=== PATIENT | female | born 2000 | race Caucasian/White ===

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

== ENCOUNTER 2019-06-12 07:31 | Day surgery (SDC) | payer OTHER, SELFPAY ==
[2019-05-15 08:57] VITALS: BMI 20.7
--- NOTE | 2019-05-15 10:16 | HP_ITS ---
Intake Vital Signs 05/15/19 Height 5 ft 4 in 05/15/19 Weight: 121 lb 05/15/19 Body Mass Index (BMI) 20.7 05/15/19 Blood Pressure 138/86 H 05/15/19 Blood Pressure Location Rt brachial 05/15/19 Blood Pressure Position Sitting 05/15/19 Respiratory Rate 18 05/15/19 Pulse Rate 79 05/15/19 Pulse Source Monitor 05/15/19 Temperature 98.1 F 05/15/19 Temperature Source Oral 05/15/19 Pulse Ox 100 05/15/19 Oxygen Delivery Method room air Intake Visit Reasons: C-Scope Consult Car[employer] E[employer]ctor Required: No Is patient in pain?: No Allergies latex Allergy (Intermediate, Verified 05/15/19 08:59) Rash Medications escitalopram 20 mg tablet 20 mg PO DAILY 05/15/19 [History Confirmed 05/15/19] lubiprostone 8 mcg capsule 8 mcg PO BID 05/15/19 [History Confirmed 05/15/19] Post menopausal: No PFSH Medical History Abdominal pain (Acute) Anxiety (Acute) Constipation (Acute) Diarrhea (Acute) Nausea (Acute) Surgical History (Updated 05/15/19 @ 08:56 by Cathy Ryan) No history of previous surgery (Acute) Family History (Updated 05/15/19 @ 08:57 by Cathy Ryan) Father Diabetes Grandfather Colon cancer Diabetes Grandmother Cancer ovarian cancer Social History (Updated 05/15/19 @ 10:16 by Wilbur Casillas MD) Smoking Status: Never smoker alcohol intake: never substance use type: does not use HPI HPI HPI: JANEL DURANT, is a 18 F who presents to the office today for HPI HPI Surgical H&P: Yes HPI: JANEL DURANT, is a 18 F who presents to the office today for Alternating constipation and diarrhea. The patient reports that she had been having constipation since she was a child. She says over the last 4 weeks she has developed diarrhea instead. This is been happening daily if not more times per day. She reports some lower abdominal cramping as well. She has not had any travel recently. She also reports that she has not had any blood in her stool but she does have a grandfather who had ulcerative colitis and colon cancer. She has never had any endoscopy. ROS General General: Yes fatigue; no weight change, appetite, colon cancer, breast cancer or weakness HEENT HEENT: No difficulty swallowing, eye injury, eye surgery, swollen glands or hoarseness Endo Endocrine: No thyroid disease, diabetes mellitus, thyroid cancer, Hair loss, heat intolerance or cold intolerance Skin Skin: No rash or changing moles Breast Breast: No left breast lump, right breast lump, nipple discharge, breast pain, abnormal mammogram, abnormal US or breast enlargement Musc Musculoskeletal: No back problems, arthritis, rheumatoid arthritis, gout or joint pain Cardio Cardiovascular: No murmur, pacemaker, heart disease, atrial fibrillation, high blood pressure, heart attack, heart stent, palpitations, shortness of breat with exertion or chest pain Psych Psychiatric: Yes anxiety; no depression or hearing voices Resp Respiratory: No shortness of breath, No sleep apnea, No cough, No COPD, No asthma, No emphysema, No wheezing Gastro Gastrointestinal: Yes abdominal pain, Yes nausea or vomiting, Yes diarrhea, Yes constipation, No blood in stool, No acid reflux, No hemorrhoids, No ulcers, No gallbladder problem, No black,tarry stools Wilder Hematologic: No blood thinners, No blood disorders, No bleeding, No anemia, No blood clots Neuro Neurologic: No system reviewed and no additional complaints, except as docu, No as per HPI, No abnormal walking, No abnormal hearing, No abnormal movements, No abnormal speech, No behavioral changes, No burning sensations, No confusion, No seizure-like activity, No unsteadiness, No dizziness, No localized weakness, No frequent falls, No headache(s), No lack of coordination, No loss of vision, No memory loss, No numbness, No other visual disturbances, No radiating pain, No restless legs, No sensory deficit, No fainting, No tingling, No tremor(s), No weakness, No other Exam Const General: cooperative Orientation: alert, oriented x3 Chest Breast Palpation: No nipple discharge Resp Effort & Inspection: normal respiratory effort Auscultation: clear to auscultation bilaterally Cardio Rate: regular rate Rhythm: regular rhythm Heart Sounds: no murmurs GI Inspection: non-distended Palpation: soft, nontender Assessment & Plan Problems 1. Family history of ulcerative colitis Z83.79 2. Diarrhea, unspecified type R19.7 Plan The patient has been having 4 to 5 weeks of diarrhea and abdominal pain. She has a family history of ulcerative colitis. I do believe that a colonoscopy is warranted given the family history of ulcerative colitis especially. I will also order stool studies. I explained endoscopy in detail to the patient. I explained the risks including but not limited to stroke or heart attack with anesthesia, perforation of the GI tract, bleeding, infection. I explained that any of these could necessitate further emergency surgery. The patient understands and all questions were answered sufficiently. The patient wishes to proceed with procedure. Wilbur Casillas MD Pager: [facility] [address] [place] [address], [address] [place] [address] Office: Orders Orders: Colonoscopy Today ENTERIC PATHOGEN PANEL STOOL Today R19.7 Stool Lactoferrin/WBC Today R19.7 CDIFF (Molecular) Today R19.7 Coding Level of Care Code Off vis,new,level 3 Diagnoses Family history of ulcerative colitis Z83.79 Diarrhea, unspecified type R19.7 ??Diarrhea type: unspecified type 05/15/19 1016 <Electronically signed by Wilbur freeman MD> Date _ Wilbur Casillas MD I have re-examined the patient. There are no clinical changes since date of exam.
[2019-06-12] VITALS (7 sets, daily range): BP systolic 91–119; BP diastolic 54–73; PULSE 66–95; RESP 15–16; TEMP 36.2–36.9; O2SAT 99–100
[2019-06-12 08:02] LABS: Internal QC Validated? YES +Cl - CLEAR BKGD; Pregnancy, Urine Negative Negative
[2019-06-12] MEDS: Lactated Ringers 1,000 ML 100 ML IV (08:04)
--- NOTE | 2019-06-12 08:30 | COLBX_PTH ---
PATIENT: JANEL KHAN LOC: EN U#:[id number] AGE/SX: 18/F ROOM: RE06/12/[address]: Dr. Wilbur Casillas MD : 2000 BED: DIS: 06/12/2019 SPEC #: [id number] RECD: 06/12/19 12:51 STATUS: ROSARIO ZACHARY #: [id number] KERRIE: 06/12/19 08:[address]: Wilbur Casillas DEPT: SURGICAL PATHOLOGY RECD BY: Isaías Tinsley ENTERED: 06/12/19 13:26 SP TYPE: COLON BX OTHR DR: Dr. Zev Jefferson MD Tissues: COLON BIOPSY Procedures: Surgery Specimen Level IV HEADER OPERATION: Colonoscopy (MAC) PRE-OP DIAGNOSIS: Constipation/diarrhea alternating TISSUE SUBMITTED: Random colon biopsies MICROSCOPIC DIAGNOSIS Colon, random biopsy: Melanosis coli. AM:radha 06/15/19 MICROSCOPIC DESCRIPTION Slides are reviewed. GROSS DESCRIPTION Received in fixative is one container labeled with the patient's name and designated random colon biopsy. The specimen consists of multiple irregular fragments of light seymour soft tissue that in aggregate measure 2 x 1 x 0.1 cm. The specimen is totally submitted in one cassette. / SJ:radha 06/12/19 TC:5 CPT: 90044
--- NOTE | 2019-06-12 09:06 | OP.COLON_ITS ---
Patient Name: Kathleen Ortega Procedure Date: 06/12/2019 8:31 AM Date of : 2000 Age: 18 Procedure: Colonoscopy Indications: Abdominal pain in the left lower quadrant, Chronic diarrhea Providers: Wilbur Casillas MD Referring MD: Wilbur Casillas MD Medicines: Monitored Anesthesia Care Patient Profile: This is a 18 year old female. Refer to note in patient chart for documentation of history and physical. Last Colonoscopy: none. The patient's first colonoscopy is today. Complications: No immediate complications. Estimated blood loss: Minimal. Procedure: Pre-Anesthesia Assessment: - Prior to the procedure, a History and Physical was performed, and patient medications and allergies were reviewed. The patient's tolerance of previous anesthesia was also reviewed. The risks and benefits of the procedure and the sedation options and risks were discussed with the patient. All questions were answered, and informed consent was obtained. Prior Anticoagulants: The patient has taken no previous anticoagulant or antiplatelet agents. After reviewing the risks and benefits, the patient was deemed in satisfactory condition to undergo the procedure. After I obtained informed consent, the scope was passed under direct vision. Throughout the procedure, the patient's blood pressure, pulse, and oxygen saturations were monitored continuously. The Colonoscope was introduced through the anus and advanced to the cecum, identified by the appendiceal orifice, ileocecal valve and palpation. The colonoscopy was performed without difficulty. The patient tolerated the procedure well. The quality of the bowel preparation was good. Scope In: 8:40:42 AM Scope Withdrawal Time 0 hours 8 minutes 15 seconds Scope Out: 9:01:22 AM Total Procedure Duration Time 0 hours 20 minutes 40 seconds Findings: The entire examined colon appeared normal on direct and retroflexion views. Biopsies for histology were taken with a cold forceps from the entire colon for evaluation of microscopic colitis. Impression: - The entire examined colon is normal on direct and retroflexion views. - Biopsies were taken with a cold forceps from the entire colon for evaluation of microscopic colitis. Recommendation: - Discharge patient to home. - Resume previous diet. - Continue present medications. - Await pathology results. - Repeat colonoscopy at age 48 for screening purposes. Procedure Code(s): --- Professional --- 37834, Colonoscopy, flexible; with biopsy, single or multiple Diagnosis Code(s): --- Professional --- R10.32, Left lower quadrant pain K52.9, Noninfective gastroenteritis and colitis, unspecified CPT copyright 2017 [employer] [place] [employer]. All rights reserved. The codes documented in this report are preliminary and upon intranet developer review may be revised to meet current compliance requirements. Wilbur Casillas MD 06/12/2019 9:06:19 AM This report has been signed electronically. Number of Addenda: 0 Note Initiated On: 06/12/2019 8:31 AM
== END 2019-06-12 10:11 | disposition home or self-care (01) ==
LOC: EN 07:33 → AC 07:35
PROVIDERS: Anesthesiology; Family Provider Family Medicine; PCP Family Medicine; Referring Provider Surgery; Visit Provider Surgery
PROC: 0DJD8ZZ Inspection of Lower Intestinal Tract, Via Natural or Artificial Opening Endoscopic (ICD-10-PCS; CPT 45378; principal; 2019-06-12 08:25)
DX: K63.89 Other specified diseases of intestine (principal); F41.9 Anxiety disorder, unspecified; K58.9 Irritable bowel syndrome, unspecified; Z80.0 Family history of malignant neoplasm of digestive organs; Z79.899 Other long term (current) drug therapy
CPT/HCPCS: 45380; 81025; 88305; J7120; J2405

== ENCOUNTER → 2022-09-05 | Outpatient (CLI) | payer BC, SELFPAY ==
--- NOTE | 2022-09-05 07:24 | US_ITS ---
STUDY: ABDOMINAL ULTRASOUND - RIGHT UPPER QUADRANT REASON FOR VISIT: Female, 21 years old RUQ PAIN TECHNIQUE: Ultrasound evaluation of the right upper quadrant was performed with real-time and static vera-scale imaging. TECHNICAL QUALITY: Adequate. COMPARISON: None. FINDINGS: Liver: The liver measures 13.3 cm. There is normal echogenicity of the liver. The bile ducts are within normal limits. There is hepatic color flow. The direction of portal flow is hepatopetal. There is no demonstrated mass lesion. Gallbladder: Normal distended gallbladder. The gallbladder wall measures 2 mm. There is a negative sonographic Manning''s sign. There is no pericholecystic fluid. There are no gallstones. Common Bile Duct (C.B.D.): The common bile duct measures 3 mm. Pancreas: Normal size of the head, body and tail of the pancreas. There is normal echogenicity of the pancreas. There is no demonstrated pancreatic mass or cyst. Right Kidney: Normal size of the right kidney. The right kidney measures 10.6 cm x 6 cm x 3.8 cm. Normal renal cortex. The right cortex measures 1.4 cm. There is no demonstrated renal mass or cyst. There is no right hydronephrosis. US/Abdomen Limited IMPRESSION: Normal right upper quadrant ultrasound examination. Electronically Signed: Malcolm Kat MD at 8:38 EST ,
== END | disposition home or self-care (01) ==
PROVIDERS: PCP Physician Assistant; Visit Provider Physician Assistant
DX: R10.11 Right upper quadrant pain (principal)
CPT/HCPCS: 76705

== ENCOUNTER → 2022-12-24 | Outpatient (CLI) | payer BC, SELFPAY ==
--- NOTE | 2022-12-24 09:57 | NM_ITS ---
CLINICAL: 22-year-old female with history of right upper quadrant abdominal pain. RADIONUCLIDE HEPATOBILIARY SCINTIGRAPHY COMPARISON: Abdominal ultrasound report 09/05/2022 FINDINGS: Following the intravenous administration of 5.4 mCi of 99m Tc Mebrofenin, hepatobiliary images reveal: 1. Relatively prompt and homogeneous radiopharmaceutical concentration is noted by a normal sized liver. No parenchymal defects are identified. 2. Gallbladder activity is identified at 10 minutes post radiopharmaceutical administration. 3. Small intestinal tract is observed at 30 minutes following tracer injection. 4. Washout of the radiopharmaceutical by the hepatic parenchyma appears qualitatively normal. 5. There appears to be scintigraphic evidence of pre-CCK duodenal gastric reflux initiating at 30 minutes post tracer injection. Cholecystokinin (0.02 ug/kg) was administered intravenously over a 3-minute period. The post CCK gallbladder ejection fraction calculated at 27 minutes following Cholecystokinin administration was noted to be 36.0 % (normal greater than 35%). During 30 minutes of post CCK imaging, there is no scintigraphic evidence of reflux of the radiotracer into the common hepatic duct or refilling of the gallbladder. There is scintigraphic evidence of continued post CCK duodenal gastric reflux. NM/Hepatobilliary Img w/Pharm Int IMPRESSION: 1. A gallbladder ejection fraction calculated to be greater than 35% following the administration of Cholecystokinin makes the probability of functional hepatobiliary disease (gallbladder and/or sphincter of Oddi dyskinesia) and/or organic hepatobiliary disease (chronic acalculous cholecystitis and/or cystic duct syndrome) to be low. (Marco Garcia et al, Journal of Nuclear Medicine 32:1695, 1990). 2. There is apparent visualized scintigraphic evidence of pre-post CCK duodenal-gastric reflux. (Tre et al, Nucl Med [employer] pg. 35, 1980). Electronically Signed: Jim Macario, at 8:13 EDT ,
== END | disposition home or self-care (01) ==
LOC: NM 09:53
PROVIDERS: PCP Physician Assistant; Referring Provider Physician Assistant; Visit Provider Physician Assistant
DX: R10.11 Right upper quadrant pain (principal)
CPT/HCPCS: 78227; A9537; J2805

== ENCOUNTER → 2024-08-18 | Outpatient (CLI) | payer BC, SELFPAY ==
--- NOTE | 2024-08-18 | TONS_PTH ---
PATIENT: JANEL KHAN LOC: [facility] U#:[id number] AGE/SX: 23/F ROOM: RE08/18/[address]: Dr. Rod Bernardo MD : 2000 BED: DIS: 08/18/2024 SPEC #: [id number] RECD: 08/19/24 08:14 STATUS: ROSARIO SHARMA #: [id number] KERRIE: 08/18/24 00:[address]: Rod Bernardo DEPT: SURGICAL PATHOLOGY RECD BY: Debbie Ch ENTERED: 08/19/24 08:15 SP TYPE: TONSILS OTHR DR: MISHA Dominguez [facility] Tissues: Tonsil, NOS Procedures: Surgery Specimen Level III HEADER OPERATION: Tonsillectomy PRE-OP DIAGNOSIS: Chronic tonsillitis TISSUE SUBMITTED: Bilateral tonsils - pin on right MICROSCOPIC DIAGNOSIS Bilateral tonsils, tonsillectomy: Reactive lymphoid hyperplasia, consistent with chronic tonsillitis. Focal actinomycosis colonization. SJ: 08/20/2024 MICROSCOPIC DESCRIPTION Slides are reviewed. GROSS DESCRIPTION Received is one container labeled with the patient's name and designated tonsils - pin on right are two tonsils that in aggregate weigh 6.9 gm. The right tonsil has a pin-tie on it and measures 3 x 2 x 1.2 cm. The left tonsil measures 2.8 x 2 x 1.5 cm. Both tonsils are similar in appearance. The external surfaces are pink-seymour, smooth, glistening and somewhat lobulated. Focally they are hemorrhagic, granular and bear cautery artifact. Serial cross sections through the tonsils reveal normal tonsillar architecture. Sections are submitted in two cassettes as follows: 1 - right tonsil, 2 - left tonsil. NINA. 08/19/2024 TC:3 CPT: 67792 x2
== END | disposition home or self-care (01) ==
PROVIDERS: PCP Physician Assistant; Referring Provider Otolaryngology; Visit Provider Otolaryngology
DX: J35.01 Chronic tonsillitis (principal)
CPT/HCPCS: 88304

== ENCOUNTER 2024-08-22 17:00 | Emergency (ER) | payer BC, SELFPAY ==
[2024-08-22 17:01] VITALS: BP 126/91; PULSE 114; RESP 15; TEMP 36.8; O2SAT 100; BMI 19.9
--- NOTE | 2024-08-22 17:37 | EX.ED.DYSGE1 ---
HPI History of Present Illness Chief Complaint: Sore Throat Informant: patient Narrative Narrative: Patient is a 23-year-old female who is 4 days status post tonsillectomy with Dr. Bernardo. She states the first 2 days she was doing okay but then yesterday evening developed some vomiting. Since then she has had increased pain as well as vomiting. She has had some chills, mild cough and a temperature of 99.8. She has Zofran ODT at home but is not helping. She is not able to keep her pain medicine down. She denies any bleeding from her throat. Denies any shortness of breath difficulty breathing. Denies abdominal pain but more so just stomach feels upset from not eating. Having a hard time eating and drinking. Spoke with her surgeon who recommend she come to the ER for medications and fluids. No sick contacts reported. Patient is not concern for control. Only a medical history of PCOS. No other complaints or concerns reported at this time. States she has not had a bowel movement since her surgery but is passing gas. PFSH PFS Medical History Low vitamin D level Fatigue RUQ pain Amenorrhea Irritable bowel syndrome with constipation Eating disorder PCOS (polycystic ovarian syndrome) Constipation Diarrhea Nausea Abdominal pain Anxiety Home Medications ?Medication ?Instructions ?Recorded ?Last Taken ?Type Control Pill 1 tab PO DAILY 06/10/19 Unknown History fluoxetine 40 mg capsule 40 mg PO DAILY 09/26/22 Unknown History omeprazole 20 mg capsule,delayed 20 mg PO DAILY 09/26/22 Unknown History release metoclopramide HCl 5 mg tablet 5 mg PO Q6H PRN nausea and 08/22/24 Unknown Rx (Reglan) vomiting #20 tabs promethazine 25 mg rectal 25 mg TN Q6H PRN nausea and 08/22/24 Unknown Rx suppository vomiting #12 ea Allergy/AdvReac Type Severity Reaction Status Date / Time latex Allergy Intermediate Rash Verified 08/22/24 17:01 Family History Father Diabetes Grandfather Colon cancer Diabetes Grandmother Cancer ovarian cancer Surgical History No history of previous surgery Social History Smoking Status: Never smoker alcohol intake: never substance use type: does not use ROS ROS ED Constitutional Constitutional ED: Reports chills, fever(s) and other Details: Low-grade with Tmax of 99.8 ENT ENT ED: Reports sore throat and other Details: Recent tonsillectomy Cardiovascular Cardiovascular: Denies chest pain Respiratory/Chest Respiratory/Chest: Reports cough; Denies dyspnea Gastrointestinal Gastrointestinal: Reports constipation, nausea and vomiting; Denies abdominal pain or diarrhea Musculoskeletal Musculoskeletal: Denies myalgias Integumentary Denies rash Neurologic Neurologic: Reports weakness Hematologic/Lymphatic Hematologic/Lymphatic: Denies easy bleeding or easy bruising EXAM Physical Exam Const Vital Signs: 08/22/24 17:01 08/22/24 19:01 08/22/24 21:00 Temperature 98.2 F Temperature Source Oral Pulse Rate 114 H 89 Respiratory Rate 15 Blood Pressure 126/91 H 101/78 117/87 H Blood Pressure Mean 102 85 97 Pulse Ox 100 100 Oxygen Delivery Method Room Air 08/22/24 21:43 Temperature 97.6 F L Temperature Source Pulse Rate 89 Respiratory Rate 16 Blood Pressure 117/87 H Blood Pressure Mean 97 Pulse Ox 100 Oxygen Delivery Method Positive well nourished and well developed General Appearance ED: well developed and NAD; Negative for pallor HEENT Reports moist mucous membranes HEENT Narrative: Eschar in the oropharynx with no active bleeding consistent with recent tonsillectomy. Uvula is midline. No trismus. Eyes PERRL and EOMs intact bilaterally Neck supple Resp normal respiratory effort and clear to auscultation bilaterally Cardio regular rhythm Rate: tachycardic GI normal to inspection, nondistended, normoactive bowel sounds and non-tender Extremity normal to inspection General Extremety ED: Negative for edema General Extremity: Negative for edema Neuro oriented x3 Sensorium / Orientation: alert Motor Exam: Negative for general weakness Psych mental status grossly normal Skin no rashes or lesions noted General Skin Exam: Negative for jaundice or pallor MDM MDM MDM Narrative Medical decision making narrative: Patient is evaluated for nausea, vomiting increased pain status post tonsillectomy. She is postop day 4. She overall is well-appearing but is tachycardic. I suspect this is more of a pain control/dehydration situation. Will obtain labs looking for signs of electrolyte normalities. She is not any signs of bleeding or complication associated with the surgery itself. She does report low-grade temperature and chills so we will look for signs of infection such as influenza and urinary tract infection. She has not made any respiratory symptoms suspicion for pneumonia. She is 100 on room air with no increased work of breathing. Do not think chest x-ray is indicated. Patient does have a leukocytosis of 16.5 with no left shift. I suspect this is more reactive. Hemoglobin normal at 13.4. Normal platelets. CMP shows mild hyponatremia sodium 133, normal kidney function, normal liver enzymes. Bicarb mildly low at 28 consistent with dehydration. Urinalysis does show 150 ketones but is not consistent with infection. Urine is negative Patient does report episode of chest pressure and discomfort after receiving morphine. Obtain EKG but suspect this is more of a side effect of the morphine than anything that is ACS. In addition patient does have further episode of vomiting after receiving Zofran and my reevaluation. She overall was feeling better. Will give another liter of fluid and Reglan. Did discuss the case with her surgeon, Dr. Art. He is fine with one-time dose of Toradol and also recommends one-time dose of Decadron. Plan to work on getting her feeling better and discharged home. EKG sinus tachycardia with T wave inversions in inferior leads as well as V5 and V6, no reciprocal changes. Chest pain has resolved. Troponins added on which is normal. Patient is unaware of having any history of abnormal EKGs. The EKG is not consistent with her presentation today which is vomiting and postoperative pain/dehydration. Patient is instructed to follow-up with her primary care doctor for further outpatient evaluation of her abnormal EKG. Is informed of this. Is given return precautions from the standpoint. Given no hypoxia or tachypnea or shortness of breath do not suspect associated with pulmonary emboli. Is feeling improved. Tachycardia has resolved. Is able to tolerate p.o. challenge. Will be discharged home and is given a prescription for Reglan as well as Phenergan suppositories for further nausea and vomiting control. Will follow-up outpatient with her ENT doctor. Lab Data Attestation: I reviewed the patient's lab results. Labs: Laboratory Results - last 24 hr 08/22/24 08/22/24 08/22/24 17:48 17:53 18:02 WBC 16.5 H RBC 4.61 Hgb 13.4 Hct 39.0 MCV 84.6 MCH 29.1 MCHC 34.4 RDW Std Deviation 35.9 RDW Coeff of Diana 11.8 Plt Count 282 MPV 9.8 Immature Gran % (Auto) 0.600 Neut % (Auto) 85.6 H Lymph % (Auto) 7.2 L [place] % (Auto) 5.9 Eos % (Auto) 0.3 Baso % (Auto) 0.4 Absolute Neuts (auto) 14.1 H Absolute Lymphs (auto) 1.19 Nucleated RBC % 0 Sodium 133 L Potassium 3.6 Chloride 101 Carbon Dioxide 20.0 L Anion Gap 12 BUN 9 Creatinine 0.48 L Estim Creat Clear Calc 148.77 Est GFR (MDRD) Af Amer 204 Est GFR (MDRD) Non-Af 169 BUN/Creatinine Ratio 18.9 Glucose 103 Calcium 9.5 Total Bilirubin 0.40 AST 12 L ALT 25 Alkaline Phosphatase 82 Troponin I High Sens Total Protein 8.3 H Albumin 3.9 Globulin 4.4 H Albumin/Globulin Ratio 0.9 Lipase 53 Urine Color Straw Urine Clarity Sl. Cloudy Urine pH 6.0 Ur Specific [place] 1.030 Urine Protein 30 H Urine Glucose (UA) Normal Urine Ketones 150 A* Urine Occult Blood Negative Urine Nitrite Negative Urine Bilirubin Negative Urine Urobilinogen Normal Ur Leukocyte Esterase 100 H Urine RBC 0 SEEN Urine WBC 0-5 SEEN Ur Squamous Epith Cells 0-5 SEEN Urine Bacteria 0 SEEN Urine Mucus 0 SEEN Urine Test Negative 08/22/24 19:32 WBC RBC Hgb Hct MCV MCH MCHC RDW Std Deviation RDW Coeff of [place] Plt Count MPV Immature Gran % (Auto) Neut % (Auto) Lymph % (Auto) [place] % (Auto) Eos % (Auto) Baso % (Auto) Absolute Neuts (auto) Absolute Lymphs (auto) Nucleated RBC % Sodium Potassium Chloride Carbon Dioxide Anion Gap BUN Creatinine Estim Creat Clear Calc Est GFR (MDRD) Af Amer Est GFR (MDRD) Non-Af BUN/Creatinine Ratio Glucose Calcium Total Bilirubin AST ALT Alkaline Phosphatase Troponin I High Sens < 3 L Total Protein Albumin Globulin Albumin/Globulin Ratio Lipase Urine Color Urine Clarity Urine pH Ur Specific [place] Urine Protein Urine Glucose (UA) Urine Ketones Urine Occult Blood Urine Nitrite Urine Bilirubin Urine Urobilinogen Ur Leukocyte Esterase Urine RBC Urine WBC Ur Squamous Epith Cells Urine Bacteria Urine Mucus Urine Test Rhythm Strip Rhythm Strip: Sinus Tach Rate: 104 Ectopy: None EKG Initial EKG: Attestation: I personally reviewed and interpreted this EKG as follows: Interpretation: Sinus Tachycardia Comments: Sinus tachycardia rate 104 bpm Normal axis Normal intervals T wave inversions in inferior leads as well as V3 through V6 with no reciprocal changes Prior EKG tracings: not available for review Prior: No Prior Management 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 Discharge Plan Triage Chief Complaint: Sore Throat ED Provider: Lizbeth Nolasco Dx/Rx/DC Orders Clinical Impression: Acute dehydration, Post-operative pain, Nausea & vomiting, Abnormal ECG Instructions: ED Dehydration (Adult), ED Post Op Wound Check, Pain Prescriptions: New metoclopramide HCl [Reglan] 5 mg tablet 5 mg PO Q6H PRN (Reason: nausea and vomiting) Qty: 20 0RF promethazine 25 mg suppository 25 mg TN Q6H PRN (Reason: nausea and vomiting) Qty: 12 0RF No Action fluoxetine 40 mg capsule 40 mg PO DAILY omeprazole 20 mg capsule,delayed release(DR/EC) 20 mg PO DAILY Control Pill 1 tab PO DAILY Primary Care Provider: Zayra Carrizlaes Referrals: Zayra Carrizales, MISHA [Primary Care Provider] - Activity Restrictions/Additional Instructions: You were given IV fluid, pain and nausea medicine. YOu all received a dose of steroids. Continue to push fluids at home. While in the ER an EKG was checked because of an episode of chest pain after receiving the morphine. Your EKG was abnormal. I do not think it is related to your symptoms today and you do not have any significant electrolyte abnormalities on your labs. Please follow-up with your primary care doctor for further outpatient evaluation of this abnormal EKG Print Language: Sudanese Disposition Disposition: Home, Self Care Discharge Date/Time: 08/22/24 21:59
[2024-08-22 17:54] LABS: Bacteria 0 SEEN /hpf (None Seen); Mucous, Urine 0 SEEN /hpf (<or=2+); Red Blood Cells-Urine 0 SEEN /hpf (0-5)
[2024-08-22 17:56] LABS: Color, Urine Straw (Yellow); Glucose, Dipstick Normal (Normal); Leukocyte Esterase-Dipstick 100 /ul (Negative); Nitrite-Dipstick Negative (Negative); Occult Blood-Urine Negative /ul (Negative); Protein-Dipstick 30 mg/dl (Negative); Urine Bilirubin Dipstick Negative (Negative); Urine Clarity Sl. Cloudy (Clear); Urine Urobilinogen Normal (Normal)
[2024-08-22 18:03] LABS: Ketone-Dipstick 150 mg/dl (Negative); Squamous Epithelial Cells - UA 0-5 SEEN /hpf (5-10); White Blood Cells 0-5 SEEN /hpf (0-5)
[2024-08-22 18:04] LABS: Internal QC Validated? YES +Cl - CLEAR BKGD; Pregnancy, Urine Negative Negative
[2024-08-22] MEDS: Ondansetron 4 MG/2 ML Vial IV (18:04)
[2024-08-22] MEDS: Ketorolac 15 MG/ML Vial IM (18:04)
[2024-08-22] MEDS: 0.9% Normal Saline (1000mL) 1,000 ML 1000 ML IV (18:04)
[2024-08-22] MEDS: Morphine 4 MG/ML Syringe IV (18:05)
[2024-08-22 18:07] LABS: Absolute Lymphocyte Count 1.19 X10^3/uL (0.83-4.51); Absolute Neutrophil Count 14.1 X10^3/uL (2.0-7.7); Basophil# 0.06 X10^3/uL; Basophil% 0.4 % (0-1); Eosinophil# 0.05 X10^3/uL; Eosinophils% 0.3 % (0-5); Hemoglobin 13.4 g/dL (12.0-15.0); Lymphocyte # 1.19 X10^3/ul (0.83-4.51); Lymphocyte % 7.2 % (19-41); Mean Corp Hgb Conc 34.4 g/dL (32-36); Mean Corpuscular Hgb 29.1 pg (27.0-32.0); Mean Corpuscular Volume 84.6 fL (81-99); Mean Platelet Vol. 9.8 fl (6.2-12.0); Monocyte# 0.97 X10^3/uL; Monocyte% 5.9 % (0-10); NRBC Flagged by Analyzer 0 % (0-5); Neutrophil # 14.13 X10^3/uL (2.7-7.7); Neutrophil % 85.6 % (47-70); Platelet Count 282 K/mm3 (150-450); RBC Distribution Width CV 11.8 % (11.6-14.6); RBC Distribution Width SD 35.9 fl (35.1-43.9); Red Blood Count 4.61 M/mm3 (4.2-5.4); White Blood Count 16.5 K/mm3 (4.4-11.0)
[2024-08-22 18:19] LABS: ALB/GLOB Ratio 0.9 RATIO (0.9-2.4); AST(SGOT) 12 U/L (15-37); Alanine Aminotransfer ALT/SGPT 25 U/L (13-56); Albumin, Serum 3.9 g/dL (3.2-5.0); Alkaline Phosphatase 82 U/L (45-117); Anion Gap 12 (5-15); BUN 9 mg/dL (7-18); BUN/Creat Ratio 18.9 RATIO (10-20); Calcium,Total 9.5 mg/dL (8.5-10.1); Chloride 101 mmol/L (98-107); Creatinine, Serum 0.48 mg/dL (0.55-1.02); EST Glomerular Filtration Rate 169 mL/min (>60); Est Glom Filt Rate - Afr Amer 204 mL/min (>60); Estimated Creatinine Clearance 148.77 ml/min; Globulin 4.4 g/dL (2.2-4.2); Glucose 103 mg/dL (74-106); Lipase 53 U/L (13-75); Potassium 3.6 mmol/L (3.5-5.1); Protein, Total 8.3 g/dL (6.4-8.2); Sodium Level 133 mmol/L (136-145)
[2024-08-22 19:01] VITALS: BP 101/78
--- NOTE | 2024-08-22 19:12 | EKG12_ITS ---
Test Reason : CP Blood Pressure : */* mmHG Vent. Rate : 104 BPM Atrial Rate : 104 BPM P-R Int : 128 ms QRS Dur : 74 ms QT Int : 320 ms P-R-T Axes : 71 73 -61 degrees QTcB Int : [address] & T wave abnormality, consider inferior ischemia Abnormal ECG Confirmed by JEREMY AGUAYO, PAGE ([id number]), general expeditor TUCKER SMITH ([id number]) on 08/24/2024 8:20:27 AM Referred By: Confirmed By: PAGE LUNA MD
[2024-08-22] MEDS: Mag Hydrox/Al Hydrox/Simeth 30 ML UDC PO (19:18)
[2024-08-22] MEDS: Lidocaine 2% Viscous15 ML UDC 15 ML PO (19:18)
[2024-08-22] MEDS: dexAMETHasone 10 MG/ML Vial 6 MG IV (19:18)
[2024-08-22] MEDS: Metoclopramide 10 MG/2 ML Vial 5 MG IV (19:26)
[2024-08-22] MEDS: 0.9% Normal Saline (1000mL) 1,000 ML 999 ML IV (19:26)
[2024-08-22 19:55] LABS: Troponin-I HS < 3 pg/mL (3.0-54.0)
[2024-08-22 21:00] VITALS: BP 117/87; PULSE 89; O2SAT 100
[2024-08-22 21:43] VITALS: BP 117/87; PULSE 89; RESP 16; TEMP 36.4; O2SAT 100
== END 2024-08-22 21:59 | disposition home or self-care (01) ==
PROVIDERS: Emergency Provider Emergency Medicine; PCP Physician Assistant; Visit Provider Emergency Medicine
DX: E86.0 Dehydration (principal); G89.18 Other acute postprocedural pain; J02.9 Acute pharyngitis, unspecified; R11.2 Nausea with vomiting, unspecified; R94.31 Abnormal electrocardiogram [ECG] [EKG]; R07.89 Other chest pain; E87.1 Hypo-osmolality and hyponatremia; E28.2 Polycystic ovarian syndrome; F41.9 Anxiety disorder, unspecified; Z90.89 Acquired absence of other organs; Z79.899 Other long term (current) drug therapy
CPT/HCPCS: 80053; 81001; 81025; 83690; 84484; 85025; 87631; 93005; 96361; 96372; 96374; 96375; 99283; A4216; J2405

== ENCOUNTER → 2024-10-13 | Outpatient (CLI) | payer BC, SELFPAY ==
--- NOTE | 2024-10-13 12:45 | STEWCON_ITS ---
Reason For Study Reason For Study: Abnormal EKG Stress Results Protocol: Stress echocardoigram with Definity Emeterio Protocol Maximum Predicted HR: 195 bpm Target HR: 166 bpm % Maximum Predicted HR: 101 % DurationHeart Rate Stage (mm:ss) (bpm) BP Comment Baseline 83 122/76Patient denies chest pain Stage 1 3:00 113 110/70Patient denies chest pain Stage 2 3:00 148 110/72Patient denies chest pain Stage 3 3:00 181 134/74Patient denies chest pain Stage 4 2:00 196 142/64Patient complains of lightheadness and leg fatgiue Recovery 100 114/64Definity 2ml total used per protocol Stress Duration: 11:00 mm:ss Maximum Stress HR: 196 bpm Baseline Echocardiogram Findings Stress Echo Wall motion Data Resting WM Intermediate WM Stress WM ECHO/Stress Test Echo W/Contrast Interpretation Summary Exercise stress echo with Definity enhancement. 23-year-old lady with a history of chest pain. Resting EKG demonstrates normal sinus rhythm with a rate of 71 bpm. Resting blo od pressure is 122/76 mmHg. The patient exercised according to regular Emeterio protocol for total duration of 11 minutes completing 2 minutes into stage IV of the Emeterio protocol the maximum heart rate attained was 196 bpm which was 100% max i mpacted heart rate the maximum workload was 13.4 metabolic equivalents. The rate-pressure product was 27,800. The peak blood pressure 142/64 mmHg. No clinical angina was noted the tach test was terminated due to the target heart rate bein g achieved. Stress echocardiogram. The resting echocardiogram demonstrated preserved ejecti on fraction with Definity enhancement. The estimated ejection fraction was 55%. With stress imaging there was reductio n of low ventricular cavity size and peaking of ejection fraction over 65%. No new wall motion abnormalities were no jocy. Conclusion: Exercise stress echocardiogram with no evidence of ischemia at a high workload. Normal resting and stress echocardiographic imaging. Ordering Physician: Zayra Carrizales Referring Physician: Zayra Carrizales Performed By: Cathy Lin, BERNARD, RVT
== END | disposition home or self-care (01) ==
PROVIDERS: PCP Physician Assistant; Referring Provider Physician Assistant; Visit Provider Physician Assistant
DX: R94.31 Abnormal electrocardiogram [ECG] [EKG] (principal)
CPT/HCPCS: 93017; 93350; Q9957; A4216; C8928

== ENCOUNTER → 2025-01-09 | Outpatient (CLI) | payer BC, SELFPAY ==
--- OUTSIDE RECORDS SUMMARY | 2025-01-09 09:33 | XMS RPT_ITS | CCD ---
Author Organization [facility] Care Team Providers Care Back Tender Fourdrinier Name Role Phone IVETTE MCCRACKEN Unavailable Unavailab le IVETTE MCCRACKEN Unavailable Unavailab ZEV Sierra Unavailable Unavailable ZEV MCKINNEY Unavailable Unavailable ZINA, WILLY J Unavailable Unavailable ZINA, WILLY J Unavailable Unavailable Gilbert GARAY Unavailable Unavailable ZINA, WILLY J Unavailable Unavailable ZEV MCKINNEY Unavailable Unavailable NEGRITA MEJIA Attending Unavail able CARRIZALES, ZAYRA J Primary Care Unavailable CARRIZALES, ZAYRA J Consulting Unavailable CARRIZALES, ZAYRA J Attending Unavailable CARRIZALES, ZAYRA J Admitting Unavailable PROVIDER, UNKNOWN Consulting Unavailable CARRIZALES, ZAYRA J Primary Care Unavailable CARRIZALES, ZAYRA J Consulting Unavailable CARRIZALES, ZAYRA J Attending Unavailable CARRIZALES, ZAYRA J Admitting Unavailable PROVIDER, UNKNOWN Consulting Unavailable Zayra Carrizales PA-C J Primary Care Provider All ONOFRE Zayra J Primary Care Provider Eder FINN, Dennis Magui Unavailable All ONOFRE Zayra J Unavailable Fadumo Carrizales PA-Cissa J Unavailable Dr. Harjeet Thakur Unavailable General Surgery Provider Unavailable Unavail able Gastroenterology Provider Unavailable Unajuan Smith LPN, Raysa Unavailable Unavaillarry Warren MD, Ese Lance Unavailable Jerardo ZIEGLER, Bernie Unavailable Zev Mckinney MD Unavailable Day DIGITAL FORENSICS EXAMINER, Erica Unavailable Unavailable Atif REGALADON, Maira Unavailable Unavailable Leila Jimenez MA Unavailable Unavailable Rashad ALSTON, Andree Berg Unavailable Unavaila ble Antonio DIGITAL FORENSICS EXAMINER, Donald Unavailable Unavailable Mutersbaugh DIGITAL FORENSICS EXAMINER, Jes K Unavailable Unavai lable Mary Anne DIGITAL FORENSICS EXAMINER, Ese M Unavailable Unavailab le [place] DIGITAL FORENSICS EXAMINER, Dunia Tiwari Unavailable Unavailab le Serenity MA, Reshma Unavailable Unavailable Uptain CNM, Crystal K Unavailable [phone] Vess DIGITAL FORENSICS EXAMINER, Neare L Unavailable Unavailable Wengerd DIGITAL FORENSICS EXAMINER, Radha Unavailable Unavailabl e Zaugg DIGITAL FORENSICS EXAMINER, Yocasta Unavailable Unavailable Unavailable Unavailable Unavailable Unavailable Cornelius AGUAYO, Zach Hunter Unavailable [phone] Liban DIGITAL FORENSICS EXAMINER, Reshma Unavailable Unavailable Brock ONOFRE, Brittney Canales Unavailable [phone] [facility] Unavailable [facility] Attending Unavailable Zayra Cagle Primary Care Provider Dr. Rod Bernardo MD Attending Provider Dr. Rod Bernardo MD Referring Provider Dr. Lizbeth Nolasco DO Attending Provider Dr. Lizbeth Nolasco DO Emergency Provider Zayra Cagle Attending Provider Zayra Cgale Referring Provider Adrianne AGUAYO, Dr. Redmond Attending Provider MARYLIN BUSTAMANTE Attending Unavailable CARRIZALES, ZAYRA J Primary Care Unavailable MARYLIN BUSTAMANTE Admitting Unavailable MARYLIN BUSTAMANTE Referring Unavailable CARRIZALES, ZAYRA J Primary Care Unavailable MARYLIN BUSTAMANTE Attending Unavailable CARRIZALES, ZAYRA J Primary Care Unavailable MARYLIN BUSTAMANTE Attending Unavailable CARRIZALES, ZAYRA J Primary Care Unavailable PASKEY, ZAYRA FILEMON Attending Unavailable CARRIZALES, ZAYRA J Primary Care Unavailable PASKEY, ZAYRA FILEMON Referring Unavailable CARRIZALES, ZAYRA J Primary Care Unavailable PASKEY, ZAYRA FILEMON Admitting Unavailable PASKEY, ZAYRA FILEMON Attending Unavailable CARRIZALES, ZAYRA J Primary Care Unavailable MARYLIN BUSTAMANTE Attending Unavailable CARRIZALES, ZAYRA J Primary Care Unavailable PASKEY, ZAYRA FILEMON Admitting Unavailable ASHLEY BANKS Attending Unavailabl e CARRIZALES, ZAYRA J Primary Care Unavailable PASKEY, ZAYRA COLBERT Admitting Unavailable CARRIZALES, ZAYRA J Primary Care Unavailable ALICE, ZAYRA COLBERT Attending Unavailable Lizbeth Nolasco Attending Unavailable Carrizales PA, Zayra Primary Care Unavailable Carrizales PA, Zayra Primary Care Unavailable Adrianne, Ruy Attending Unavailable Adrianne, Ruy Referring Unavailable Carrizales PA, Zayra Referring Unavailable Carrizales PA, Zayra Primary Care Unavailable Adrianne, Graham Attending Unavailable Adrianne, Ruy Attending Unavailable Carrizales PA, Zayra Primary Care Unavailable Rod Bernardo Attending UnavailRod Dangelo Referring Unavailabl e Carrizales PA, Zayra Primary Care Unavailable Carrizales PA, Zayra Referring Unavailable Carrizales PA, Zayra Primary Care Unavailable Carrizales PA, Zayra Attending Unavailable Allergies Allergy Classification Reported Allergen(s) Allergy Type Date of Onset Reaction(s) Facility (20 sources) Latex; Translations: [Latex] Propensity to adverse reactions (disorder) 9 [facility] Repository Medications Current Medications Medication Drug Class(es) Dates Sig (Normalized) Sig (Original) acetaminophen 32 mg/ml oral solution (2 sources) take 650 mg by mouth every four hours acetaminophen (TYLENOL) 650 mg/20.3 mL Soln Take 20.3 mL (650 mg total) by mouth every 4 (four) hours . Active Control Pill (2 sources) Start: 06-10-2019 take 1 dose by mouth once daily Control Pill Active 1 {tbl} PO DAILY June 10, 2019 1:00am Start: 06-10-2019 take 1 tablet by mouth once da jose Control Pill Active 1 TABLET PO DAILY June 10, 2019 12:00am colestipol hydrochloride 1000 mg oral tablet (3 sources) Bile Acid Sequestrant Start: 04-24-2023 End: 05-24-2023 take 1 tablet by mouth twice daily colestipoL (Colestid) 1 gram tablet Take 1 (one) tablet (1 g total) by mouth 2 (two) times a day . 60 tablet 0 04/24/2023 Active dicyclomine hydrochloride 20 mg oral tablet (20 sources) Anticholinergic Start: 02-06-2023 End: 05-20-2024 dicyclomine (BENTYL) 20 mg tablet 1 (one) tablet (20 mg total) 4 (four) times a day before meals and nightly PRN . 02/06/2023 Active Start: 01-25-2016 End: 12-13-2016 take 1 capsule by mouth three times daily as needed Bentyl 10 MG Oral Capsule ; 1 Capsule TID as needed for 0 days Quantity: 60 {Capsule} Refills: 5 Ordered: 13-Dec-2016 TONEY Roberts Start: 25-Jan-2016 End: 13-Dec-2016 Status: Inactive Comments: Medication taken as needed. Comment on above: Medication taken as needed. Doxylamine (20 sources) doxylamine succi karrie (UNISOM, DOXYLAMINE, ORAL) Take by mouth at bedtime . Active doxylamine succi karrie (UNISOM, DOXYLAMINE, ORAL) Take by mouth at bedtime . 0 Active ergocalciferol 1.25 mg oral capsule (20 sources) Provitamin D2 Compound Start: 01-10-2023 End: 05-20-2024 take 1 capsule by mouth every week ergocalciferol (ERGOCALCIFEROL) 1,250 mcg (50,000 unit) capsule Take 1 (one) capsule (50,000 Units total) by mouth once a week . 03/03/2023 Active FLUoxetine 40 mg oral capsule (20 sources) Serotonin Reuptake Inhibitor Start: 09-26-2022 take 1 capsule by mouth once daily FLUoxetine (PROZAC) 40 MG capsule Take 1 (one) capsule (40 mg total) by mouth nightly . 01/10/2023 Active Comment on above: dose increase ibuprofen 600 mg oral tablet (1 source) Nonsteroidal Anti-inflammatory Drug Start: 11-24-2024 End: 12-24-2024 take 1 tablet by mouth every six hours as needed for pain ibuprofen (ADVIL,MOTRIN) 600 MG tablet Take 1 (one) tablet (600 mg total) by mouth every 6 (six) hours as needed for pain . 30 tablet 11/24/2024 3:51 PM EDT 11/24/2024 12/24/2024 Active letrozole 2.5 mg oral tablet (17 sources) Aromatase Inhibitor Start: 05-19-2024 End: 06-29-2024 take 2 tablets by mouth once daily, then take 3 tablets by mouth once daily letrozole (FEMARA) 2.5 mg tablet Indications: PCOS (polycystic ovarian syndrome) Take 2 (two) tablets (5 mg total) by mouth daily Start on cycle day 3 and take daily for 10 days . 20 tablet 06/19/2024 Active Start: 04-21-2024 End: 05-19-2024 letrozole (FEMARA) 2.5 mg ta blet Indications: PCOS (polycystic ovarian syndrome) Take 1 (one) tablet (2.5 mg total) by mouth daily Start on cycle day 3 and take daily x 5 days for 5 days . 5 tablet 04/21/2024 05/19/2024 Discontinued (Reorder (Suppress CancelRx Message to Pharmacy)) magnesium glycinate-mag oxid e 120 mg magnesium cap (20 sources) take 1 capsule by mo uth at bedtime magnesium glycinate-mag oxide 120 mg magnesium cap Take 1 (one) capsule (120 mg total) by mouth at bedtime . Active take 1 capsule by mouth at bedti ri magnesium glycinate-mag oxide 120 mg magnesium cap Take 1 (one) capsule (120 mg total) by mouth at bedtime . 0 Active metoclopramide 5 mg oral tablet (1 source) Dopamine-2 Receptor Antagonist Start: 08-22-2024 take 1 tablet by mouth every six hours as needed for nausea and vomiting Metoclopramide Hcl (Reglan) 5 mg tablet Active 5 mg PO EVERY 6 HOURS as needed for nausea and vomiting August 22, 2024 10:33pm omeprazole 20 mg delayed release oral capsule (20 sources) Proton Pump Inhibitor Start: 12-31-2024 omeprazole 20 mg capsule,delayed release ; 1 (one) Capsule 30 minutes before first meal of day for 0 days Quantity: 30 {Capsule} Refills: 0 Ordered: 31-Dec-2024 KINGSTON Carrizales Start: 31-Dec-2024 Start: 11-23-2024 omeprazole 20 mg capsule,delayed release ; 1 (one) Capsule 30 minutes before first meal of day for 0 days Quantity: 30 {Capsule} Refills: 0 Ordered: 23-Nov-2024 KINGSTON Carrizales Start: 23-Nov-2024 Start: 03-04-2023 End: 09-19-2023 take 1 tablet by mouth twice daily omeprazole (PRILOSEC OTC) 20 MG tablet Take 1 (one) tablet (20 mg total) by mouth 2 (two) times a day . 60 tablet 5 09/19/2023 Active Start: 08-31-2022 omeprazole 20 mg capsule,delayed release ; 1 (one) Capsule 30 minutes before first meal of day for 0 days Quantity: 30 {Capsule} Refills: 0 Ordered: 07-Sep-2024 MD Zev Mckinney Start: 07-Sep-2024 End: 04-12-2023 take 1 capsule by mouth twice daily omeprazole (PRILOSEC) 20 MG capsule Take 1 (one) capsule (20 mg total) by mouth 2 (two) times a day 20-40 mg daily . 0 04/12/2023 Discontinued (Patient's Request) ondansetron 4 mg oral tablet (20 sources) Serotonin-3 Receptor Antagonist Start: 03-04-2023 End: 03-11-2023 take 1 tablet by mouth every eight hours as needed for nausea ondansetron (ZOFRAN) 4 MG tablet Take 1 (one) tablet (4 mg total) by mouth every 8 (eight) hours as needed for nausea . 20 tablet 03/04/2023 Active vitamin with Ca-Iron-FA 27-1 mg Tab (8 sources) take 1 tablet by mouth once daily in the morning vitamin with Ca-Iron-FA 27-1 mg Tab Take 1 (one) tablet by mouth every morning . Active take 1 tablet by mouth once michelle y vitamin with Ca-Iron-FA 27-1 mg Tab Take 1 (one) tablet by mouth daily . Active promethazine hydrochloride 25 mg rectal suppository (1 source) Phenothiazine Start: 08-22-2024 Promethazine 25 mg suppository Active 25 mg RC EVERY 6 HOURS as needed for nausea and vomiting August 22, 2024 1:00am sucralfate 1000 mg oral tablet (12 sources) Aluminum Complex Start: 03-04-2023 End: 04-24-2023 take 1 tablet by mouth four times daily before mealtime sucralfate (CARAFATE) 1 gram tablet Take 1 (one) tablet (1 g total) by mouth 4 (four) times a day before meals and nightly . 120 tablet 5 04/24/2023 Active Completed/Discontinued Medications Medication Drug Class(es) Dates Sig (Normalized) Sig (Original) amoxicillin 875 mg oral tablet (20 sources) Penicillin-class Antibacterial Start: 05-20-2024 End: 05-30-2024 amoxicillin 875 mg tablet ; 1 (one) tablet bid for 10 days Quantity: 20 {Tablet} Refills: 0 Ordered: 20-May-2024 MD Zev Mckinney Start: 20-May-2024 End: 30-May-2024 Status: Inactive Start: 08-26-2023 End: 09-05-2023 amoxicillin 500 mg capsule ; 1 (one) capsule two times daily for 10 days Quantity: 20 {Capsule} Refills: 0 Ordered: 26-Aug-2023 KINGSTON Carrizales Start: 26-Aug-2023 End: 05-Sep-2023 Status: Inactive Start: 10-24-2021 End: 11-03-2021 take 1 tablet by mouth three times daily Amoxicillin 500 MG Oral Tablet ; 1 Tablet three times daily for 10 days Quantity: 30 {Tablet} Refills: 0 Ordered: 24-Oct-2021 MD Zev Mckinney Start: 24-Oct-2021 End: 03-Nov-2021 Status: Inactive Start: 08-15-2010 End: 08-25-2010 AMOXICILLIN, 250MG/5ML (Oral Suspension Reconstituted) ; 2 (two) Teaspoon(s) three times daily for 10 days Quantity: 300 {Milliliter} Refills: 0 Ordered: 15-Aug-2010 MD Zev Mckinney Start: 15-Aug-2010 End: 25-Aug-2010 Status: Inactive calcium carbonate 1250 mg oral tablet (2 sources) Start: 06-10-2019 End: 09-26-2022 take 1 tablet by mouth once daily Calcium Carbonate 500 MG tablet Discontinued 500 mg PO DAILY June 10, 2019 1:00am September 26, 2022 10:21am cholecalciferol 0.125 mg oral tablet (2 sources) Vitamin D Start: 06-10-2019 End: 09-26-2022 take 1 tablet by mouth once daily Cholecalciferol (Vitamin D3) 5,000 UNIT tablet Discontinued 5000 U PO DAILY June 10, 2019 1:00am September 26, 2022 10:21am escitalopram 20 mg oral tablet (20 sources) Serotonin Reuptake Inhibitor Start: 05-15-2019 End: 09-26-2022 take 1 tablet by mouth once daily Lexapro 20 MG Oral Tablet ; 1 (one) Tablet Tablet daily for 0 days Quantity: 30 {Tablet} Refills: 5 Ordered: 31-Aug-2019 KINGSTON Carrizales Start: 22-Jun-2019 End: 31-Aug-2019 Status: Inactive Ethinyl Estradiol / Levonorgestrel (20 sources) Progestin, Estrogen, Progestin-containi ng Intrauterine Device Start: 03-24-2020 End: 08-17-2021 take 1 tablet by mouth once daily Aviane 0.1-20 MG-MCG Oral Tablet ; 1 (one) Tablet daily for 0 days Quantity: 1 {Package} Refills: 12 Ordered: 17-Aug-2021 KINGSTON Carrizales Start: 24-Mar-2020 End: 17-Aug-2021 Status: Inactive Ethinyl Estradiol / norgestimate (20 sources) Progestin, Estrogen Start: 07-25-2018 End: 03-05-2019 take 1 tablet by mouth once daily Sprintec 28 0.25-35 MG-MCG Oral Tablet ; 1 (one) Tablet daily for 0 days Quantity: 1 {Package} Refills: 5 Ordered: 05-Mar-2019 KINGSTON Carrizales Start: 25-Jul-2018 End: 05-Mar-2019 Status: Inactive famotidine 8 mg/ml oral suspension (9 sources) Histamine-2 Receptor Antagonist End: 06-26-2024 take 2.5 mL by mouth twice daily famotidine (PEPCID) 40 mg/5 mL (8 mg/mL) suspension Take 2.5 mL (20 mg total) by mouth 2 (two) times a day . 06/26/2024 Discontinued (Patient's Request) fluconazole 150 mg oral tablet (20 sources) Azole Antifungal Start: 06-16-2024 End: 09-04-2024 fluconazole 150 mg tablet ; 1 (one) tablet one time dose for 0 days Quantity: 2 {Tablet} Refills: 0 Ordered: 04-Sep-2024 GAMALIEL Solorzano Start: 16-Jun-2024 End: 04-Sep-2024 Status: Inactive Start: 05-27-2024 End: 09-04-2024 fluconazole 150 mg tablet ; 1 (one) tablet x 1 dose for 0 days Quantity: 1 {Tablet} Refills: 0 Ordered: 04-Sep-2024 GAMALIEL Solorzano Start: 27-May-2024 End: 04-Sep-2024 Status: Inactive Start: 05-25-2024 fluconazole 15 0 mg tablet ; 1 (one) tablet x 1 dose for 0 days Quantity: 1 {Tablet} Refills: 0 Ordered: 25-May-2024 MD Zev Mckinney Start: 25-May-2024 Start: 08-27-2023 End: 05-20-2024 Diflucan 150 mg tablet ; 1 ( one) Tablet today and then repeat dose in 3 days if still symptomatic for 0 days Quantity: 2 {Tablet} Refills: 0 Ordered: 20-May-2024 TONEY Louie Start: 27-Aug-2023 End: 20-May-2024 Status: Inactive Start: 05-23-2023 Diflucan 150 m g tablet ; 1 (one) Tablet today and then repeat dose in 3 days if still symptomatic for 0 days Quantity: 2 {Tablet} Refills: 0 Ordered: 23-May-2023 KINGSTON Choi Start: 23-May-2023 Lactobacillus acidophilus (20 sources) Acidophilus ; da jose Status: Inactive lubiprostone 0.008 mg oral capsule (20 sources) Chloride Channel Activator Start: 2018 End: 2019 take 1 capsule by mouth twice daily Amitiza 8 MCG Oral Capsule ; 1 (one) Capsule Capsule two times daily for 0 days Quantity: 60 {Capsule} Refills: 5 Ordered: 15-Dec-2019 GAMALIEL Solorzano Start: 21-Jan-2019 End: 15-Dec-2019 Status: Inactive medroxyPROGESTERone acetate 10 mg oral tablet (20 sources) Progestin Start: 2022 End: 2023 take 1 tablet by mouth at bedtime medroxyPROGESTERone 10 mg tablet ; 1 (one) tablet at bedtime for 10 days Quantity: 10 {Tablet} Refills: 8 Ordered: 20-May-2024 TONEY Louie Start: 12-Mar-2023 End: 20-May-2024 Status: Inactive Start: 05-01-2021 End: 08-24-2022 take 1 tablet by mouth once daily medroxyPROGESTERone Acetate 10 MG Oral Tablet ; 1 (one) Tablet daily for 10 days Quantity: 10 {Tablet} Refills: 3 Ordered: 24-Aug-2022 TONEY Kurtz Start: 01-May-2021 End: 24-Aug-2022 Status: Inactive nitrofurantoin, macrocrystals 25 mg / nitrofurantoin, monohydrate 75 mg oral capsule (20 sources) Nitrofuran Antibacterial Start: 03-02-2022 End: 03-07-2022 take 1 capsule by mouth twice daily Macrobid 100 MG Oral Capsule ; 1 (one) Capsule twice a day for 5 days Quantity: 10 {Capsule} Refills: 0 Ordered: 02-Mar-2022 KINGSTON Carrizales Start: 02-Mar-2022 End: 07-Mar-2022 Status: Inactive phenazopyridine hydrochloride 200 mg oral tablet (20 sources) Start: 07-16-2019 End: 07-18-2019 take 1 tablet by mouth three times daily at mealtime Pyridium 200 MG Oral Tablet ; 1 (one) Tablet three times daily with food for 2 days Quantity: 6 {Tablet} Refills: 0 Ordered: 16-Jul-2019 DAQUAN Muniz Start: 16-Jul-2019 End: 18-Jul-2019 Status: Inactive raNITIdine 150 mg oral tablet (20 sources) Histamine-2 Receptor Antagonist Start: 02-26-2013 End: 07-09-2014 take 1 tablet by mouth twice daily RANITIDINE HCL, 150MG (Oral Tablet) ; 1 Tablet BID for 0 days Quantity: 30 {Tablet} Refills: 0 Ordered: 09-Jul-2014 MD Ese Warren Start: 26-Feb-2013 End: 09-Jul-2014 Status: Inactive sertraline 100 mg oral tablet (20 sources) Serotonin Reuptake Inhibitor Start: 08-15-2020 End: 08-19-2020 take 1 tablet by mouth once daily Zoloft 100 MG Oral Tablet ; 1 (one) Tablet daily for 0 days Quantity: 30 {Tablet} Refills: 5 Ordered: 19-Aug-2020 KINGSTON Carrizales Start: 15-Aug-2020 End: 19-Aug-2020 Status: Inactive Comments: Dose increase 12/19/2019 Comment on above: Dose increase 020 sulfamethoxazole 800 mg / trimethoprim 160 mg oral tablet (14 sources) Dihydrofolate Reductase Inhibitor Antibacterial, Sulfonamide Antimicrobial Start: 06-16-2024 End: 06-21-2024 Bactrim DS 800 mg-160 mg tablet ; 1 (one) tablet two times daily for 5 days Quantity: 10 {Tablet} Refills: 0 Ordered: 16-Jun-2024 KINGSTON Gutiérrez Start: 16-Jun-2024 End: 21-Jun-2024 Status: Inactive Problems Active Problems Problem Classification Problem Date Documented Date Episodic/Chronic Abdominal pain (20 sources) Unspecified abdominal pain; Translations: [Epigastric pain] Onset: 7 03-05-2023 Episodic Acute and chronic tonsillitis (1 source) Chronic tonsillitis; Translations: [Chronic tonsillitis] Onset: Chronic Acute bronchitis (20 sources) Acute bronchitis; Translations: [Acute bronchitis, unspecified] 08-15-2010 Episodic Administrative/social admission (20 sources) Issue of repeat prescriptions 06-08-2013 Episodic Anxiety disorders (20 sources) Anxiety; Translations: [Anxiety disorder, unspecified] 08-31-2022 Chronic Cardiac dysrhythmias (3 sources) Palpitations; Translations: [Palpitations] Onset: 5 09-10-2024 Episodic Esophageal disorders (20 sources) Gastroesophageal reflux disease; Translations: [Gastro-esophageal reflux disease without esophagitis] Onset: 3 03-04-2023 Chronic Female infertility (18 sources) Female infertility; Translations: [Female infertility, unspecified] Onset: 4 05-18-2024 Chronic Fever of unknown origin (20 sources) Fever; Translations: [Fever, unspecified] 10-24-2021 Episodic Fluid and electrolyte disorders (1 source) Dehydration; Translations: [Dehydration] 08-30-2024 Episodic Genitourinary symptoms and ill-defined conditions (20 sources) Retention of urine; Translations: [Retention of urine, unspecified] 08-26-2023 Episodic Headache; including migraine (20 sources) Headache; Translations: [Headache] 03-20-2011 Episodic Immunizations and screening for infectious disease (20 sources) Exposure to streptococcal pharyngitis; Translations: [Contact with and (suspected) exposure to other bacterial communicable diseases] 08-26-2023 Episodic Influenza (20 sources) Influenza-like illness; Translations: [Influenza due to unidentified influenza virus with other respiratory manifestations] 07-09-2014 Episodic Malaise and fatigue (20 sources) Fatigue; Translations: [Other fatigue] Onset: 08-26-2023 Episodic Menstrual disorders (20 sources) Amenorrhea; Translations: [Amenorrhea, unspecified] 08-26-2023 Chronic Miscellaneous mental health disorders (20 sources) Eating disorder; Translations: [Eating disorder, unspecified] 08-26-2023 Chronic Mood disorders (1 source) Premenstrual dysphoric disorder; Translations: [Premenstrual dysphoric disorder] 12-02-2023 Chronic Mycoses (20 sources) Mycosis; Translations: [Candidiasis, unspecified] 12-12-2022 Episodic Nutritional deficiencies (20 sources) Vitamin D deficiency; Translations: [Vitamin D deficiency, unspecified] 08-26-2023 Chronic Other aftercare (1 source) Surgical follow-up; Translations: [Encounter for follow-up examination after completed treatment for conditions other than malignant neoplasm] 11-30-2024 Episodic Other endocrine disorders (20 sources) Polycystic ovary syndrome; Translations: [Polycystic ovarian syndrome] 08-26-2023 Chronic Comment on above: Has had irregular cy cles for years, dx with PCOS in the recent past, has tried many things to help, some success but has needed Provera in the past to help start cycles. Desires natural treatment and also Provera to help ensure no prolonged time between cycles. Other endocrine disorders (2 sources) Polycystic ovarian syndrome; Translations: [Polycystic ovarian syndrome] Onset: Chronic Other female genital disorders (1 source) Pain in female genitalia on intercourse; Translations: [Unspecified dyspareunia] 10-12-2024 Chronic Other female genital disorders (2 sources) Unspecified dyspareunia; Translations: [Unspecified dyspareunia] Onset: Chronic Other female genital disorders (1 source) Vaginal discharge; Translations: [Other specified noninflammatory disorders of vagina] 04-12-2023 Episodic Other gastrointestinal disorders (1 source) Irritable bowel syndrome; Translations: [Mixed irritable bowel syndrome] 04-24-2023 Chronic Other gastrointestinal disorders (20 sources) Irritable bowel syndrome characterized by constipation; Translations: [Irritable bowel syndrome with constipation] 08-26-2023 Chronic Other gastrointestinal disorders (1 source) Altered bowel function; Translations: [Change in bowel habit] 03-05-2023 Episodic Other gastrointestinal disorders (20 sources) Diarrhea; Translations: [Diarrhea, unspecified] 08-31-2022 Episodic Other gastrointestinal disorders (3 sources) Heartburn; Translations: [Heartburn] 09-04-2023 Episodic Other lower respiratory disease (20 sources) Dry cough; Translations: [Cough] 12-15-2019 Episodic Other nervous system disorders (1 source) Postoperative pain ; Translations: [Other acute postprocedural pain] 08-30-2024 Episodic Other nutritional; endocrine; and metabolic disorders (20 sources) Body mass index less than 20; Translations: [Body mass index (BMI) 19.9 or less, adult] 12-23-2017 Episodic Other screening for suspected conditions (not mental disorders or infectious disease) (20 sources) Decreased vitamin D; Translations: [Other specified abnormal findings of blood chemistry] Onset: 5 08-26-2023 Episodic Residual codes; unclassified (20 sources) Insomnia; Translations: [Sleep disorder, unspecified] 11-11-2019 Episodic Residual codes; unclassified (1 source) H/O: breast problem; Translations: [Personal history of other specified conditions] 10-12-2024 Episodic Residual codes; unclassified (2 sources) Personal history of other specified conditions; Translations: [Personal history of other specified conditions] Onset: 5 Episodic Unclassified (20 sources) Bloating - The onset of the bloating has been acute and has been occurring in a persistent pattern for 2 months (been off and on for years but over a couple months getting worse). The course has been recurrent. The bloating is characterized as heartburn (occasionally burning). The bloating is described as being located in the lower abdomen (gas pain in lower abdomen), central abdomen and right upper quadrant. The bloating occurs immediately after meals (sometimes immediately after eating but right upper quadrant pain is an hour after eating). The symptoms are aggravated by fatty meals and relieved by passing flatus. The symptoms have been associated with abdominal pain and diarrhea (states stools look oily), while the symptoms have not been associated with bloody stools, constipation, dysuria, hard stools, hematuria or rapid eating. Note for Bloating: Stools are always loose and foul smelling; light brown in color; no black or bloody stools.Feels regurgitation in chest; substernal burning.Gas pain doesn't seem triggered by foods.Starts in right back and goes to lower stomach; temporarily better with BM or passing gas. Has tried OTC gas-x without improvement.Follows strict dairy free and gluten free diet x 1-2 years; had been helping previously.Never saw GI last year.Would like hormone levels and other labs checked. 08-31-2022 Unclassified (20 sources) Abdominal pain - The onset of the abdominal pain has been acute and has been occurring in an intermittent pattern for 2 months. The course has been increasing. The pain is described as a moderate dull ache. The pain is located in the right lower quadrant and suprapubic area and does not radiate. There has been no associated constipation, diarrhea, dysuria or fever. Note for Abdominal pain: Pain is maybe every other day; not daily.Dull pain lasts for about an hour; sharp pain only lasts x seconds.Hasn't had period x months; is off OCP and has medroxyprogesterone to take - will start that soon. 08-17-2021 Unclassified (20 sources) Menstrual problems - Note for Menstrual problems: The patient feels well with minor complaints (Periods are irregular- is only having about 2 a year (for awhile she wasn't having any). They last about 7 days and are heavy and has cramps. She started her period at age 9 and they were regular then. She got sick with abdominal issues which resulted in a lot of weight loss and periods became abnormal. She has gained a little weight back now. Last period was 06/25/2018.). The current method of contraception is: none (is not sexually active). The patient has a balanced diet and takes supplemental vitamins. 07-25-2018 Unclassified (20 sources) Flank pain - The onset of the flank pain has been gradual and has been occurring for weeks (Has chronic abd pain that she has been seeing GI for - no cause found but is currently doing FODMAP diet (so far only dairy has been an issue). Current abd pain has been for about 2 weeks - it is both sides of lower abd; intermittent and sharp; not affected by food or activity. Does have some back pain at times. Has been constipated over the past 2-3 weeks since doing FODMAP diet. Did have a BM today but says they are small amounts. Period is abnormal - has had one in the past year - were normal until around age 12 when lost weight. No diarrhea, vomiting, or dysuria. Feels liks when she urinates it is hard to continue her stream. Not sexually active.). Note for Flank pain: Had abd x-ray within the past few months and it was normal. 12-13-2016 Urinary tract infections (20 sources) Urinary tract infectious disease; Translations: [Urinary tract infection, site not specified] 03-02-2022 Episodic Past or Other Problems Problem Classification Problem Date Documented Date Episodic/Chronic Nausea and vomiting (20 sources) Nausea; Translations: [Nausea] Onset: 3 03-04-2023 Episodic Nonspecific chest pain (20 sources) Non-cardiac chest pain; Translations: [Other chest pain] Onset: 4 09-04-2023 Episodic Other gastrointestinal disorders (20 sources) Abdominal bloating; Translations: [Abdominal distension (gaseous)] Onset: 4 03-05-2023 Episodic Other gastrointestinal disorders (20 sources) Excessive belching; Translations: [Eructation] Onset: 4 09-04-2023 Episodic Other gastrointestinal disorders (20 sources) Dysphagia; Translations: [Dysphagia, pharyngoesophageal phase] Onset: 4 09-04-2023 Episodic Other upper respiratory infections (20 sources) Acute pharyngitis; Translations: [Acute pharyngitis, unspecified] Onset: 5 10-21-2019 Episodic Unclassified (20 sources) Cold Symptoms - Symptoms include ear pain, ear fullness, sore throat, hoarseness, fever, chills, general malaise and headache. The onset was sudden 3 day(s) ago. The symptoms occur constantly. The patient describes this as moderate in severity and worsening. Current treatment includes acetaminophen. 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 Note for Upper respiratory infection: Also experiencing nausea, loss of appetite and did vomit this AM.Tmax 101.5; did take antipyretics this morning.Fever and ST started yesterday morning. 08-26-2023 Unclassified (20 sources) Menstrual problems - The menstrual problems are characterized as heavy menses, missed menses and irregular menses and have been occurring in an irregular pattern for 6 weeks. The first day of the last menstrual period was : (curretnly). Currently : no. The symptoms have been associated with abdominal pain, anxiety, dizziness, nausea, acne and stress, but have not been associated with breast engorgement, chills, abdominal cramps, depression, diaphoresis, painful intercourse, fever, hot flashes, pallor, syncope, vomiting, weight gain, weight loss, low back pain, hirsutism or galactorrhea. Note for Menstrual problems: last period in September but did start period yesterday was given a medication if not had a period in 6 weeks to help have period and is looking to have that on hand 03-12-2023 Unclassified (20 sources) UTI - Symptoms include dysuria, urinary frequency, urinary urgency and abdominal pain. The pain is located in the suprapubic area. The patient describes the pain as aching. Onset was gradual 1 day(s) ago. There is no known event that preceded symptom onset. The symptoms occur constantly. The patient describes this as moderate in severity and worsening. Associated symptoms include nausea, but do not include fever. Note for UTI: Pt wants to discuss getting her Fluoxetine refilled, she skipped 1 month and then [facility] would not keep filling it for her, pt also wants to discuss getting something to help her sleep; has been out of fluoxetine since October. Taking zquil or benadryl to help her sleep. Tried melatonin without improvement. 03-02-2022 Unclassified (20 sources) UTI - Symptoms include dysuria, urinary frequency and abdominal pain. The pain is located in the suprapubic area. There is no radiation. Onset was sudden 8 hour(s) ago. There is no known event that preceded symptom onset. The symptoms occur constantly. The patient describes this as moderate in severity and unchanged. Associated symptoms do not include fever, chills or nausea. Note for UTI: Got 3 weeks ago.Has been about 6 weeks since last period. 12-11-2021 Unclassified (20 sources) Cold Symptoms - Symptoms include nasal congestion, sore throat, productive cough, fever (highest 100.5), chills, general malaise and headache, but do not include sneezing, runny nose, ear pain or ear fullness. The onset was sudden 1 week(s) ago. The symptoms occur constantly. The patient describes this as moderate in severity and unchanged. Current treatment includes non-prescription cold medication, cough suppressants, acetaminophen and NSAIDs. Note for Upper respiratory infection: reviewed by [facility] 10-24-2021 Unclassified (20 sources) Cold Symptoms - Symptoms include nasal congestion, runny nose, sore throat and headache, but do not include ear pain, dry cough or chills. The onset was gradual 2 day(s) ago. The symptoms occur constantly. The patient describes this as moderate in severity and worsening. Current treatment includes acetaminophen and NSAIDs. The patient has been exposed to an individual with strep. 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 04-28-2021 Unclassified (20 sources) UTI - Symptoms include dysuria, urinary urgency and abdominal pain. The pain is located in the suprapubic area. There is no radiation. The patient describes the pain as dull. Onset was gradual 2 month(s) ago. There is no known event that preceded symptom onset. The symptoms occur intermittently. The patient describes this as moderate in severity and worsening. Associated symptoms include urinary retention. Note for UTI: Pt feels like she almost has to strain to urinate and isn't emptying her bladder completely. Has to push at the end to get more out - sometimes will get quite a bit more out.Urinates every 2 hours. Clear urine. Drinks lots of water.Had an US by [employer] and thinks they told her she has urinary retention. Constipated - BMs once a day but they are firm saurabh. Fiber doesn't seem to be helping. Also wondering about a different med - has lots of obsessive thoughts (OCD). Has been doing counseling and she is working through an eating disorder - feels this has affected her constipation. Feels anxious and often will skip meals.Had a bone density scan years ago. Wondering if needs repeated. Is taking vitamin D 5000 every other day.Previously has seen GI and had workup for her constipation/abd pain. Normal colonoscopy. Diagnosed with IBS. Previously on amitiza but it was expensive. 08-19-2020 Unclassified (20 sources) Well adult female - The patient feels well with minor complaints, has good energy level and is sleeping well. The first day of the last menstrual period was : (01/31/2020; light). The patient takes supplemental vitamins. The patient sleeps 7 hours per night. Note for Well adult female: Going back to [facility] in the fall. 02-12-2020 Unclassified (20 sources) Sore throat - The onset of the sore throat has been acute and has been occurring in a persistent pattern for 3 days. The course has been without change. Symptoms include sore throat, headache and cough (started with cough yesterday, dry cough), but do not include runny nose, nasal congestion or ear pain. The symptoms are aggravated by coughing and talking. Relieving factors include gargling and NSAIDs. Patient denies history of seasonal allergies or tonsillectomy. Note for Sore throat: reviewed by [facility] 12-15-2019 Unclassified (20 sources) Form completion physical - The patient feels well with minor complaints (has anxiety), has good energy level and is sleeping poorly (takes Benadryl to help). The patient exercises 3 - 4 times per week. The patient eats a variety of foods and takes suppemental vitamins and sleeps on average 7 hours per night. There are no behavioral problems. Note for Form completion physical: Is requesting to have a form completed to live in an apartment at [facility] in fall 2019 without a roomate. Gets along well with roomates but due to her trouble sleeping it makes living with one difficult. She has trouble sleeping with frequent awakenings - roomates affect this with snorning, being loud, differing sleep schedules, etc.Her anxiety gets worse if not sleeping well - this happened several times this year and led to a panic attack. 11-11-2019 Unclassified (20 sources) Menstrual problems - The menstrual problems are characterized as absent menses (last cycle in June). The first day of the last menstrual period was more than 3 months ago. Currently : no. Note for Menstrual problems: Pt has taken ocp in the past and while on the pill she will have regular periods. When not taking control she will not have a period at all. She started her period when she as 9 and for 2-3 years she did have a regular cycle that was heavy. She then started battling stomach issues, diagnosed as IBS and lost a bunch of weight. Ever since then she has not had periods except while on ocp. 10-22-2019 Unclassified (20 sources) UTI - Symptoms include dysuria, urinary frequency, urinary urgency and abdominal pain. The pain is located in the suprapubic area. There is no radiation. The patient describes the pain as burning and stinging. Onset was sudden 1 week(s) ago. There is no known event that preceded symptom onset. The patient describes this as moderate in severity and unchanged. Symptoms are not relieved by phenazopyridine, urinary anesthetics, cranberry juice or non-opioid analgesics. Associated symptoms do not include fever, chills, nausea or vomiting. Note for UTI: Patient stated that she was experiencing cramps when the symptoms first started. 07-16-2019 Unclassified (20 sources) Menstrual problems - Note for Menstrual problems: The menstrual problems are characterized as irregular menses (on 07/25/2018 was started on OCP for a 6 month trial.). Last office visit 07/25/2018. Said that when she was on the pills she would have a period (in the beginning she would have them for 15 days but after 3 months she would have it for 5-6 days) - took for 6 months but after stopping it her periods stopped.Has started with the Amitiza again just recently and has noticed improvement. Having BMs once daily and less abdominal pain.Has anxiety. Has gone to weekly counseling at school. It is worse when she is at school with lots of people and stress. Has had 2 panic attacks - both when at school. Mind racing - daily. 03-05-2019 Unclassified (20 sources) Well Adult, female - The patient feels well with no complaints, has good energy level and is sleeping poorly (difficulty staying asleep). The first day of the last menstrual period was : (12/18/2017). The patient is not using any method of contraception at this time. The patient has a balanced diet and takes supplemental vitamins. The patient exercises 3 - 4 times per week. The patient sleeps 7 hours per night. 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 12-23-2017 Unclassified (20 sources) Well child visit #4 - 13 to 17 years - The child is here for a 16 to 17 year well-child (15 yr old) visit. The primary caregiver is the mother and father. There are no behavioral problems. The patient has a balanced diet. The child sleeps 8 hours at night. Menstruation: irregular periods (rarely has a peroid since losing weight in 7th grade.). The child participates in extracurricular activities. Note for Well child visit #4 - 13 to 17 years: Has frequent abdominal pain after eating.Sports physical. Will be participating in tennis. reviewed by [facility] 01-25-2016 Unclassified (20 sources) Abdominal Pain - Continues with upper abdominal pain. This has been a long standing problem. She has had normal RUQ u/s ad well as normal HIDA scan. Serologic eval for celiac sprue and for food allergies all negative. She saw Dr Rao at [facility] who felt she had IBS. No endocscopy or CTs have been done.Fatty foods and milk shakes seem to make her much worse. 09-28-2014 Unclassified (20 sources) Cold Symptoms - Symptoms include sore throat, dry cough (just today, moist), general malaise and headache, but do not include fever (never registered on thermometer even tho felt feverish). The onset was sudden 4 day(s) ago. The symptoms occur constantly. The patient describes this as moderate in severity and worsening. Current treatment includes NSAIDs. Risk factors do not include child in daycare or smoking. The patient has not been exposed to an individual with similar symptoms. 07-09-2014 Unclassified (20 sources) Abdominal pain - The abdominal pain has been occurring in an intermittent pattern for 1 year. The pain is described as a moderate dull ache. The pain is located in the epigastrium and does not radiate. The symptoms are aggravated by meals (1/2 to 1 hour after eating) but have no relieving factors. The symptoms have been associated with bloating and nausea, while the symptoms have not been associated with fever or vomiting. Note for Abdominal pain: Last visit was on 02/11/13 - she was treated with bentyl. Weakens the severity but still continues with abd pain daily. 02-26-2013 Unclassified (20 sources) Form Completion Physicals - The patient feels well with minor complaints, has good energy level and is sleeping well. Current symptoms include abdominal pain (Pt has had stomach issues for a year. Saw GI but says they were no help. Has had testing for celiac disease, abd US, CBC, CMP, and CRP. GI suspected that it is IBS and she was advised to follow a high fiber diet and see a counselor for stressors. Continues with abd pain daily. Has restricted what she eats because any food bothers her stomach. No diarrhea or constipation. Abd pain is generalized. Describes as a fullness that is worse after eating. Denies stress. No improvement since being out of school for the summer.). The patient has an appropriate balanced diet (mom says she does not eat very much because of her abd pain) and takes no supplemental vitamins or iron and sleeps on average 8 hours per night. There are no behavioral problems. Note for Form completion physical: Lost weight with her stomach issues and hasn't had her period for close to a year - periods were normal before then. Her mom is wondering if this is concerning. She will be playing tennis this fall. 02-12-2013 Unclassified (20 sources) Cold Symptoms - Symptoms include sneezing, nasal congestion, runny nose, sore throat, dry cough, fever (101 was highest.), chills and headache. The onset was sudden 3 day(s) ago. The symptoms occur constantly. The patient describes this as moderate in severity and worsening. Current treatment includes NSAIDs. Note for Upper respiratory infection: Also complains of nausea. Did not get flu injection. Pt has recently been getting eval for abdominal pain. Initial labs and u/s were normal. 06-02-2012 Unclassified (20 sources) Abdominal pain - The onset of the abdominal pain has been acute and has been occurring in an intermittent pattern for 3 months. The course has been increasing. The pain is described as a moderate dull ache. The pain is located in the epigastrium and does not radiate. The symptoms are aggravated by meals (1/2 to 1 hour after eating) but have no relieving factors. The symptoms have been associated with bloating, nausea and weight loss (Mom thinks she lost 9 pounds since November.), while the symptoms have not been associated with fever or vomiting. Note for Abdominal pain: She has been on acidophilus in past,unclear if this helps. She has had GI c/o on and off over the years. They have not noticed any particular foods except after eating ice cream. No other foods noted. MGF had possibly inflammatory bowel disease. MOther has had her GB out. 05-27-2012 Unclassified (20 sources) Cold Symptoms - Symptoms include sore throat, fever and headache, but do not include runny nose, ear pain or dry cough. The onset was sudden 3 day(s) ago. The symptoms occur constantly. The patient describes this as moderate in severity and worsening. Current treatment includes non-prescription cold medication and acetaminophen. The patient has not been exposed to an individual with similar symptoms. Medical History includes recurrent strep pharyngitisPatient denies history of asthma or tonsillectomy. Note for Cold Symptoms: reviewed by [facility] 08-13-2011 Unclassified (20 sources) Headaches - 10 year old here with mom for headaches. Had them last year and then went away. They are on/off and they came on again this past summer. States pain in right on forehead. DId go to eye doctor last year and got glasses. The glasses did not really help though. Mom here to day because she feels they may be related to her period. Denies dizziness or nausea with them. No OTC really helps them. Maternal aunt gets headaches. 03-20-2011 Unclassified (20 sources) Cold Symptoms - Symptoms include sneezing, nasal congestion, ear pain (rt ear), sore throat, dry cough, productive cough, fever (100) and headache. The onset was sudden 3 day(s) ago. The symptoms occur constantly. The patient describes this as moderate in severity and worsening. Current treatment includes non-prescription cold medication, cough suppressants, acetaminophen and NSAIDs. Note for Cold Symptoms: Cough has been present for 1 month, wosening sx for 3 days . 08-15-2010 Unclassified (1 source) Cold Symptoms 05-20-2024 Unclassified (19 sources) Cold Symptoms - Symptoms include runny nose, ear pain, sore throat, general malaise and headache. The onset was gradual 1 week(s) ago. The symptoms occur constantly. The patient describes this as moderate in severity and worsening. Current treatment includes acetaminophen (last night was her last dose) and NSAIDs. The patient has not been exposed to an individual with a cough, an individual with an upper respiratory infection, an individual with similar symptoms, an individual with strep or secondhand smoke. Note for Upper respiratory infection: patient c/o stiff neck and swollen lymph nodes as well reviewed by [facility] 05-20-2024 Unclassified (14 sources) UTI - Symptoms include dysuria, urinary frequency, urinary urgency, dark urine and abdominal pain, but do not include flank pain or back pain. The pain is located in the suprapubic area. There is no radiation. The patient describes the pain as aching and burning. Onset was sudden 1 day(s) ago. There is no known event that preceded symptom onset. The symptoms occur constantly. The patient describes this as moderate in severity and worsening. Symptoms are not relieved by non-opioid analgesics. Associated symptoms include nausea and vomiting, but do not include fever, chills or vaginal discharge. Note for UTI: Patient reports her LMP 05/21/24. She does not have regular periods, but she and her are trying to have a baby. 06-16-2024 Unclassified (1 source) Follow up consultation - The patient is here to follow-up after Emergency Room/Urgent Care (Patient was seen at [facility] ER on 08/22/2024 for Acute dehydration, post-op pain, Nausea and vomiting, Abnormal ECG. Patient was prescribed Reglan 5mg every 6 hours PRN and Promethazine 25mg suppository every 6 hours as needed. Patient was discharged to home.). 09-04-2024 Unclassified (8 sources) [ADDITIONAL REASON] Transition into care - The patient is transitioning into care from an emergency room ([facility] 08/22/2024) and a summary of care was reviewed. 09-04-2024 Unclassified (7 sources) Follow up consultation - The patient is here to follow-up after Emergency Room/Urgent Care (Patient was seen at [facility] ER on 08/22/2024 for Acute dehydration, post-op pain (had tonsillectomy done on 08/18/2024), Nausea and vomiting, Abnormal ECG - inverted T waves in inferior leads. Patient was prescribed Reglan 5mg every 6 hours PRN and Promethazine 25mg suppository every 6 hours as needed. Patient was discharged to home.). Current symptoms include sore throat (sore throat is gradually improving since surgery. For the past couple of years, she has noticed randomly that her heart will feel fluttery and will last a few minutes up to 10 minutes then resolve. At the ER she was given Morphine and Nausea medication, she started to have chest pain afterwards for about 1 hour, that is when they did an ECG and found it was abnormal. Troponin level was normal. For the past year, she will have mid chest pain a few times a week that will sometimes last for several hours. She has noticed if she drinks coffee or wears tight clothing that this seems to cause the chest pain. She wonders if the chest pain is related to esophageal spasms or acid reflux. Not having nausea or vomiting since being at the ER. She has noticed with position changes that her heart rate will race and will feel lightheaded and vision will go black - doesn't notice with exertional activities.). Note for Consultation follow-up: No family history of cardiac issues. 09-04-2024 Unclassified (2 sources) Transition into care - The patient is transitioning into care from an emergency room ([facility] 08/22/2024) and a summary of care was reviewed. 09-04-2024 Unclassified (2 sources) [ADDITIONAL REASON] Follow up consultation - The patient is here to follow-up after Emergency Room/Urgent Care (Patient was seen at [facility] ER on 08/22/2024 for Acute dehydration, post-op pain (had tonsillectomy done on 08/18/2024), Nausea and vomiting, Abnormal ECG - inverted T waves in inferior leads. Patient was prescribed Reglan 5mg every 6 hours PRN and Promethazine 25mg suppository every 6 hours as needed. Patient was discharged to home.). Current symptoms include sore throat (sore throat is gradually improving since surgery. For the past couple of years, she has noticed randomly that her heart will feel fluttery and will last a few minutes up to 10 minutes then resolve. At the ER she was given Morphine and Nausea medication, she started to have chest pain afterwards for about 1 hour, that is when they did an ECG and found it was abnormal. Troponin level was normal. For the past year, she will have mid chest pain a few times a week that will sometimes last for several hours. She has noticed if she drinks coffee or wears tight clothing that this seems to cause the chest pain. She wonders if the chest pain is related to esophageal spasms or acid reflux. Not having nausea or vomiting since being at the ER. She has noticed with position changes that her heart rate will race and will feel lightheaded and vision will go black - doesn't notice with exertional activities.). Note for Consultation follow-up: No family history of cardiac issues. 09-04-2024 Results Test Name Value Interpretation Reference Range Facility OP NOTEon 11-24-2024 OP NOTE Operative Note DATE: 11/24/2024 TIME: 3:30PM PREOPERATIVE DIAGNOSIS: Female infertility [N97.9] RLQ abdominal pain [R10.31] POSTOPERATIVE DIAGNOSIS: Post-Op Diagnosis Codes: * Female infertility [N97.9] * RLQ abdominal pain [R10.31] Left inguinal hernia PROCEDURE(S) PERFORMED: Procedure(s): PELVISCOPY ROBOTIC XI with CHROMOTUBATION, fulguration of endometriosis, removal of left paratubal cyst INDICATIONS: Kathleen Weinberg is a 24 y.o. 0 who presents for surgical evaluation for suspected endometriosis and history of infertility. She has undergone trial of ovulation induction medication without success. She does have numerous symptoms suspicious for endometriosis, and we also wish to evaluate for tubal patency at this time. Risks of surgery reviewed in great detail, risks of bleeding, infection, injury to surrounding organs, bowel, bladder, ureters, risks of anesthesia and blood clots discussed. All questions were answered and consent was obtained. FINDINGS: Left inguinal hernia is visualized. There are 2 small paratubal cysts on the left fallopian tube. Small lesions of endometriosis on both ovaries. There are no vesicular lesions or endometriosis lesions on pelvic sidewall, bladder or cul-de-sac or bowel. There is no significant adhesive disease. On chromotubation there is spillage of dye through the right fallopian tube confirming tubal patency. There is no spillage of dye on the left side, consistent with tubal blockage SURGEON: Zayra Flores MD OR STAFF: Installation And Repair Technician: Trinh Hansen RN; Kaylan Murphy RN Scrub Person Preceptor: Ananya Osman ST Scrub Person Orientee: Macey Rodriguez ST RNFA: Sheba Knowles RN ANESTHESIA STAFF: Anesthesiologist: Andrea Rosa MD MOTOR COACH BUS DRIVER: Stevie Trivedi CRNA Anesthesiologist Manager Of Revenue: Nando Oh AA SPECIMEN(S): ID Type Source Tests Collected by Time Destination A : left para-tubal cyst Tissue Soft Tissue, Please Specify TISSUE EXAM Zayra Flores MD 11/24/2024 1487 IMPLANTS: * No implants in log * ESTIMATED BLOOD LOSS: 2 mL UOP: 200 mL TYPE OF ANESTHESIA USED: General INTRA AND IMMEDIATE POST-OP COMPLICATIONS: None PROCEDURE: The patient was brought to the operating room where general anesthetic was placed and was found to be adequate. She was prepped and draped in normal sterile fashion and placed in the dorsal lithotomy position in yellowfin stirrups. A weighted speculum was placed the anterior lip of the cervix was grasped with a tenaculum. A Prema uterine manipulator was placed within the uterine cavity for manipulation and for future chromotubation. The other instruments were removed and gloves were changed and attention turned to the abdomen. An 8 mm supraumbilical skin incision was made with the scalpel and the Veress needle placed through this incision into the abdomen with a low appropriate opening intra-abdominal pressure. The abdomen was insufflated with CO2 gas. The Veress needle was removed and an 8 mm bladeless trocar and sleeve were placed through this incision into the abdomen proper placement confirmed with the laparoscope with no damage to surrounding organs or blood vessels. 2 additional port sites were placed in the left and right upper quadrants respectively greater than 8 cm apart under direct visualization. The patient was then placed in steep Trendelenburg positioning and the robot was docked with the patient. Instruments were inserted and I took control over at the console. A thorough scan of the abdomen and pelvis were performed showing what notes to be a left inguinal hernia. Pictures were taken. 2 small paratubal cysts are visualized near the most distal end of the left fallopian tube as well as a small 1 near the more proximal portion. They was were able to be cut cauterized and removed to be sent to pathology. There are 2 small brown lesions of endometriosis on each ovary which were able to be cauterized at this point. The right fallopian tube was noted to be normal. The cul-de-sac, pelvic sidewalls, bladder and portions of large bowel were examined without endometriosis lesions able to be visualized. At this point chromotubation was performed with a dilute solution of methylene blue mixed with sterile water. The solution was instilled through the uterine manipulator through the uterus to look for tubal spillage. Spillage of the dilute dye was noted on the right fallopian tube. There is no spillage from the left fallopian tube nor is there appearance of any blockages midway through the fallopian tube whatsoever. Pictures are taken of these findings. A total of 150 mL of dilute methylene blue and sterile water solution were instilled for chromotubation. The abdomen and pelvis were then suctioned out at this point. All laparoscopic instruments were then removed and the abdomen then desufflated. Skin incisions were closed with 4-0 Monoc (more content not included)... Normal [facility] POC , URINE - RALSo n 11-24-2024 Beta HCG ( test) Ql (U) Negative Normal Negative [facility] Comment on above: Order Comment: Negat rama: Dilute urine specimens, as indicated by a low specific gravity (<1.010) may not contain representitive levels of hCG. If is still suspected, a serum test or repeat urine test using a first morning urine specimen should be considered. Performed By: #### 4 [id number] #### [facility] [address] [place], [place] [address] Ilan Alatorre M.D. [id number] TISSUE EXAMon 11-24-2024 TISSUE EXAM Surgical Pathology Report Case: [id number] Authorizing Provider: Zayra Flores MD Collected: 11/24/2024 02:37 PM Ordering Location: [facility] Periop Received: 11/24/2024 03:56 PM Pathologist: Yocasta Mckinley MD Specimen: Soft Tissue, Please Specify, left para-tubal cyst A. Left Paratubal Cyst, excision: Benign paratubal cyst. at 1203 EDT Female infertility [N97.9] RLQ abdominal pain [R10.31] A. Received in formalin labeled soft tissue, please tissue is an intact seymour-white cyst measuring 1.0 x 0.9 x 0.5 cm. The external surface is predominantly smooth and without excrescences. The external surface is inked black. Serial sectioning reveals a unilocular, smooth internal surface. The cyst is filled with clear, serous-type fluid. The specimen is entirely submitted in 2 cassettes. JR Gross examination performed at: [facility] - [address] [place] [address] Microscopic examination is performed. Normal [facility] Comment on above: Performed By: #### 4 [id number] #### [place] [address] Ilan Alatorre M.D. [id number] US TRANSVAGINALon 11-11-2024 US TRANSVAGINAL Uterus 6.5 x 4.2 cm. Polycystic appearance of right ovary. Small complex left ovarian cyst 1.2 x 1.1 cm without surrounding free fluid. Dictated by: ZAYRA MCCARTHY on [place] Nov 15, 2024 3:57:40 PM EDT Transcribed by: ZAYRA MCCARTHY on [place] Nov 15, 2024 3:57:40 PM EDT Finalized by: ZAYRA MCCARTHY on [place] Nov 15, 2024 3:57:40 PM EDT Normal [facility] Ambulatory PROGESTERONEon 10-30-2024 PROGESTERONE 27.4 ng/mL Normal [facility] Comment on above: Order Comment: FASTI NG:NO FASTING: NO Result Comment: Refe rence Ranges Female Follicular Phase < 1.0 Luteal Phase 2.6-21.5 Post menopausal < 0.5 1st Trimester 4.1-34.0 2nd Trimester 24.0-76.0 3rd Trimester 52.0-302.0 Performed By: #### 7 45 #### [facility] [address], [address] [place] [address] Community Relations Manager: Arpit Mills MD 12 Lead EKG performed [place] [facility] 10[place]21-2024 12 Lead [facility]KG performed by [facility] [address] [facility] [place] [address] 12 Lead EKG performed by [facility] 10/21/24 1434 MR#: [id number] Acct: [id number] Name: ARAVINDBRENTONKATHLEEN ALEE Rep #: [id number] : 2000 23 From: Ruy Silver MD Attending Dr: Dr. Ruy Silver MD Status: DEP A MB Ordering Dr: Ruy Silver MD Date: 10/21/24 Location: [facility] Sex: F C Admitted: BMS/12 Lead EKG performed by [facility] [place] ECG Report Interpretation ------Sinus Rhythm -Short AZ syndrome Liss = 114-Nonspecific ST depression + Nonspecific T-abnormality -Abnormal but nondiagnostic for this age. ABNORMAL Electronically signed on 10/28/2024 at 11:31 by Ruy Silver [employer] Version 8610 10/28/24 1135 Date Ruy Silver MD CC: MISHA Dominguez Date Dictated: 10/21/24 1434 Date Transcribed: 10/21/24 1434 Vice President Of Compliance: [place] Signed Normal [facility] Cardiology Visit Reporton Cardiology Visit Report [facility] [address] [place] [address]. [address] [place] [address] OFFICE VISIT Date of Service: 10/21/24 MR#: [id number] Acct: [id number] Name: KATHLEEN WEINBERG Rep #: [id number] : 2000 Provider: Dr. Ruy Silver MD Age/Sex: 23/F Location: [facility] Status: Signed HPI HPI History of Present Illness Details: Pleasant 23-year-old lady with a history of palpitations who says that she was noted to have an abnormal EKG when she presented with palpitations. This was in August 2024 and EKG done emergency room demonstrated heart rate of [address]-T wave abnormalities suggesting inferior ischemia. She had had a tonsillectomy a few days prior to presentation and had significant nausea and vomiting. In the emergency room her potassium was noted to be 3.6 but other blood work results were normal. She was scheduled for and underwent a stress echocardiogram and it demonstrated no evidence of ischemia at a high workload. She also relates to the fact that when she gets up quickly from the seated position or is walking her heart rate starts going fast. She wanted to exclude POTS disease. She denies any chest pain but has had some shortness of breath with exertion and some dizziness with positional changes. Intake Vital Signs 08/22/24 17:01 10/21/24 14:33 Height 5 ft 4 in 5 ft 4 in Weight: 118 lb BMI 20.2 BP 111/77 Blood Pressure Location Lt brachial Position Sitting Respiration 16 Pulse 88 Pulse Source Monitor Intake Visit Reasons: ABN EKG ([place]) [facility] Consultant Required: No Accompanied by: Self Is patient in pain?: No Allergies latex Allergy (Intermediate, Verified 10/21/24 14:37) Rash Medications ???Medication ???Instructions ???Recorded ???Confirmed ???Type fluoxetine 40 mg capsule 40 mg PO DAILY 09/26/22 10/21/24 H istory omeprazole 20 mg capsule,delayed 20 mg PO DAILY 09/26/22 10/21/24 H istory release metoclopramide HCl 5 mg tablet 5 mg PO Q6H PRN nausea and 5 10/21/24 Rx (Reglan) vomiting #20 tabs promethazine 25 mg rectal 25 mg AZ Q6H PRN nausea and 10/21/24 Rx suppository vomiting #12 ea letrozole 2.5 mg tablet 5 mg PO 10/21/24 10/21/24 History PFSH Medical History GERD (gastroesophageal reflux disease) Palpitations Chest pain Abnormal ECG Low vitamin D level Fatigue Irritable bowel syndrome with constipation Eating disorder PCOS (polycystic ovarian syndrome) Anxiety Surgical History Hx of tonsillectomy Family History Father Diabetes Grandfather Colon cancer Diabetes Grandmother Cancer ovarian cancer Social History Smoking Status: Never smoker alcohol intake: never substance use type: does not use ROS Const Const: Positive for fatigue (cori since surgery); Negative for weakness, headache(s), daytime sleepiness or difficulty sleeping ENT ENT: Negative for headache(s), dizziness or Nosebleed/epistaxis Cardio Chest Pain: No Palpitations: Yes (upon standing) feels like its: fast Edema: None Resp Respiratory: Positive for SOB with activity (with palps); Negative for SOB at rest, SOB orthopnea SOB lying down or Cough GI GI: Negative nausea, vomiting or heartburn Neuro Neuro: Positive for lightheadedness (upon position changes) and near syncope; Negative for dizziness, headache(s) or weakness Endo Endo: Positive for fatigue (cori since surgery) Cardiology Exam Const Appearance: cooperative, healthy appearing, no acute distress, well developed and well groomed Nutritional Appearance: average body habitus and well nourished Orientation: alert, awake and oriented x3 Head Head: normal to inspection, normocephalic and atraumatic Ears: hearing grossly normal bilaterally and external ears normal Nose: external nose normal, nares normal, nasal mucous membranes and turbinates normal, septum normal and no nasal discharge Face and Sinus: face symmetric Mouth: oral mucosae normal, tongue normal, oropharynx normal and moist mucous membranes Teeth and gingiva: dentition normal Throat: posterior oropharynx normal, tonsils normal and uvula midline Eyes General: appearance normal, both eyes and all related structures Eyelids: eyelids normal Conjunctivae: conjunctivae normal Pupils: PERRL, normal by confrontation and accommodation normal EOM: EOM intact bilaterally Neck Neck: normal visual inspection, trachea midline and no JVD JVD: +5 Carotids: normal carotid upstroke and bounding pulses Chest Chest inspection: normal inspection of the chest, symmetric chest movement and normal respiratory e (more content not included)... Normal [facility] Stress Test Echo W/Contrasto n 10-13-2024 Stress Test Echo W/Contrast [facility] [address] [place] [address] Stress Test Echo W/Contrast MR#: [id number] Acct: [id number] Name: KATHLEEN WEINBERG Rep #: [id number] : 2000 From: Ruy Silver MD Primary Care: MISHA Dominguez Status: R EG CLI Ordering Dr: Zayra Carrizales Sex: F C Reason For Study Reason For Study: Abnormal EKG Stress Results Protocol: Stress echocardoigram with Definity Emeterio Protocol Maximum Predicted HR: 195 bpm Target HR: 166 bpm % Maximum Predicted HR: 101 % DurationHeart Rate Stage (mm:ss) (bpm) BP Comment Baseline 83 122/76Patient denies chest pain Stage 1 3:00 113 110/70Patient denies chest pain Stage 2 3:00 148 110/72Patient denies chest pain Stage 3 3:00 181 134/74Patient denies chest pain Stage 4 2:00 196 142/64Patient complains of lightheadness and leg fatgiue Recovery 100 114/64Definity 2ml total used per protocol Stress Duration: 11:00 mm:ss Maximum Stress HR: 196 bpm Baseline Echocardiogram Findings Stress Echo Wall motion Data Resting WM Intermediate WM Stress WM ECHO/Stress Test Echo W/Contrast Interpretation Summary Exercise stress echo with Definity enhancement. 23-year-old lady with a history of chest pain. Resting EKG demonstrates normal sinus rhythm with a rate of 71 bpm. Resting blood pressure is 122/76 mmHg. The patient exercised according to regular Emeterio protocol for total duration of 11 minutes completing 2 minutes into stage IV of the Emeterio protocol the maximum heart rate attained was 196 bpm which was 100% max impacted heart rate the maximum workload was 13.4 metabolic equivalents. The rate-pressure product was 27,800. The peak blood pressure 142/64 mmHg. No clinical angina was noted the tach test was terminated due to the target heart rate being achieved. Stress echocardiogram. The resting echocardiogram demonstrated preserved ejection fraction with Definity enhancement. The estimated ejection fraction was 55%. With stress imaging there was reduction of low ventricular cavity size and peaking of ejection fraction over 65%. No new wall motion abnormalities were noted. Conclusion: Exercise stress echocardiogram with no evidence of ischemia at a high workload. Normal resting and stress echocardiographic imaging. Ordering Physician: Zayra Carrizales Referring Physician: Zayra Carrizales Performed By: Cathy Lin, RDCS, RVT 10/13/24 165 Date Ruy Silver MD CC: MISHA Dominguez Date Dictated: 10/13/24 1308 Date Transcribed: 10/13/241651 Vice President Of Compliance: Signed Normal [facility] Stress echocardiogram study reportOrdered By: Ruy Silver on 10-13-2024 Stress cardiac echo study report [facility] [address] [place] [address] Stress Test Echo W/Contrast MR#: [id number] Acct: [id number] Name: KATHLEEN WEINBERG Rep #: [id number] : 2000 From: Ruy Silver MD Primary Care: MISHA Dominguez Status: REG CLI Ordering Dr: Zayra Carrizales Sex: F C Reason For Study Reason For Study: Abnormal EKG Stress Results Protocol: Stress echocardoigram with Definity Emeterio Protocol Maximum Predicted HR: 195 bpm Target HR: 166 bpm %Maximum Predicted HR: 101 % DurationHeart Rate Stage (mm:ss) (bpm) BP Comment Baseline 83 122/76Patient denies chest pain Stage 1 3:00 113 110/70Patient denies chest pain Stage 2 3:00 148 110/72Patient denies chest pain Stage 3 3:00 181 134/74Patient denies chest pain Stage 4 2:00 196 142/64Patient complains of lightheadness and leg fatgiue Recovery 100 114/64Definity 2ml total used per protocol Stress Duration: 11:00 mm:ss Maximum Stress HR: 196 bpm Baseline Echocardiogram Findings Stress Echo Wall motion Data Resting WM Intermediate WM Stress WM ECHO/Stress Test Echo W/Contrast Interpretation Summary Exercise stress echo with Definity enhancement. 23-year-old lady with a history of chest pain. Resting EKG demonstrates normal sinus rhythm with a rate of 71 bpm. Resting blood pressure is 122/76 mmHg. The patient exercised according to regular Emeterio protocol for total duration of 11 minutes completing 2 minutes into stage IV of the Emeterio protocol the maximum heart rate attained was 196 bpm which was 100% max impacted heart rate the maximum workload was 13.4 metabolic equivalents. The rate-pressure product was 27,800. The peak blood pressure 142/64 mmHg. No clinical angina was noted the tach test was terminated due to the target heart rate beingachieved. Stress echocardiogram. The resting echocardiogram demonstrated preserved ejection fraction with Definity enhancement. The estimated ejection fraction was 55%. With stress imaging there was reductionof low ventricular cavity size and peaking of ejection fraction over 65%. No new wall motion abnormalities were noted. Conclusion: Exercise stress echocardiogram with no evidence of ischemia at a high workload. Normal resting and stress echocardiographic imaging. Ordering Physician: Zayra Carrizales Referring Physician: Zayra Carrizales Performed By: Cathy Lin, RDCS, RVT 10/13/24 1652 Date _ Ruy Silver MD CC: MISHA Dominguez ~ Date Dictated: 10/13/24 1308 Date Transcribed: 10/13/24 165 Vice President Of Compliance: Signed [facility] Work Phone: 12 Lead EKGon 08-22-2024 12 Lead EKG [facility] [address] [place] [address] 12 Lead EKG 08/22/24 1919 MR#: [id number] Acct: [id number] Name: ARAVINDBRENTONKATHLEEN ALEE Rep #: [id number] : 2000 From: Ruy Silver MD Attending Dr: Status: DEP ER Ordering Dr: Lizbeth Nolasco DO Date: 08/22/24 Location: ED Sex: F C Admitted: Test Reason : CP Blood Pressure : */* mmHG Vent. Rate : 104 BPM Atrial Rate : 104 BPM P-R Int : 128 ms QRS Dur : 74 ms QT Int : 320 ms P-R-T Axes : 71 73 -61 degrees QTcB Int : [address] T wave abnormality, consider inferior ischemia Abnormal ECG Confirmed by RUY SILVER MD ([id number]), photograph editor TUCKER SMITH ([id number]) on 08/24/2024 8:20:27 AM Referred By: Confirmed By: RUY SILVER MD 08/24/24 0820 Date Ruy Silver MD CC: Dr. Lizbeth Nolasco DO; MISHA Dominguez Signed Normal [facility] Absolute neutrophil countOrd ered By: Lizbeth Nolasco on 08-22-2024 Neutrophils (Bld) [#/Vol] 14.1 10*3/uL High 2.0-7.7 [facility] Albumin to globulin ratioOrd ered By: Lizbeth Nolasco on 08-22-2024 Albumin/Globulin [Mass ratio] 0.9 {ratio} 0.9-2.4 [facility] Basophil percentageOrdered B y: Lizbeth Nolasco on 08-22-2024 Basophils/100 WBC (Bld) 0.4 % 0-1 [facility] Bilirubin Test strip Ql (U)O rdered By: Lizbeth Nolasco on 08-22-2024 Bilirubin Ql (U) Negative Negative [facility] Bilirubin, totalOrdered By: Lizbeth Nolasco on 08-22-2024 Bilirubin [Mass/Vol] 0.40 mg/dL 0.20-1.00 [facility] Comment on above: For patients on eltr ombopag therapy, use of Dimension [place] TBIL is not recommended. Blood urea nitrogen (BUN)/cr eatinine ratioOrdered By: Lizbeth Nolasco on 08-22-2024 Urea nitrogen/Creatinine [Mass ratio] 18.9 mg/mg 10-20 [facility] CBC W/Diff, Automatedon 02- Absolute Lymph 1.19 X10 3/uL Normal 0.83-4.51 [facility] Comment on above: Performed By: #### L 100.0100, L500.4050, L501.2450 #### [facility] [address] [place], [address] Absolute Neut 14.1 X10 3/uL High 2.0-7.7 [facility] Comment on above: Performed By: #### L 100.0100, L500.4050, L501.2450 #### [facility] [address] [place], [address] Basophils/100 WBC (Bld) 0.4 % Normal 0-1 [facility] Comment on above: Performed By: #### L 100.0100, L500.4050, L501.2450 #### [facility] [address] [place], [address] Eosinophils/100 WBC (Bld) 0.3 % Normal 0-5 [facility] Comment on above: Performed By: #### L 100.0100, L500.4050, L501.2450 #### [facility] [address] [place], [address] Erythrocyte distribution width (RBC) [Ratio] 11.8 % Normal 11.6-14.6 [facility] Comment on above: Performed By: #### L 100.0100, L500.4050, L501.2450 #### [facility] [address] [place], [address] Hematocrit (Bld) [Volume fraction] 39.0 % Normal 37-47 [facility] Comment on above: Performed By: #### L 100.0100, L500.4050, L501.2450 #### [facility] [address] [place], [address] Hemoglobin (Bld) [Mass/Vol] 13.4 g/dL Normal 12.0-15.0 [facility] Comment on above: Performed By: #### L 100.0100, L500.4050, L501.2450 #### [facility] [address] [place], [address] IG% 0.600 Normal 0.0-0.9 [facility] Comment on above: Result Comment: IG% - Immature Granulocytes (promyelocytes, myelocytes and metamyelocytes) > 1% indicates that a LEFT SHIFT is Present. Performed By: #### L 100.0100, L500.4050, L501.2450 #### [facility] [address] [place], [address] Lymphocytes/100 WBC (Bld) 7.2 % Low 19-41 [facility] Comment on above: Performed By: #### L 100.0100, L500.4050, L501.2450 #### [facility] [address] [place], [address] MCH (RBC) [Entitic mass] 29.1 pg Normal 27.0-32.0 [facility] Comment on above: Performed By: #### L 100.0100, L500.4050, L501.2450 #### [facility] [address] [place], [address] MCHC (RBC) [Mass/Vol] 34.4 g/dL Normal 32-36 [facility] Comment on above: Performed By: #### L 100.0100, L500.4050, L501.2450 #### [facility] [address] [place], [address] MCV (RBC) [Entitic vol] 84.6 fL Normal 81-99 [facility] Comment on above: Performed By: #### L 100.0100, L500.4050, L501.2450 #### [facility] [address] [place], [address] Monocytes/100 WBC (Bld) 5.9 % Normal 0-10 [facility] Comment on above: Performed By: #### L 100.0100, L500.4050, L501.2450 #### [facility] [facility] [address] [place], [address] Neutrophils/100 WBC (Bld) 85.6 % High 47-70 [facility] Comment on above: Performed By: #### L 100.0100, L500.4050, L501.2450 #### [facility] [address] [place], [address] Nucleated RBC (Bld) [#/Vol] 0 10*3/uL Normal 0-5 [facility] Comment on above: Performed By: #### L 100.0100, L500.4050, L501.2450 #### [facility] [address] [place], [address] Platelet mean volume (Bld) [Entitic vol] 9.8 fL Normal 6.2-12.0 [facility] Comment on above: Performed By: #### L 100.0100, L500.4050, L501.2450 #### [facility] [address] [place], [address] Platelets (Bld) [#/Vol] 282 10*3/uL Normal 150-450 [facility] Comment on above: Performed By: #### L 100.0100, L500.4050, L501.2450 #### [facility] [address] [place], [address] RBC (Bld) [#/Vol] 4.61 10*6/uL Normal 4.2-5.4 [facility] Comment on above: Performed By: #### L 100.0100, L500.4050, L501.2450 #### [facility] [address] [place], [address] RDW SD 35.9 fl Normal 35.1-43.9 [facility] Comment on above: Performed By: #### L 100.0100, L500.4050, L501.2450 #### [facility] [address] [place], [address] WBC (Bld) [#/Vol] 16.5 10*3/uL High 4.4-11.0 [facility] Comment on above: Performed By: #### L 100.0100, L500.4050, L501.2450 #### [facility] [address] [place], [address] Carbon dioxide measurementOr dered By: Lizbeth Nolasco on 08-22-2024 CO2 [Moles/Vol] 20.0 mmol/L Low 21.0-32.0 [facility] Chloride measurementOrdered By: Lizbeth Nolasco on 08-22-2024 Chloride [Moles/Vol] 101 mmol/L 98-107 [facility] Comprehensive Metabolic Prof ilon 08-22-2024 Albumin [Mass/Vol] 3.9 g/dL Normal 3.2-5.0 [facility] Comment on above: Performed By: #### L 100.0100, L500.4050, L501.2450 #### [facility] [address] [place], [address] Albumin/Globulin [Mass ratio] 0.9 {ratio} Normal 0.9-2.4 [facility] Comment on above: Performed By: #### L 100.0100, L500.4050, L501.2450 #### [facility] [address] [place], [address] ALK P 82 U/L Normal 45-117 [facility] Comment on above: Performed By: #### L 100.0100, L500.4050, L501.2450 #### [facility] [address] [place], [address] ALT [Catalytic activity/Vol] 25 U/L Normal 13-56 [facility] Comment on above: Performed By: #### L 100.0100, L500.4050, L501.2450 #### [facility] [address] [place], [address] AST [Catalytic activity/Vol] 12 U/L Low 15-37 [facility] Comment on above: Performed By: #### L 100.0100, L500.4050, L501.2450 #### [facility] [address] [place], [address] Bilirubin [Mass/Vol] 0.40 mg/dL Normal 0.20-1.00 [facility] Comment on above: Result Comment: For patients on eltrombopag therapy, use of Dimension Wynne TBIL is not recommended. Performed By: #### L 100.0100, L500.4050, L501.2450 #### [facility] [address] [place], [address] BUN/CRE 18.9 RATIO Normal 10-20 [facility] Comment on above: Performed By: #### L 100.0100, L500.4050, L501.2450 #### [facility] [address] [place], [address] CA,Total 9.5 mg/dL Normal 8.5-10.1 [facility] Comment on above: Performed By: #### L 100.0100, L500.4050, L501.2450 #### [facility] [address] [place], [address] Chloride [Moles/Vol] 101 mmol/L Normal 98-107 [facility] Comment on above: Performed By: #### L 100.0100, L500.4050, L501.2450 #### [facility] [address] [place], [address] CO2 [Moles/Vol] 20.0 mmol/L Low 21.0-32.0 [facility] Comment on above: Performed By: #### L 100.0100, L500.4050, L501.2450 #### [facility] [address] [place], [address] Creatinine [Mass/Vol] 0.48 mg/dL Low 0.55-1.02 [facility] Comment on above: Result Comment: The validity of the calculated GFR GFRAA in patients over 70 years has not been determined. Clinical correlation is essential. Performed By: #### L 100.0100, L500.4050, L501.2450 #### [facility] [address] [place], [address] ECRCL 148.77 ml/min Normal [facility] Comment on above: Performed By: #### L 100.0100, L500.4050, L501.2450 #### [facility] [address] [place], [address] EST GFR - AA 204 mL/min Normal >60 [facility] Comment on above: Result Comment: Afri can Grenadian GFR Calc Performed By: #### L 100.0100, L500.4050, L501.2450 #### [facility] [address] [place], [address] GAP 12 Normal 5-15 [facility] Comment on above: Performed By: #### L 100.0100, L500.4050, L501.2450 #### [facility] [address] [place], [address] GFR/1.73 sq M.predicted among non-blacks MDRD (S/P/Bld) [Vol rate/Area] 169 mL/min/{1.73_m2} Normal >60 [facility] Comment on above: Result Comment: Non- GFR Calc Performed By: #### L 100.0100, L500.4050, L501.2450 #### [facility] [address] [place], [address] Globulin (S) [Mass/Vol] 4.4 g/dL High 2.2-4.2 [facility] Comment on above: Performed By: #### L 100.0100, L500.4050, L501.2450 #### [facility] [address] [place], [address] Glucose [Mass/Vol] 103 mg/dL Normal 74-106 [facility] Comment on above: Result Comment: Fast ing Glucose result from 100 to 125 mg/dL suggests IMPAIRED HOMEOSTASIS per A.D.A. criteria. Performed By: #### L 100.0100, L500.4050, L501.2450 #### [facility] [address] [place], [address] Potassium [Moles/Vol] 3.6 mmol/L Normal 3.5-5.1 [facility] Comment on above: Performed By: #### L 100.0100, L500.4050, L501.2450 #### [facility] [address] [place], [address] Sodium [Moles/Vol] 133 mmol/L Low 136-145 [facility] Comment on above: Performed By: #### L 100.0100, L500.4050, L501.2450 #### [facility] [address] [place], [address] T PROT 8.3 g/dL High 6.4-8.2 [facility] Comment on above: Performed By: #### L 100.0100, L500.4050, L501.2450 #### [facility] [address] [place], [address] Urea nitrogen [Mass/Vol] 9 mg/dL Normal 7-18 [facility] Comment on above: Performed By: #### L 100.0100, L500.4050, L501.2450 #### [facility] [address] [place], [address] Emergency Department Summary on 08-22-2024 Emergency Department Summary [facility] Medical Records Department [address] [place] [address] Emergency Department Summary 08/22/24 MR#: [id number] Acct: [id number] Name: KATHLEEN WEINBERG Rep #: [id number] : 2000 23 From: Lizbeth Nolasco DO PCP: MISHA Dominguez Status:DEP ER Location: ED HPI History of Present Illness Chief Complaint: Sore Throat Informant: patient Narrative Narrative: Patient is a 23-year-old female who is 4 days status post tonsillectomy with Dr. Bernardo. She states the first 2 days she was doing okay but then yesterday evening developed some vomiting. Since then she has had increased pain as well as vomiting. She has had some chills, mild cough and a temperature of 99.8. She has Zofran ODT at home but is not helping. She is not able to keep her pain medicine down. She denies any bleeding from her throat. Denies any shortness of breath difficulty breathing. Denies abdominal pain but more so just stomach feels upset from not eating. Having a hard time eating and drinking. Spoke with her surgeon who recommend she come to the ER for medications and fluids. No sick contacts reported. Patient is not concern for control. Only a medical history of PCOS. No other complaints or concerns reported at this time. States she has not had a bowel movement since her surgery but is passing gas. [facility] Medical History Low vitamin D level Fatigue RUQ pain Amenorrhea Irritable bowel syndrome with constipation Eating disorder PCOS (polycystic ovarian syndrome) Constipation Diarrhea Nausea Abdominal pain Anxiety Home Medications ???Medication ???Instructions ???Recorded ???Last Taken ???Type Control Pill 1 tab PO DAILY 06/10/19 Unknown Hi story fluoxetine 40 mg capsule 40 mg PO DAILY 09/26/22 Unknown Hi story omeprazole 20 mg capsule,delayed 20 mg PO DAILY 09/26/22 Unknown Hi story release metoclopramide HCl 5 mg tablet 5 mg PO Q6H PRN nausea and 5 Unknown Rx (Reglan) vomiting #20 tabs promethazine 25 mg rectal 25 mg AZ Q6H PRN nausea and Unknown Rx suppository vomiting #12 ea Allergy/AdvReac Type Severity Reaction Status Date / Time latex Allergy Intermediate Rash Verified 08/22/24 17:01 Family History Father Diabetes Grandfather Colon cancer Diabetes Grandmother Cancer ovarian cancer Surgical History No history of previous surgery Social History Smoking Status: Never smoker alcohol intake: never substance use type: does not use ROS ROS ED Constitutional Constitutional ED: Reports chills, fever(s) and other Details: Low-grade with Tmax of 99.8 ENT ENT ED: Reports sore throat and other Details: Recent tonsillectomy Cardiovascular Cardiovascular: Denies chest pain Respiratory/Chest Respiratory/Chest: Reports cough; Denies dyspnea Gastrointestinal Gastrointestinal: Reports constipation, nausea and vomiting; Denies abdominal pain or diarrhea Musculoskeletal Musculoskeletal: Denies myalgias Integumentary Denies rash Neurologic Neurologic: Reports weakness Hematologic/Lymphati c Hematologic/Lymphati c: Denies easy bleeding or easy bruising EXAM Physical Exam Const Vital Signs: 08/22/24 17:01 08/22/24 19:01 08/22/24 21:00 Temperature 98.2 F Temperature Source Oral Pulse Rate 114 H 89 Respiratory Rate 15 Blood Pressure 126/91 H 101/78 117/87 H Blood Pressure Mean 102 85 97 Pulse Ox 100 100 Oxygen Delivery Method Room Air 08/22/24 21:43 Temperature 97.6 F L Temperature Source Pulse Rate 89 Respiratory Rate 16 Blood Pressure 117/87 H Blood Pressure Mean 97 Pulse Ox 100 Oxygen Delivery Method Positive well nourished and well developed General Appearance ED: well developed and NAD; Negative for pallor HEENT Reports moist mucous membranes HEENT Narrative: Eschar in the oropharynx with no active bleeding consistent with recent tonsillectomy. Uvula is midline. No trismus. Eyes PERRL and EOMs intact bilaterally Neck supple Resp normal respiratory effort and clear to auscultation bilaterally Cardio regular rhythm Rate: tachycardic GI normal to inspection, nondistended, normoactive bowel sounds and non-tender Extremity normal to inspection General Extremety ED: Negative for edema General Extremity: Negative for edema Neuro oriented x3 Sensorium / Orientation: alert Motor Exam: Negative for general weakness Psych mental status grossly normal Skin no rashes or lesions noted General Skin Exam: Negative for jaundice or pallor MDM MDM (more content not included)... Normal [facility] Eosinophil percentageOrdered By: Lizbeth Nolasco on 08-22-2024 Eosinophils/100 WBC (Bld) 0.3 % 0-5 [facility] Epithelial cells.squamous LM Ql (Urine sed)Ordered By: Lizbeth Nolasco on 08-22-2024 Epithelial cells.squamous LM.HPF (Urine sed) [#/Area] 0 /[HPF] 5-10 [facility] Erythrocyte distribution wid th ratioOrdered By: Lizbeth Nolasco on 08-22-2024 Erythrocyte distribution width (RBC) [Ratio] 11.8 % 11.6-14.6 [facility] Erythrocyte distribution wid th standard deviationOrdered By: Lizbeth Nolasco on 08-22-2024 Erythrocyte distribution width (RBC) [Entitic vol] 35.9 fL 35.1-43.9 [facility] Estimated glomerular filtrat ion rate (GFR) AmericanOrdered By: Lizbeth Nolasco on 08-22-2024 Estimated GFR (MDRD) Amer 204 mL/min >60 [facility] Comment on above: GFR Calc Estimation of creatinine radha aranceOrdered By: Lizbeth Nolasco on 08-22-2024 Estimated Creatinine Clearance Calc 148.77 ml/min [facility] Glomerular filtration rate ( GFR) estimationOrdered By: Lizbeth Nolasco on 08-22-2024 Estimated GFR (MDRD) Non-Af Amer 169 mL/min >60 [facility] Comment on above: Non- GFR Calc Glucose Ql (U)Ordered By: Clint Nolasco on 08-22-2024 Urine Glucose (UA) Normal mg/dl Normal [facility] Glucose measurementOrdered B y: Lizbeth Nolasco on 08-22-2024 Glucose [Mass/Vol] 103 mg/dL 74-106 [facility] Comment on above: Fasting Glucose resu lt from 100 to 125 mg/dL suggests IMPAIRED HOMEOSTASIS per A.D.A. criteria. Hematocrit Auto (Bld) [Volum e fraction]Ordered By: Lizbeth Nolasco on 08-22-2024 Hematocrit (Bld) [Volume fraction] 39.0 % 37-47 [facility] Hemoglobin measurementOrdere d By: Lizbeth Nolasco on 08-22-2024 Hemoglobin (Bld) [Mass/Vol] 13.4 g/dL 12.0-15.0 [facility] Immature granulocytes/100 WB C Auto (Bld)Ordered By: Lizbeth Nolasco on 08-22-2024 Immature granulocytes/100 WBC (Bld) 0.600 % 0.0-0.9 [facility] Comment on above: IG% - Immature Granu locytes (promyelocytes, myelocytes and metamyelocytes) > 1% indicates that a LEFT SHIFT is Present. Influenza virus A and B and SARS-CoV-2 (COVID-19) and Respiratory syncytial virus RNAOrdered By: Lizbeth Nolasco on 08-22-2024 SARS-CoV-2 (COVID-19) RNA VENTURA+probe Ql (Unsp spec) [facility] Ketones Test strip Ql (U)Ord ered By: Lizbeth Nolasco on 08-22-2024 Ketones Ql (U) 150 mg/dl Abnormal Negative [facility] Comment on above: CRITICAL VALUE *HCRI TICAL VALUE CALLED TO EDWIN BECKER08/22/[id number] Dario Ellis.RESULTS READ BACK BY SAME. L501.4020on 08-22-2024 TROPONIN-I HS < 3 Low 3.0-54.0 [facility] Comment on above: Order Comment: 'TROP ' Serial specimen #1, #2 or #3: 1 Result Comment: Garrison bustos Note: New Test Units and Gender Specific Reference Ranges. For more information see Policy Stat Procedure [place] High Sensitivity Troponin (TNIH) and attachments. Performed By: #### L 501.4020 #### [facility] [address] [place], [address] Laboratory - Chemistry and C hemistry - challengeOrdered By: Lizbeth Nolasco on 08-22-2024 AST [Catalytic activity/Vol] 12 U/L Low 15-37 [facility] Lipaseon 08-22-2024 Lipase [Catalytic activity/Vol] 53 U/L Normal 13-75 [facility] Comment on above: Result Comment: Garrison bustos note: LIPASE revised reference range effective 22. New Lipase methodology. Expected to produce lower values than the previous assay method. NEW Reference Range: 13 - 75 U/L Performed By: #### L 100.0100, L500.4050, L501.2450 #### [facility] [address] [place], [address] Lipase measurementOrdered By : Lizbeth Nolsaco on 08-22-2024 Lipase [Catalytic activity/Vol] 53 U/L 13-75 [facility] Comment on above: Please note:LIPASE r evised reference range effective 22. New Lipase methodology. Expected to produce lower values than the previous assay method. NEW Reference Range: 13 - 75 U/L Lymphocytes Auto (Unsp spec) [#/Vol]Ordered By: Lizbeth Nolasco on 08-22-2024 Lymphocytes (Bld) [#/Vol] 1.19 10*3/uL 0.83-4.51 [facility] Lymphocytes/100 WBC Auto (Un sp spec)Ordered By: Lizbeth Nolasco on 08-22-2024 Lymphocytes/100 WBC (Bld) 7.2 % Low 19-41 [facility] M100.678on 08-22-2024 M100.678 Pending SARS-CoV-2 (COVID 19) Negative INFLUENZA A Negative INFLUENZA B Negative RSV PCR Negative Normal [facility] Comment on above: Performed By: #### M 100.678, L400.7600, L400.0001 #### [facility] [address] [place], [address] MCV (mean corpuscular volume ) determinationOrdered By: Lizbeth Nolasco on 08-22-2024 MCV (RBC) [Entitic vol] 84.6 fL 81-99 [facility] Mean corpuscular hemoglobin (MCH) determinationOrdered By: Lizbeth Nolasco on 08-22-2024 MCH (RBC) [Entitic mass] 29.1 pg 27.0-32.0 [facility] Mean corpuscular hemoglobin concentration (MCHC) determinationOrdered By: Lizbeth Nolasco on 08-22-2024 MCHC (RBC) [Mass/Vol] 34.4 g/dL 32-36 [facility] Mean platelet volume determi nationOrdered By: Lizbeth Nolasco on 08-22-2024 Platelet mean volume (Bld) [Entitic vol] 9.8 fL 6.2-12.0 [facility] Microscopic analysis of urin e for red blood cells (RBC)Ordered By: Lizbeth Nolasco on 08-22-2024 Urine RBC 0 SEEN /hpf 0-5 [facility] Monocyte percentageOrdered B y: Lizbeth Nolasco on 08-22-2024 Monocytes/100 WBC (Bld) 5.9 % 0-10 [facility] Mucus LM Ql (Urine sed)Order ed By: Lizbeth Nolasco on 08-22-2024 Mucus Ql (Urine sed) 0 SEEN /hpf [facility] Neutrophil percentageOrdered By: Lizbeth Nolasco on 08-22-2024 Neutrophils/100 WBC (Bld) 85.6 % High 47-70 [facility] Nitrite Test strip Ql (U)Ord ered By: Lizbeth Nolasco on 08-22-2024 Nitrite Ql (U) Negative Negative [facility] Nucleated red blood cell per centageOrdered By: Lizbeth Nolasco on 08-22-2024 Nucleated RBC/100 WBC (Bld) [Ratio] 0 % 0-5 [facility] Platelet countOrdered By: Clint Nolasco on 08-22-2024 Platelets (Bld) [#/Vol] 282 10*3/uL 150-450 [facility] Potassium measurementOrdered By: Lizbeth Nolasco on 08-22-2024 Potassium [Moles/Vol] 3.6 mmol/L 3.5-5.1 [facility] ,Urineon 08-22-2024 Beta HCG ( test) Ql (U) Negative Normal [facility] Comment on above: Result Comment: Very dilute urine specimens, as indicated by a low specific gravity, may not contain indirect sales representative levels of hCG. If is still suspected, a first morning urine specimen should be collected 48 hours later and tested. Performed By: #### M 100.678, L400.7600, L400.0001 #### [facility] [address] [place], [place], [id number] Protein Test strip Ql (U)Ord ered By: Lizbeth Nolasco on 08-22-2024 Protein Ql (U) 30 mg/dl High Negative [facility] RBC Auto (Bld) [#/Vol]Ordere d By: Lizbeth Nolasco on 08-22-2024 RBC (Bld) [#/Vol] 4.61 10*6/uL 4.2-5.4 [facility] Serum anion gap measurementO rdered By: Lizbeth Nolasco on 08-22-2024 Anion gap [Moles/Vol] 12 mmol/L 5-15 [facility] Serum globulin measurementOr dered By: Lizbeth Nolasco on 08-22-2024 Globulin (S) [Mass/Vol] 4.4 g/dL High 2.2-4.2 [facility] Serum or plasma alanine eli otransferase (ALT) measurementOrdered By: Lizbeth Nolasco on 08-22-2024 ALT [Catalytic activity/Vol] 25 U/L 13-56 [facility] Serum or plasma albumin kwabena urement (mass/volume)Ordered By: Lizbeth Nolasco on 08-22-2024 Albumin [Mass/Vol] 3.9 g/dL 3.2-5.0 [facility] Serum or plasma alkaline john sphatase measurementOrdered By: Lizbeth Nolasco on 08-22-2024 ALP [Catalytic activity/Vol] 82 U/L 45-117 [facility] Serum or plasma calcium kwabena urement (mass/volume)Ordered By: Lizbeth Nolasco on 08-22-2024 Calcium [Mass/Vol] 9.5 mg/dL 8.5-10.1 [facility] Serum or plasma creatinine m easurement (mass/volume)Ordered By: Lizbeth Nolasco on 08-22-2024 Creatinine [Mass/Vol] 0.48 mg/dL Low 0.55-1.02 [facility] Comment on above: The validity of the calculated GFR & GFRAA in patients over 70 years has not been determined. Clinical correlation is essential. Serum or plasma urea nitroge n measurement (mass/volume)Ordered By: Lizbeth Nolasco on 08-22-2024 Urea nitrogen [Mass/Vol] 9 mg/dL 7-18 [facility] Sodium levelOrdered By: Minerva Nolasco on 08-22-2024 Sodium [Moles/Vol] 133 mmol/L Low 136-145 [facility] Total proteinOrdered By: Dian Nolasco on 08-22-2024 Protein [Mass/Vol] 8.3 g/dL High 6.4-8.2 [facility] Troponin IOrdered By: Lizbeth Nolasco on 08-22-2024 Troponin I High Sensitivity < 3 pg/mL Low 3.0-54.0 [facility] Comment on above: Please Note: New Simran t Units and Gender Specific Reference Ranges. For more information see Policy Stat Procedure [place] High Sensitivity Troponin (TNIH) and attachments. Urinalysis, Completeon 08-22 EPI,SQUAMOUS 0-5 SEEN Normal 5-10 [facility] Comment on above: Order Comment: CLEAN CATCH Performed By: #### M 100.678, L400.7600, L400.0001 #### [facility] [address] [place], [address] WBC 0-5 SEEN Normal 0-5 [facility] Comment on above: Order Comment: CLEAN CATCH Performed By: #### M 100.678, L400.7600, L400.0001 #### [facility] [address] [place], [address] BACTERIA 0 SEEN Normal None Seen [facility] Comment on above: Order Comment: CLEAN CATCH Performed By: #### M 100.678, L400.7600, L400.0001 #### [facility] [address] [place], [address] Mucus Ql (Urine sed) 0 SEEN Normal [facility] Comment on above: Order Comment: CLEAN CATCH Performed By: #### M 100.678, L400.7600, L400.0001 #### [facility] [address] [place], [address] RBC 0 SEEN Normal 0-5 [facility] Comment on above: Order Comment: CLEAN CATCH Performed By: #### M 100.678, L400.7600, L400.0001 #### [facility] [address] [place], [address] Urine blood detectionOrdered By: Lizbeth Nolasco on 08-22-2024 Urine Occult Blood Negative Negative [facility] Urine clarityOrdered By: Dian Nolasco on 08-22-2024 Clarity (U) Sl. Cloudy Clear [facility] Urine color determinationOrd ered By: Lizbeth Nolasco on 08-22-2024 Color (U) Straw Yellow [facility] Urine leukocyte esterase det ection by dipstickOrdered By: Lizbeth Nolasco on 08-22-2024 Leukocyte esterase Test strip Ql (U) 100 /ul High Negative [facility] Urine pHOrdered By: Lizbeth márquez on 08-22-2024 pH (U) 6.0 [pH] 5.0 - 8.0 [facility] Urine testOrdered By: Lizbeth Nolasco on 08-22-2024 HCG ( test) Ql (U) Negative [facility] Comment on above: Very dilute urine sp ecimens, as indicated by a low specificgravity, may not contain indirect sales representative levels of hCG. If is still suspected, a first morning urinespecimen should be collected 48 hours later and tested. Urine sediment bacteria coun t by microscopy (number/high power field)Ordered By: Lizbeth Nolasco on 08-22-2024 Bacteria LM.HPF (Urine sed) [#/Area] 0 /[HPF] None Seen [facility] Urine specific gravity measu rementOrdered By: Lizbeth Nolasco on 08-22-2024 Specific gravity (U) [Rel density] 1.030 1.002-1.030 [facility] Urobilinogen Ql (U)Ordered B y: Lizbeth Nolasco on 08-22-2024 Urine Urobilinogen Normal mg/dl Normal [facility] White blood cell (WBC) count Ordered By: Lizbeth Nolasco on 08-22-2024 WBC (Bld) [#/Vol] 16.5 10*3/uL High 4.4-11.0 [facility] White blood cell countOrdere d By: Lizbeth Nolasco on 08-22-2024 Urine WBC 0-5 SEEN /hpf 0-5 [facility] Surgery Specimen Level IIIon 08-18-2024 Surgery Specimen Level III Patient Age/Sex Location Account Attending Physician KATHLEEN WEINBERG 23/F LABSPEC [id number] Jose Beckman Specimen: [id number] Received: 08/19/24 Status: ROSARIO Chavez Num: [id number] Spec Type: TONSILS Subm Dr: Dr. Rod Bernardo MD HEADER OPERATION: Tonsillectomy PRE-OP DIAGNOSIS: Chronic tonsillitis TISSUE SUBMITTED: Bilateral tonsils - pin on right MICROSCOPIC DIAGNOSIS Bilateral tonsils, tonsillectomy: Reactive lymphoid hyperplasia, consistent with chronic tonsillitis. Focal actinomycosis colonization. SJ: 08/20/2024 MICROSCOPIC DESCRIPTION Slides are reviewed. GROSS DESCRIPTION Received is one container labeled with the patient's name and designated tonsils - pin on right are two tonsils that in aggregate weigh 6.9 gm. The right tonsil has a pin-tie on it and measures 3 x 2 x 1.2 cm. The left tonsil measures 2.8 x 2 x 1.5 cm. Both tonsils are similar in appearance. The external surfaces are pink-seymour, smooth, glistening and somewhat lobulated. Focally they are hemorrhagic, granular and bear cautery artifact. Serial cross sections through the tonsils reveal normal tonsillar architecture. Sections are submitted in two cassettes as follows: 1 - right tonsil, 2 - left tonsil. . 08/19/2024 TC:3 CPT: 80745 x2 Patient Age/Sex Location Account Attending Physician KATHLEEN WEINBERG [facility] [id number] Jose Beckman Signed (signature on file) Dr. Griffin Floyd MD 08/20/24 1322 [facility] Comment on above: Performed By: #### P SUIII ####[facility] [address] [place], [place], [address] PROGESTERONEon 07-08-2024 PROGESTERONE 24.1 ng/mL [facility] Comment on above: Order Comment: Expec jocy Values: Males: 0 -0.6 ng/mL Non females: Follicular phase: 0 - 1.5 ng/mL Luteal phase: 2.3 - 25.0 ng/mL Mid-luteal phase: 3.5 - 25.0 ng/mL Postmenopausal: 0 - 0.7 ng/mL Oral contraceptives: 0 -0.4 ng/mL females: First trimester: 8.1 - 42.0 ng/mL Performed By: #### 4 6361 #### [facility] [address] [address] Ilan Alatorre M.D. [id number] US TRANSVAGINALon 06-22-2024 US TRANSVAGINAL Transvaginal ultrasound performed due to right lower quadrant pain and current letrozole use. Transvaginal ultrasound shows uterus to be slightly retroverted measuring 5.4 x 3.6 x 4.8 cm. Endometrial stripe is normal at 0.3 cm. Right ovary measures 6.1 x 2.2 x 3.0 cm. Multiple follicles are seen within the right ovary with a dominant follicle/corpus luteum cyst measuring 3.5 x 2.2 x 2.0 cm. This simple appearing dominant follicle/corpus luteum cyst has the appearance of someone getting ready to ovulate. Left ovary measures 5.3 x 1.2 x 1.5 cm. Left ovary is normal in appearance and has multiple small follicles. Simple appearing right ovarian cyst shows a dominant follicle/corpus luteum cyst has appearance of patient possibly getting ready to ovulate. Dominant follicle could cause some pelvic pain but should resolve in the next 4 to 6 weeks. Dictated by: HEATHER DICKEY on SatJun 29, 2024 9:24:37 PM EST Transcribed by: HEATHER DICKEY on SatJun 29, 2024 9:24:37 PM EST Finalized by: HEATHER DICKEY on SatJun 29, 2024 9:24:37 PM EST Normal [facility] CULTURE, URINE, ROUTINEon CULTURE, URINE, ROUTINE SEE NOTE Abnormal [facility] Comment on above: Result Comment: CULTURE, URINE, ROUTINE Micro Number: [id number] Test Status: Final Specimen Source: Urine Specimen Quality: Adequate Result: Greater than 100,000 CFU/mL of Escherichia coli E.coli INT ANA AMOX/CLAVULANATE S <=2 AMPICILLIN S <=2 AMP/SULBACTAM S <=2 CEFAZOLIN NR <=4 2 CEFEPIME S <=1 CEFTAZIDIME S <=1 CEFTRIAXONE S <=1 CIPROFLOXACIN S <=0.25 GENTAMICIN S <=1 IMIPENEM S <=0.25 LEVOFLOXACIN S <=0.12 NITROFURANTOIN S <=16 PIP/TAZOBACTAM S <=4 TOBRAMYCIN S <=1 TRIMETHOPRIM/SULFA S <=20 S = Susceptible I = Intermediate R = Resistant NS = Not susceptible SDD = Susceptible Dose Dependent * = Not Tested NR = Not Reported NN = See Therapy Comments THERAPY COMMENTS Note 1: For infections other than uncomplicated UTI caused by E. coli, K. pneumoniae or P. mirabilis: Cefazolin is resistant if ANA > or = 8 mcg/mL. (Distinguishing susceptible versus intermediate for isolates with ANA < or = 4 mcg/mL requires additional testing.) Note 2: For uncomplicated UTI caused by E. coli, K. pneumoniae or P. mirabilis: Cefazolin is susceptible if ANA <32 mcg/mL and predicts susceptible to the oral agents cefaclor, cefdinir, cefpodoxime, cefprozil, cefuroxime, cephalexin and loracarbef. Performed By: #### 3 95 #### [facility] [address], [address] [place] [address] Community Relations Manager: Arpit Mills MD Laboratory - Chemistry and C hemistry - challengeon 06-16-2024 Beta HCG ( test) Ql (U) Negative Normal [facility].; [facility], [facility]. Bilirubin Ql (U) Negative Normal [facility] [place] [facility].; [employer] [facility], [employer] Ketones Ql (U) Negative Normal [facility] [place] [facility].; [employer], [employer]. pH (U) 7.0 [pH] Normal [facility] [place] [facility].; [employer], [employer]. Specific gravity (U) [Rel density] 1.020 Normal [employer] [facility].; [employer]. Urobilinogen Qn (U) 0.2 mg/dL Normal [facility], [facility].; [employer] [facility], [facility]. Laboratory - Hematology and Cell countson 06-16-2024 Hemoglobin Ql (U) large Abnormal [facility] [place] [facility].; [employer] [facility]. Laboratory - Specimen inform ationon 06-16-2024 Appearance (U) cloudy Abnormal [employer].; [employer] Color (U) dark Yellow Normal [employer].; [employer], [employer]. Laboratory - Urinalysison Glucose Test strip (U) [Mass/Vol] Negative Normal [employer].; [employer] Leukocyte esterase Test strip Ql (U) small Abnormal [employer].; [employer] Nitrite Ql (U) Positive Abnormal [employer].; [employer] Protein Ql (U) Negative Normal [employer].; [employer], [employer]. No Panel Informationon 06-16 CULTURE, URINE, ROUTINE SEE NOTE Abnormal [facility] [employer].; [employer], [employer]. PROGESTERONEon 06-04-2024 PROGESTERONE 0.5 ng/mL Normal [facility] Comment on above: Order Comment: FASTI NG:NO FASTING: NO Result Comment: Refe rence Ranges Female Follicular Phase < 1.0 Luteal Phase 2.6-21.5 Post menopausal < 0.5 1st Trimester 4.1-34.0 2nd Trimester 24.0-76.0 3rd Trimester 52.0-302.0 Performed By: #### 7 45 #### [facility] [address] [place] [address] Community Relations Manager: Arpit Mills MD No Panel Informationon 05-20 MONOSPOT TEST (IN HOUSE) Negative Normal [employer].; [employer], [employer]. PROGESTERONEon 05-19-2024 PROGESTERONE <0.5 Normal [facility] Comment on above: Result Comment: Refe rence Ranges Female Follicular Phase < 1.0 Luteal Phase 2.6-21.5 Post menopausal < 0.5 1st Trimester 4.1-34.0 2nd Trimester 24.0-76.0 3rd Trimester 52.0-302.0 Performed By: #### 7 45 #### [facility] [address], [address] [place] [address] Community Relations Manager: Arpit Mills MD THINPREP PAP SMEARon 024 THINPREP PAP SMEAR Gynecologic Cytology Report Case: [id number] Authorizing Provider: Marylin Bustamante CNM Collected: 04/20/2024 08:39 AM Ordering Location: [facility] Received: 04/23/2024 08:49 AM Obstetrics and Gynecology First Screen: Sandee Guerrero TECHNOLOGIST Specimen: THINPREP PAP SMEAR, Cervix / Endocervix Satisfactory for evaluation; endocervical/transfo rmation zone component present Negative for intraepithelial lesion or malignancy Acute inflammation The Pap smear is a screening test for the detection of cervical cancer and its precursor lesions. False positive and false negative results can occur. The test should be performed at regular intervals, and positive results should be confirmed before definitive therapy. Additional testing methods may be helpful in detecting abnormalities or in clinical management. The specimen has been analyzed by the ThinPrep imaging system, an automated imaging and review system which assists the laboratory in evaluating cells on ThinPrep tests. Following automated imaging selected elkins from every slide are reviewed by a casework specialist. Specimen processing and Primary Screening performed at: [facility] - [address] [place] [address] 01/23/2024 Normal [facility] Comment on above: Performed By: #### 4 6974 #### [facility] [address] [place] [address] Kamar Duong M.D. [id number] Laboratory - Microbiology an d Antimicrobial susceptibilityon 08-26-2023 S. pyogenes Ag EIA Ql (Throat) Positive Abnormal [facility] Vaginitis DNA ProbesOrdered By: Fidelia Predum on 04-13-2023 Morenita sp DNA Probe+sig amp Ql (Vag fld) Negative Negative [facility] G. vaginalis DNA Probe+sig amp Ql (Vag fld) Negative Negative [facility] Interpretation and review of laboratory results Normal [facility] T. vaginalis DNA Probe+sig amp Ql (Vag fld) Negative Negative [facility] ESTRADIOL-17B [CCL]on 2022 Estradiol-17B 76 pg/mL Normal [facility] Comment on above: Result Comment: This test is not suitable for patients receiving treatment with the drug Fulvestrant (Faslodex). The drug causes an interference leading to falsely elevated estradiol results. Menstrual cycle Estradiol reference ranges: Follicular : < 234 pg/mL Ovulation : 41 to 398 pg/mL Luteal : < 342 pg/mL Estradiol reference ranges vary by gestational period: First trimester : 154 to 3243 pg/mL Second trimester : 1561 to 75365 pg/mL Third trimester : 8285 to >92255 pg/mL Post-menopausal Estradiol reference range: < 41 pg/mL Reference: 1. Estradiol - E2 (Estradiol III) [package insert V 3.0 [place]]. [facility], [place], [place], December 2015. [facility] [address] [place] [address] Scout Davis III, M.D. [id number] Performed By: #### 2 20658 #### [address] [address] CORTISOL [CCL]on 09-04-2022 Cortisol 8.4 ug/dL Normal 4.8-19.5 [facility] Comment on above: Result Comment: Prov ided reference range is from 6-10 AM sample collection time. Cortisol Reference Range: 6-10 AM = 4.8-19.5 ug/dL, 4-8 PM = 2.5-11.9 ug/dL [id number] [place] [address] Scout Davis III, M.D. [id number] Performed By: #### 2 67694 #### [address] [address] TESTOSTERONE [CCL]on 023 Testosterone [Mass/Vol] 38 ng/dL Normal <40 [facility] Comment on above: Result Comment: [facility] [address] [place] [address] Scout Davis III, M.D. [id number] Performed By: #### 2 50861 #### [address] [place] [address] CBC + DIFFon 09-01-2022 Baso # 0.00 x10EE3/UL Normal 0.00 - 0.10 [facility] Comment on above: Performed By: #### 2 90489 #### [facility],[address] [place] [address] Basophils/100 WBC (Bld) 0.8 % Normal 0.0 - 2.0 % [facility] Comment on above: Performed By: #### 2 27149 #### [address] [address] CBC + DIFF Normal [facility] Comment on above: Result Comment: CBC- COMPLETE BLOOD COUNT Performed By: #### 2 72164 #### [address] [address] EO # 0.20 x10EE3/UL Normal 0.00 - 0.50 [facility] Comment on above: Performed By: #### 2 11952 #### [address] [id number] Eosinophils/100 WBC (Bld) 4.2 % Normal 0.0 - 7.0 % [facility] Comment on above: Performed By: #### 2 43767 #### [address] [address] Erythrocyte distribution width (RBC) [Ratio] 12.2 % Normal 12.0 - 15.6 % [facility] Comment on above: Performed By: #### 2 40977 #### [address] [address] Hematocrit (Bld) [Volume fraction] 41.6 % Normal 34.0 - 46.0 % [facility] Comment on above: Performed By: #### 2 30635 #### [address] [address] Hemoglobin (Bld) [Mass/Vol] 14.2 g/dL Normal 12.0 - 16.0 g/dL [facility]; [facility] Comment on above: Performed By: #### 2 78798 #### [address] [address] Lymph # 1.60 x10EE3/UL Normal 0.80 - 2.80 [facility] Comment on above: Performed By: #### 2 22718 #### [address] [address] Lymphocytes/100 WBC (Bld) 27.7 % Normal 20.0 - 45.0 % [facility]; [facility] Comment on above: Performed By: #### 2 95554 #### [address] [address] MANUAL DIFF N/A Normal [facility]; [facility] Comment on above: Performed By: #### 2 98417 #### [address] [address] MCH (RBC) [Entitic mass] 30 pg Normal 27 - 33 pg [facility]; [facility] Comment on above: Performed By: #### 2 73104 #### [address] [address] MCHC 34 X10 3 Normal 32 - 36 [facility] Comment on above: Performed By: #### 2 78882 #### [address] [address] MCV (RBC) [Entitic vol] 89 fL Normal 80 - 99 fL H [facility]; [facility] Comment on above: Performed By: #### 2 12764 #### [address] [address] [place] # 0.50 x10EE3/UL Normal 0.20 - 1.00 [facility] Comment on above: Performed By: #### 2 81312 #### [address] [address] MONOS % 9.0 % Normal 0.0 - 10.0 [facility] Comment on above: Performed By: #### 2 52516 #### [address] [place] [address] Morphology Max (Bld) [Interp] N/A Normal [facility].; [facility]. Comment on above: Result Comment: {CD] Performed By: #### 2 65894 #### [address] [address] Neut # 3.40 x10EE3/UL Normal 1.50 - 7.10 [facility] Comment on above: Performed By: #### 2 44505 #### [address] [address] Neutrophils/100 WBC (Bld) 58.3 % Normal 46.0 - 76.0 % [facility]; [facility]. Comment on above: Performed By: #### 2 56240 #### [address] [address] PLATELET 211 x10EE3/UL Normal 150 - [address] [facility] Comment on above: Performed By: #### 2 48727 #### [address] [address] Platelet mean volume (Bld) [Entitic vol] 8.9 fL Normal 6.6 - 10.5 fL [facility].; [facility]. Comment on above: Result Comment: AUTO MATED DIFFERENTIAL Performed By: #### 2 73651 #### [address] [address] RBC 4.69 x 10EE6/UL Normal 4.10 - 5.30 [facility] Comment on above: Performed By: #### 2 70845 #### [facility],[address] [place] [address] WBC 5.9 x 10EE3/UL Normal 4.5 - 10.8 [facility] Comment on above: Performed By: #### 2 46105 #### [facility],[address] [place] [address] CMP with eGFRon 09-01-2022 AGE 21 years Normal [facility] Comment on above: Performed By: #### 2 26839 #### [address] [address] Albumin [Mass/Vol] 4.1 g/dL Normal 3.4 - 5.0 g/dL [facility], [facility].; [facility] Comment on above: Performed By: #### 2 55479 #### [address] [address] Albumin/Globulin [Mass ratio] 1.2 {ratio} Normal 0.9 - 1.6 [facility] Comment on above: Performed By: #### 2 92880 #### [address] [place] [address] ALK PHOS 82 U/L Normal 46 - 116 [facility] Comment on above: Performed By: #### 2 93931 #### [address] [place] [address] ALT [Catalytic activity/Vol] 24 U/L Normal 14 - 59 U/L [facility], [facility].; [facility] Comment on above: Performed By: #### 2 99064 #### [address] [place] [address] Anion gap [Moles/Vol] 11 mmol/L Normal 10 - 2 0 mmol/L [facility], [facility].; [facility] Comment on above: Performed By: #### 2 69662 #### [facility],[address] [place], [place] [address] AST [Catalytic activity/Vol] 20 U/L Normal 13 - 39 U/L [facility].; [facility], [facility]. Comment on above: Performed By: #### 2 62697 #### [address] [address] B/C RATIO 29 ratio Normal 0 - 30 [facility] Comment on above: Performed By: #### 2 52841 #### [address] [place] [address] Bilirubin [Mass/Vol] 0.3 mg/dL Normal 0.2 - 1 .0 mg/dL [facility], [facility].; [facility], [facility]. Comment on above: Performed By: #### 2 27537 #### [address] [place] [address] Calcium [Mass/Vol] 9.3 mg/dL Normal 8.5 - 10. 1 mg/dL [facility], [facility].; [facility], [facility]. Comment on above: Performed By: #### 2 25654 #### [address] [address] Chloride [Moles/Vol] 102 mmol/L Normal 98 - 10 7 mmol/L [facility].; [facility], [facility]. Comment on above: Performed By: #### 2 28871 #### [address] [place] [address] CMP with eGFR Normal [facility] Comment on above: Result Comment: COMP REHENSIVE METABOLIC PANEL Performed By: #### 2 67361 #### [address] [place] [address] CO2 [Moles/Vol] 29.0 mmol/L Normal 21.0 - 32.0 mmol/L [facility], [facility].; [facility] Comment on above: Performed By: #### 2 74367 #### [address],[place] [address] Creatinine [Mass/Vol] 0.55 mg/dL Normal 0.55 - 1.02 mg/dL [facility].; [facility], [facility]. Comment on above: Performed By: #### 2 50168 #### [address] [place] [address] GFR/1.73 sq M.predicted among non-blacks MDRD (S/P/Bld) [Vol rate/Area] mL/min/{1.73_m2} Normal 60 - 999 [facility] Comment on above: Performed By: #### 2 57738 #### [address] [place] [address] Result Comment: ACCO RDING TO THE NATIONAL KIDNEY DISEASE EDUCATION PROGRAM(NKDE), A NORMAL eGFR IS A VALUE GREATER THAN OR EQUAL TO 60 ML/MIN/1.73 SQ METERS. CHRONIC KIDNEY DISEASE: <60mL/MIN/1.73 SQ METERS KIDNEY FAILURE: <15mL/MIN/1.73 SQ METERS THIS TEST SHOULD ONLY BE USED FOR PATIENTS 18 YEARS OF AGE AND OLDER. Globulin (S) [Mass/Vol] 3.5 g/dL Normal 1.5 - 3.8 g/dL [facility], [facility].; [facility], [facility]. Comment on above: Performed By: #### 2 26760 #### [address] [address] Glucose [Mass/Vol] 78 mg/dL Normal 74 - 106 mg/dL [facility], [facility].; [facility], [facility]. Comment on above: Performed By: #### 2 88458 #### [address] [address] Potassium [Moles/Vol] 3.7 mmol/L Normal 3.5 - 5.1 mmol/L [facility], [facility].; [facility], [facility]. Comment on above: Performed By: #### 2 11230 #### [place] [id number] Protein [Mass/Vol] 7.6 g/dL Normal 6.4 - 8.2 g/dL [facility].; [facility]. Comment on above: Performed By: #### 2 51723 #### [address] [place] [address] Sodium [Moles/Vol] 138 mmol/L Normal 136 - 145 mmol/L [facility].; [facility], [facility]. Comment on above: Performed By: #### 2 40335 #### [address] [place] [address] Urea nitrogen [Mass/Vol] 16 mg/dL Normal 7 - 18 mg/d L [facility].; [facility], [facility]. Comment on above: Performed By: #### 2 99201 #### [address] [place] [address] FERRITINon 09-01-2022 Ferritin [Mass/Vol] 66 ng/mL Normal 8 - 388 ng/mL [facility].; [facility] [place] [facility]. Comment on above: Performed By: #### 2 45987 #### [place] [address] IRON AND TIBCon 09-01-2022 %SATURATION 34 % Normal [facility]; [facility]. Comment on above: Performed By: #### 2 83099 #### [place] [address] Iron [Mass/Vol] 109 ug/dL Normal 50 - 170 ug/dL [facility].; [facility] [place] [facility]. Comment on above: Performed By: #### 2 27794 #### [place] [address] TIBC 318 ug/dl Normal 250 - 450 [facility] Comment on above: Performed By: #### 2 74566 #### [place] [address] UIBC 209 ug/dL Normal 155 - 355 [facility] Comment on above: Performed By: #### 2 87124 #### [facility],[address] [place], [place] [address] Laboratory - Chemistry and C hemistry - challengeon 09-01-2022 25-hydroxyvitamin D3 [Mass/Vol] 20.20 ng/mL Abnormal 30.00 - 100 ng/mL [facility], [facility].; [place] [employer] [facility] Albumin [Mass/Vol] 1.2 g/dL Normal 0.9 - 1.6 [facility], [facility].; [place] [employer] [facility], [facility]. ALP [Catalytic activity/Vol] 82 U/L Normal 46 - 116 U/L [facility], [facility].; [place] [employer] [facility], [employer]. ALT No additional P-5'-P [Catalytic activity/Vol] 24 U/L Normal 14 - 59 U/L [facility], [facility].; [employer] [facility], [facility]. Comprehensive metabolic 2000 panel CMP with eGFR Normal [facility], [facility].; [employer] [facility], [facility]. GFR/1.73 sq M.predicted among blacks MDRD (S/P/Bld) [Vol rate/Area] mL/min/{1.73_m2} Normal 60 - 999 {ML/MINUTE} [facility] [place] [employer] [facility] GFR/1.73 sq M.predicted MDRD (S/P/Bld) [Vol rate/Area] mL/min/{1.73_m2} Normal 60 - 999 {ML/MINUTE} [facility] [employer] [facility], [facility] Iron binding capacity [Mass/Vol] 318 ug/dL Normal 250 - 450 ug/dL [place] [employer] [facility], [facility].; [employer] Testosterone [Mass/Vol] 38 ng/dL Normal H [facility], [facility].; [employer] [facility], [facility] Urea nitrogen/Creatinine [Mass ratio] 29 {ratio} Normal 0 - 30 {ratio} [employer] [facility].; [employer] Laboratory - Drug toxicology on 09-01-2022 Vancomycin peak [Mass/Vol] 209 ug/dL Normal 155 - 355 ug/dL [employer]. Laboratory - Hematology and Cell countson 09-01-2022 Basophils (Bld) [#/Vol] 0.00 {3/UL} Normal 0.00 - 0.10 {3/UL} [employer], [employer]. CBC W Auto Differential panel (Bld) CBC + DIFF Normal [employer], [employer]. Eosinophils (Bld) [#/Vol] 0.20 {3/UL} Normal 0.00 - 0.50 {3/UL} [employer], [employer]. Lymphocytes (Bld) [#/Vol] 1.60 {3/UL} Normal 0.80 - 2.80 {3/UL} [employer], [employer]. MCHC (RBC) [Mass/Vol] 34 {X10_3} Normal 32 - 3 6 {X10_3} [employer] Monocytes (Bld) [#/Vol] 0.50 {3/UL} Normal 0.20 - 1.00 {3/UL} [employer], [employer].; [employer], [employer]. Monocytes/100 WBC (Bld) 9.0 % Normal 0.0 - 10.0 % [employer] Neutrophils (Bld) [#/Vol] 3.40 {3/UL} Normal 1.50 - 7.10 {3/UL} [employer] Platelets (Bld) [#/Vol] 211 {3/UL} Normal 150 - 450 {3/UL} [employer], [employer]. RBC (Bld) [#/Vol] 4.69 {6/UL} Normal 4.10 - 5.3 0 {6/UL} [employer] WBC (Bld) [#/Vol] 5.9 {3/UL} Normal 4.5 - 10.8 {3/UL} [employer], [employer]. No Panel Informationon 09-01 AGE 21 {years} Normal [facility], [facility].; [facility], [facility]. Cortisol 8.4 ug/dL Normal 4.8 - 19.5 ug/dL [facility], [facility].; [facility], [facility]. Estradiol-17B 76 pg/mL Normal [facility], [facility].; [facility], [facility]. TSH W/ REFLEX TO FREE T4on 0 09-01-2022 TSH Qn 1.09 m[IU]/L Normal 0.34 - 5.60 {uIU/ml} [facility], [facility].; [facility], [facility]. Comment on above: Performed By: #### 2 72123 #### [place] [id number] VITAMIN B-12on 09-01-2022 Cobalamin (Vitamin B12) [Mass/Vol] 821 pg/mL Normal 193 - 986 pg/mL [facility], [facility]; [facility], [facility]. Comment on above: Performed By: #### 2 70745 #### [place] [id number] VITAMIN D, 25 HYDROXYon 08-22 VitD 20.20 ng/mL Low 30.00 - 100 [facility] Comment on above: Result Comment: 25-O HD3 indicates both endogenous production and supplementation. 25-OHD2 is an indicator of exogenous sources, such as diet or supplementation. Therapy is based on measurement of Total 25-OHD, with levels <20 ng/mL indicative of Vitamin D deficiency, while levels between 20 ng/mL and 30 ng/mL suggest insufficiency. Optimal levels are >=30ng/mL. Vitamin D, 25-OH D3 Not Established Vitamin D, 25-OH D2 Not Established Performed By: #### 2 31856 #### [address] [address] Laboratory - Chemistry and C hemistry - challengeon 03-02-2022 Bilirubin Ql (U) Negative Normal [facility], [facility] Ketones Ql (U) Negative Normal [facility], [facility].; [employer]. pH (U) 7.5 [pH] Normal [employer].; [employer]. Specific gravity (U) [Rel density] 1.015 Normal [employer]. Urobilinogen Qn (U) 0.2 mg/dL Normal [facility] [employer]. Laboratory - Hematology and Cell countson 03-02-2022 Hemoglobin Ql (U) trace, hemolyzed Abnormal [facility] [employer]. Laboratory - Specimen inform ationon 03-02-2022 Appearance (U) clear Normal [facility] [employer]. Color (U) yellow Normal [employer].; [employer]. Laboratory - Urinalysison Glucose Test strip (U) [Mass/Vol] Negative Normal [employer].; [employer]. Leukocyte esterase Test strip Ql (U) small Abnormal [employer].; [employer]. Nitrite Ql (U) Negative Normal [facility].; [employer]. Protein Ql (U) Negative Normal [facility] [employer]. Laboratory - Chemistry and C hemistry - challengeon 12-11-2021 Bilirubin Ql (U) Negative Normal [facility] [employer]. Ketones Ql (U) Negative Normal [facility].; [employer]. pH (U) 6.5 [pH] Normal [employer].; [employer]. Specific gravity (U) [Rel density] <1.005 Normal [employer].; [employer]. Urobilinogen Qn (U) 0.2 mg/dL Normal [facility] [employer].; [employer]. Laboratory - Hematology and Cell countson 12-11-2021 Hemoglobin Ql (U) moderate Abnormal [employer].; [employer]. Laboratory - Specimen inform ationon 12-11-2021 Appearance (U) clear Normal [facility] scenios.; [employer]. Color (U) yellow Normal [employer].; [employer]. Laboratory - Urinalysison Glucose Test strip (U) [Mass/Vol] Negative Normal [employer].; [employer]. Leukocyte esterase Test strip Ql (U) trace Normal [employer].; [employer]. Nitrite Ql (U) Negative Normal [facility] scenios.; [employer]. Protein Ql (U) Negative Normal [facility] [employer].; [employer]. CULTURE, URINE, ROUTINEon CULTURE, URINE, ROUTINE SEE NOTE Normal [facility] Comment on above: Result Comment: CULTURE, URINE, ROUTINE Micro Number: [id number] Test Status: Final Specimen Source: Urine Specimen Quality: Adequate Result: Mixed genital lore isolated. These superficial bacteria are not indicative of a urinary tract infection. No further organism identification is warranted on this specimen. If clinically indicated, recollect clean-catch, mid-stream urine and transfer immediately to Urine Culture Transport Tube. Performed By: #### 3 95 #### [facility] [address], [address] [place] [phone] Community Relations Manager: Arpit Mills MD Laboratory - Chemistry and C hemistry - challengeon 08-17-2021 Bilirubin Ql (U) Negative Normal [facility] [employer]. Ketones Ql (U) Negative Normal [facility] [employer].; [employer]. pH (U) 7.0 [pH] Normal [employer].; [employer]. Specific gravity (U) [Rel density] 1.020 Normal [employer].; [employer]. Urobilinogen Qn (U) 0.2 mg/dL Normal [facility] [employer].; [employer]. Laboratory - Hematology and Cell countson 08-17-2021 Hemoglobin Ql (U) Negative Normal [employer].; [employer]. Laboratory - Specimen inform ationon 08-17-2021 Appearance (U) clear Normal [employer].; [employer]. Color (U) yellow Normal [employer].; [employer]. Laboratory - Urinalysison Glucose Test strip (U) [Mass/Vol] Negative Normal [employer].; [employer]. Leukocyte esterase Test strip Ql (U) small Abnormal [employer].; [employer] Nitrite Ql (U) Negative Normal [employer].; [employer]. Protein Ql (U) Negative Normal [employer].; [employer]. No Panel Informationon 08-17 CULTURE, URINE, ROUTINE SEE NOTE Normal [facility] [employer].; [employer]. FSH AND LHon 05-06-2021 FSH 6.0 mIU/mL Normal [facility] Comment on above: Result Comment: Refe rence Range Follicular Phase 2.5-10.2 Mid-cycle Peak 3.1-17.7 Luteal Phase 1.5- 9.1 Postmenopausal 23.0-116.3 Performed By: #### 1 5983 #### [facility]/[address] [place], [place] Community Relations Manager: Jacobo Alvarez M.D.,PhD #### [id number] #### [facility] [address], [address] [place] [phone] Community Relations Manager: Arpit Mills MD LH 14.3 mIU/mL Normal [facility] Comment on above: Result Comment: Refe rence Range Follicular Phase 1.9-12.5 Mid-Cycle Peak 8.7-76.3 Luteal Phase 0.5-16.9 Postmenopausal 10.0-54.7 Performed By: #### 1 5983 #### [facility]/[place] [id number] [facility] [place], [place] Community Relations Manager: Jacobo Alvarez M.D.,PhD #### 7137 #### [facility] [address], [address] [place], [place] [id number] Community Relations Manager: Arpit Mills MD TESTOSTERONE, TOTAL, MSon TESTOSTERONE, TOTAL, MS 26 ng/dL Normal 2-45 [facility] Comment on above: Result Comment: For additional information, please refer to http://education.myParcelDelivery/faq/ EihmwJenaofzkpwgbYCIAHBNQP733 (This link is being provided for informational/ educational purposes only.) This test was developed and its analytical performance characteristics have been determined by [employer] [place], [place]. It has not been cleared or approved by the U.S. Food and Drug Administration. This assay has been validated pursuant to the CLIA regulations and is used for clinical purposes. Performed By: #### 1 5983 #### [employer]/[facility] [address] [facility] [place], [place] Community Relations Manager: Jacobo Alvarez M.D.,PhD #### 7137 #### [facility] [address], [address] [place], [place] [phone] Community Relations Manager: Arpit Mills MD ANTI-MULLERIAN HORMONE (AMH) , FEMALEon 05-04-2021 ANTI-MULLERIAN HORMONE (AMH), FEMALE 13.03 ng/mL Normal 1.02-14.63 [facility] Comment on above: Performed By: #### 3 7227 #### [facility] [address] [place] [phone] Community Relations Manager: Brandt Prieto M.D. No Panel Informationon 05-01 ANTI-MULLERIAN HORMONE (AMH), FEMALE 13.03 ng/mL Normal 1.02 - 14.63 ng/mL [facility] FSH 6.0 m[iU]/mL Normal [facility].; [facility] LH 14.3 m[iU]/mL Normal [facility].; [facility] TESTOSTERONE, TOTAL, MS 26 ng/dL Normal 2 - 45 ng/dL [employer].; [employer]. Laboratory - Microbiology an d Antimicrobial susceptibilityon 04-28-2021 S. pyogenes Ag EIA Ql (Throat) Negative Normal [employer].; [employer]. Laboratory - Chemistry and C hemistry - challengeon 08-19-2020 Bilirubin Ql (U) Negative Normal [facility] [employer]. Ketones Ql (U) Negative Normal [facility] scenios.; [employer]. pH (U) 6.5 [pH] Normal [employer].; [employer]. Specific gravity (U) [Rel density] <1.005 Normal [employer].; [employer]. Urobilinogen Qn (U) 0.2 mg/dL Normal [facility] [employer] [facility].; [employer]. Laboratory - Hematology and Cell countson 08-19-2020 Hemoglobin Ql (U) Negative Normal [employer].; [employer]. Laboratory - Specimen inform ationon 08-19-2020 Appearance (U) clear Normal [facility] [employer].; [employer]. Color (U) yellow Normal [employer].; [employer]. Laboratory - Urinalysison Glucose Test strip (U) [Mass/Vol] Negative Normal [employer].; [employer]. Leukocyte esterase Test strip Ql (U) Negative Normal [employer].; [employer]. Nitrite Ql (U) Negative Normal [facility] scenios.; [employer]. Protein Ql (U) Negative Normal [facility] scenios.; [employer]. THINPREP PAP REFLEX HPV mRNA E6/E7on 02-16-2020 CLINICAL INFORMATION: Normal [facility] Comment on above: Order Comment: FASTI NG: NO Result Comment: Rout ine exam Performed By: #### 9 0932 #### [facility]-[address] [place] [address] Community Relations Manager: Arpit Mills MD COMMENT Normal [facility] Comment on above: Order Comment: FASTI NG: NO Result Comment: EXPL ANATORY NOTE: The Pap is a screening test for cervical cancer. It is not a diagnostic test and is subject to false negative and false positive results. It is most reliable when a satisfactory sample, regularly obtained, is submitted with relevant clinical findings and history, and when the Pap result is evaluated along with historic and current clinical information. Performed By: #### 9 0932 #### [facility]-[place] [address] Community Relations Manager: Arpit Mills MD MANAGER OF DATA: Normal [facility] Comment on above: Order Comment: FASTI NG: NO Result Comment: GMOJGAN(ASCP) CT screening location: [place] [address]. Performed By: #### 9 0932 #### [facility] [address] Community Relations Manager: Arpit Mills MD INTERPRETATION/RESULT: Normal [facility] Comment on above: Order Comment: FASTI NG: NO Result Comment: Nega tive for intraepithelial lesion or malignancy. Performed By: #### 9 0932 #### [facility] [address] Community Relations Manager: Arpit Mills MD LMP: Normal [facility] Comment on above: Order Comment: FASTI NG: NO Result Comment: None given Performed By: #### 9 0932 #### [facility] [address] Community Relations Manager: Arpit Mills MD PREV. BX: None given Normal [facility] Comment on above: Order Comment: FASTI NG: NO Performed By: #### 9 0932 #### [facility] [address] Community Relations Manager: Arpit Mills MD PREV. PAP: Normal [facility] Comment on above: Order Comment: FASTI NG: NO Result Comment: NEG Performed By: #### 9 0932 #### [facility]-[address], [address] [place] [address] Community Relations Manager: Arpit Mills MD SOURCE: Normal [facility] Comment on above: Order Comment: FASTI NG: NO Result Comment: Endo cervix Performed By: #### 9 0932 #### [facility]-[address], [address] [place] [address] Community Relations Manager: Arpit Mills MD STATEMENT OF ADEQUACY: Normal [facility] Comment on above: Order Comment: FASTI NG: NO Result Comment: Sati sfactory for evaluation. Endocervical/transformation zone component present. Performed By: #### 9 0932 #### [facility]-[address], [address] [place] [address] Community Relations Manager: Arpit Mills MD No Panel Informationon 02-11 [id number] SEE NOTE Normal [employer] CLINICAL INFORMATION: SEE NOTE Normal [facility] [employer].; [employer] MANAGER OF DATA: SEE NOTE Normal [employer] INTERPRETATION/RESULT: SEE NOTE Normal [facility] [employer] LMP: SEE NOTE Normal [employer] PREV. BX: SEE NOTE Normal [employer] PREV. PAP: SEE NOTE Normal [employer] SOURCE: SEE NOTE Normal [employer] STATEMENT OF ADEQUACY: SEE NOTE Normal [facility] [employer] SARS CoV 2 RNA(COVID 19), QU ALITATIVE [facility] 12-16-2019 SARS CoV 2 RNA NOT DETECTED Normal NOT DETECTED [facility] Comment on above: Result Comment: A Not Detected (negative) test result for this test means that SARS- CoV-2 RNA was not present in the specimen above the limit of detection. A negative result does not rule out the possibility of COVID-19 and should not be used as the sole basis for treatment or patient management decisions. If COVID-19 is still suspected, based on exposure history together with other clinical findings, re-testing should be considered in consultation with public health authorities. Laboratory test results should always be considered in the context of clinical observations and epidemiological data in making a final diagnosis and patient management decisions. Please review the Fact Sheets and FDA authorized labeling available for health care providers and patients using the following websites: https://www.[employer].com/home/Covid-19/HCP/[facility]/f act- sheet.html https://www.[employer]/home/Covid-19/Patients/ [facility]/fact-sheet.html This test has been authorized by the FDA under an Emergency Use Authorization (EUA) for use by authorized laboratories. Due to the current public health emergency, [employer] is receiving a high volume of samples from a wide variety of swabs and media for COVID-19 testing. In order to serve patients during this public health crisis, samples from appropriate clinical sources are being tested. Negative test results derived from specimens received in non-commercially manufactured viral collection and transport media, or in media and sample collection kits not yet authorized by FDA for COVID-19 testing should be cautiously evaluated and the patient potentially subjected to extra precautions such as additional clinical monitoring, including collection of an additional specimen. Methodology: Nucleic Acid Amplification Test (NAAT) includes PCR or TMA Additional information about COVID-19 can be found at the [employer] website: www.[employer]/Covid19. Performed By: #### 3 9448 #### [facility], [address] [place] [phone] Community Relations Manager: Arpit Mills MD Laboratory - Microbiology an d Antimicrobial susceptibilityon 12-15-2019 S. pyogenes Ag EIA Ql (Throat) Negative Normal [employer] [facility], [facility].; [employer] [facility], [employer]. SARS-CoV-2 (COVID-19) RNA VENTURA+probe Ql (Unsp spec) Not detected Normal [employer], [facility].; [employer] COMPREHENSIVE METABOLIC PANE Darrick 10-24-2019 Albumin [Mass/Vol] 5.1 g/dL Normal 3.6-5.1 [employer] Comment on above: Performed By: #### 7 137, 25815, 746, 21054, 18795 #### [facility]-[address], [address] [place], [place] Community Relations Manager: Arpit Mills MD #### [id number] #### [facility]/[place] [id number] [facility] [place] Community Relations Manager: Jacobo Alvarez M.D.,PhD Albumin/Globulin [Mass ratio] 1.8 (calc) Normal 1.0-2.5 [facility] Comment on above: Performed By: #### 7 137, 00237, 746, 25285, 50255 #### [facility]-[address], [address] [place], [place] [address] Community Relations Manager: Arpit Mills MD #### [id number] #### [facility]/[place] [id number] [facility] [address] [place] Community Relations Manager: Jacobo Alvarez M.D.,PhD ALP [Catalytic activity/Vol] 74 U/L Normal 31-125 [facility] Comment on above: Performed By: #### 7 137, 40471, 746, 80398, 19514 #### [facility]-[address], [address] [place] [address] Community Relations Manager: Arpit Mills MD #### [id number] #### [facility]/[address] [place] Community Relations Manager: Jacobo Alvarez M.D.,PhD ALT [Catalytic activity/Vol] 11 U/L Normal 6-29 [facility] Comment on above: Performed By: #### 7 137, 31361, 746, 77031, 40497 #### [facility]-[address], [address] [place] [address] Community Relations Manager: Arpit Mills MD #### [id number] #### [facility]/[place] [id number] [facility] [address] [place] Community Relations Manager: Jacobo Alvarez M.D.,PhD AST [Catalytic activity/Vol] 14 U/L Normal 10-30 [facility] Comment on above: Performed By: #### 7 137, 91659, , 45189, 25547 #### [facility]-[address] Community Relations Manager: Arpit Mills MD #### [id number] #### [facility]/[place] [id number] [facility] [address] [place] Community Relations Manager: Jacobo Alvarez M.D.,PhD Bilirubin [Mass/Vol] 0.3 mg/dL Normal 0.2-1.2 [facility] Comment on above: Performed By: #### 7 137, 91523, 74, 14084, 85867 #### [facility]-[place] [phone] Community Relations Manager: Arpit Mills MD #### [id number] #### [facility]/[address] [place] Community Relations Manager: Jacobo Alvarez M.D.,PhD Calcium [Mass/Vol] 10.7 mg/dL High 8.6-10.2 [facility] Comment on above: Performed By: #### 7 137, 67761, 74, 47343, 51934 #### [facility]-[place] [phone] Community Relations Manager: Arpit Mills MD #### [id number] #### [facility]/[address] [place] Community Relations Manager: Jacobo Alvarez M.D.,PhD Chloride [Moles/Vol] 100 mmol/L Normal 98-110 [facility] Comment on above: Performed By: #### 7 137, 89693, 74, 21810, 41656 #### [facility]-[place] [phone] Community Relations Manager: Arpit Mills MD #### [id number] #### [facility]/[place] [id number] [facility] [address] [place] Community Relations Manager: Jacobo Alvarez M.D.,PhD CO2 [Moles/Vol] 30 mmol/L Normal 20-32 [facility] Comment on above: Performed By: #### 7 137, 92945, 746, 82153, 04958 #### [facility]-[address], [address] [place], [place] [phone] Community Relations Manager: Arpit Mills MD #### [id number] #### [facility]/[place] [id number] [facility] [place], [place] Community Relations Manager: Jacobo Alvarez M.D.,PhD Creatinine [Mass/Vol] 0.62 mg/dL Normal 0.50-1.[address] [facility] Comment on above: Performed By: #### 7 137, 43008, 746, 82448, 05940 #### [facility]-[place] [phone] Community Relations Manager: Arpit Mills MD #### [id number] #### [facility]/[address] [place], [place] Community Relations Manager: Jacobo Alvarez M.D.,PhD eGFR NON-AFR. CZECH 130 mL/min/1.73m2 Normal > OR = 60 [facility] Comment on above: Performed By: #### 7 137, 51853, 86, 30397, 17968 #### [facility]-[address], [address] [place], [place] [address] Community Relations Manager: Arpit Mills MD #### [id number] #### [facility]/[address] [place] Community Relations Manager: Jacobo Alvarez M.D.,PhD GFR/1.73 sq M predicted among blacks MDRD (S/P/Bld) [Vol rate/Area] 150 mL/min/{1.73_m2} Normal > OR = 60 [facility] Comment on above: Performed By: #### 7 137, 95215, 746, 20669, 73067 #### [facility]-[place] [address] , [address] [place] [address] Community Relations Manager: Arpit Mills MD #### [id number] #### [facility] [place] Community Relations Manager: Jacobo Alvarez M.D.,PhD Globulin (S) [Mass/Vol] 2.9 g/dL (calc) Normal 1.9-3.7 [facility] Comment on above: Performed By: #### 7 137, 60428, 746, 30778, 07675 #### [facility]-[address], [address] [place], [place] [address] Community Relations Manager: Arpit Mills MD #### [id number] #### [facility] [address] [place] Community Relations Manager: Jacobo Alvarez M.D.,PhD Glucose [Mass/Vol] 79 mg/dL Normal 65-99 [facility] Comment on above: Result Comment: Fasting reference interval Performed By: #### 7 137, 72598, 746, 76722, 21280 #### [facility]-[place] [address] [address] , [address] [place], [place] [address] Community Relations Manager: Arpit Mills MD #### [id number] #### [facility] [place] Community Relations Manager: Jacobo Alvarez M.D.,PhD Potassium [Moles/Vol] 3.9 mmol/L Normal 3.5-5.[address] [facility] Comment on above: Performed By: #### 7 137, 12131, 746, 53278, 10971 #### [facility]-[place] [address] [address] , [address] [place] [address] Community Relations Manager: Arpit Mills MD #### [id number] #### [facility] [address] [place] Community Relations Manager: Jacobo Alvarez M.D.,PhD Protein [Mass/Vol] 8.0 g/dL Normal 6.1-8.1 [facility] Comment on above: Performed By: #### 7 137, 37484, 74, 10091, 03959 #### [facility]-[address], [address] [place], [place] [address] Community Relations Manager: Arpit Mills MD #### [id number] #### [facility]/[place] [id number] [facility] [place], [place] Community Relations Manager: Jacobo Alvarez M.D.,PhD Sodium [Moles/Vol] 140 mmol/L Normal 135-146 [facility] Comment on above: Performed By: #### 7 137, 25723, , 84488, 03776 #### [facility]-[place] [phone] Community Relations Manager: Arpit Mills MD #### [id number] #### [facility]/[place] [id number] [facility] [place], [place] Community Relations Manager: Jacobo Alvarez M.D.,PhD Urea nitrogen [Mass/Vol] 9 mg/dL Normal 7-25 [facility] Comment on above: Performed By: #### 7 137, 97889, , 22505, 72707 #### [facility]-[place] [phone] Community Relations Manager: Arpit Mills MD #### [id number] #### [facility]/[place] [id number] [facility] [place], [place] Community Relations Manager: Jacobo Alvarez M.D.,PhD Urea nitrogen/Creatinine [Mass ratio] NOT APPLICABLE Normal 6-22 [facility] Comment on above: Performed By: #### 7 137, 20614, 73, 95781, 05877 #### [facility]-[address], [address] [place], [place] [address] Community Relations Manager: Arpit Mills MD #### [id number] #### [facility]/[address] [place], [place] Community Relations Manager: Jacobo Alvarez M.D.,PhD FSH AND LHon 10-24-2019 FSH 6.9 mIU/mL Normal [facility] Comment on above: Result Comment: Refe rence Range Follicular Phase 2.5-10.2 Mid-cycle Peak 3.1-17.7 Luteal Phase 1.5- 9.1 Postmenopausal 23.0-116.3 Performed By: #### 7 137, 65649, 746, 81666, 44872 #### [facility]-[address], [address] [place] [address] Community Relations Manager: Arpit Mills MD #### [phone] #### [facility]/[place] [id number] [facility] [place] Community Relations Manager: Jacobo Alvarez M.D.,PhD LH 25.5 mIU/mL Normal [facility] Comment on above: Result Comment: Refe rence Range Follicular Phase 1.9-12.5 Mid-Cycle Peak 8.7-76.3 Luteal Phase 0.5-16.9 Postmenopausal 10.0-54.7 Performed By: #### 7 137, 75472, 748, 99715, 67379 #### [facility]-[address], [address] [place] [address] Community Relations Manager: Arpit Mills MD #### [id number] #### [facility]/[address] [place], [place] Community Relations Manager: Jacobo Alvarez M.D.,PhD PROLACTINon 10-24-2019 PROLACTIN 8.3 ng/mL Normal [facility] Comment on above: Result Comment: Refe rence Range Females Non- 3.0-30.0 10.0-209.0 Postmenopausal 2.0-20.0 Performed By: #### 7 137, 81191, 746, 61716, 66428 #### [facility]-[address], [address] [place] [address] Community Relations Manager: Arpit Mills MD #### [id number] #### [facility] [address] [facility] [address] [place], [place] Community Relations Manager: Jacobo Alvarez M.D.,PhD TESTOSTERONE, TOTAL, MSon TESTOSTERONE, TOTAL, MS 81 ng/dL High 2-45 [facility] Comment on above: Result Comment: For additional information, please refer to http://education.myParcelDelivery/faq/ TytkfTrnyihgbpjrgLRABIKOQZ532 (This link is being provided for informational/ educational purposes only.) This test was developed and its analytical performance characteristics have been determined by [employer] [place], [place]. It has not been cleared or approved by the U.S. Food and Drug Administration. This assay has been validated pursuant to the CLIA regulations and is used for clinical purposes. Performed By: #### 7 137, 44595, 616, 06648, 70368 #### [facility] [phone] Community Relations Manager: Arpit Mills MD #### [phone] #### [facility] [place], [place] Community Relations Manager: Jacobo Alvarez M.D.,PhD TSH W/REFLEX TO FT4on 2019 TSH W/REFLEX TO FT4 1.72 mIU/L Normal [facility] Comment on above: Result Comment: Refe rence Range > or = 20 Years 0.40-4.50 Ranges First trimester 0.26-2.66 Second trimester 0.55-2.73 Third trimester 0.43-2.91 Performed By: #### 7 137, 67600, 746, 52539, 26415 #### [facility] [id number] Community Relations Manager: Arpit Mills MD #### [id number] #### [facility] [address] [facility] [address] [place], [place] Community Relations Manager: Jacobo W Antonio M.D.,PhD VITAMIN D,25-OH,TOTAL,IAon 0 10-24-2019 VITAMIN D,25-OH,TOTAL,IA 32 ng/mL Normal 30-100 [facility] Comment on above: Result Comment: Kaitlin min D Status 25-OH Vitamin D: Deficiency: <20 ng/mL Insufficiency: 20 - 29 ng/mL Optimal: > or = 30 ng/mL For 25-OH Vitamin D testing on patients on D2-supplementation and patients for whom quantitation of D2 and D3 fractions is required, the QuestAssureD(TM) 25-OH VIT D, (D2,D3), LC/MS/MS is recommended: order code 51220 (patients >2yrs). For more information on this test, go to: http://education.myParcelDelivery/faq/ZJN499 (This link is being provided for informational/educational purposes only.) Performed By: #### 7 137, 86534, 746, 03168, 52281 #### [facility]ostics[facility] 549455 [facility], [address] [place] [address] Community Relations Manager: Arpit Mills MD #### [id number] #### [facility] [address] [facility] [place] [address] Community Relations Manager: Jacobo Alvarez M.D.,PhD ANTI-MULLERIAN HORMONE (AMH) , FEMALEon 10-23-2019 ANTI-MULLERIAN HORMONE (AMH), FEMALE 23.59 ng/mL High 1.02-14.63 [facility] Comment on above: Performed By: #### 3 7227 #### [facility] [address] [place] [address] Community Relations Manager: Maulik Mojica M.D., Ph.D Laboratory - Chemistry and C hemistry - challengeon 10-21-2019 Albumin [Mass/Vol] 5.1 g/dL Normal 3.6 - 5.1 g/dL [facility].; [facility] Albumin/Globulin [Mass ratio] 1.8 {ratio} Normal 1.0 - 2.5 [facility], [facility].; [facility]. ALP [Catalytic activity/Vol] 74 U/L Normal 31 - 125 U/L [facility] [place] [facility].; [facility], [facility]. ALT [Catalytic activity/Vol] 11 U/L Normal 6 - 29 U/L [facility].; [facility], [facility]. AST [Catalytic activity/Vol] 14 U/L Normal 10 - 30 U/L [facility], [facility].; [facility]. Bilirubin [Mass/Vol] 0.3 mg/dL Normal 0.2 - 1 .2 mg/dL [facility] [place] [facility].; [facility]. Calcium [Mass/Vol] 10.7 mg/dL Abnormal 8.6 - 10. 2 mg/dL [facility], [facility].; [facility]. Chloride [Moles/Vol] 100 mmol/L Normal 98 - 11 0 mmol/L [facility].; [facility], [facility]. CO2 [Moles/Vol] 30 mmol/L Normal 20 - 32 mmol/L [facility], [facility].; [facility]. Creatinine [Mass/Vol] 0.62 mg/dL Normal 0.50 - 1.10 mg/dL [facility], [facility].; [facility]. GFR/1.73 sq M.predicted among blacks MDRD (S/P/Bld) [Vol rate/Area] 150 mL/min/{1.73_m2} Normal [facility].; [facility], [facility]. Glucose [Mass/Vol] 79 mg/dL Normal 65 - 99 mg/dL [facility], [facility].; [facility], [facility]. Potassium [Moles/Vol] 3.9 mmol/L Normal 3.5 - 5.3 mmol/L [facility], [facility].; [facility], [facility]. Protein [Mass/Vol] 8.0 g/dL Normal 6.1 - 8.1 g/dL [facility], [facility].; [facility]. Sodium [Moles/Vol] 140 mmol/L Normal 135 - 146 mmol/L [facility], [facility].; [facility] Urea nitrogen [Mass/Vol] 9 mg/dL Normal 7 - 25 mg/d L [facility] [place] [facility].; [facility] No Panel Informationon 10-20 ANTI-MULLERIAN HORMONE (AMH), FEMALE 23.59 ng/mL Abnormal 1.02 - 14.63 ng/mL [facility] [place] [facility] BUN/CREATININE RATIO NOT APPLICABLE Normal 6 - [facility]; [facility] eGFR NON-AFR. CZECH 130 Normal [facility], [facility].; [facility], [facility] FSH 6.9 m[iU]/mL Normal [facility].; [facility] GLOBULIN 2.9 Normal 1.9 - 3.7 [facility]; [facility] LH 25.5 m[iU]/mL Normal [facility]; [facility] [place] [facility] PROLACTIN 8.3 ng/mL Normal [facility]; [facility] [place] [facility] TESTOSTERONE, TOTAL, MS 81 ng/dL Abnormal 2 - 45 ng/dL [facility]; [facility]. TSH W/REFLEX TO FT4 1.72 {mIU/L} Normal [facility]; [facility] VITAMIN D,25-OH,TOTAL,IA 32 ng/mL Normal 30 - 100 ng/mL [facility] [place] [facility]. Laboratory - Chemistry and C hemistry - challengeon 07-16-2019 Bilirubin Ql (U) Negative Normal [facility], [facility].; [facility], [employer]. Ketones Ql (U) Negative Normal [facility], [facility].; [place] [employer] [facility], [facility]. pH (U) 6.5 [pH] Normal [facility] [place] [facility].; [place] [employer] [facility], [employer]. Specific gravity (U) [Rel density] 1.015 Normal [facility] [place] [facility].; [facility] [employer], [employer]. Urobilinogen Qn (U) 0.2 mg/dL Normal [facility], [facility].; [place] [employer] [facility], [facility]. Laboratory - Hematology and Cell countson 07-16-2019 Hemoglobin Ql (U) large Abnormal [facility] [place] [facility].; [facility] Laboratory - Specimen inform ationon 07-16-2019 Appearance (U) cloudy Abnormal [employer].; [employer]. Color (U) Dark Yellow Normal [employer].; [employer]. Laboratory - Urinalysison Glucose Test strip (U) [Mass/Vol] Negative Normal [employer].; [employer]. Leukocyte esterase Test strip Ql (U) moderate Abnormal [employer].; [employer]. Nitrite Ql (U) Positive Abnormal [employer].; [employer], [employer]. Protein Ql (U) >=300 Normal [employer].; [employer]. No Panel Informationon 07-16 CULTURE, URINE, ROUTINE SEE NOTE Abnormal [facility] [employer].; [employer]. No Panel Informationon 01-01 SKIN TEST INTRADERMAL TB Negative Normal [employer].; [employer]. No Panel InformationOrdered By: Jes Capps on 12-23-2017 SKIN TEST INTRADERMAL TB Negative Normal [employer].; [employer]. DEXA SCAN AXIALon 07-03-2017 DEXA SCAN AXIAL Clinical history: Hypothalamic dysfunction.Demograp hics: 16 year old white female.Comparison: NoneTechnique: Areal bone density and bone mineral content were estimated from thelumbar spine (L1-4), and subtotal body on Hologic scanner. Age, gender andethnicity matched Z-scores were obtained.Results: The bone density measurement for the AP spine is 0.919 g/sq cm. TheZ-score is -0.9 based on age.The sub total (less head) bone mineral content for the total body is 1322.97 g.The Z-score is -1.3 based on age.Impression: Bone density measurement between -0.9 and -1.3 standard deviations.Baseline studyThis report has been created using voice recognition software. It may containminor errors which are inherent in voice recognition technologySigned by: Dr. Kaden Melendrez at 07/03/2017 13:24 Normal [facility] CULTURE URINEon 05-17-2017 Urine culture, bacteria COLONY COUNT = Z ERO COLONY FORMING UNITS, ML ISOL NO GROWTH OBSERVED AFTER 1 DAY NO GROWTH OBSERVED AFTER 2 DAYS Normal [facility] Comment on above: Performed By: #### 6 30-4 ####[place] [address]cal Director - Jennifer Solomon [id number] AMYLASEon 05-15-2017 Amylase 73 U/L Normal 25-[address] [facility] Comment on above: Performed By: #### 2 1198-7, 1798-8, 3040-3, 23055-3 ####[facility] Director - Jennifer Solomon [id number] CBC with DIFFERENTIALon 04-22 Basophils Auto #/vol (Bld) 0.05 10*3/uL Normal <=0.[address] [facility] Comment on above: Performed By: #### 5 7021-8 ####[place] [address] Director - Jennifer Solomon [id number] Basophils/100 WBC Auto (Bld) 0.7 % Normal <=2.[address] [facility] Comment on above: Performed By: #### 5 7021-8 ####[facility] Director - Jennifer Solomon [id number] Eosinophils 0.05 10*3/uL Normal <=0.70 [facility] Comment on above: Performed By: #### 5 7021-8 ####[facility] Director - Jenniferobie Solomon [id number] Eosinophils/100 leukocytes 0.7 % Normal <=10.[address] [facility] Comment on above: Performed By: #### 5 7021-8 ####[facility] Director - Jennifer Solomon [id number] Erythrocyte distribution width Auto Entitic volume (RBC) 37.0 fL Normal 36.4-46.[address] [facility] Comment on above: Performed By: #### 5 7021-8 ####[facility] Director - Jennifer Solomon [id number] Erythrocytes (RBC) 4.98 10*6/uL Normal 4.00-6.[address] [facility] Comment on above: Performed By: #### 5 7021-8 ####[place] [address] Director - Jennifer Solomon [id number] Hematocrit (HCT) 43.3 % Normal 37.0-47.0 [facility] Comment on above: Performed By: #### 5 7021-8 ####[place] [address] Director - Jennifer Solomon [id number] Hemoglobin mass conc (Bld) 15.1 g/dL Normal 12.0-16.[address] [facility] Comment on above: Performed By: #### 5 7021-8 ####[facility] Director - Jennifer Solomon [id number] Immature granulocytes #/vol (Bld) 0.03 10*3/uL Normal <=0.[address] [facility] Comment on above: Performed By: #### 5 7021-8 ####[facility] Director - Jenniferobie Solomon [id number] Immature granulocytes/100 WBC (Bld) 0.40 % Normal <=1.[address] [facility] Comment on above: Performed By: #### 5 7021-8 ####[facility] Director - Jennifer Solomon [id number] Lymphocytes 1.51 10*3/uL Normal 1.20-3.40 [facility] Comment on above: Performed By: #### 5 7021-8 ####[facility], [place] [address]Gtrexpf Director - Jennifer FarrellCLIA [id number] Lymphocytes/100 leukocytes 20.4 % Normal 20.0-40.[address] [facility] Comment on above: Performed By: #### 5 7021-8 ####[facility], [place] [address]Nrddvee Director - Jennifer FarrellCLIA [id number] MCH 30.3 pg Normal 27.0-31.[address] [facility] Comment on above: Performed By: #### 5 7021-8 ####[facility] Director - Jennifer KirtrellCLIA [id number] MCHC mass conc (RBC) 34.9 g/dL Normal 32.0-36.[address] [facility] Comment on above: Performed By: #### 5 7021-8 ####[facility] Director - Jennifer FarrellCLIA [id number] MCV 86.9 fL Normal 80.0-100.[address] [facility] Comment on above: Performed By: #### 5 7021-8 ####[facility], [place] [address]Jvpnkfz Director - Jennifer FarrellCLIA [id number] Monocytes 0.32 10*3/uL Normal 0.10-0.60 [facility] Comment on above: Performed By: #### 5 7021-8 ####[facility], [place] [address]Mvvetju Director - Jennifer FarrellCLIA [id number] Monocytes/100 leukocytes 4.3 % Normal <=8.[address] [facility] Comment on above: Performed By: #### 5 7021-8 ####[facility], [place] [address]Wqxygfp Director - Jennifer FarrellCLIA [id number] Neutrophils 5.44 10*3/uL Normal 1.40-6.50 [facility] Comment on above: Performed By: #### 5 7021-8 ####[facility] Director - Jennifer Solomon [id number] Neutrophils/100 WBC Auto (Bld) 73.5 % High 50.0-70.[address] [facility] Comment on above: Performed By: #### 5 7021-8 ####[facility] Director - Jennifer Solomon [id number] Nucleated erythrocytes 0.00 10*3/uL Normal <=0.[address] [facility] Comment on above: Performed By: #### 5 7021-8 ####[facility] Director - Jennifer Solomon [id number] Platelet mean volume (PMV) 10.1 fL Normal 9.0-13.[address] [facility] Comment on above: Performed By: #### 5 7021-8 ####[facility] Director - Jennifer Solomon [id number] Platelets 220 10*3/uL Normal 130-400 [facility] Comment on above: Performed By: #### 5 7021-8 ####[facility] Director - Jennifer Solomon [id number] WBC (Leukocytes) 7.40 10*3/uL Normal 4.80-10.80 [facility] Comment on above: Performed By: #### 5 7021-8 ####[facility] Director - Jennifer Solomon [id number] COMPREHENSIVE METABOLIC PANE Darrick 05-15-2017 Alanine aminotransferase (ALT) 24 U/L Normal 14-[address] [facility] Comment on above: Performed By: #### 2 1198-7, 1798-8, 3040-3, 64221-8 ####[facility], [place] [address]Ynvepwu Director - Jennifer Solomon [id number] Albumin 4.5 g/dL Normal 3.4-5.[address] [facility] Comment on above: Performed By: #### 2 1198-7, 8, 3040-3, ####[facility] Director - Jennifer Solomon [id number] Alkaline phosphatase (ALP) 86 U/L Normal 50-[address] [facility] Comment on above: Performed By: #### 2 1198-7, 8, 3039-3, ####[facility], [place] [address]Siixqyj Director - Jennifer Solomon [id number] Anion gap 9.0 mmol/L Normal <=15.[address] [facility] Comment on above: Performed By: #### 2 1198-7, 8, 3039-3, ####[facility] Director - Jennifer Solomon [id number] Aspartate aminotransferase (AST) 14 U/L Low 15-37 [facility] Comment on above: Performed By: #### 2 1198-7, 8, 3039-3, ####[facility] Director - Jennifer Solomon [id number] Bilirubin (total) 0.3 mg/dL Normal 0.2-1.0 [facility] Comment on above: Performed By: #### 2 1198-7, 8, 3039-3, ####[facility], [place] [address]Nfmgkkr Director - Jennifer [facility]insST. [facility]BANS [facility] [id number] Calcium 9.5 mg/dL Normal 8.5-10.[address] [facility] Comment on above: Performed By: #### 2 1198-7, 1798-8, 3040-3, 54554-5 ####[facility], [place] [address] [place] [address] - Jennifer Solomon [id number] Chloride 103 mmol/L Normal 98-[address] [facility] Comment on above: Performed By: #### 2 1198-7, 1798-8, 3040-3, 15859-6 ####[facility], [place] [address] [place] [address] - Jennifer CuongST. ALBANS HOSPITAL [id number] CO2 29 mmol/L Normal 21-[address] [facility] Comment on above: Performed By: #### 2 1198-7, 1797-8, 3040-3, 82969-1 ####[facility], [place] [address] [place] [address] JenniferFormerly [facility] [id number] Creatinine 0.64 mg/dL Normal 0.51-0.[address] [facility] Comment on above: Performed By: #### 2 1198-7, 8-8, 3040-3, 22875-9 ####[facility], [place] [address] [place] [address] [facility] [id number] eGFR (MDRD) mL/min/{1.73_m2} Normal >=59 [facility] Comment on above: Performed By: #### 2 1198-7, 8, 3040-3, 62678-8 ####[facility], [place] [address] [place] [address] [id number] eGFR (non-black) GLOMERULAR FILTRATION RATE INTERPRETATION~The eGFR is calculated using the MDRD equation.~This equation has been validated in patients with chronic kidney disease;~however, it underestimates the GFR in healthy patients with GFR's over 60 mL/min.~The equation is not valid in children under the age of 18.~NOTE: Criteria for Chronic Kidney Disease:~ ~1. Kidney damage for at least three months, as defined~by structural or functional abnormalities of the kidney,~with or without decreased glomerular filtration rate, manifested by either:~* Pathological abnormalities or~* Markers of Kidney damage, including abnormalities in~the composition of the blood or urine or abnormalities in imaging tests.~ ~2. GFR <60 mL/min/1.73 m squared for at least three months, with or without kidney damage.~ Normal [facility] Comment on above: Performed By: #### 2 1198-7, 8, 3040-3, 79823-4 ####[facility] Director - Jennifer Solomon [id number] Glucose mass conc 148 mg/dL High 74-106 [facility] Comment on above: Performed By: #### 2 1198-7, 1798-02, 3040-3, ####[facility] Director - Jennifer Solomon [id number] Potassium molar conc 3.5 mmol/L Normal 3.5-5.[address] [facility] Comment on above: Performed By: #### 2 1198-7, 1798-02, 3039-3, ####[facility], [place] [address]Ihilrvv Director - Jennifer Solomon [id number] Protein 8.6 g/dL High 6.4-8.[address] [facility] Comment on above: Performed By: #### 2 1198-7, 8, 3040-3, 45579-9 ####[facility] Director - Jennifer Solomon [id number] Sodium 141 mmol/L Normal 136-[address] [facility] Comment on above: Performed By: #### 2 1198-7, 8, 3040-3, 85215-2 ####[facility] - Jennifer Solomon [id number] Urea nitrogen 9 mg/dL Normal 7-17 [facility] Comment on above: Performed By: #### 2 1198-7, 1798-8, 3040-3, 82433-9 ####[facility], [place] [address]Emssrda Director - Jennifer Solomon [id number] CT ABDOMEN AND PELVIS WITH C ONTRASTon 05-15-2017 CT ABDOMEN AND PELVIS WITH CONTRAST CT ABDOMEN AND PELVIS WITH CONTRASTHISTORY: Abdominal pain.COMPARISON: None.CONTRAST: 50 mL Isovue-370.METHOD: Dose reduction techniques were achieved by using automated exposurecontrol and/or adjustment of mA and/or kV according to patient size and/or useof iterative reconstruction technique.FINDINGS: The lung bases are clear. The liver is fatty. There is nointrahepatic mass or intrahepatic biliary ductal dilatation. The pancreas andstomach are normal appearing. The spleen is normal in size. The adrenal glandsare normal appearing. There are no solid renal masses or hydronephrosis. There is an increased amountof stool. There is no bowel wall thickening or obstruction. The appendix isnormal appearing. There is no free fluid. There is no evidence oflymphadenopathy. There is no free air. There is no acute bony abnormality.IMPRESSI ON:No acute abnormality abdomen or pelvis; normal appendix. Normal [facility] HCG BLOODon 05-15-2017 HCG.beta subunit Qn m[IU]/mL Normal 1-[address] [facility] Comment on above: Performed By: #### 2 1198-7, 1798-8, 0-3, 39295-5 ####[facility], [place] [address]Rzhfpko Director - Jennifer Solomon [id number] Microscopic observation HCG INTERPRETATI ON The expected values were calculated non-parametrically and represent the central 95% of the population. When borderline results are encountered, patient samples should be drawn 48 hours later. The concentration of HCG rises rapidly during early . Gestational Age Expected HCG Values 0.2-1 week 5-50 1-2 weeks 50-500 2-3 weeks 100-5000 3-4 weeks 500-10,000 4-5 weeks 1000-50,000 5-6 weeks 10,000-100,000 6-8 weeks 15,000-200,000 2-3 months 10,000-100,[address] [facility] Comment on above: Performed By: #### 2 1198-7, 1798-8, 3040-3, 42063-5 ####[facility] Director - Jennifer Solomon [id number] LIPASEon 05-15-2017 Lipase 107 U/L Normal 73-[address] [facility] Comment on above: Performed By: #### 2 1198-7, 8-8, 3040-3, 21540-3 ####[facility] Director - Jennifer Solomon [id number] URINALYSISon 05-15-2017 Bilirub Ur Strip-mCnc Negative Normal NEGATIVE [facility] Comment on above: Performed By: #### 5 0564-4 ####[facility] Director - Jennifer Solomon [id number] Glucose mass conc Negative Normal NEGATIVE [facility] Comment on above: Performed By: #### 5 0564-4 ####[facility] Director - Jennifer Solomon [id number] Ketones Ur Strip-mCnc Negative Normal NEGATIVE [facility] Comment on above: Performed By: #### 5 0564-4 ####[facility] Director - Jennifer Solomon [id number] Leukocyte esterase Ur-aCnc Negative Normal TRACE [facility] Comment on above: Performed By: #### 5 0564-4 ####[facility] [facility] Director - Jennifer Solomon [id number] Urine, clarity Clear Normal CLEAR [facility] Comment on above: Performed By: #### 5 0564-4 ####[facility] Director - Jenniferobie CaraballoOR [id number] Urine, color Yellow Normal YELLOW [facility] Comment on above: Performed By: #### 5 0564-4 ####[facility] Director - Jennifer [facility]ongST. [facility] [id number] Urine, erythrocytes Negative Normal NEGATIVE [facility] Comment on above: Performed By: #### 0564-4 ####[facility] Director - Jennifer [facility]Tr[facility] [id number] Urine, nitrite presence Negative Normal NEGATIVE [facility] Comment on above: Performed By: #### 11 2364-4 ####[facility] Director - Jennifer KirtWilliam Ville [id number] Urine, pH 6.5 [pH] Normal 5.5-7.[address] [facility] Comment on above: Performed By: #### 11 2364-4 ####[facility] Director - Jennifer KirtWilliam Ville [id number] Urine, protein Negative Normal NEGATIVE [facility] Comment on above: Performed By: #### 11 2364-4 ####[facility] Director - Jennifer CuongTHOMAS [place]IL[place] [id number] Urine, specific gravity <=1.005 Low 1.010-1.[address] [facility] Comment on above: Performed By: #### 11 2364-4 ####[facility] Director - Jennifer CuongTHOMAS [place]IL[place] [id number] Urobilinogen Ur-aCnc 0.2 E.U./dL Normal <=1 [facility] Comment on above: Performed By: #### 11 2364-4 ####[facility] Director - Jennifer Solomon [id number] Laboratory - Chemistry and C hemistry - challengeon 12-26-2016 Follitropin Qn FSH [QUEST] Normal [facility] [employer].; [employer], [employer]. Prolactin [Mass/Vol] PROLACTIN Normal [facility] [employer].; [employer]. Laboratory - Chemistry and C hemistry - challengeon 12-13-2016 Bilirubin Ql (U) Negative Normal [facility] [employer].; [employer], [employer]. Ketones Ql (U) Negative Normal [facility] [employer], [employer]. pH (U) 7.0 [pH] Normal [place] [employer].; [employer], [employer]. Specific gravity (U) [Rel density] 1.015 Normal [place] [employer].; [employer]. Urobilinogen Qn (U) 0.2 mg/dL Normal [facility] [employer].; [employer]. Laboratory - Hematology and Cell countson 12-13-2016 Hemoglobin Ql (U) Negative Normal [place] [employer]. Laboratory - Specimen inform ationon 12-13-2016 Appearance (U) clear Normal [facility] scenios.; [employer]. Color (U) yellow Normal [place]. Laboratory - Urinalysison Glucose Test strip (U) [Mass/Vol] Negative Normal [facility].; [employer], [employer]. Leukocyte esterase Test strip Ql (U) Negative Normal [employer].; [employer], [employer]. Nitrite Ql (U) Negative Normal [facility] [employer].; [employer], [employer]. Protein Ql (U) Negative Normal [facility] [employer].; [employer], [employer]. No Panel Informationon 11-28 SKIN TEST INTRADERMAL TB 0.0mm Normal [employer].; [employer]. Laboratory - Microbiology an d Antimicrobial susceptibilityon 07-09-2014 S. pyogenes Ag EIA Ql (Throat) Negative Normal [facility].; [facility]. Laboratory - Allergyon 06-30 Clam IgE Qn (S) < 0.35 Normal [facility], [facility].; [facility]. Clam IgE RAST class (S) 0 Normal [facility], [facility].; [facility]. Codfish IgE Qn (S) < 0.35 Normal [facility], [facility].; [facility]. Codfish IgE RAST class (S) 0 Normal [facility], [facility].; [facility]. Union Church IgE Qn (S) < 0.35 Normal [facility], [facility].; [facility]. [place] IgE RAST class (S) 0 Normal [facility], [facility].; [facility]. Egg white IgE Qn (S) < 0.35 Normal [facility], [facility].; [facility]. Egg white IgE RAST class (S) 0 Normal [facility], [facility].; [facility]. Milk IgE Qn (S) < 0.35 Normal [facility], [facility].; [facility]. Milk IgE RAST class (S) 0 Normal [facility], [facility].; [facility] Peanut IgE Qn (S) < 0.35 Normal [facility], [facility].; [facility]. Peanut IgE RAST class (S) 0 Normal [facility], [facility].; [facility]. Scallop IgE Qn (S) < 0.35 Normal [facility], [facility].; [facility] Scallop IgE RAST class (S) 0 Normal [facility], [facility].; [facility]. Sesame Seed IgE Qn (S) < 0.35 Normal [facility], [facility].; [facility] Sesame Seed IgE RAST class (S) 0 Normal [facility], [facility].; [facility] Shrimp IgE Qn (S) < 0.35 Normal [facility].; [facility], [facility]. Shrimp IgE RAST class (S) 0 Normal [facility].; [facility] Soybean IgE Qn (S) < 0.35 Normal [facility].; [facility], [facility]. Soybean IgE RAST class (S) 0 Normal [facility].; [facility], [facility]. Bandon IgE Qn (S) < 0.35 Normal [facility].; [facility]. Bandon IgE RAST class (S) 0 Normal [facility].; [facility], [facility]. Wheat IgE Qn (S) < 0.35 Normal [facility]; [facility] Wheat IgE RAST class (S) 0 Normal [facility]; [facility]. Laboratory - Chemistry and C hemistry - challengeon 06-30-2012 IgA [Mass/Vol] 175 mg/dL Normal 70 - 432 mg/dL [facility]; [facility] Laboratory - Serology - non- microon 06-30-2012 Gliadin IgA IA Qn (S) 5 {UNITS} Normal [facility]; [facility] tTG IgA Qn (S) <1 Normal [facility].; [facility], [facility] Laboratory - Microbiology an d Antimicrobial susceptibilityon 06-02-2012 FLUAV Ag IA Ql (Throat) Positive Abnormal H [facility]; [facility] Laboratory - Chemistry and C hemistry - challengeon 05-27-2012 Albumin [Mass/Vol] 4.7 g/dL Normal 3.6 - 5.1 g/dL [facility].; [facility], [facility]. Albumin/Globulin [Mass ratio] 1.7 {ratio} Normal 1.0 - 2.1 [facility]; [facility]. ALP [Catalytic activity/Vol] 99 U/L Normal 41 - 244 U/L [facility].; [facility] ALT [Catalytic activity/Vol] 10 U/L Normal 6 - 19 U/L [facility].; [facility]. AST [Catalytic activity/Vol] 13 U/L Normal 12 - 32 U/L [facility].; [facility]. Bilirubin [Mass/Vol] 0.4 mg/dL Normal 0.2 - 1 .1 mg/dL [facility].; [facility], [facility]. Calcium [Mass/Vol] 10.0 mg/dL Normal 8.9 - 10. 4 mg/dL [facility].; [facility]. Chloride [Moles/Vol] 104 mmol/L Normal 98 - 11 0 mmol/L [facility].; [facility], [facility]. CO2 [Moles/Vol] 24 mmol/L Normal 21 - 33 mmol/L [facility].; [facility], [facility]. Creatinine [Mass/Vol] 0.87 mg/dL Normal 0.40 - 1.00 mg/dL [facility], [facility].; [facility]. CRP [Mass/Vol] 0.1 mg/L Normal [facility], [facility].; [facility], [facility]. GFR/1.73 sq M.predicted among blacks MDRD (S/P/Bld) [Vol rate/Area] SEE NOTE Normal [facility] [place] [facility].; [facility]. GFR/1.73 sq M.predicted MDRD (S/P/Bld) [Vol rate/Area] SEE NOTE Normal [facility], [facility].; [facility]. Globulin (S) [Mass/Vol] 2.7 g/dL Normal 2.0 - 3.8 g/dL [facility] [place] [facility].; [facility]. Glucose [Mass/Vol] 91 mg/dL Normal 65 - 99 mg/dL [facility], [facility].; [facility], [facility]. Potassium [Moles/Vol] 3.7 mmol/L Abnormal 3.8 - 5.1 mmol/L [facility], [facility].; [facility]. Protein [Mass/Vol] 7.4 g/dL Normal 6.3 - 8.2 g/dL [facility], [facility].; [facility]. Sodium [Moles/Vol] 140 mmol/L Normal 135 - 146 mmol/L [facility] [place] [facility].; [place] [employer] [facility]. Urea nitrogen [Mass/Vol] 12 mg/dL Normal 7 - 20 mg/d L [facility] [place] [facility].; [place] [employer], [facility] Urea nitrogen/Creatinine [Mass ratio] 14.3 mg/mg Normal 6 - 22 [facility] [place] [facility].; [place] [employer], [employer]. Laboratory - Hematology and Cell countson 05-27-2012 Basophils (Bld) [#/Vol] 40 {Cells}/uL Normal 0 - 200 {Cells}/uL [facility] [place] [facility].; [place] [employer]. Basophils/100 WBC (Bld) 0 % Normal 0 - 2 % [facility] [place] [facility].; [place] [email or web address] [facility], [facility]. Eosinophils (Bld) [#/Vol] 110 {Cells}/uL Normal 15 - 500 {Cells}/uL [facility] [place] [facility].; [place] [employer], [employer] Eosinophils/100 WBC (Bld) 1 % Normal 0 - 6 % [facility] [place] [facility].; [place] [employer]. Erythrocyte distribution width (RBC) [Ratio] 12.1 % Normal 11.0 - 15.0 % [facility] [place] [facility].; [employer], [employer]. Hematocrit (Bld) [Volume fraction] 43.0 % Normal 34.0 - 46.0 % [facility] [place] [facility].; [place] [employer], [employer]. Hemoglobin (Bld) [Mass/Vol] 14.5 g/dL Normal 11.5 - 15.3 g/dL [facility] [place] [facility].; [place] [employer], [employer]. Lymphocytes (Bld) [#/Vol] 2450 {Cells}/uL Normal 1200 - 5200 {Cells}/uL [place] [employer] [facility].; [place] [employer], [employer]. Lymphocytes/100 WBC (Bld) 29 % Normal 20 - 60 % [place] [employer].; [place] [employer], [employer]. MCH (RBC) [Entitic mass] 29.4 pg Normal 25. 0 - 35.0 PG [place] [employer].; [employer], [employer]. MCHC (RBC) [Mass/Vol] 33.7 g/dL Normal 31.0 - 36.0 g/dL [place] [employer].; [employer]. MCV (RBC) [Entitic vol] 87.4 fL Normal 78.0 - 98.0 fL [place] [employer].; [employer]. Monocytes (Bld) [#/Vol] 560 {Cells}/uL Normal 20 0 - 900 {Cells}/uL [place] [employer].; [employer], [employer]. Monocytes/100 WBC (Bld) 7 % Normal 0 - 10 % [facility].; [employer]. Neutrophils (Bld) [#/Vol] 5380 {Cells}/uL Normal 1800 - 8000 {Cells}/uL [employer].; [employer]. Neutrophils/100 WBC (Bld) 63 % Normal 40 - 70 % [place] [employer].; [employer]. Platelets (Bld) [#/Vol] 216 10*3/uL Normal 140 - 400 10*3/uL [employer].; [employer]. RBC (Bld) [#/Vol] 4.92 10*6/uL Normal 3.80 - 5.1 0 10*6/uL [employer].; [employer], [employer]. WBC (Bld) [#/Vol] 8.5 10*3/uL Normal 4.5 - 13.0 10*3/uL [employer].; [employer]. Laboratory - Microbiology an d Antimicrobial susceptibilityon 08-15-2010 FLUAV Ag IA Ql (Throat) Negative Normal [facility] [employer].; [employer] Vital Signs Date Time Vital Sign Value Performing Clinician Facility 11-30-2024 10:51-0400 Body mass index (BMI) [Ratio] 20.12 kg/m2 Zayra Flores MD Work Phone: [facility] 11-30-2024 10:51-0400 Body weight 53.16 kg Zayra Flores MD Work Phone: [facility] 11-30-2024 10:51-0400 Diastolic blood pressure 77 mm[Hg] Zayra Flores MD Work Phone: [facility] 11-30-2024 10:51-0400 Heart rate 85 /min Zayra Flores MD Work Phone: [facility] 11-30-2024 10:51-0400 Systolic blood pressure 117 mm[Hg] Zayra Flores MD Work Phone: [facility] 11-06-2024 10:36-0400 Body mass index (BMI) [Ratio] 20.32 kg/m2 Zayra Flores MD Work Phone: [facility] 11-06-2024 10:36-0400 Body weight 53.71 kg Zayra Flores MD Work Phone: [facility] 11-06-2024 10:36-0400 Diastolic blood pressure 80 mm[Hg] Zayra Flores MD Work Phone: [facility] 11-06-2024 10:36-0400 Heart rate 96 /min Zayra Flores MD Work Phone: [facility] 11-06-2024 10:36-0400 Systolic blood pressure 118 mm[Hg] Zayra Flores MD Work Phone: [facility] 10-12-2024 13:41-0400 Body mass index (BMI) [Ratio] 20.43 kg/m2 Marylin Bustamante CNM Work Phone: [facility] 10-12-2024 13:41-0400 Body weight 53.98 kg Marylin Bustamante CNM Work Phone: [facility] 10-12-2024 13:41-0400 Diastolic blood pressure 81 mm[Hg] Marylin Bustamante CNM Work Phone: [facility] 10-12-2024 13:41-0400 Heart rate 82 /min Marylin Bustamante CNM Work Phone: [facility] 10-12-2024 13:41-0400 Systolic blood pressure 114 mm[Hg] Marylin Bustamante CNM Work Phone: [facility] 09-04-2024 08:38-0500 Body height 165.1 cm Andree Solorzano RN [facility], [facility].; [facility]. 09-04-2024 08:38-0500 Body mass index (BMI) [Ratio] 19.47 kg/m2 Andree Solorzano RN [place] [email or web address] [facility].; [employer]. 09-04-2024 08:38-0500 Body surface area Derived from formula 1.58 m2 Andree Solorzano RN [place] [email or web address] [facility].; [employer]. 09-04-2024 08:38-0500 Body temperature 99 [degF] Andree Solorzano RN [place] [employer].; [employer]. Comment on above: Method: Tympanic 09-04-2024 08:38-0500 Body weight 53.07 kg Andree Solorzano RN [employer].; [employer]. 09-04-2024 08:38-0500 Diastolic blood pressure 73 mm[Hg] Andree Solorzano RN [employer].; [employer]. Comment on above: Patient Position: Sitting; Cuff Location : Left Arm; Cuff Size: Small 09-04-2024 08:38-0500 Heart rate 97 /min Andree Solorzano RN [employer].; [employer]. Comment on above: Pattern: Regular 09-04-2024 08:38-0500 Inhaled oxygen concentration 21 % Andree Solorzano RN [employer].; [employer]. Comment on above: Room air 09-04-2024 08:38-0500 SaO2% (BldA) [Mass fraction] 99 % Andree Solorzano RN [place] [employer].; [employer]. 09-04-2024 08:38-0500 Systolic blood pressure 113 mm[Hg] Andree Solorzano RN [employer].; [employer]. Comment on above: Patient Position: Sitting; Cuff Location : Left Arm; Cuff Size: Small 08-22-2024 21:43-0500 Body temperature 97.6 [degF] Zayra CABRAL Work Phone: [facility] 08-22-2024 21:43-0500 Diastolic blood pressure 87 mm[Hg] Zayra Carrizales PA Work Phone: [facility] 08-22-2024 21:43-0500 Heart rate 89 /min Zayra Carrizales PA Work Phone: [facility] 08-22-2024 21:43-0500 Respiratory rate 16 /min Zayra Carrizales PA Work Phone: [facility] 08-22-2024 21:43-0500 SaO2% (BldA) [Mass fraction] 100 % Zayra Carrizales PA Work Phone: [facility] 08-22-2024 21:43-0500 Systolic blood pressure 117 mm[Hg] Zayra Carrizales PA Work Phone: [facility] 08-22-2024 17:01-0500 Body height 162.56 cm Zayra Carrizales PA Work Phone: [facility] 08-22-2024 17:01-0500 Body mass index (BMI) [Ratio] 19.9 kg/m2 Zayra Carrizales PA Work Phone: [facility] 08-22-2024 17:01-0500 Body weight 52.6 kg Zayra Carrizales PA Work Phone: [facility] 06-26-2024 14:33-0500 Body mass index (BMI) [Ratio] 21.06 kg/m2 Marylin Bustamante CNM Work Phone: [facility] 06-26-2024 14:33-0500 Body weight 55.66 kg Marylin Bustamante CNM Work Phone: [facility] 06-26-2024 14:33-0500 Diastolic blood pressure 82 mm[Hg] Marylin Bustamante CNM Work Phone: [facility] 06-26-2024 14:33-0500 Heart rate 66 /min Marylin Bustamante CNM Work Phone: [facility] 06-26-2024 14:33-0500 Systolic blood pressure 121 mm[Hg] Jaena Bustamante CNM Work Phone: [facility] 06-16-2024 11:03-0500 Body height 165.1 cm Leila Jimenez MA [employer] [facility].; [employer]. 06-16-2024 11:03-0500 Body mass index (BMI) [Ratio] 20.72 kg/m2 Leila Jimenez MA [employer] [facility].; [employer]. 06-16-2024 11:03-0500 Body surface area Derived from formula 1.62 m2 Leila Jimenez MA [employer].; [employer]. 06-16-2024 11:03-0500 Body temperature 97.8 [degF] Leila Jimenez MA [employer].; [employer]. 06-16-2024 11:03-0500 Body weight 56.47 kg Leila Jimenez MA [employer].; [employer]. 06-16-2024 11:03-0500 Diastolic blood pressure 66 mm[Hg] Leila Jimenez MA [employer].; [employer]. Comment on above: Patient Position: Sitting; Cuff Location : Left Arm; Cuff Size: Standard 06-16-2024 11:03-0500 Heart rate 87 /min Leila Jimenez MA [employer].; [employer]. Comment on above: Pattern: Regular 06-16-2024 11:03-0500 Systolic blood pressure 104 mm[Hg] Leila Jimenez MA [employer].; [employer]. Comment on above: Patient Position: Sitting; Cuff Location : Left Arm; Cuff Size: Standard 05-20-2024 10:40-0400 Body height 165.1 cm Reshma Louie LPN [employer].; [employer]. 05-20-2024 10:40-0400 Body mass index (BMI) [Ratio] 20.3 kg/m2 Reshma Louie LPN [employer].; [employer]. 05-20-2024 10:40-0400 Body surface area Derived from formula 1.6 m2 Reshma Louie LPN [facility].; [facility]. 05-20-2024 10:40-0400 Body temperature 97 [degF] Reshma Louie LPN [facility]; [facility]. Comment on above: Method: Tympanic 05-20-2024 10:40-0400 Body weight 55.34 kg Reshma Louie LPN [facility].; [facility]. 05-20-2024 10:40-0400 Diastolic blood pressure 72 mm[Hg] Reshma Louie LPN [facility].; [facility]. Comment on above: Patient Position: Sitting; Cuff Location : Left Arm; Cuff Size: Standard 05-20-2024 10:40-0400 Heart rate 88 /min Reshma Louie LPN [facility].; [facility]. Comment on above: Pattern: Regular 05-20-2024 10:40-0400 Systolic blood pressure 125 mm[Hg] Reshma Louie LPN [facility].; [facility]. Comment on above: Patient Position: Sitting; Cuff Location : Left Arm; Cuff Size: Standard 11-08-2023 08:59-0400 Body mass index (BMI) [Ratio] 20.92 kg/m2 Marylin Bustamante CNM Work Phone: [facility] 11-08-2023 08:59-0400 Body weight 55.29 kg Marylin Bustamante CNM Work Phone: [facility] 11-08-2023 08:59-0400 Diastolic blood pressure 80 mm[Hg] Marylin Bustamante CNM Work Phone: [facility] 11-08-2023 08:59-0400 Heart rate 90 /min Marylin Bustamante CNM Work Phone: [facility] 11-08-2023 08:59-0400 Systolic blood pressure 114 mm[Hg] Marylin Bustamante CNM Work Phone: [facility] 10-23-2023 11:42-0400 Body height 162.6 cm Jag Tellez MD Work Phone: [facility] 10-23-2023 11:42-0400 Body mass index (BMI) [Ratio] 21.27 kg/m2 Jag Tellez MD Work Phone: [facility] 10-23-2023 11:42-0400 Body weight 56.2 kg Jag Tellez MD Work Phone: [facility] 10-23-2023 11:42-0400 Diastolic blood pressure 73 mm[Hg] Jag Tellez MD Work Phone: [facility] 10-23-2023 11:42-0400 Heart rate 80 /min Jag Tellez MD Work Phone: [facility] 10-23-2023 11:42-0400 SaO2% (BldA) [Mass fraction] 99 % Jag Tellez MD Work Phone: [facility] 10-23-2023 11:42-0400 Systolic blood pressure 112 mm[Hg] Jag Tellez MD Work Phone: [facility] 09-04-2023 09:53-0500 Body height 162.6 cm Hanna Lafon [employer] Work Phone: [facility] 09-04-2023 09:53-0500 Body mass index (BMI) [Ratio] 21.27 kg/m2 Hanna Lafon [employer] Work Phone: [facility] 09-04-2023 09:53-0500 Body weight 56.2 kg Hanna Lafon [employer] Work Phone: [facility] 09-04-2023 09:53-0500 Diastolic blood pressure 80 mm[Hg] Hanna Lafon [employer]ER Work Phone: [facility] 09-04-2023 09:53-0500 Heart rate 77 /min Hanna Lafon [employer] Work Phone: [facility] 09-04-2023 09:53-0500 SaO2% (BldA) [Mass fraction] 97 % Hanna Lafon [employer] Work Phone: [facility] 09-04-2023 09:53-0500 Systolic blood pressure 124 mm[Hg] Hanna Lafon [employer]ER Work Phone: [facility] 08-26-2023 11:24-0500 Body height 165.1 cm [facility], [facility].; [place] [email or web address] [facility], [employer]. 08-26-2023 11:24-0500 Body mass index (BMI) [Ratio] 20.47 kg/m2 [facility] [place] [email or web address] [facility] 08-26-2023 11:24-050 Body surface area Derived from formula 1.61 m2 [facility], [facility].; [facility] [email or web address] [facility], [employer]. 08-26-2023 11:24-050 Body temperature 99.6 [degF] [facility], [facility].; [employer], [employer]. Comment on above: Method: Tympanic 08-26-2023 11:24-0500 Body weight 55.79 kg [facility], [facility].; [place] [employer] [facility], Inc. 08-26-2023 11:24-0500 Diastolic blood pressure 74 mm[Hg] Raysa Smith [facility], Inc.; [employer], [employer]. Comment on above: Patient Position: Sitting; Cuff Location : Left Arm; Cuff Size: Standard 08-26-2023 11:24-0500 Heart rate 100 /min Raysa Smith [facility], [facility].; [employer], [employer]. Comment on above: Pattern: Regular 08-26-2023 11:24-0500 Inhaled oxygen concentration 20 % Raysa Smith [facility], Inc.; [employer]ABB, Inc. Comment on above: Room air 08-26-2023 11:24-0500 Inhaled oxygen concentration 21 % [facility], Inc.; [employer], [employer]. Comment on above: Room air 08-26-2023 11:24-0500 SaO2% (BldA) [Mass fraction] 98 % Raysa Smith [facility], Inc.; [employer]ued[employer]ABB, Inc. 08-26-2023 11:24-0500 Systolic blood pressure 112 mm[Hg] Raysa Smith [facility], Inc.; [facility], [facility]. Comment on above: Patient Position: Sitting; Cuff Location : Left Arm; Cuff Size: Belen 04-24-2023 08:55-0400 Body height 162.6 cm Dennis Roach PEARL RESTORER Work Phone: [facility] 04-24-2023 08:55-0400 Body mass index (BMI) [Ratio] 20.8 kg/m2 Dennis Eder PEARL RESTORER Work Phone: [facility] 04-24-2023 08:55-0400 Body weight 54.98 kg Dennis Storyman PEARL RESTORER Work Phone: [facility] 04-24-2023 08:55-0400 Diastolic blood pressure 77 mm[Hg] Dennis Eder PEARL RESTORER Work Phone: [facility] 04-24-2023 08:55-0400 Heart rate 82 /min Dennis Eder PEARL RESTORER Work Phone: [facility] 04-24-2023 08:55-0400 SaO2% (BldA) [Mass fraction] 98 % Dennis Storyman PEARL RESTORER Work Phone: [facility] 04-24-2023 08:55-0400 Systolic blood pressure 111 mm[Hg] Dennis Storyman PEARL RESTORER Work Phone: [facility] 04-12-2023 10:50-0400 Body mass index (BMI) [Ratio] 20.82 kg/m2 Marylin Bustamante CNM Work Phone: [facility] 04-12-2023 10:50-0400 Body weight 55.02 kg Marylin Bustamante CNM Work Phone: [facility] 04-12-2023 10:50-0400 Diastolic blood pressure 76 mm[Hg] Marylin Bustamante CNM Work Phone: [facility] 04-12-2023 10:50-0400 Heart rate 82 /min Marylin Bustamante CNM Work Phone: [facility] 04-12-2023 10:50-0400 Systolic blood pressure 117 mm[Hg] Marylin Bustamante CNM Work Phone: [facility] 03-12-2023 08:19-0400 Body height 165.1 cm Leila Jimenez [facility] [place] [facility].; [facility] [place] [facility]. 03-12-2023 08:19-0400 Body mass index (BMI) [Ratio] 19.97 kg/m2 Leila Jimenez [facility] [place] [facility].; [facility] [place] [facility]. 03-12-2023 08:19-0400 Body surface area Derived from formula 1.59 m2 Leila Jimenez MA [facility] [place] [facility].; [facility] [place] [facility]. 03-12-2023 08:19-0400 Body weight 54.43 kg Leila Jimenez MA [facility] [place] [facility].; [facility] [place] [facility]. 03-12-2023 08:19-0400 Diastolic blood pressure 74 mm[Hg] Leila Jimenez MA [facility] [place] [facility].; [place] [email or web address] [facility]. Comment on above: Patient Position: Sitting; Cuff Location : Left Arm; Cuff Size: Standard 03-12-2023 08:19-0400 Heart rate 83 /min Leila Jimenez MA [facility] [place] [facility].; [employer]. Comment on above: Pattern: Regular 03-12-2023 08:19-0400 Systolic blood pressure 115 mm[Hg] Leila Jimenez MA [facility] [place] [facility].; [place] [email or web address] [facility]. Comment on above: Patient Position: Sitting; Cuff Location : Left Arm; Cuff Size: Standard 03-04-2023 11:33-0400 Body height 162.6 cm Denniskathleen Roach PEARL RESTORER Work Phone: [facility] 03-04-2023 11:33-0400 Body mass index (BMI) [Ratio] 20.15 kg/m2 Denniskathleen Roach PEARL RESTORER Work Phone: [facility] 03-04-2023 11:33-0400 Body weight 53.25 kg Denniskathleen Roach PEARL RESTORER Work Phone: [facility] 03-04-2023 11:33-0400 Diastolic blood pressure 76 mm[Hg] Denniskathleen Roach PEARL RESTORER Work Phone: [facility] 03-04-2023 11:33-0400 Heart rate 97 /min Dennis Roach CNP Work Phone: [facility] 03-04-2023 11:33-0400 SaO2% (BldA) [Mass fraction] 98 % Dennis Roach CNP Work Phone: [facility] 03-04-2023 11:33-0400 Systolic blood pressure 108 mm[Hg] Dennis Roach CNP Work Phone: [facility] 08-31-2022 08:36-0500 Body height 167.64 cm Reshma Benton MA [facility], [facility].; [facility], [facility]. 08-31-2022 08:36-0500 Body mass index (BMI) [Ratio] 19.53 kg/m2 Reshma Benton MA [facility], Inc.; [facility], [facility]. 08-31-2022 08:36-0500 Body surface area Derived from formula 1.62 m2 Reshma Benton MA [facility], [facility].; [facility], [facility]. 08-31-2022 08:36-0500 Body temperature 99.4 [degF] Reshma Benton MA [facility], [facility].; [facility], [facility]. 08-31-2022 08:36-0500 Body weight 54.89 kg Reshma Benton MA [facility], [facility].; [facility], [facility]. 08-31-2022 08:36-0500 Diastolic blood pressure 76 mm[Hg] Reshma Benton MA [facility], [facility].; [facility] [place] [facility]. Comment on above: Patient Position: Sitting; Cuff Location : Left Arm; Cuff Size: Standard 08-31-2022 08:36-0500 Heart rate 90 /min Reshma Benton MA [facility], [facility].; [facility] [employer], [facility]. Comment on above: Pattern: Regular 08-31-2022 08:36-0500 Systolic blood pressure 108 mm[Hg] Reshma Benton MA [facility], Inc.; [employer]. Comment on above: Patient Position: Sitting; Cuff Location : Left Arm; Cuff Size: Standard 03-02-2022 13:13-0400 Body height 165.1 cm Ese North [facility], [facility].; [employer]Merrim[employer] [facility]. 03-02-2022 13:130400 Body mass index (BMI) [Ratio] 19.3 kg/m2 Ese North DIGITAL FORENSICS EXAMINER [facility], Inc.; Rueda Nintu [employer], Inc. 03-02-2022 13:130400 Body surface area Derived from formula 1.57 m2 Ese Maderalabach [facility] [email or web address] [facility], Inc.; [employer] [facility]. 03-02-2022 13:130400 Body weight 52.62 kg Ese North [facility] [email or web address] [facility], [facility].; [employer] [facility]. 03-02-2022 13:13-0400 Diastolic blood pressure 70 mm[Hg] Ese North [facility] [email or web address] [facility], Inc.; [employer]. Comment on above: Patient Position: Sitting; Cuff Location : Left Arm; Cuff Size: Standard 03-02-2022 13:13-0400 Heart rate 74 /min Ese [place] DIGITAL FORENSICS EXAMINER [place] [email or web address] [facility], Inc.; [employer]. Comment on above: Pattern: Regular 03-02-2022 13:13-0400 Systolic blood pressure 105 mm[Hg] Ese [place] DIGITAL FORENSICS EXAMINER [facility], [facility].; [employer]. Comment on above: Patient Position: Sitting; Cuff Location : Left Arm; Cuff Size: Standard 12-11-2021 13:57-0400 Body height 165.1 cm Ese Wintersach DIGITAL FORENSICS EXAMINER [facility], [facility].; [employer]. 12-11-2021 13:57-0400 Body mass index (BMI) [Ratio] 19.3 kg/m2 Ese [place] [facility] [email or web address] [facility], [employer].; [employer]. 12-11-2021 13:57-0400 Body surface area Derived from formula 1.57 m2 Ese Wintersach DIGITAL FORENSICS EXAMINER [place] [email or web address] [facility], Inc.; [employer]. 12-11-2021 13:57-0400 Body temperature 98.3 [degF] Ese North DIGITAL FORENSICS EXAMINER [facility], Inc.; [employer] [facility], Inc. Comment on above: Method: Tympanic 12-11-2021 13:57-0400 Body weight 52.62 kg Ese Wintersvenice ZIEGLER [facility], Inc.; R[employer]aABB, Inc. 12-11-2021 13:57-0400 Diastolic blood pressure 60 mm[Hg] Ese Wintersach DIGITAL FORENSICS EXAMINER [facility], Inc.; [employer]ABB, Inc. Comment on above: Patient Position: Sitting; Cuff Location : Right Arm; Cuff Size: Standard 12-11-2021 13:57-0400 Heart rate 75 /min Ese [facility]uan [facility], Inc.; [employer]uedaABB, Inc. Comment on above: Pattern: Regular 12-11-2021 13:57-0400 Systolic blood pressure 103 mm[Hg] Ese North [facility], Inc.; [employer]ABB, Inc. Comment on above: Patient Position: Sitting; Cuff Location : Right Arm; Cuff Size: Standard 10-24-2021 14:31-0400 Body height 165.1 cm Dunia Dawn DIGITAL FORENSICS EXAMINER [facility], Inc.; [employer] [facility], Inc. 10-24-2021 14:31-0400 Body mass index (BMI) [Ratio] 19.3 kg/m2 Dunia Dawn DIGITAL FORENSICS EXAMINER [facility], Inc.; [employer], Inc. 10-24-2021 14:31-0400 Body surface area Derived from formula 1.57 m2 Dunia Tiwari Nereyda DIGITAL FORENSICS EXAMINER [facility], Inc.; [employer], Inc. 10-24-2021 14:31-0400 Body temperature 98.3 [degF] Dunia Dawn [facility] [email or web address] [facility], Inc.; [employer], [employer]. Comment on above: Method: Tympanic 10-24-2021 14:31-0400 Body weight 52.62 kg Dunia Dawn TONEY [place] [email or web address] [facility], Inc.; [employer], [employer]. 10-24-2021 14:31-0400 Diastolic blood pressure 86 mm[Hg] Dunia Dawn DIGITAL FORENSICS EXAMINER [facility], Inc.; [facility], [employer]. Comment on above: Patient Position: Sitting; Cuff Location : Left Arm; Cuff Size: Large 10-24-2021 14:31-0400 Heart rate 92 /min Dunia Dawn DIGITAL FORENSICS EXAMINER [facility], Inc.; [place] [email or web address] [facility], [employer]. Comment on above: Pattern: Regular 10-24-2021 14:31-0400 Inhaled oxygen concentration 20 % Dunia Dawn DIGITAL FORENSICS EXAMINER [facility], Inc.; [place] [email or web address] [facility], [employer]. Comment on above: Room air 10-24-2021 14:31-0400 Inhaled oxygen concentration 21 % Dunia Dawn [facility], Inc.; [place] [employer] [facility], [employer]. Comment on above: Room air 10-24-2021 14:31-0400 SaO2% (BldA) [Mass fraction] 93 % Dunia Dawn DIGITAL FORENSICS EXAMINER [facility], Inc.; [place] [email or web address] [facility], [employer]. 10-24-2021 14:31-0400 Systolic blood pressure 123 mm[Hg] Dunia Dawn DIGITAL FORENSICS EXAMINER [facility], [facility].; [place] [email or web address] [facility], [employer]. Comment on above: Patient Position: Sitting; Cuff Location : Left Arm; Cuff Size: Large 08-17-2021 11:040500 Body height 165.1 cm Ese [place] DIGITAL FORENSICS EXAMINER [facility], [facility].; [facility], Inc[facility] 08-17-2021 11:04-0500 Body mass index (BMI) [Ratio] 19.47 kg/m2 Ese [place] DIGITAL FORENSICS EXAMINER [facility], [facility].; [facility], Inc. 08-17-2021 11:04-0500 Body surface area Derived from formula 1.58 m2 Ese [place] DIGITAL FORENSICS EXAMINER [facility], [facility].; [place] [email or web address] [facility], [employer]. 08-17-2021 11:04-0500 Body temperature 98.6 [degF] Ese North [facility], [facility].; [employer] [facility], [employer]. Comment on above: Method: Tympanic 08-17-2021 11:04-0500 Body weight 53.07 kg Ese [place] [facility].; [employer]Merrimack [employer] [facility]. 08-17-2021 11:04-0500 Diastolic blood pressure 69 mm[Hg] Ese [place] [facility] [place] [facility].; [employer]. Comment on above: Patient Position: Sitting; Cuff Location : Left Arm; Cuff Size: Standard 08-17-2021 11:04-0500 Heart rate 79 /min Ese Wintersach [facility], Inc.; [employer]. Comment on above: Pattern: Regular 08-17-2021 11:04-0500 Systolic blood pressure 101 mm[Hg] Ese North DIGITAL FORENSICS EXAMINER [place] [email or web address] [facility] [place] Inc.; [employer]. Comment on above: Patient Position: Sitting; Cuff Location : Left Arm; Cuff Size: Standard 04-28-2021 14:46-0400 Body height 165.1 cm Ese Maderalabach [facility], Inc.; [employer]. 04-28-2021 14:46-0400 Body mass index (BMI) [Ratio] 18.64 kg/m2 Ese Maderalabach [facility], Inc.; [employer]ABB, [employer]. 04-28-2021 14:46-0400 Body surface area Derived from formula 1.55 m2 Ese Garcia Mary Anne [facility], Inc.; [employer]uedaABB, Inc. 04-28-2021 14:46-0400 Body temperature 97.9 [degF] Ese Maderalabach [facility] [email or web address] [facility] [place] Inc.; [employer]. Comment on above: Method: Tympanic 04-28-2021 14:46-0400 Body weight 50.8 kg Ese Maderalabach DIGITAL FORENSICS EXAMINER [place] [email or web address] [facility].; [employer]. 04-28-2021 14:46-0400 Diastolic blood pressure 85 mm[Hg] Ese [place] [facility] [email or web address] [facility].; [employer]. Comment on above: Patient Position: Sitting; Cuff Location : Left Arm; Cuff Size: Standard 04-28-2021 14:46-0400 Heart rate 81 /min Ese Maderalabach DIGITAL FORENSICS EXAMINER [facility].; [employer]aMerrimack [employer] [facility]. Comment on above: Pattern: Regular 04-28-2021 14:46-0400 Systolic blood pressure 126 mm[Hg] Ese Garcia Mary Anne ZIEGLER [facility] [place] [facility].; [place] [employer]. Comment on above: Patient Position: Sitting; Cuff Location : Left Arm; Cuff Size: Standard 08-19-2020 10:54-0500 Body height 165.1 cm Ese Garcia Mary Anne ZIEGLER [facility], [facility].; [place] [email or web address] [facility]. 08-19-2020 10:54-0500 Body mass index (BMI) [Ratio] 18.97 kg/m2 Ese Maderalabach [facility] [place] [facility].; [place] [email or web address] [facility]. 08-19-2020 10:54-0500 Body surface area Derived from formula 1.56 m2 Ese Jose North DIGITAL FORENSICS EXAMINER [facility].; [place] [email or web address] [facility]. 08-19-2020 10:54-0500 Body temperature 98.1 [degF] Ese Garcia Mary Anne [facility] [place] [facility].; [employer]. Comment on above: Method: Tympanic 08-19-2020 10:54-0500 Body weight 51.71 kg Ese Garcia Mary Anne DIGITAL FORENSICS EXAMINER [facility], [facility].; [place] [employer]. 08-19-2020 10:54-0500 Diastolic blood pressure 85 mm[Hg] Ese Garcia Mary Anne DIGITAL FORENSICS EXAMINER [facility].; [employer]. Comment on above: Patient Position: Sitting; Cuff Location : Left Arm; Cuff Size: Standard 08-19-2020 10:54-0500 Heart rate 111 /min Ese Garcia Mary Anne DIGITAL FORENSICS EXAMINER [facility].; [employer]. Comment on above: Pattern: Regular 08-19-2020 10:54-0500 Systolic blood pressure 128 mm[Hg] Ese Garcia Mary Anne ZIEGLER [facility].; [employer]. Comment on above: Patient Position: Sitting; Cuff Location : Left Arm; Cuff Size: Standard 02-12-2020 14:25-0400 Body height 165.1 cm Bernie Kurtz LPN Work Phone: [employer]; [employer]. 02-12-2020 14:25-0400 Body mass index (BMI) [Ratio] 19.14 kg/m2 Bernie Kurtz DIGITAL FORENSICS EXAMINER Work Phone: [employer]; [employer]. 02-12-2020 14:25-0400 Body surface area Derived from formula 1.56 m2 Bernie Kurtz LPN Work Phone: [employer]; [employer]. 02-12-2020 14:25-0400 Body weight 52.16 kg Bernie Kurtz LPN Work Phone: [employer]; [employer]. 02-12-2020 14:25-0400 Diastolic blood pressure 76 mm[Hg] Bernie Kurtz LPN Work Phone: [employer]; [employer]. Comment on above: Patient Position: Sitting; Cuff Location : Left Arm; Cuff Size: Standard 02-12-2020 14:25-0400 Heart rate 77 /min Bernie Kurtz LPN Work Phone: [employer]; [employer]. Comment on above: Pattern: Regular 02-12-2020 14:25-0400 Systolic blood pressure 118 mm[Hg] Bernie Kurtz LPN Work Phone: [place] [employer]; [employer]. Comment on above: Patient Position: Sitting; Cuff Location : Left Arm; Cuff Size: Standard 12-15-2019 11:47-0400 Body height 165.1 cm Andree Solorzano RN [place] [employer].; [employer]. 12-15-2019 11:47-0400 Body mass index (BMI) [Ratio] 19.14 kg/m2 Andree Solorzano RN [place] [employer].; [employer]. 12-15-2019 11:47-0400 Body surface area Derived from formula 1.56 m2 Andree Solorzano RN [facility], [facility].; [employer]. 12-15-2019 11:47-0400 Body temperature 98 [degF] Andree Solorzano RN [facility] [place] [facility].; [employer]. Comment on above: Method: Tympanic 12-15-2019 11:47-0400 Body weight 52.16 kg Andree Solorzano RN [place] [email or web address] [facility], [facility].; [employer]. 11-11-2019 14:05-0400 Body height 165.1 cm Ese [place] LPN [facility] [place] [facility].; [employer]. 11-11-2019 14:05-0400 Body mass index (BMI) [Ratio] 18.97 kg/m2 Ese [place] LPN [place] [email or web address] [facility] [place] Inc.; [employer]. 11-11-2019 14:05-0400 Body surface area Derived from formula 1.56 m2 Ese [place] LPN [employer]Merrimack [employer] [facility]food[facility].; [employer]. 11-11-2019 14:05-0400 Body weight 51.71 kg Ese North LPN [employer]Merr[employer] [facility].; [employer]. 11-11-2019 14:05-0400 Diastolic blood pressure 75 mm[Hg] Ese [place] LPN [place] [email or web address] [facility].; [employer]. Comment on above: Patient Position: Sitting; Cuff Location : Left Arm; Cuff Size: Standard 11-11-2019 14:05-0400 Heart rate 80 /min Ese North LPN [place] [email or web address] [facility], [employer].; [employer]. Comment on above: Pattern: Regular 11-11-2019 14:05-0400 Systolic blood pressure 108 mm[Hg] Ese North LPN [employer].; [employer]. Comment on above: Patient Position: Sitting; Cuff Location : Left Arm; Cuff Size: Standard 10-21-2019 14:43-0400 Body height 165.1 cm Yocasta Mart LPN [place] [email or web address] [facility].; [employer]. 10-21-2019 14:43-0400 Body mass index (BMI) [Ratio] 19.47 kg/m2 Yocasta Zaugg DIGITAL FORENSICS EXAMINER [employer], Inc.; [employer], Inc. 10-21-2019 14:43-0400 Body surface area Derived from formula 1.58 m2 Yocasta Zaugg DIGITAL FORENSICS EXAMINER [employer]AB[employer], Inc.; [employer], Inc. 10-21-2019 14:43-0400 Body weight 53.07 kg Yocastaoscar Rushingugg DIGITAL FORENSICS EXAMINER [employer]ABB, Inc.; [employer], Inc. 10-21-2019 14:43-0400 Diastolic blood pressure 82 mm[Hg] Yocasta Zaugg DIGITAL FORENSICS EXAMINER [employer]ABB, Inc.; [employer], Inc. Comment on above: Patient Position: Sitting; Cuff Location : Left Arm; Cuff Size: Standard 10-21-2019 14:43-0400 Heart rate 75 /min Yocasta Zaugg [facility], Inc.; [employer], Inc. Comment on above: Pattern: Regular 10-21-2019 14:43-0400 Systolic blood pressure 120 mm[Hg] Yocasta Zaugg DIGITAL FORENSICS EXAMINER [employer]udeaABB, Inc.; [employer], Inc. Comment on above: Patient Position: Sitting; Cuff Location : Left Arm; Cuff Size: Standard 07-16-2019 10:52-0500 Body height 165.1 cm Erica Day [facility] [employer], Inc.; [employer], [employer] 07-16-2019 10:52-0500 Body mass index (BMI) [Ratio] 19.47 kg/m2 Erica Day [facility] Children[facility], Inc.; [employer], Inc. 07-16-2019 10:52-0500 Body surface area Derived from formula 1.58 m2 Erica Day [facility], Inc.; [employer], Inc. 07-16-2019 10:52-0500 Body weight 53.07 kg Erica Day [facility], Inc.; [employer]ABB, Inc. 07-16-2019 10:52-0500 Diastolic blood pressure 81 mm[Hg] Erica Day [facility], Inc.; [employer], [employer]. Comment on above: Patient Position: Sitting; Cuff Location : Left Arm; Cuff Size: Standard 07-16-2019 10:52-0500 Heart rate 92 /min Erica Day DIGITAL FORENSICS EXAMINER [employer], Inc.; [email or web address] Comment on above: Pattern: Regular 07-16-2019 10:52-0500 Systolic blood pressure 119 mm[Hg] Erica Day DIGITAL FORENSICS EXAMINER [employer]uedaABB, Inc.; [employer], Inc. Comment on above: Patient Position: Sitting; Cuff Location : Left Arm; Cuff Size: Standard 03-05-2019 11:57-0400 Body height 165.1 cm Radha Mcclaloctavio [facility] ChildrenABB, Inc.; [email or web address] 03-05-2019 11:57-0400 Body mass index (BMI) [Ratio] 19.64 kg/m2 Radha Mccalloctavio [facility] ChildrenAB[facility], Inc.; [employer], Inc. 03-05-2019 11:57-0400 Body surface area Derived from formula 1.58 m2 Radha Weoctavio [facility] ChildrenABB, Inc.; [employer], [employer]. 03-05-2019 11:57-0400 Body weight 53.52 kg Radha Mccalloctavio [facility]AB[facility], Inc.; [employer], [employer]. 03-05-2019 11:57-0400 Diastolic blood pressure 64 mm[Hg] Radha Mccalloctavio [facility] ChildrenAB[facility], Inc.; [employer], [employer]. Comment on above: Patient Position: Sitting; Cuff Location : Left Arm; Cuff Size: Standard 03-05-2019 11:57-0400 Heart rate 83 /min Radha Mccalloctavio [facility] ChildrenABB, Inc.; [employer]. Comment on above: Pattern: Regular 03-05-2019 11:57-0400 Systolic blood pressure 105 mm[Hg] Radha Mccalloctavio [facility] ChildrenCellTran Inc.; [employer]. Comment on above: Patient Position: Sitting; Cuff Location : Left Arm; Cuff Size: Standard 07-25-2018 09:31-0500 Body height 165.1 cm Radha Weoctavio [facility] ChildrenABB, Inc.; [email or web address] 07-25-2018 09:31-0500 Body mass index (BMI) [Percentile] Per age and sex 27 % Radha Rossizaria [facility], Inc.; [employer], Inc. 07-25-2018 09:31-0500 Body mass index (BMI) [Ratio] 19.97 kg/m2 Radha Mccalloctavio ZIEGLER [employer], Inc.; [employer], Inc. 07-25-2018 09:31-0500 Body surface area Derived from formula 1.59 m2 Radha Weoctavio [facility] ChildrenABB, Inc.; [employer], Inc. 07-25-2018 09:31-0500 Body weight 54.43 kg Radha Mccalloctavio [facility], Inc.; [employer], [employer]. 07-25-2018 09:31-0500 Diastolic blood pressure 75 mm[Hg] Radha Mccalloctavio [facility], Inc.; [employer], [employer]. Comment on above: Patient Position: Sitting; Cuff Location : Left Arm; Cuff Size: Standard 07-25-2018 09:31-0500 Heart rate 74 /min Radha Rossizaria [facility], Inc.; [employer], [employer]. Comment on above: Pattern: Regular 07-25-2018 09:31-0500 Systolic blood pressure 114 mm[Hg] Radha Rossizaria [employer], Inc.; [employer], Inc. Comment on above: Patient Position: Sitting; Cuff Location : Left Arm; Cuff Size: Standard 12-23-2017 11:00-0400 Body height 165.1 cm Montserratcheryl Victor [employer] EXAMINER [employer]uedaABB, Inc.; [employer], [employer]. 12-23-2017 11:00-0400 Body mass index (BMI) [Percentile] Per age and sex 20 % Ramón Roy Kayleigh [employer]AB[employer], Inc.; [employer], Inc. 12-23-2017 11:00-0400 Body mass index (BMI) [Ratio] 19.3 kg/m2 Montserrate L Kayleigh [employer]AM[employer]ER [employer]ued[employer]ABB, Inc.; [employer], Inc. 12-23-2017 11:00-0400 Body surface area Derived from formula 1.57 m2 Ramón Kirill Vess [employer]AMINER RuedaABB, Inc.; [employer], Inc. 12-23-2017 11:00-0400 Body weight 52.62 kg Ramón Victor [employer] EXAMINER Rueda Nintu Oy, Inc.; [employer], Inc. 12-23-2017 11:00-0400 Diastolic blood pressure 63 mm[Hg] Neilee L Vess [employer] EXAMINER [employer]uedaABB, Inc.; [employer], Inc. Comment on above: Patient Position: Sitting; Cuff Location : Right Arm; Cuff Size: Standard 12-23-2017 11:00-0400 Heart rate 80 /min Montserrate L Vess [employer] EXAMINER [employer]uedaABB, Inc.; [employer], Inc. Comment on above: Pattern: Regular 12-23-2017 11:00-0400 Systolic blood pressure 97 mm[Hg] Montserrate L Vess [employer] EXAMINER [employer]uedaABB, Inc.; [employer], Inc. Comment on above: Patient Position: Sitting; Cuff Location : Right Arm; Cuff Size: Standard 12-13-2016 11:10-0400 Body temperature 98 [degF] Radha Mccalloctavio [employer] EXAMINER [employer]ued[employer]ABB, Inc.; [employer], [employer]. Comment on above: Method: Tympanic 12-13-2016 11:10-0400 Body weight 48.54 kg Radha Victoriabigg [employer] EXAMINER [employer]uedaABB, Inc.; [employer], Inc. 12-13-2016 11:10-0400 Diastolic blood pressure 79 mm[Hg] Radha Armando [employer] EXAMINER [employer]uedaABB, Inc.; [employer], Inc. Comment on above: Patient Position: Sitting; Cuff Location : Left Arm; Cuff Size: Standard 12-13-2016 11:10-0400 Heart rate 75 /min Radha Mccallriperd [employer] EXAMINER [employer]uedaABB, Inc.; [employer], [employer]. 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 01-25-2016 10:55-0400 Body mass index (BMI) [Percentile] Per age and sex 10 % Dunia Dawn [facility], Inc.; [email or web address] [facility], Inc. 01-25-2016 10:55-0400 Body mass index (BMI) [Ratio] 17.94 kg/m2 Dunia Dawn [facility], Inc.; [employer]a [email or web address] [facility], [employer]. 01-25-2016 10:55-0400 Body surface area Derived from formula 1.51 m2 Maureen Nereyda [facility], Inc.; RuedaABB, [employer]. 01-25-2016 10:55-0400 Body weight 48.54 kg Dunia Dawn [employer] EXAMINER [facility], Inc.; [employer], [employer]. 01-25-2016 10:55-0400 Diastolic blood pressure 77 mm[Hg] Dunia Dawn [facility], Inc.; [employer], [employer]. Comment on above: Patient Position: Sitting; Cuff Location : Left Arm; Cuff Size: Large 01-25-2016 10:55-0400 Heart rate 77 /min Dunia Dawn [employer] EXAMINER [facility], Inc.; [employer], [employer]. Comment on above: Pattern: Regular 01-25-2016 10:55-0400 Systolic blood pressure 117 mm[Hg] Dunia Dawn [employer] EXAMINER [facility], Inc.; [employer], [employer]. Comment on above: Patient Position: Sitting; Cuff Location : Left Arm; Cuff Size: Large 09-28-2014 14:54-0400 Body height 163.83 cm Dunia Dawn [facility], Inc.; [employer], [employer]. 09-28-2014 14:54-0400 Body mass index (BMI) [Percentile] Per age and sex 18 % Dunia Dawn [employer] EXAMINER [facility], Inc.; [employer], [employer]. 09-28-2014 14:54-0400 Body mass index (BMI) [Ratio] 18.08 kg/m2 Dunia Dawn [facility] Hospital[facility]ana[facility] [place] [facility].; [employer]. 09-28-2014 14:54-0400 Body surface area Derived from formula 1.51 m2 Dunia Dawn [facility], [facility].; [employer]. 09-28-2014 14:54-0400 Body temperature 98.7 [degF] Dunia Dawn [facility] ChildrenCellTr[facility] Inc.; [employer]. Comment on above: Method: Tympanic 09-28-2014 14:54-0400 Body weight 48.54 kg Dunia Dawn [facility] Inc.; [employer]. 07-09-2014 15:52-0500 Body height 137.16 cm Zayra Carrizales PA-C Work Phone: [employer].; [employer]. 07-09-2014 15:52-0500 Body mass index (BMI) [Percentile] Per age and sex 89 % Zayra Carrizales PA-C Work Phone: [employer].; [employer] 07-09-2014 15:52-0500 Body mass index (BMI) [Ratio] 25.56 kg/m2 Zayra Carrizales PA-C Work Phone: [employer].; [employer] 07-09-2014 15:52-0500 Body surface area Derived from formula 1.32 m2 Zayra Carrizales PA-C Work Phone: [employer].; [employer] 07-09-2014 15:52-0500 Body temperature 99.2 [degF] Zayra Carrizales PA-C Work Phone: [employer].; [employer]. Comment on above: Method: Tympanic 07-09-2014 15:52-0500 Body weight 48.08 kg Zayra Carrizales PA-C Work Phone: [employer].; [employer] 02-26-2013 14:01-0400 Body height 164.47 cm Radha Mccalloctavio [employer] [place] [email or web address] [facility], Inc.; [employer]. 02-26-2013 14:-0400 Body mass index (BMI) [Percentile] Per age and sex 11 % Radha Mccallldbigg [facility] [email or web address] [facility], Inc.; [employer]. 02-26-2013 14:-0400 Body mass index (BMI) [Ratio] 16.62 kg/m2 Radha Weoctavio [facility], Inc.; [employer]. 02-26-2013 14:-0400 Body surface area Derived from formula 1.46 m2 Radha Mccalloctavio [facility], [employer].; [employer]. 02-26-2013 14:0400 Body temperature 98.2 [degF] Radha Mccalloctavio [facility] Children[facility]el.; [employer]. Comment on above: Method: Tympanic 02-26-2013 14:0400 Body weight 44.96 kg Radha Mccalloctavio [facility] O[facility], [facility].; [employer]. 02-11-2013 15:15-0400 Body height 164.47 cm Esejoie North [facility], Inc.; [employer], [employer]. 02-11-2013 15:15-0400 Body mass index (BMI) [Percentile] Per age and sex 9 % Ese North [employer] EXAMINER [employer] [facility], Inc.; [employer]. 02-11-2013 15:15-0400 Body mass index (BMI) [Ratio] 16.43 kg/m2 Ese Jose North D[employer] EXAMINER [employer].; [employer]. 02-11-2013 15:15-0400 Body surface area Derived from formula 1.46 m2 Ese North D[employer] EXAMINER RuedaABB, [employer].; [employer]. 02-11-2013 15:15-0400 Body weight 44.45 kg Ese Jose North D[employer] EXAMINER [employer].; [employer]. 02-11-2013 15:15-0400 Diastolic blood pressure 72 mm[Hg] Ese North LPN [facility], Inc.; [email or web address] [facility], [employer]. Comment on above: Patient Position: Sitting; Cuff Location : Left Arm; Cuff Size: Standard 02-11-2013 15:15-0400 Heart rate 71 /min Ese North [facility], Inc.; [employer], Inc. Comment on above: Pattern: Regular 02-11-2013 15:15-0400 Systolic blood pressure 122 mm[Hg] Ese North [facility], Inc.; [email or web address] [facility], [employer]. Comment on above: Patient Position: Sitting; Cuff Location : Left Arm; Cuff Size: Standard 06-02-2012 12:59-0500 Body height 162.56 cm Dunia Dawn [facility], Inc.; Rueda Nintu Oy, [employer]. 06-02-2012 12:59-0500 Body mass index (BMI) [Percentile] Per age and sex 24 % Dunia Dawn [facility], Inc.; [email or web address] [facility], [employer]. 06-02-2012 12:59-0500 Body mass index (BMI) [Ratio] 17.34 kg/m2 [facility] Nereyda [facility], [facility].; RuedaABB, [employer]. 06-02-2012 12:59-0500 Body surface area Derived from formula 1.46 m2 Maureen Stuckey [facility], [facility].; [email or web address] [facility], [employer]. 06-02-2012 12:59-0500 Body temperature 99.7 [degF] Maureen Stuckey [facility], [facility].; [employer]. Comment on above: Method: Tympanic 06-02-2012 12:59-0500 Body weight 45.81 kg Dunia Dawn [facility], [facility].; RuedaABB, [employer]. 05-27-2012 13:56-0500 Body height 162.56 cm Dunia Dawn [facility], Inc.; [employer]. 05-27-2012 13:56-0500 Body mass index (BMI) [Percentile] Per age and sex 25 % Dunia Dawn [facility], [facility].; Shidonni, Inc. 05-27-2012 13:56-0500 Body mass index (BMI) [Ratio] 17.34 kg/m2 Dunia Dawn [facility], Inc.; RuedaABB, Inc. 05-27-2012 13:56-0500 Body surface area Derived from formula 1.46 m2 Dunia Dawn [facility] [email or web address] [facility], Inc.; RuedaABB, Inc. 05-27-2012 13:56-0500 Body temperature 99.2 [degF] Dunia Dawn [facility] [email or web address] [facility], Inc.; [employer], [employer]. Comment on above: Method: Tympanic 05-27-2012 13:56-0500 Body weight 45.81 kg Dunia Dawn [facility] [email or web address] [facility], Inc.; [employer], Inc. 08-13-2011 15:37-0500 Body height 161.54 cm Radha Weoctavio [facility] [email or web address] [facility], Inc.; [employer], [employer]. 08-13-2011 15:37-0500 Body mass index (BMI) [Percentile] Per age and sex 47 % Radha Mccalloctavio [facility] [email or web address] [facility], [facility].; [employer], [employer]. 08-13-2011 15:37-0500 Body mass index (BMI) [Ratio] 18.34 kg/m2 Radha Roberts [facility] ChildrenM[facility]im[facility] Pharm[facility], Inc.; Sh[employer]onni, Inc. 08-13-2011 15:37-0500 Body surface area Derived from formula 1.48 m2 Radha Weoctavio [facility] [email or web address] [facility], [facility].; [employer], [employer]. 08-13-2011 15:37-0500 Body temperature 98 [degF] Radha Mccallripnehalbigg [facility], [employer].; [employer]ni, [employer]. Comment on above: Method: Tympanic 08-13-2011 15:37-0500 Body weight 47.85 kg Radha Roberts [facility] [email or web address] [facility], Inc.; [employer], [employer]. 03-20-2011 13:59-0400 Body height 160.02 cm Zayra Carrizales PA-C Work Phone: [employer]; [employer] 03-20-2011 13:59-0400 Body mass index (BMI) [Percentile] Per age and sex 45 % Zayra Carrizales PA-C Work Phone: [employer] 03-20-2011 13:59-0400 Body mass index (BMI) [Ratio] 17.96 kg/m2 Zayra Adamser PA-C Work Phone: [employer]; [employer] 03-20-2011 13:59-0400 Body surface area Derived from formula 1.45 m2 Zayra Adamser PA-C Work Phone: [employer]; [employer] 03-20-2011 13:59-0400 Body temperature 96.1 [degF] Zayra Carrizales PA-C Work Phone: [employer]; [employer] 03-20-2011 13:59-0400 Body weight 45.98 kg Zayra Adamser PA-C Work Phone: [employer]; [employer]. 08-15-2010 11:14-0500 Body height 157.48 cm Dunia Dawn [facility] [employer].; [employer] 08-15-2010 11:14-0500 Body mass index (BMI) [Percentile] Per age and sex 62 % Dunia Dawn [facility] [employer] 08-15-2010 11:14-0500 Body mass index (BMI) [Ratio] 18.84 kg/m2 Dunia Ferrariuckey [facility] [employer].; [employer]. 08-15-2010 11:14-0500 Body surface area Derived from formula 1.44 m2 Maureen Nereyda LPN [employer].; [employer]. 08-15-2010 11:14-0500 Body temperature 98.1 [degF] Dunia Dawn LPN [facility], [employer].; [employer] [facility], [employer]. Comment on above: Method: Tympanic 08-15-2010 11:14-0500 Body weight 46.72 kg Dunia Dawn LPN [facility], Inc.; [employer], Inc. 08-15-2010 11:14-0500 Inhaled oxygen concentration 20 % Dunia Dawn [facility], [employer].; [employer], [employer]. Comment on above: Room air 08-15-2010 11:14-0500 Inhaled oxygen concentration 21 % Dunia Dawn [employer] EXAMINER [facility], Inc.; [employer] [facility], Inc. Comment on above: Room air 08-15-2010 11:14-0500 SaO2% (BldA) [Mass fraction] 95 % Dunia Dawn D[employer] FORENS[employer] EXAMINER Rueda [facility], Inc.; [employer], [employer]. Encounters Encounter Date Encounter Type Care Provider Facility Start: 01-12-2025 ambulatory Zayra Carrizales [place] Facility:[facility] Start: 01-08-2025 End: 01-08-2025 Orders Only Marylin Bustamante CNM Work Phone: [facility] Comment on above: Amenorrhea (Primary Dx) Start: 11-30-2024 End: 11-30-2024 Postop follow up visit related to original px Zayra Flores MD Work Phone: [facility] Gyne[facility] Comment on above: Postoperative examination (Primary Dx) Start: 11-30-2024 End: 11-30-2024 ambulatory ZAYRA FLORES [facility] Start: 11-24-2024 End: 11-24-2024 ambulatory ZAYRA FLORES [facility] Start: 11-20-2024 Preprocedural examination done Zayra Flores MD Work Phone: [facility] Start: 11-20-2024 [facility] Start: 11-20-2024 End: 11-24-2024 ambulatory ZAYRA FLORES [facility] Start: 11-20-2024 End: 11-24-2024 Encounter for other preprocedural examination [facility] Start: 11-11-2024 End: 11-11-2024 [facility] Start: 11-06-2024 End: 11-06-2024 Office outpatient visit 25 minutes Zayra Flores MD Work Phone: [facility] Gynecology Comment on above: Female infertility (Primary Dx); RLQ abdominal pain; PCOS (polycystic ovarian syndrome) Start: 11-06-2024 End: 11-06-2024 [facility]ulatory [facility] Start: 11-02-2024 End: 01-02-2025 Follow-up encounter Marylin Bustamante CNM Work Phone: [facility] Delivery Comment on above: Progesterone Start: 10-23-2024 End: 10-23-2024 Orders Only Marylin Bustamante CNM Work Phone: [facility]ne[facility] Comment on above: Female infertility (Primary Dx) Start: 10-21-2024 End: 10-21-2024 ambulatory Zayra CABRAL [place] Start: 10-13-2024 Non-patient / Non-visit Dr. Ruy Silver MD [facility] Start: 10-13-2024 End: 10-13-2024 ambulatory Zayra CABRAL Work Phone: [facility] Work Phone: Start: 10-13-2024 End: 10-13-2024 Patient encounter procedure Zayra CABRAL -Cardiovascular Services Work Phone: Start: 10-12-2024 End: 10-12-2024 Office outpatient visit 10 minutes Marylin Bustamante CNM Work Phone: [facility] Gynecology Comment on above: Dyspareunia, female (Primary Dx); History of lump of right breast Start: 10-12-2024 End: 10-13-2024 ambulatory [facility]ANTE [facility] Start: 09-09-2024 End: 09-09-2024 Orders Zayra Adamsnehal CABRAL-C Work Phone: [employer] [facility] Start: 09-07-2024 Review Zayra Adamsnehal CABRAL-C Work Phone: [employer]. Start: 09-04-2024 End: 09-04-2024 Patient encounter procedure Zayra Adamsnehal CABRAL-C Work Phone: [employer]. Start: 09-04-2024 ambulatory [facility] Start: 09-04-2024 Follow-up encounter Zayra Adamsnehal CABRAL-Rachel Work Phone: [employer]. Start: 08-26-2024 End: 08-26-2024 Telephone follow-up Zayra Adamsnehal CABRAL-C Work Phone: [employer]. Start: 08-22-2024 End: 08-22-2024 Emergency department patient visit Dr. Lizbeth Nolasco DO -Emergency Department Work Phone: Start: 08-18-2024 End: 08-18-[address] Rod Bernardo MD -Laboratory, Specimen Work Phone: Start: 08-18-2024 End: 08-18-2024 ambulatory Rod Bernardo Facility:[facility] Start: 07-08-2024 End: 07-09-2024 ambulatory MARYLIN BUSTAMANTE [facility] Start: 07-06-2024 End: 07-06-2024 Orders Only Marylin Bustamante CNM Work Phone: [facility] Comment on above: Infertility associated with anovulation (Primary Dx) Start: 06-26-2024 End: 06-26-2024 Office outpatient visit 10 minutes Marylin Bustamante CNM Work Phone: [facility]necology Comment on above: RLQ abdominal pain (Primary Dx) Start: 06-26-2024 End: 06-26-2024 ambulatory MARYLIN BUSTAMANTE [facility] Start: 06-22-2024 End: 06-22-2024 ambulatory [facility] Start: 06-19-2024 End: 06-19-2024 Orders Only Marylin Bustamante CNM Work Phone: [facility] Ob[facility]etrics [facility] Gynecology Comment on above: PCOS (polycystic ovarian syndrome) Start: 06-16-2024 End: 06-16-2024 Orders Only Marylin Bustamante CNM Work Phone: [facility]etrics [facility] Gynecology Comment on above: PCOS (polycystic ovarian syndrome) Start: 06-16-2024 End: 06-16-2024 Office outpatient visit 15 minutes Zayra Carrizales PA-C Work Phone: [employer]. Start: 06-10-2024 End: 06-10-2024 Orders Only Marylin Bustamante CNM Work Phone: [facility]s [facility] Gynecology Comment on above: Female infertility (Primary Dx) Start: 06-01-2024 End: 06-01-2024 Orders Only Marylin Bustamante CNM Work Phone: [facility] Ob[facility]etrics [facility] Gynecology Comment on above: PCOS (polycystic ovarian syndrome) (Prim shu Dx); Female infertility Start: 05-25-2024 End: 05-25-2024 Medication Zayra Carrizales PA-C Work Phone: [employer]. Start: 05-20-2024 End: 05-20-2024 Office outpatient visit 15 minutes Zayra Carrizales PA-C Work Phone: [employer]. Start: 05-20-2024 Review Zayra Carrizales PA-C Work Phone: [employer]. Start: 05-19-2024 End: 05-19-2024 Orders Only Marylin Bustamante CNM Work Phone: [facility] Ob[facility]etrics [facility] Gynecology Comment on above: PCOS (polycystic ovarian syndrome) Start: 05-18-2024 End: 05-18-2024 Orders Only Marylin Bustamante CNM Work Phone: [facility]necology Comment on above: Female infertility (Primary Dx) Start: 04-20-2024 End: 04-20-2024 ambulatory MARYLIN BUSTAMANTE [facility] Start: 04-20-2024 End: 04-20-2024 Encounter for gynecological examination (general) (routine) without abnormal findings MARYLIN BUSTAMANTE [facility] Start: 11-08-2023 End: 11-08-2023 Office outpatient visit 10 minutes Marylin Bustamante CNM Work Phone: [facility] Gynecology Comment on above: Menorrhagia with irregular cycle (Primar y Dx); PMDD (premenstrual dysphoric disorder) Start: 2023 End: 2023 Orders Zayra Carrizales PA-C Work Phone: [employer] Start: 10-23-2023 End: 10-23-2023 Office outpatient visit 25 minutes Jag Tellez MD Work Phone: [facility] Comment on above: Gastroesophageal reflux disease without esophagitis (Primary Dx) Start: 09-19-2023 Orders Only Dennis Roach [employer] Work Phone: [facility] Start: 09-04-2023 End: 09-04-2023 Office outpatient new 45 minutes Dennis Roach [employer] Work Phone: [facility] Comment on above: Heartburn (Primary Dx); Gaseous regurgitation; Pharyngoesophageal dysphagia; Chest pain, non-cardiac; Nausea and vomiting, unspecified vomiting type; Bloating Start: 08-26-2023 End: 08-26-2023 Office outpatient visit 15 minutes Zayra CABRAL-Rachel Work Phone: [employer] Start: 08-21-2023 Orders Only Dennis Roach [employer] Work Phone: [facility] Gastroenter[facility] Comment on above: Gastroesophageal reflux disease, unspeci fied whether esophagitis present (Primary Dx) Start: 08-19-2023 Orders Only Marylin TATUMM Work Phone: [facility] Start: 05-21-2023 End: 05-21-2023 Medication Azyra Carrizales PA-C Work Phone: [employer] Start: 04-24-2023 End: 04-24-2023 Office outpatient visit 15 minutes Dennis Roach [facility] Work Phone: [facility] Gastro[facility] Comment on above: Duodenal gastroesophageal reflux (Primar y Dx); Gastroesophageal reflux disease with esophagitis without hemorrhage; Irritable bowel syndrome with both constipation and diarrhea Start: 04-12-2023 End: 04-12-2023 Initial preventive medicine new pt age 18-39yrs Marylin Segundo Bustamante CNM Work Phone: [facility] Ob[facility]etrics and Gynecology Comment on above: Well woman exam with routine gynecologic al exam (Primary Dx); Vaginal discharge Start: 04-12-2023 End: 04-12-2023 Patient encounter procedure Marylin Segundo Bustamante CN Work Phone: [facility] Work Phone: Start: 03-12-2023 End: 03-12-2023 Office outpatient visit 15 minutes Zayraanamaria Adamser PA-C Work Phone: [employer] Start: 03-04-2023 End: 03-04-2023 Office outpatient new 30 minutes Zayra Parker Carrizales PA-C Work Phone: [facility] Gastroenterology Comment on above: Gastroesophageal reflux disease, unspeci fied whether esophagitis present (Primary Dx); Epigastric pain; Nausea; Bloating; Change in bowel habits; RLQ abdominal pain Start: 02-06-2023 End: 02-07-2023 Medication Zayra Carrizales PA-C Work Phone: [employer] Start: 12-12-2022 End: 12-12-2022 Medication Zayra Carrizales PA-C Work Phone: [employer] Start: 09-05-2022 End: 09-05-2022 ambulatory [facility] Work Phone: Start: 09-05-2022 End: 09-05-2022 Patient encounter procedure [facility] Start: 09-03-2022 End: 09-03-2022 Orders Zayra Carrizales PA-C Work Phone: [employer], [employer]. Start: 09-03-2022 End: 09-03-2022 Orders Zayra Carrizales PA-C Work Phone: [employer]. Start: 09-03-2022 End: 09-03-2022 ambulatory ZAYRAANAMARIA CARRIZALES [facility] Start: 09-01-2022 End: 09-01-2022 ambulatory ZAYRA CARRIZALES [facility] Start: 08-31-2022 End: 08-31-2022 Office outpatient visit 25 minutes Zayra Carrizales PA-C Work Phone: [employer]. Start: 03-02-2022 End: 03-02-2022 Office outpatient visit 15 minutes Zayra Carrizales PA-C Work Phone: [employer]. Start: 12-11-2021 End: 12-11-2021 Office outpatient visit 15 minutes Zayra Carrizales PA-C Work Phone: [employer]. Start: 10-24-2021 End: 10-24-2021 Office outpatient visit 15 minutes Zayra Carrizales PA-C Work Phone: [employer] Start: 08-17-2021 End: 08-17-2021 Office outpatient visit 15 minutes Zayra Carrizales PA-C Work Phone: [employer]. Start: 05-01-2021 End: 05-01-2021 Orders Zayra Carrizales PA-C Work Phone: [employer] Start: 04-28-2021 End: 04-28-2021 Office outpatient visit 15 minutes Zayra Carrizales PA-C Work Phone: [employer] Start: 04-27-2021 End: 04-27-2021 Orders Zayra Carrizales PA-C Work Phone: [employer]. Start: 04-27-2021 End: 04-27-2021 Medication Zayra Carrizales PA-C Work Phone: [employer]. Start: 01-24-2021 End: 01-24-2021 [facility] Start: 08-24-2020 End: 08-24-2020 Orders Zayra Carrizales PA-C Work Phone: [employer] Start: 08-19-2020 End: 08-19-2020 Patient encounter procedure Zayra Carrizales PA-C Work Phone: [employer] Start: 02-12-2020 End: 02-12-2020 Patient encounter procedure Yocasta Mart LPN [employer]. Start: 02-12-2020 End: 02-12-2020 Periodic preventive med est patient 18-39 yrs Zayra Carrizales PA-C Work Phone: [employer]. Start: 12-19-2019 End: 12-19-2019 Medication Zayra Carrizales PA-C Work Phone: [employer]. Start: 12-15-2019 End: 12-15-2019 Office outpatient visit 15 minutes Zayra Carrizales PA-C Work Phone: [employer]. Start: 11-11-2019 End: 11-11-2019 Office outpatient visit 15 minutes Zayra Carrizales PA-C Work Phone: [employer]. Start: 10-26-2019 End: 10-26-2019 Annotation/Addendum Zayra Carrizales PA-C Work Phone: [employer]. Start: 10-21-2019 End: 10-22-2019 Office outpatient visit 15 minutes Zayra Carrizales PA-C Work Phone: [employer]. Start: 08-31-2019 End: 08-31-2019 Medication Zayra Carrizales PA-C Work Phone: [employer]. Start: 07-16-2019 End: 07-16-2019 Office outpatient visit 15 minutes Zayra Carrizales PA-C Work Phone: [employer]. Start: 06-22-2019 End: 06-22-2019 Medication Zayra Carrizales PA-C Work Phone: [employer]. Start: 04-29-2019 End: 04-29-2019 Orders Zayra Carrizales PA-C Work Phone: [employer]. Start: 04-14-2019 End: 04-14-2019 Medication Zayra Carrizales PA-C Work Phone: [employer]. Start: 03-05-2019 End: 03-05-2019 Patient encounter procedure Zayra Carrizales PA-C Work Phone: [employer]. Start: 01-21-2019 End: 01-26-2019 Orders Zayra Carrizales PA-C Work Phone: [employer]. Start: 07-25-2018 End: 07-25-2018 Office outpatient visit 15 minutes Zayra Carrizales PA-C Work Phone: [employer]. Start: 01-01-2018 End: 01-01-2018 Orders Zayra Carrizales PA-C Work Phone: [employer]. Start: 12-23-2017 End: 12-23-2017 Patient encounter status Zayra Carrizales PA-C Work Phone: [employer] Start: 12-23-2017 End: 12-23-2017 Periodic preventive med est patient 18-39 yrs Zayra Carrizales PA-C Work Phone: [employer]. Start: 07-03-2017 End: 07-04-2017 Ambulatory [facility] Start: 05-16-2017 End: 05-16-2017 Orders Zayra Carrizales PA-C Work Phone: [employer]. Start: 05-15-2017 End: 05-15-2017 Ambulatory [facility] Facility:[facility] Start: 01-02-2017 End: 01-02-2017 Orders Zayra Carrizales PA-C Work Phone: [employer]. Start: 12-19-2016 End: 12-19-2016 Orders Zayra Carrizales PA-C Work Phone: [employer]. Start: 12-13-2016 End: 12-13-2016 Patient encounter procedure Zayra Carrizales PA-C Work Phone: [employer]. Start: 11-28-2016 End: 11-28-2016 Nursing evaluation of patient and report Zayra Carrizales PA-C Work Phone: [employer]. Start: 05-08-2016 End: 05-08-2016 Orders Zayra Carrizales PA-C Work Phone: [employer]. Start: 01-25-2016 End: 01-25-2016 Patient encounter status Zayra Carrizales PA-C Work Phone: [employer] Start: 01-25-2016 End: 01-25-2016 Periodic preventive med est patient 12-17yrs Zyara Carrizales PA-C Work Phone: [employer]. Start: 09-28-2014 End: 09-28-2014 Office outpatient visit 15 minutes Zayra Carrizales PA-C Work Phone: [employer]. Start: 07-09-2014 End: 07-09-2014 Office outpatient visit 15 minutes Zayra Carrizales PA-C Work Phone: [employer]. Start: 06-08-2013 End: 06-08-2013 Medication Zayra Carrizales PA-C Work Phone: [employer]. Start: 03-19-2013 End: 03-19-2013 Medication Zayra Carrizales PA-C Work Phone: [employer]. Start: 03-12-2013 End: 03-12-2013 Orders Zayra Carrizales PA-C Work Phone: [employer]. Start: 02-26-2013 End: 02-26-2013 Patient encounter procedure Zayra Carrizales PA-C Work Phone: [employer]. Start: 02-11-2013 End: 02-12-2013 Patient encounter procedure Zayra Carrizales PA-C Work Phone: [employer]. Start: 02-11-2013 End: 02-12-2013 Routine general medical examination at a [facility] facility Zayra Carrizales PA-C Work Phone: [employer] Start: 07-02-2012 End: 07-02-2012 Orders Zayra Carrizales PA-C Work Phone: [employer]. Start: 06-30-2012 End: 06-30-2012 Orders Zayra Carrizales PA-C Work Phone: [employer]. Start: 06-02-2012 End: 06-02-2012 Patient encounter procedure Zayra Carrizales PA-C Work Phone: [employer]. Start: 05-28-2012 End: 05-28-2012 Orders Zayra Carrizales PA-C Work Phone: [employer]. Start: 05-27-2012 End: 05-27-2012 Patient encounter procedure Zayra Carrizales PA-C Work Phone: [employer]. Start: 08-13-2011 End: 08-13-2011 Patient encounter procedure Zayra Carrizales PA-C Work Phone: [employer]. Start: 03-20-2011 End: 03-20-2011 Patient encounter procedure Zayra Carrizales PA-C Work Phone: [facility] Start: 08-15-2010 End: 08-15-2010 Patient encounter procedure Zayra Carrizales PA-C Work Phone: [facility] [place] [facility] Procedures Date Procedure Procedure Detail Performing Clinician Start: 09-04-2024 End: 09-04-2024 Ecg routine ecg w/least 12 lds w/i&r Zayra Carrizales PA-C Work Phone: Comment on above: Sinus rhythm; short [place] interval; flipped T wave in inferior leads Start: 08-22-2024 SARS-CoV-2, Influenz a & RSV (PCR) Zayra CABRAL Work Phone: Start: 08-18-2024 End: 08-18-2024 Tonsillectomy Andree Solorzano RN Start: 06-26-2024 Follow-up visit Follow-up MARYLIN BUSTAMANTE Start: 06-16-2024 End: 06-16-2024 No Known Past Surgical History Leila Jimenez MA Start: 04-20-2024 Microscopic observat ion [Identifier] in Cervix by Cyto stain Marylin Bustamante [facility] Work Phone: Start: 04-12-2023 Iadna morenita specie s direct probe tq Marylin Bustamante [facility] Work Phone: Start: 04-12-2023 Microscopic observat ion [Identifier] in Cervix by Cyto stain Dennis Roach [facility] Work Phone: Start: 09-05-2022 Ultrasonography of abdomen Start: 08-31-2022 End: 08-31-2022 No Known Past Surgical History Leila Jimenez MA Start: 08-31-2022 End: 12-26-2022 Hepatobil syst imag inc gb w/pharma intervenj Zayra Carrizales PA-C Work Phone: Start: 08-31-2022 End: 09-10-2022 Us abdominal real time w/image limited Zayra Carrizales PA-C Work Phone: Start: 08-17-2021 End: 08-28-2021 Us pelvic nonobstetric real-time image complete Zayra Canales Carrizales PA-C Work Phone: Start: 12-23-2017 End: 12-23-2017 Body mass index documented Zev Mckinney MD Work Phone: Start: 01-02-2017 End: 01-09-2017 Ct abdomen & pelvis w/contrast material aZyra Canales Carrizales PA-C Work Phone: Start: 03-12-2013 End: 03-19-2013 Hepatobiliary imaging Zayra Carrizales P A-C Work Phone: Start: 02-11-2013 End: 02-11-2013 Screening test visual acuity quantitative bilat Zayra Canales Carrizales PA-C Work Phone: Start: 05-28-2012 End: 06-02-2012 Us abdominal real time w/image limited Zev Mckinney MD Work Phone: Plan of Treatment Date Care Activity Detail Author Start: 04-20-2027 Screening for malignant neoplasm of cervix Pap Smear [facility] Start: 04-12-2026 Screening for malignant neoplasm of cervix Pap Smear [facility] Start: 04-20-2025 History and physical examination, annual for health maintenance Wellness Visit [facility] Start: 11-30-2024 End: 11-30-2024 Follow-up encounter 11/30/2024 10:45 AM EDT Follow-Up [facility] Obstetrics and Gynecology [address] [phone] Zayra Flores MD [address] [address] [facility] Obstetrics and Gynecology Start: 11-24-2024 End: 11-24-2024 Admission to same day surgery center 11/24/2024 1:13 PM EDT - 11/24/2024 4:20 PM EDT Surgery [facility] [address] [place] [address] Zayra Flores MD [address] [address] PELVISCOPY ROBOTIC XI [facility] Comment on above: PELVISCOPY ROBOTIC XI Start: 11-24-2024 End: 11-24-2024 Chromotubation oviduct w/materials CHROMOTUBATION WITH PELVIC IRRIGATION LAPAROSCOPIC Female infertility RLQ abdominal pain 11/24/2024 1:13 PM EDT [facility] Start: 11-24-2024 End: 11-24-2024 Laps abd prtm&omentum dx w/wo spec br/wa spx PELVISCOPY ROBOTIC XI Female infertility RLQ abdominal pain 11/24/2024 1:13 PM EDT [facility] Start: 11-24-2024 Subsequent hospital visit by physician 11/24/2024 1:13 PM EDT Hospital Encounter [facility] [address] [place] [address] Zayra Flores MD [address] [address] [facility] Start: 11-20-2024 End: 11-20-2024 Patient encounter procedure 11/20/2024 11:30 AM EDT Office Visit [facility] Preadmission Testing [address] [place] [address] Discharge Disposition: Home [facility] Preadmission Testing Start: 11-11-2024 End: 11-11-2024 Professional / ancillary services management 11/11/2024 10:00 AM EDT Ancillary Procedure [facility] Obstetrics and Gynecology 335 [facility] [address] [address] Zayra Flores MD [address] [address] [facility] Obstetrics and Gynecology Start: 11-06-2024 End: 11-06-2024 Patient encounter procedure 11/06/2024 10:30 AM EDT Office Visit [facility] Obstetrics and Gynecology [address] [place] [phone] Zayra Flores MD [address] [place] [address] [facility] Obstetrics and Gynecology Start: 09-09-2024 End: 09-14-2024 Echo tthrc r-t 2d w/wo m-mode complete rest&st [facility] Start: 09-04-2024 Ecg routine ecg w/least 12 lds w/i&r ELECTROCARDIOGRAM WITH INTERPRETATION ([id number]) Start: 04-Sep-2024 Intent Comments: Sinus rhythm; short [place] interval; flipped T wave in inferior leads [facility] Comment on above: Sinus rhythm; short [place] interval; flipped T wave in inferior leads Start: 09-04-2024 Patient encounter procedure Medical; EXTENDED RTN - ERFU, [facility], acute dehydration, abn EKG, MJP [facility] Start: 04-Sep-2024 09:30-05:00 [place] Carrizales Appointment Request [place] [email or web address] [facility] Start: 08-22-2024 [facility] Start: 08-22-2024 [facility] Start: 07-07-2024 End: 07-06-2025 Progesterone [Mass/volume] in Serum or Plasma Progesterone Lab Routine Infertility associated with anovulation Expected: 07/07/2024, Expires: 07/06/2025 [facility] Work Phone: Comment on above: Expected: 07/07/2024, Expires: Start: 06-22-2024 End: 06-22-2024 Professional / ancillary services management 06/22/2024 11:30 AM EST Ancillary Procedure [facility] Obstetrics and Gynecology [address] [place] [phone] Marylin Bustamante, DEEPTI [address] [place] [address] [facility] Obstetrics and Gynecology Start: 06-17-2024 End: 06-10-2025 US Pelvis transvaginal US Transvaginal Imaging Routine Female infertility Expected: 06/17/2024, Expires: 06/10/2025 [facility] Work Phone: Comment on above: Expected: 06/17/2024, Expires: Start: 06-16-2024 Culture bacterial quanttative colony count urine Urine Culture ([id number]) Start: 16-Jun-2024 10:06-05:00 [facility] [place] [facility] Start: 06-03-2024 End: 06-01-2025 Progesterone [Mass/volume] in Serum or Plasma Progesterone Lab Routine PCOS (polycystic ovarian syndrome) Female infertility Expected: 06/03/2024, Expires: 06/01/2025 [facility] Work Phone: Comment on above: Expected: 06/03/2024, Expires: Start: 05-18-2024 End: 05-18-2025 Progesterone [Mass/volume] in Serum or Plasma Progesterone Lab Routine Female infertility Expected: 05/18/2024, Expires: 05/18/2025 [facility] Work Phone: Comment on above: Expected: 05/18/2024, Expires: Start: 04-14-2024 End: 04-14-2024 Patient encounter procedure 04/14/2024 8:30 AM EDT Office Visit [facility] Physician [facility] Obstetrics and Gynecology [facility] [address] [place] [address] Marylin Bustamante, DEEPTI[address] [address] [facility] Physician [facility] Ob[facility]etrics [facility] Gynecology Start: 04-12-2024 History and physical examination, annual for health maintenance Wellness Visit [facility] Start: 03-22-2024 COVID-19 Vaccine ( season) COVID-19 Vaccine () [facility] Start: 03-22-2024 Influenza vaccination Influenza Vaccine (#1) [facility] Start: 11-18-2023 End: 11-18-2023 Admission to same day surgery center 11/18/2023 7:20 AM EDT - 11/18/2023 9:13 AM EDT Surgery [facility] [address] [place] [address] Jag Tellez MD [address] [place] [address] REPAIR HERNIA HIATAL WITH SPHINCTER AUGMENTATION ROBOTIC XI [facility] Comment on above: REPAIR HERNIA HIATAL WITH SPHINCTER AUGM ENTATION ROBOTIC XI Start: 11-18-2023 End: 11-18-2023 Laps rpr paraesphgl hrna incl fundplsty w/o mesh REPAIR HERNIA HIATAL WITH SPHINCTER AUGMENTATION ROBOTIC XI Gastroesophageal reflux disease without esophagitis 11/18/2023 7:20 AM EDT [facility] Start: 11-18-2023 Subsequent hospital visit by physician 11/18/2023 7:20 AM EDT Hospital Encounter [facility] [address] [place] [address] Jag Tellez MD [address] [place] [address] [facility] Start: 11-08-2023 End: 11-08-2023 Patient encounter procedure 11/08/2023 9:00 AM EDT Office Visit [facility] Obstetrics and Gynecology [address] [place] [address] Marylin Bustamante, [facility] [address] [place] [address] [facility] Physician [facility] Obstetrics and Gynecology Start: 11-05-2023 End: 11-05-2023 Patient encounter procedure 11/05/2023 9:00 AM EDT Office Visit [facility] Preadmission Testing [address] [place] [phone] Discharge Disposition: Home [facility] Start: 10-08-2023 End: 10-08-2023 Admission to same day surgery center [facility] Comment on above: ESOPHAGOGASTRODUODENOSCOPY WITH BIOPSY A ND MiVu ESOPHAGOGASTRODUODEN OSCOPY WITH BIOPSY AND MCCALLUM CHIP Start: 10-08-2023 End: 10-08-2023 Esophagogastroduodenoscopy ESOPHAGOGASTRODUODENOSCOPY Heartburn Gaseous regurgitation Pharyngoesophageal dysphagia Chest pain, non-cardiac Nausea and vomiting, unspecified vomiting type Bloating 10/08/2023 10:20 AM EDT [facility] Start: 10-08-2023 End: 10-08-2023 Admission to same day surgery center 10/08/2023 8:20 AM EDT - 10/08/2023 8:50 AM EDT Surgery [facility] [address] [place] [address] Jag Tellez MD [address] [address] ESOPHAGEAL MANOMETRY [facility] Comment on above: ESOPHAGEAL MANOMETRY Start: 10-08-2023 End: 10-08-2023 Esophageal manometry ESOPHAGEAL MANOMETRY Heartburn [R12] Gaseous regurgitation [R14.2] Pharyngoesophageal dysphagia [R13.14] Chest pain, non-cardiac [R07.89] Nausea and vomiting, unspecified vomiting type [R11.2] Bloating [R14.0] 10/08/2023 8:20 AM EDT [facility] Start: 10-08-2023 Subsequent hospital visit by physician [facility] Start: 09-04-2023 End: 09-04-2023 Patient encounter procedure 09/04/2023 10:00 AM EST Office Visit [facility] [address] [facility], [address]th [place] [phone] Dennis Roach, AAKASH [address] [place] [address] Hanna Coley CNP [address] [address] [facility] Start: 04-24-2023 End: 04-24-2023 Patient encounter procedure 04/24/2023 9:00 AM EDT Office Visit [facility] Physicians [facility] [address] [place] [address] Dennis Roach, AAKASH [address] [place] [address] [facility] Physicians [facility] Start: 04-12-2023 End: 04-12-2023 Admission to same day surgery center 04/12/2023 8:50 AM EDT - 04/12/2023 9:20 AM EDT Surgery [facility] [address] [place] [address] Leopolod Negron MD [address] [place] [address] ESOPHAGOGASTRODUODENOSCOPY [facility] Comment on above: ESOPHAGOGASTRODUODENOSCOPY Start: 04-12-2023 End: 04-12-2023 Esophagogastroduodenoscopy ESOPHAGOGASTRODUODENOSCOPY Chronic abdominal pain Gastroesophageal reflux disease, unspecified whether esophagitis present Nausea 04/12/2023 8:50 AM EDT [facility] Start: 04-12-2023 Subsequent hospital visit by physician 04/12/2023 8:50 AM EDT Hospital Encounter [facility] [address] [place] [address] Leopoldo Negron MD [address] [place] [address] [facility] Start: 03-22-2023 COVID-19 Vaccine ( season) COVID-19 Vaccine ( season) [facility] Start: 03-22-2023 Influenza vaccination Sequential Influenza Vaccine (#1) [facility] Start: 08-31-2022 Cul bact stool aerobic addl pathogens&id ea [facility] [place] [facility]. Start: 08-31-2022 Cul bact stool aerobic isol salmonella&shigell [facility] [place] [facility] [place] [facility]. Start: 08-31-2022 Iaad ia giardia [facility] [place] [facility].; [facility] Start: 08-31-2022 Ova&parasites direct smears concentration & id [facility] [place] [facility] Start: 08-31-2022 Lactoferrin fecal qualitative [facility].; [place] [email or web address] [facility]. Start: 08-31-2022 Fat/lipids feces qualitative [facility].; [place] [email or web address] [facility]. Start: 02-19-2021 Tetanus vaccination Tetanus: Every 10yrs [facility] Start: 11-05-2019 Screening for malignant neoplasm of cervix Pap Smear [facility] Start: 10-21-2019 pelvic nonobstetric real-time image complete [employer] [facility] [place] ([id number]) Start: 21-Oct-2019 Intent [facility] Start: 2016 Hepatitis C screening Hepatitis C Screening [facility] Start: 2013 HIV screening HIV Screening [facility] Start: 2013 Vaccination for human papillomavirus HPV Vaccines (1 - 3-dose series) [facility] Start: 2010 Depression screening using PHQ-9 (Patient Health Questionnaire 9) score [facility] Start: 2009 Vaccination for human papillomavirus HPV Vaccines (1 - 2-dose series) [facility] Start: 2001 History and physical examination, annual for health maintenance Wellness Visit [facility] Start: 05-06-1999 COVID-19 Vaccine (#1) COVID-19 Vaccine (#1) [facility] Start: 1998 Screening for Chlamydia trachomatis Chlamydia Screening [facility] Start: 1998 Tetanus vaccination Tetanus: Every 10yrs [facility] End: 03-05-2024 B12/Folate B12/Folate Lab Routine Epigastric pain Nausea Bloating Change in bowel habits 1 Occurrences starting 03/05/2023 until 03/05/2024 [facility] Comment on above: 1 Occurrences starting 03/05/2023 until 03/05/2024 End: 03-05-2024 CBC panel - Blood by Automated count CBC Lab Routine Epigastric pain Nausea Bloating Change in bowel habits 1 Occurrences starting 03/05/2023 until 03/05/2024 [facility] Comment on above: 1 Occurrences starting 03/05/2023 until 03/05/2024 End: 01-08-2026 Choriogonadotropin [Units/volume] in Serum or Plasma hCG, Blood, Quantitative Lab Routine Amenorrhea 1 Occurrences starting 01/08/2025 until 01/08/2026 [facility] Work Phone: Comment on above: 1 Occurrences starting 01/08/2025 until 01/08/2026 End: 03-05-2024 Comprehensive metabolic 2000 panel - Serum or Plasma Comprehensive Metabolic Panel Lab Routine Epigastric pain Nausea Bloating Change in bowel habits 1 Occurrences starting 03/05/2023 until 03/05/2024 [facility] Comment on above: 1 Occurrences starting 03/05/2023 until 03/05/2024 End: 03-05-2024 Computed tomography of abdomen and pelvis with contrast CT Abdomen Pelvis With Contrast Imaging Routine Epigastric pain Nausea Bloating Change in bowel habits RLQ abdominal pain 1 Occurrences starting 03/05/2023 until 03/05/2024 [facility] Work Phone: Comment on above: 1 Occurrences starting 03/05/2023 until 03/05/2024 Esophageal manometry ESOPHAGEAL MANOMETRY Heartburn Gaseous regurgitation Pharyngoesophageal dysphagia Chest pain, non-cardiac Nausea and vomiting, unspecified vomiting type Bloating [facility] Esophagogastroduodenoscopy ESOPH AGOGASTRODUODENOSCOPY Heartburn Gaseous regurgitation Pharyngoesophageal dysphagia Chest pain, non-cardiac Nausea and vomiting, unspecified vomiting type Bloating [facility] End: 03-05-2024 Gastrointestinal pathogens DNA and RNA panel - Stool by [employer] with non-probe detection Stool/GI PCR Panel Microbiology Routine Epigastric pain Nausea Bloating Change in bowel habits 1 Occurrences starting 03/05/2023 until 03/05/2024 [facility] Comment on above: 1 Occurrences starting 03/05/2023 until 03/05/2024 Microscopic examinat ion of vaginal Papanicolaou smear Thinprep Pap Smear Pathology and Cytology Routine Well woman exam with routine gynecological exam 04/12/2023 11:00 AM EDT [facility] Work Phone: Patient Education ED Dehydration (Adult) ED Post Op Wound Check, Pain [facility] Work Phone: Patient referral [facility] Work Phone: End: 10-23-2025 Progesterone [Mass/volume] in Serum or Plasma Progesterone Lab Routine Female infertility 1 Occurrences starting 10/23/2024 until 10/23/2025 [facility] Work Phone: Comment on above: 1 Occurrences starting 10/23/2024 until 10/23/2025 End: 03-05-2024 Thyrotropin [Units/volume] in Serum or Plasma TSH with Reflex Free T4 Lab Routine Epigastric pain Nausea Bloating Change in bowel habits 1 Occurrences starting 03/05/2023 until 03/05/2024 [facility] Comment on above: 1 Occurrences starting 03/05/2023 until 03/05/2024 End: 03-05-2024 Tissue transglutaminase IgA measurement Tissue Transglutaminase, IgA Lab Routine Epigastric pain Nausea Bloating Change in bowel habits 1 Occurrences starting 03/05/2023 until 03/05/2024 [facility] Comment on above: 1 Occurrences starting 03/05/2023 until 03/05/2024 End: 11-06-2025 US Pelvis transvaginal US Transvaginal Imaging Routine Female infertility RLQ abdominal pain PCOS (polycystic ovarian syndrome) 1 Occurrences starting 11/06/2024 until 11/06/2025 [facility] Work Phone: Comment on above: 1 Occurrences starting 11/06/2024 until 11/06/2025 End: 03-05-2024 Vitamin D, 1,25-dihydroxy measurement Vitamin D 1,25 Dihydroxy Lab Routine Epigastric pain Nausea Bloating Change in bowel habits 1 Occurrences starting 03/05/2023 until 03/05/2024 [facility] Comment on above: 1 Occurrences starting 03/05/2023 until 03/05/2024 Immunizations Immunization Date Immunization Notes Care Provider Mike almanzar 05-07-2023 influenza virus vaccine, unspecified formulation Marylin Bustamante CNM Work Phone: [facility] 01-25-2016 Meningococcal, MCV4, unspecified conjugate formulation(groups A, C, Y and W-135) Zayra Carrizales PA-C Work Phone: [facility] [place] [facility] 01-25-2016 meningococcal polysaccharide (groups A, C, Y and W-135) diphtheria toxoid conjugate vaccine (MCV4P) Zayra Carrizales PA-C Work Phone: [facility]; [facility] [place] [facility] Comment on above: Site: Deltoid (Left) VIS Given: * Meningococcal Vaccine (10/20/2015) 02-19-2011 tetanus toxoid, redu todd diphtheria toxoid, and acellular pertussis vaccine, adsorbed Zayra Carrizales PA-C Work Phone: [facility]; [facility] 02-02-2004 diphtheria, tetanus toxoids and acellular pertussis vaccine, 5 pertussis antigens Zayra Carrizales PA-C Work Phone: [facility] 02-02-2004 measles, mumps and rubella virus vaccine Zayra Carrizales PA-C Work Phone: [facility] [place] [facility] 02-02-2004 poliovirus vaccine, inactivated Zayra Carrizales PA-C Work Phone: [facility] [place] [facility] [place] [facility] 10-18-2000 diphtheria, tetanus toxoids and acellular pertussis vaccine, 5 pertussis antigens Zayra Carrizales PA-C Work Phone: [facility] [place] [email or web address] [facility] [place] [facility] 10-18-2000 poliovirus vaccine, inactivated Zayra Carrizales PA-C Work Phone: [place] [email or web address] [facility] [place] [id number] [facility] [place] [facility] 04-15-2000 haemophilus influenz ae type b vaccine, PRP-T conjugate Zayra Carrizales PA-C Work Phone: [employer] [facility] [place] [employer] [facility] [place] [facility] 04-15-2000 measles, mumps and rubella virus vaccine Zayra Carrizales PA-C Work Phone: [facility].; [facility] 11-08-1999 hepatitis B vaccine, pediatric or pediatric/adolescent dosage Zayra Carrizales PA-C Work Phone: [facility].; [facility] 05-16-1999 diphtheria, tetanus toxoids and acellular pertussis vaccine, 5 pertussis antigens Zayra Carrizales PA-C Work Phone: [facility].; [facility] 05-16-1999 haemophilus influenz ae type b vaccine, PRP-T conjugate Zayra Carrizales PA-C Work Phone: [facility] [place] [facility].; [facility] 03-23-1999 diphtheria, tetanus toxoids and acellular pertussis vaccine, 5 pertussis antigens Zayra Carrizales PA-C Work Phone: [facility] [place] [facility].; [facility] 03-23-1999 haemophilus influenz ae type b vaccine, PRP-T conjugate Zayra Carrizales PA-C Work Phone: [facility] [place] [facility].; [facility] 03-23-1999 poliovirus vaccine, inactivated Zayra Carrizales PA-C Work Phone: [facility].; [facility] 01-06-1999 diphtheria, tetanus toxoids and acellular pertussis vaccine, 5 pertussis antigens Zayra Carrizales PA-C Work Phone: [facility] [place] [facility].; [facility] 01-06-1999 haemophilus influenz ae type b vaccine, PRP-T conjugate Zayra Carrizales PA-C Work Phone: [facility] [place] [facility].; [facility] 01-06-1999 poliovirus vaccine, inactivated Zayra Carrizales PA-C Work Phone: [facility] [place] [facility].; [facility] 1998 hepatitis B vaccine, pediatric or pediatric/adolescent dosage Zayra Carrizales PA-C Work Phone: [facility] [place] [facility].; [facility] 1998 hepatitis B vaccine, pediatric or pediatric/adolescent dosage Zayra Carrizales PA-C Work Phone: [facility] NEGATED: Highlighted row has not occurred! varicella virus vaccine Zayra Carrizales PA-C Work Phone: [facility] Payers Date Payer Category Payer Self-pay [id number] 2024 Unknown [id number] 2022 Blue [employer] Blue Shield 1.2.8 [id number] 2022 Unknown [id number] 2022 Unknown [id number] 1998 Unknown [id number] 2.16.84 [id number] 1998 Unknown [id number] 2.16.84 [id number] 1998 Unknown [id number] 2.16. [id number] 1998 Unknown [id number] 2.16. [id number] 1998 Unknown [id number] 2.16. 840.1.137506.3.579.2.903 1998 Unknown [id number] 2.16. 840.1.166662.3.579.2.903 1998 Unknown [id number] 2.16. 840.1.282152.3.579.2.903 1998 Unknown [id number] 2.16. [id number] 1998 Unknown [id number] 2.16. 840.1.178790.3.579.2.903 1998 Unknown [id number] 2.16. 840.1.314306.3.579.2.903 1998 Unknown [id number] 2.16. 840.1.610133.3.579.2.903 1998 Unknown [id number] 2.16. [id number] 1959 Unknown [id number] Unknown [id number] 2.16.8 [id number] Unknown [id number] 2.16.8 [id number] Unknown [id number] 2.16.8 40.1.889731.3.579.2.462 Unknown [id number] 2.16.8 [id number] Unknown [id number] 2.16.8 [id number] Unknown [id number] 2.16.8 [id number] Social History Date Type Detail Facility Start: 06-10-2019 Tobacco smoking stat RUSTIS Unknown if ever smoked [facility] Start: 06-10-2019 Non-smoker [facility] Start: 2000 Sex Assigned At Female [facility] Start: 03-04-2023 End: 08-22-2024 Tobacco smoking status NHIS Never smoked tobacco [facility] Start: 03-04-2023 Tobacco use and exposure Smokeless tobacco non-user [facility] Start: 03-04-2023 End: 11-30-2024 Alcohol intake Ex-drinker (finding) [facility] Start: 03-04-2023 End: 11-30-2024 History of Social function [facility] [employer] [facility] [employer]. Start: 03-04-2023 End: 11-30-2024 Tobacco use panel [facility] Start: 03-04-2023 Alcohol Comment socially [facility] Start: 2000 Sex Assigned At Not on file [facility] Tobacco Use: Tobacco Use: ; N ever smoker. [facility] [employer] [facility] [employer] Start: 10-17-2024 Sex Female (finding) [facility] Start: 11-20-2024 Alcohol Comment rare [facility] Medical Equipment Procedure Code Equipment Code Equipment Origin al Text Equipment Identifier Dates Mccallum Cf Capsule [id number] [facility] Start: 10-08-2023 Comment on above: Description: Mccallum p laced at 30 cm Clinical Notes 03-04-2023 to 11-30-2024 Zayra Flores MD - 11/30/2024 11:10 AM Zayra Suarez MD - 11/06/2024 10:36 AM Marylin Bearden CNM - 10/12/2024 2:05 PM Marylin Bearden CNM - 06/28/2024 1:07 PM EST Note Date & Type Note Facility 11-30-2024 Note Subjective Kathleen Weinberg is a 24 y.o. female who presents to the clinic 1 weeks status post diagnostic laparoscopy and fulguration endometriosis, chromotubation for infertility . Eating a regular diet without difficulty. Bowel movements are normal. Pain controlled with NSAIDs . Pathology: benign paratubal cyst. The following portions of the patient's history were reviewed and updated as appropriate: allergies, current medications, past family history, past medical history, past social history, past surgical history, and problem list. Review of Systems Pertinent items are noted in HPI. Objective BP 117/77 Pulse 85 Wt 53.2 kg (117 lb 3.2 oz) LMP 11/06/2024 (Exact Date) BMI 20.12 kg/m General: alert, appears stated age, and cooperative Abdomen: soft, bowel sounds active, non-tender Incision: healing well, no drainage, no erythema, no hernia, no seroma, no swelling, no dehiscence, incision well approximated Assessment: Doing well postoperatively. Operative findings again reviewed. Pathology report discussed. Plan: 1. Continue any current medications. - Wound care discussed. - Operative findings reviewed: patent RIGHT tube, left tube without spillage. - Activity restrictions: activity as tolerated - Anticipated return to work: 12/03/24 . - Follow up: if no success of within next few spontaneous cycles, recommend RTO to re-discuss next plan regarding infertility. Recommend SA in the meantime Zayra Flores MD AUTHENTICATED BY ZAYRA FLORES, ON 11/30/2024 21:18:15 [facility] 11-30-2024 History of Present illness Narrative Subjective Kathleen Weinberg is a 24 y.o. female who presents to the clinic 1 weeks status post diagnostic laparoscopy and fulguration endometriosis, chromotubation for infertility . Eating a regular diet without difficulty. Bowel movements are normal. Pain controlled with NSAIDs . Pathology: benign paratubal cyst. The following portions of the patient's history were reviewed and updated as appropriate: allergies, current medications, past family history, past medical history, past social history, past surgical history, and problem list. Review of Systems Pertinent items are noted in HPI. Objective BP 117/77 Pulse 85 Wt 53.2 kg (117 lb 3.2 oz) LMP 11/06/2024 (Exact Date) BMI 20.12 kg/m General: alert, appears stated age, and cooperative Abdomen: soft, bowel sounds active, non-tender Incision: healing well, no drainage, no erythema, no hernia, no seroma, no swelling, no dehiscence, incision well approximated Assessment: Doing well postoperatively. Operative findings again reviewed. Pathology report discussed. Plan: 1. Continue any current medications. - Wound care discussed. - Operative findings reviewed: patent RIGHT tube, left tube without spillage. - Activity restrictions: activity as tolerated - Anticipated return to work: 12/03/24 . - Follow up: if no success of within next few spontaneous cycles, recommend RTO to re-discuss next plan regarding infertility. Recommend SA in the meantime Zayra Flores MD documented in this encounter [facility] 11-20-2024 Note Pre-Operative H&P Assessment and Plan RLQ abdominal pain Surgery Information ID Date/Time Status Primary Surgeon All Procedures Location [id number] 11/24/2024 1313 Scheduled Zayra Flores MD PELVISCOPY ROBOTIC XI with CHROMOTUBATION WITH PELVIC IRRIGATION Main OR Female infertility . Gastroesophageal reflux disease Continue omeprazole perioperatively. Preop examination Patient is medically acceptable for planned surgery. She denies known cardiovascular or cerebrovascular conditions. She describes a greater than 4 mets of functional capacity without symptoms of shortness of breath or chest pain. She did see a mailer apprentice for chest pain this year and underwent a stress test that was negative for ischemia, she reports chest pain was rt dehydration from tonsillectomy. Preoperative sleep apnea risk assessment score is 0/3 indicating no risk factors. Apfel score is 3, suggesting moderate risk for post operative nausea and vomiting. The patient has undergone multiple surgeries in the past, patient reports all of which were uneventful from a cardiac and anesthesia standpoint. Chief Complaint Patient presents with Pre-operative Medical Risk Stratification History of Present Illness Kathleen Weinberg is a 24 y.o. female who presents for preop medical risk stratification. She is scheduled for Procedure(s): PELVISCOPY ROBOTIC XI with CHROMOTUBATION WITH PELVIC IRRIGATION on 11/24/2024. Chronic conditions include anxiety, GERD, female infertility and PCOSS. The patient has undergone multiple surgeries in the past, patient reports all of which were uneventful from a cardiac and anesthesia standpoint. Please see below regarding status of active medical conditions and assessment and plan regarding details of preoperative medical risk stratification. Past Medical History: Diagnosis Date Abnormal Pap smear of cervix Amenorrhea Anxiety Chronic abdominal pain Eating disorder Female infertility GERD (gastroesophageal reflux disease) History of stomach ulcers IBS (irritable bowel syndrome) with constipation Irregular menses Lactose intolerance Low vitamin D level PCOS (polycystic ovarian syndrome) Pelvic pain Urinary retention Vitamin D deficiency Past Medical History Pertinent Negatives: Diagnosis Date Noted Abnormal ECG 04/12/2023 Alcoholism (HCC) 04/12/2023 Anemia 04/12/2023 Asthma 04/12/2023 Cancer (HCC) 04/12/2023 Cervical cancer (HCC) 04/12/2023 CHF (congestive heart failure) (HCC) 04/12/2023 Chronic kidney disease 04/12/2023 Cirrhosis (HCC) 04/12/2023 Clotting disorder 04/12/2023 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) 04/12/2023 Coronary artery disease 04/12/2023 Deep vein thrombosis (HCC) 04/12/2023 Depression 04/12/2023 Diabetes mellitus (HCC) 04/12/2023 Endometrial cancer (HCC) 04/12/2023 Fibroid 04/12/2023 Gestational diabetes 04/12/2023 Gonorrhea 04/12/2023 Herpes 04/12/2023 History of transfusion 04/12/2023 HIV disease (HCC) 04/12/2023 HPV (human papilloma virus) infection 04/12/2023 Hypertension 04/12/2023 Infectious viral hepatitis 04/12/2023 Liver disease 04/12/2023 Lupus 04/12/2023 Migraine 04/12/2023 Myocardial infarction (HCC) 04/12/2023 Ovarian cancer (HCC) 04/12/2023 PID (pelvic inflammatory disease) 04/12/2023 Preeclampsia 04/12/2023 Psychosis (HCC) 04/12/2023 Pulmonary embolism (HCC) 04/12/2023 Recurrent loss, antepartum condition or complication 04/12/2023 Rh incompatibility 04/12/2023 Seizures (HCC) 04/12/2023 Sickle cell anemia (HCC) 04/12/2023 Sickle cell trait 04/12/2023 STD (sexually transmitted disease) 04/12/2023 Stroke (HCC) 04/12/2023 Substance abuse (HCC) 04/12/2023 Syphilis 04/12/2023 Trauma 04/12/2023 Tuberculosis 04/12/2023 Urogenital trichomoniasis 04/12/2023 Uterine cancer (HCC) 04/12/2023 Varicella 04/12/2023 Past Surgical History: Procedure Laterality Date COLONOSCOPY 2018 [facility] EGD N/A 03/13/2023 Procedure: ESOPHAGOGASTRODUODENOSCOPY with biopsy; Surgeon: Leopoldo Negron MD; Location[facility]; Service: Gastroenterology EGD N/A 10/08/2023 Procedure: ESOPHAGOGASTRODUODENOSCOPY WITH BIOPSY (PTEK) AND MCCALLUM CHIP; Surgeon: Jag Tellez MD; Location: [facility]; Service: General Surgery ESOPHAGEAL MANOMETRY N/A 10/08/2023 Procedure: ESOPHAGEAL MANOMETRY; Surgeon: Jag Tellez MD; Location: [facility]; Service: General Surgery TONSILLECTOMY Social History Tobacco Use Smoking status: Never Smokeless tobacco: Never Substance Use Topics Alcohol use: Not Currently Comment: rare Family History Problem Relation Age of Onset Diabetes Father Ovarian cancer Maternal Grandmother Cancer Maternal Grandfather Colon cancer Maternal Grandfather Ulcerative colitis Maternal Grandfather Diabetes Paternal Grandfather Esophageal cancer Neg Hx Stomach cancer Neg Hx Prior to Admiss (more content not included)... [facility] 11-06-2024 Note Subjective Patient ID: Kathleen Weinberg is a 24 y.o. No obstetric history on file.. HPI 24 y.o. G0 presents for referral for trying for and suspected endometriosis. Has been on letrozole 5 mg for 5 cycles. Has hx of dysmenorrhea, dyspareunia, dyschezia. Is due for menses today. has not yet done SA. States her cycles are more regular now than in the past, but the pain has significantly worsened for her. Rectal pain has worsened to the point of having a colonoscopy done. Sex is painful to the point of no longer being enjoyable; feels she is going through the motions for conception only. Also has had recent RLQ pain similar to when she had a previous ovarian cyst. Previous office notes reviewed regarding menstrual cycle hx. No evaluation of fallopian tubes previously. Day 23 progesterone: 27 Prolactin wnl FSH wnl Pelvic US 06/2024: Transvaginal ultrasound shows uterus to be slightly retroverted measuring 5.4 x 3.6 x 4.8 cm. Endometrial stripe is normal at 0.3 cm. Right ovary measures 6.1 x 2.2 x 3.0 cm. Multiple follicles are seen within the right ovary with a dominant follicle/corpus luteum cyst measuring 3.5 x 2.2 x 2.0 cm. This simple appearing dominant follicle/corpus luteum cyst has the appearance of someone getting ready to ovulate. Left ovary measures 5.3 x 1.2 x 1.5 cm. Left ovary is normal in appearance and has multiple small follicles. Simple appearing right ovarian cyst shows a dominant follicle/corpus luteum cyst has appearance of patient possibly getting ready to ovulate. The following portions of the patient's history were reviewed and updated as appropriate: allergies, current medications, past family history, past medical history, past social history, past surgical history, and problem list. Review of Systems Gastrointestinal: Positive for rectal pain. Negative for constipation and diarrhea. Genitourinary: Positive for dyspareunia, pelvic pain and vaginal bleeding. Negative for vaginal discharge. Objective Physical Exam Constitutional: General: She is not in acute distress. Appearance: Normal appearance. Neurological: Mental Status: She is alert. Assessment/Plan: Diagnoses and all orders for this visit: Female infertility - discussed infertility evaluation to this point, as well as concerning sx suggestive of possible endometriosis. Discussed endo can have effects as far as fertility is concerned. At this point, would recommend dx laparoscopy/pelviscopy to search directly for endometriosis lesions, and we can also assess tubal patency at same time. Will recheck pelvic US currently now in case for other structural abnormalities that may need addressed. Risks, benefits, and alternatives to procedure discussed in detail, including but not limited to risk of infection, bleeding requiring transfusion of blood products, damage to surrounding organs, risk of anesthesia, and possible . Pt expresses understanding and wishes to proceed. Total time face to face counseling, review of options, discussion of surgical plan/risks/benefits, and charting of today's visit totaled 40 minutes - US Transvaginal; Future - Case Request Operating Room: PELVISCOPY ROBOTIC XI, CHROMOTUBATION WITH PELVIC IRRIGATION RLQ abdominal pain - US Transvaginal; Future - Case Request Operating Room: PELVISCOPY ROBOTIC XI, CHROMOTUBATION WITH PELVIC IRRIGATION PCOS (polycystic ovarian syndrome) - US Transvaginal; Future Zayra Flores MD AUTHENTICATED BY ZAYRA FLORES, ON 11/09/2024 13:48:13 [facility] 11-06-2024 History of Present illness Narrative Subjective Patient ID: Kathleen Weinberg is a 24 y.o. No obstetric history on file.. HPI 24 y.o. G0 presents for referral for trying for and suspected endometriosis. Has been on letrozole 5 mg for 5 cycles. Has hx of dysmenorrhea, dyspareunia, dyschezia. Is due for menses today. has not yet done SA. States her cycles are more regular now than in the past, but the pain has significantly worsened for her. Rectal pain has worsened to the point of having a colonoscopy done. Sex is painful to the point of no longer being enjoyable; feels she is going through the motions for conception only. Also has had recent RLQ pain similar to when she had a previous ovarian cyst. Previous office notes reviewed regarding menstrual cycle hx. No evaluation of fallopian tubes previously. Day 23 progesterone: 27 Prolactin wnl FSH wnl Pelvic US 06/2024: Transvaginal ultrasound shows uterus to be slightly retroverted measuring 5.4 x 3.6 x 4.8 cm. Endometrial stripe is normal at 0.3 cm. Right ovary measures 6.1 x 2.2 x 3.0 cm. Multiple follicles are seen within the right ovary with a dominant follicle/corpus luteum cyst measuring 3.5 x 2.2 x 2.0 cm. This simple appearing dominant follicle/corpus luteum cyst has the appearance of someone getting ready to ovulate. Left ovary measures 5.3 x 1.2 x 1.5 cm. Left ovary is normal in appearance and has multiple small follicles. Simple appearing right ovarian cyst shows a dominant follicle/corpus luteum cyst has appearance of patient possibly getting ready to ovulate. The following portions of the patient's history were reviewed and updated as appropriate: allergies, current medications, past family history, past medical history, past social history, past surgical history, and problem list. Review of Systems Gastrointestinal: Positive for rectal pain. Negative for constipation and diarrhea. Genitourinary: Positive for dyspareunia, pelvic pain and vaginal bleeding. Negative for vaginal discharge. Objective Physical Exam Constitutional: General: She is not in acute distress. Appearance: Normal appearance. Neurological: Mental Status: She is alert. Assessment/Plan: Diagnoses and all orders for this visit: Female infertility - discussed infertility evaluation to this point, as well as concerning sx suggestive of possible endometriosis. Discussed endo can have effects as far as fertility is concerned. At this point, would recommend dx laparoscopy/pelviscopy to search directly for endometriosis lesions, and we can also assess tubal patency at same time. Will recheck pelvic US currently now in case for other structural abnormalities that may need addressed. Risks, benefits, and alternatives to procedure discussed in detail, including but not limited to risk of infection, bleeding requiring transfusion of blood products, damage to surrounding organs, risk of anesthesia, and possible . Pt expresses understanding and wishes to proceed. Total time face to face counseling, review of options, discussion of surgical plan/risks/benefits, and charting of today's visit totaled 40 minutes - US Transvaginal; Future - Case Request Operating Room: PELVISCOPY ROBOTIC XI, CHROMOTUBATION WITH PELVIC IRRIGATION RLQ abdominal pain - US Transvaginal; Future - Case Request Operating Room: PELVISCOPY ROBOTIC XI, CHROMOTUBATION WITH PELVIC IRRIGATION PCOS (polycystic ovarian syndrome) - US Transvaginal; Future Zayra Flores MD documented in this encounter [facility] 10-12-2024 Note Subjective Patient I D: Kathleen Weinberg is a 23 y.o. female here for Chief Complaint Patient presents with Painful [place] Extreme pain and bleeding during intercourse. Then causes pain with BM and passing gas. Not . After discussing the use of ambient listening and audio recording in generating medical documentation, the patient verbally consented to use of this technology for today's visit. 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 Two weeks ago, she experienced severe abdominal pain immediately after intercourse, localized to the ovarian region and extending to the rectal area. This discomfort persisted for a week, during which she found it difficult to pass gas without experiencing significant pain. She also reported a sensation of bloating. Due to the severity of the pain, she abstained from sexual activity for a week. Upon resumption, she noticed heavy bleeding post-intercourse, initially attributing it to her menstrual cycle; however, the absence of bleeding the following day led her to question this assumption. The bleeding was a one-time occurrence, but she subsequently experienced spotting on Saturday and started her period on 10/07/2024. She has a history of painful periods, characterized by severe pain on the side of her ovaries rather than cramping. She also reports worsening rectal pain, which typically precedes the onset of her menstrual cycle. She has previously undergone a colonoscopy due to rectal pain, which yielded normal results. A transvaginal ultrasound revealed the presence of a cyst. Her last menstrual period was in the first week of 08/2024, slightly later than usual due to a surgery she underwent in 07/2024. She has been on letrozole since 06/2024, with the most recent course starting on the third day of her current cycle. A test was conducted, which returned a negative result. She reports a sensation inderjit to a swollen lymph node in her right breast, which she describes as mobile and occasionally palpable. MEDICATIONS Current: Letrozole Reviewed by Provider: Tobacco Allergies Meds Problems Med Hx Surg Hx Fam Hx Objective BP 114/81 Pulse 82 Wt 54 kg (119 lb) LMP 10/06/2024 (Exact Date) BMI 20.43 kg/m Physical Exam Breast exam was performed. Pelvic exam was performed. Bimanual exam was performed. Physical Exam Vitals and nursing note reviewed. Constitutional: Appearance: Normal appearance. She is normal weight. Chest: Breasts: Right: Normal. Genitourinary: General: Normal vulva. Vagina: Bleeding present. Cervix: Normal. Uterus: Normal. Adnexa: Right: Tenderness present. Left: Tenderness present. Neurological: Mental Status: She is alert. Results Laboratory Studies test was negative. Assessment & Plan Assessment & Plan 1. Suspected endometriosis. Her symptoms, including dyspareunia, dyschezia, and dysmenorrhea, suggest a potential diagnosis of endometriosis. She is currently on a regimen of letrozole 5 mg, which she started on the fourth day of her menstrual cycle. She will continue this medication for a total of 5 days. She is advised to utilize ovulation prediction kits and inform us upon detection of a positive LH surge to facilitate the timing of progesterone level assessment, which should be conducted 7 days post-surge or on day 21 of her cycle. If the current cycle does not result in , a referral to an ob-second cook and baker will be considered for further evaluation and potential surgical intervention to confirm the presence of endometriosis. 2. Swollen lymph node in the right breast. She reports a swollen lymph node in the right breast that comes and goes. A breast exam was performed, and no concerning findings were noted. She is advised to monitor the lymph node and report any persistent or worsening symptoms. PROCEDURE The patient has previously undergone a colonoscopy due to rectal pain, which yielded normal results. A transvaginal ultrasound revealed the presence of a cyst. Kathleen was seen today for painful intercourse. Diagnoses and all orders for this visit: Dyspareunia, female History of lump of right breast -resolved Return in about 4 weeks (around 11/09/2024) for consultation with second cook and baker regarding pain. AUTHENTICATED BY MARYLIN BUSTAMANTE, ON 10/12/2024 14:11:08 [facility] 10-12-2024 History of Present illness Narrative Subjective Patient ID: Kathleen Weinberg is a 23 y.o. female here for Chief Complaint Patient presents with Painful [place] Extreme pain and bleeding during intercourse. Then causes pain with BM and passing gas. Not . After discussing the use of ambient listening and audio recording in generating medical documentation, the patient verbally consented to use of this technology for today's visit. 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 Two weeks ago, she experienced severe abdominal pain immediately after intercourse, localized to the ovarian region and extending to the rectal area. This discomfort persisted for a week, during which she found it difficult to pass gas without experiencing significant pain. She also reported a sensation of bloating. Due to the severity of the pain, she abstained from sexual activity for a week. Upon resumption, she noticed heavy bleeding post-intercourse, initially attributing it to her menstrual cycle; however, the absence of bleeding the following day led her to question this assumption. The bleeding was a one-time occurrence, but she subsequently experienced spotting on Saturday and started her period on 10/07/2024. She has a history of painful periods, characterized by severe pain on the side of her ovaries rather than cramping. She also reports worsening rectal pain, which typically precedes the onset of her menstrual cycle. She has previously undergone a colonoscopy due to rectal pain, which yielded normal results. A transvaginal ultrasound revealed the presence of a cyst. Her last menstrual period was in the first week of 08/2024, slightly later than usual due to a surgery she underwent in 07/2024. She has been on letrozole since 06/2024, with the most recent course starting on the third day of her current cycle. A test was conducted, which returned a negative result. She reports a sensation inderjit to a swollen lymph node in her right breast, which she describes as mobile and occasionally palpable. MEDICATIONS Current: Letrozole Reviewed by Provider: Tobacco Allergies Meds Problems Med Hx Surg Hx Fam Hx Objective BP 114/81 Pulse 82 Wt 54 kg (119 lb) LMP 10/06/2024 (Exact Date) BMI 20.43 kg/m Physical Exam Breast exam was performed. Pelvic exam was performed. Bimanual exam was performed. Physical Exam Vitals and nursing note reviewed. Constitutional: Appearance: Normal appearance. She is normal weight. Chest: Breasts: Right: Normal. Genitourinary: General: Normal vulva. Vagina: Bleeding present. Cervix: Normal. Uterus: Normal. Adnexa: Right: Tenderness present. Left: Tenderness present. Neurological: Mental Status: She is alert. Results Laboratory Studies test was negative. Assessment & Plan Assessment & Plan 1. Suspected endometriosis. Her symptoms, including dyspareunia, dyschezia, and dysmenorrhea, suggest a potential diagnosis of endometriosis. She is currently on a regimen of letrozole 5 mg, which she started on the fourth day of her menstrual cycle. She will continue this medication for a total of 5 days. She is advised to utilize ovulation prediction kits and inform us upon detection of a positive LH surge to facilitate the timing of progesterone level assessment, which should be conducted 7 days post-surge or on day 21 of her cycle. If the current cycle does not result in , a referral to an ob-second cook and baker will be considered for further evaluation and potential surgical intervention to confirm the presence of endometriosis. 2. Swollen lymph node in the right breast. She reports a swollen lymph node in the right breast that comes and goes. A breast exam was performed, and no concerning findings were noted. She is advised to monitor the lymph node and report any persistent or worsening symptoms. PROCEDURE The patient has previously undergone a colonoscopy due to rectal pain, which yielded normal results. A transvaginal ultrasound revealed the presence of a cyst. Kathleen was seen today for painful intercourse. Diagnoses and all orders for this visit: Dyspareunia, female History of lump of right breast -resolved Return in about 4 weeks (around 11/09/2024) for consultation with second cook and baker regarding pain. documented in this encounter [facility] 06-28-2024 Note Subjective Patient ID: Kathleen Weinberg is a 23 y.o. female. 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 She has been utilizing Letrozole for ovulation induction. She has recently finished her third trial and has just started ovulation prediction kits for this cycle. She will reach out on messages when she has a LH surge so a progesterone level can be checked. She has been having RLQ pain and did have recent ultrasound that showed a 3.5 cm simple cyst on that ovary. She reports today that the pain is a little less now. She has been using motrin and heat to help with the discomfort. Today we also discussed options for her to have semen analysis performed and that information is given to her today. The following portions of the patient's history were reviewed and updated as appropriate: allergies, current medications, past family history, past medical history, past social history, past surgical history, and problem list. Review of Systems All other systems reviewed and are negative. Objective Physical Exam Vitals and nursing note reviewed. Constitutional: Appearance: She is normal weight. Genitourinary: General: Normal vulva. Vagina: Normal. Cervix: Normal. Uterus: Normal. Adnexa: Left adnexa normal. Right: Fullness present. Comments: Right ovary palpated and is enlarged consistent in size with recent ultrasound 4-5 cm. Psychiatric: Attention and Perception: Attention normal. Mood and Affect: Mood normal. Assessment/Plan: Diagnoses and all orders for this visit: RLQ abdominal pain -recent ultrasound showing right ovarian simple cyst -exam today c/w ultrasound findings -follow up as needed -discussed that cyst could rupture or possible for it to increase or decrease in size -awaiting positive LH surge; currently taking Letrozole Marylin Bustamante APRN, DAQUAN AUTHENTICATED BY MARYLIN BUSTAMANTE, ON 06/28/2024 13:15:06 [facility] 06-28-2024 History of Present illness Narrative Subjective Patient ID: Kathleen Weinberg is a 23 y.o. female. 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 She has been utilizing Letrozole for ovulation induction. She has recently finished her third trial and has just started ovulation prediction kits for this cycle. She will reach out on messages when she has a LH surge so a progesterone level can be checked. She has been having RLQ pain and did have recent ultrasound that showed a 3.5 cm simple cyst on that ovary. She reports today that the pain is a little less now. She has been using motrin and heat to help with the discomfort. Today we also discussed options for her to have semen analysis performed and that information is given to her today. The following portions of the patient's history were reviewed and updated as appropriate: allergies, current medications, past family history, past medical history, past social history, past surgical history, and problem list. Review of Systems All other systems reviewed and are negative. Objective Physical Exam Vitals and nursing note reviewed. Constitutional: Appearance: She is normal weight. Genitourinary: General: Normal vulva. Vagina: Normal. Cervix: Normal. Uterus: Normal. Adnexa: Left adnexa normal. Right: Fullness present. Comments: Right ovary palpated and is enlarged consistent in size with recent ultrasound 4-5 cm. Psychiatric: Attention and Perception: Attention normal. Mood and Affect: Mood normal. Assessment/Plan: Diagnoses and all orders for this visit: RLQ abdominal pain -recent ultrasound showing right ovarian simple cyst -exam today c/w ultrasound findings -follow up as needed -discussed that cyst could rupture or possible for it to increase or decrease in size -awaiting positive LH surge; currently taking Letrozole Marylin Bustamante APRN, CNM documented in this encounter [facility] 04-20-2024 Note Well Women Exam Patient Name: Kathleen Weinberg : 2000 MR #: [id number] SUBJECTIVE: Kathleen Weinberg is a 23 y.o. here for Well Women's exam today. Chief Complaint Patient presents with Annual Exam Well woman w/o pap. Last pap 04/12/23 NILM. No New partner since last pap. Declined STD screening. No control. Declined Flu. LMP January 22, has taken UPT at home since then, all neg. Last one was last Saturday. Kathleen is here today for well woman exam. She overall she is doing well. 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 When I saw her last year she was getting ready to have a hiatal hernia repair and Linx surgery. She did opt to have a second opinion with Dr. Shields in [place] and he recommended that she see an esophageal specialist. She has yet to heard from that provider for an appointment. She has been having unprotected intercourse for over a year. She reports that she continues to have irregular periods. She states that they are anywhere from 43 to 90 days in frequency. She reports that her most recent last menstrual period was 01/23/2024 and prior to that was October prior to that was August. She reports that she has been having intercourse with no protection for a year now. She is desiring help for ovulation. Today we discussed using progesterone for a withdrawal bleed and letrozole to help with ovulation induction. She does have a trip coming up and is wanting to wait until she gets back from a trip to startthis process. She also reports issues with small, white nodules that she sometimes will have on her labia. She does not have any of this currently. This has been going on for a few years. She is not currently using contraception. She uses no method. She is currently sexually active. 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 Gynecologic History: Menstrual history: Patient's last menstrual period was 01/23/2024 (exact date). Denies a history of abnormal cervical cytology Past Medical History Past Medical History: Diagnosis Date Abnormal Pap smear of cervix Amenorrhea Anxiety Chronic abdominal pain Eating disorder Female infertility GERD (gastroesophageal reflux disease) History of stomach ulcers IBS (irritable bowel syndrome) with constipation Irregular menses Low vitamin D level PCOS (polycystic ovarian syndrome) Pelvic pain Polycystic ovary syndrome Urinary retention Urinary tract infection Vitamin D deficiency Past Surgical History has a past surgical history that includes Colonoscopy (2018); Egd (N/A, 03/13/2023); Egd (N/A, 10/08/2023); and ESOPHAGEAL MANOMETRY (N/A, 10/08/2023). Family History Her family history includes Cancer in her maternal grandfather; Colon cancer in her maternal grandfather; Diabetes in her father and paternal grandfather; Ovarian cancer in her maternal grandmother; Ulcerative colitis in her maternal grandfather. Medications She has a current medication list which includes the following prescription(s): dicyclomine, doxylamine succinate, ergocalciferol, famotidine, fluoxetine, magnesium glycinate-mag oxide, omeprazole, letrozole, ondansetron, and progesterone. Allergies She is allergic to latex. Social History She reports that she has never smoked. She has never used smokeless tobacco. She reports that she does not currently use alcohol. She reports that she does not use drugs. Review of Systems Review of Systems All other systems reviewed and are negative. OBJECTIVE: Vitals: 04/20/24 0801 BP: 121/78 Pulse: 84 Weight: 56.4 kg (124 lb 6.4 oz) Body mass index is 21.35 kg/m . Physical Examination: Physical Exam Vitals and nursing note reviewed. Constitutional: Appearance: Normal appearance. She is normal weight. HENT: Head: Normocephalic. Nose: Nose normal. Cardiovascular: Rate and Rhythm: Normal rate and regular rhythm. Pulmonary: Effort: Pulmonary effort is normal. Breath sounds: Normal breath sounds. Chest: Breasts: Right: Normal. Left: Normal. Abdominal: Palpations: Abdomen is soft. Genitourinary: General: Normal vulva. Vagina: Normal. Cervix: Normal. Uterus: Normal. Adnexa: Right adnexa normal and left adnexa normal. Musculoskeletal: General: Normal range of motion. Cervical back: Neck supple. Skin: General: Skin is warm and dry. Neurological: General: No focal deficit present. Mental Status: She is alert. Psychiatric: Mood and Affect: Mood normal. Behavior: Behavior normal. Thought Content: Thought content normal. ASSESSMENT/PLAN: Kathleen Weinberg 23 y.o. No obstetric history on file. 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 Well Women Exam - Reviewed diet and exercise recommendations -Discussed options for ovulation induction, opts for Letrozole, aware of starting with progestero (more content not included)... [facility] 12-02-2023 Note Subjective Patient ID: Kathleen Weinberg is a 23 y.o. female. Kathleen is here today for 3-month follow-up. She states that she has been tracking her cycles. She states that her last menstrual period was 10/30/2023. 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 She states sometimes she even feels nauseated or like she is going to pass out. It is very difficult for her to work at these times. She did not have a period in August but she did have a semi-period in July and in early September. She has not recently been following ovulation prediction kits. is currently on hold as she is getting ready to do a hiatal hernia repair and Linx surgery. She is planning on having this with Dr. Shields at [place]. She is currently using condoms for contraception. Today we did discuss that when she is ready to try for again that she may need help with ovulation inducing medications such as Clomid or letrozole. We also discussed the possibility of metformin as well. Today we are discussing that she does have depression where she feels really to depressed approximately 2 weeks before her period starts. She is currently taking Prozac for underlying depression and anxiety. The following portions of the patient's history were reviewed and updated as appropriate: allergies, current medications, past family history, past medical history, past social history, past surgical history, and problem list. Review of Systems All other systems reviewed and are negative. Objective Physical Exam Vitals and nursing note reviewed. Constitutional: Appearance: Normal appearance. She is normal weight. HENT: Head: Normocephalic. Nose: Nose normal. Pulmonary: Effort: Pulmonary effort is normal. Musculoskeletal: General: Normal range of motion. Cervical back: Neck supple. Neurological: General: No focal deficit present. Mental Status: She is alert. Psychiatric: Mood and Affect: Mood normal. Assessment/Plan: Diagnoses and all orders for this visit: Menorrhagia with irregular cycle -[place] papers provided for Kathleen due to difficulty with working during period PMDD (premenstrual dysphoric disorder) -consider addition of another medication Will update me when attempting to conceive after upcoming surgery Marylin Bustamante APRN, DAQUAN AUTHENTICATED BY MARYLIN BUSTAMANTE, ON 12/02/2023 19:54:45 [facility] 12-02-2023 History of Present illness Narrative Subjective Patient ID: Kathleen Weinberg is a 23 y.o. female. Kathleen is here today for 3-month follow-up. She states that she has been tracking her cycles. She states that her last menstrual period was 10/30/2023. 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 She states sometimes she even feels nauseated or like she is going to pass out. It is very difficult for her to work at these times. She did not have a period in August but she did have a semi-period in July and in early September. She has not recently been following ovulation prediction kits. is currently on hold as she is getting ready to do a hiatal hernia repair and Linx surgery. She is planning on having this with Dr. Shields at [place]. She is currently using condoms for contraception. Today we did discuss that when she is ready to try for again that she may need help with ovulation inducing medications such as Clomid or letrozole. We also discussed the possibility of metformin as well. Today we are discussing that she does have depression where she feels really to depressed approximately 2 weeks before her period starts. She is currently taking Prozac for underlying depression and anxiety. The following portions of the patient's history were reviewed and updated as appropriate: allergies, current medications, past family history, past medical history, past social history, past surgical history, and problem list. Review of Systems All other systems reviewed and are negative. Objective Physical Exam Vitals and nursing note reviewed. Constitutional: Appearance: Normal appearance. She is normal weight. HENT: Head: Normocephalic. Nose: Nose normal. Pulmonary: Effort: Pulmonary effort is normal. Musculoskeletal: General: Normal range of motion. Cervical back: Neck supple. Neurological: General: No focal deficit present. Mental Status: She is alert. Psychiatric: Mood and Affect: Mood normal. Assessment/Plan: Diagnoses and all orders for this visit: Menorrhagia with irregular cycle -FMLA papers provided for Kathleen due to difficulty with working during period PMDD (premenstrual dysphoric disorder) -consider addition of another medication Will update me when attempting to conceive after upcoming surgery Marylin Bustamante APRN, CNM documented in this encounter [facility] 10-23-2023 History of Present illness Narrative [facility] [address] ([address]) [facility] [address] [facility] [id number] Kathleen Weinberg is a 22 y.o. female being seen on 10/23/23 for Chief Complaint Patient presents with Follow-up EGD, mccallum and esophageal manometry HPI: The patient returns for follow-up after undergoing a full heartburn treatment clinic evaluation. She had an EGD which revealed an AFS grade 1 hiatus. Biopsies of the esophagus were negative for Ferrer's esophagus. Biopsies of the stomach were negative for H. pylori. Mccallum pH testing was positive for abnormal distal esophageal acid exposure. High-resolution esophageal manometry revealed a short LES, normal LES resting pressure and relaxation, 0.2 cm of intra-abdominal LES length, and normal esophageal body function. Incomplete bolus clearance was seen on 20% of the supine what swallows on impedance evaluation. The patient is currently on Prilosec 20 mg p.o. every morning and 20 mg p.o. nightly. She also takes Pepcid 20 mg p.o. nightly as needed for breakthrough symptoms. Her primary symptoms are regurgitation and heartburn. The regurgitation is not improved with lifestyle modifications, diet modifications, or medications. She has occasional mild esophageal dysphagia. She also has episodes where she vomits fluid from her stomach. She does have some intermittent issues with gas bloat due to IBS. Past Medical History: Diagnosis Date Abnormal Pap smear of cervix Amenorrhea Anxiety Chronic abdominal pain Eating disorder GERD (gastroesophageal reflux disease) History of stomach ulcers IBS (irritable bowel syndrome) with constipation Irregular menses Low vitamin D level PCOS (polycystic ovarian syndrome) Pelvic pain Polycystic ovary syndrome Urinary retention Urinary tract infection Vitamin D deficiency Past Surgical History: Procedure Laterality Date COLONOSCOPY 2018 [facility] EGD N/A 03/13/2023 Procedure: ESOPHAGOGASTRODUODENOSCOPY with biopsy; Surgeon: Leopoldo Negron MD; [place] [facility]; Service: Gastroenterology EGD N/A 10/08/2023 Procedure: ESOPHAGOGASTRODUODENOSCOPY WITH BIOPSY (PTEK) AND MCCALLUM CHIP; Surgeon: Jag Tellez MD; Location: Endo; Service: General Surgery ESOPHAGEAL MANOMETRY N/A 10/08/2023 Procedure: ESOPHAGEAL MANOMETRY; Surgeon: Jag Tellez MD; Location: Endo; Service: General Surgery Allergies Allergen Reactions Latex Hives Current Outpatient Medications Medication Sig Dispense Refill dicyclomine (BENTYL) 20 mg tablet 1 (one) tablet (20 mg total) 4 (four) times a day before meals and nightly PRN . doxylamine succinate (UNISOM, DOXYLAMINE, ORAL) Take by mouth at bedtime . ergocalciferol (ERGOCALCIFEROL) 1,250 mcg (50,000 unit) capsule Take 1 (one) capsule (50,000 Units total) by mouth once a week . FLUoxetine (PROZAC) 40 MG capsule Take 1 (one) capsule (40 mg total) by mouth daily . magnesium glycinate-mag oxide 120 mg magnesium cap Take 1 (one) capsule (120 mg total) by mouth at bedtime . omeprazole (PRILOSEC OTC) 20 MG tablet Take 1 (one) tablet (20 mg total) by mouth 2 (two) times a day . 60 tablet 5 sucralfate (CARAFATE) 1 gram tablet Take 1 (one) tablet (1 g total) by mouth 4 (four) times a day before meals and nightly . 120 tablet 5 ondansetron (ZOFRAN) 4 MG tablet Take 1 (one) tablet (4 mg total) by mouth every 8 (eight) hours as needed for nausea . 20 tablet 0 No current facility-administered medications for this visit. Social History Tobacco Use Smoking status: Never Smokeless tobacco: Never Vaping Use Vaping Use: Never used Substance Use Topics Alcohol use: Not Currently Comment: socially Drug use: Never Family History Problem Relation Age of Onset Diabetes Father Ovarian cancer Maternal Grandmother Cancer Maternal Grandfather Colon cancer Maternal Grandfather Ulcerative colitis Maternal Grandfather Diabetes Paternal Grandfather Esophageal cancer Neg Hx Stomach cancer Neg Hx REVIEW OF SYSTEMS Pertinent positives are listed in HPI, PMSH, SH, ALL, otherwise all systems reviewed below are negative. The following systems were reviewed: [x] Const (fevers, chills, wt. loss, fatigue) [x] CV (HTN, CP, RAMON, edema, DVT) [x] Resp (SOB, pleurisy, asthma, apnea) [x] GI (N, V, D, C, M, abd pain, appetite) [x] Musc (back pain, joint stiffness, gout) [x] Neuro (seizures, syncope, paralysis) [x] Psych (depression, anxiety) [x] Endo (hot/cold intol, polyuria[DM]) [x] Hem/Lymph (Anemia, LA, bleeding) [x] Allerg/Immun (seasonal, immuniz) [x] Eyes (diplopia, cataracts) [x] ENT/mouth (dysphagia, epistaxis) [x] (dysuria, hematuria) [x] Skin/Breast (moles, rash, lumps, nipple changes) Pertinent Positives: See HPI Pertinent Negatives: See HPI Physical Exam: BP 112/73 Pulse 80 Ht 5' 4 Wt 56.2 kg (123 lb 14.4 oz) LMP 09/23/2023 (Approximate) SpO2 99% BMI 21.27 kg/m Body mass index is 21.27 kg/m . Constitutional: Well nourished, well developed person in no acute distress. Ambulates without difficulty. Head: Atraumatic and normocephalic. Face: Within normal limits. Eyes: Pupils equal, round, reactive to light. Sclera white. Mouth: Moist mucous membranes, normal dentation. Neck: supple, trachea midline,no masses, no incisions. Lymphatic: No cervical or inguinal lymphadenopathy. Heart: Regular rate and rhythm. Lungs: Clear to auscultation. Abdomen: Soft, non-distended, non-tender, no heptasplenomegaly, no umbilica, incisional, femoral, or inguinal hernias. Pelvis: Stable, non-tender. Skin: Warm, moist, normal skin turgor. Peripheral Vascular: Palapable carotid, radial, and femoral pulses, no peripheral edema. Neuropsych: Alert and oriented, judgement and insight intact. Normal Gait. Assessment: 1. Gastroesophageal reflux disease without esophagitis No orders of the defined types were placed in this encounter. Plan: I had a detailed discussion with the patient regarding her diagnosis. All treatment options were discussed in detail. At this point the patient would like to proceed with a robotic assisted laparoscopic hiatal hernia repair with mesh and LINX sphincter augmentation. Risk, benefits, and alternatives were discussed with the patient in detail prior to obtaining consent. Jag Tellez MD documented in this encounter [facility] 09-04-2023 History of Present illness Narrative [facility] [address] (11) [facility] [address] [facility] [id number] Patient Name: Kathleen Weinberg Age: 22 y.o. Gender: female Referring Physician: Dennis Roach, * Chief Complaint Patient presents with Chest Pain regurgitation Nausea Dysphagia HPI: Patient Primary Symptoms are: heartburn, dysphagia, chest pain, regurgitation, nausea and vomiting, and bloating Onset of Symptoms: Patient presents with complaints of reflux symptoms for many years. She states symptoms increased last year. Today she complains of heartburn, regurgitation, nausea, vomiting, bloating, dysphagia, and chest pain. Denies cough, sore throat, and hoarseness. She is currently on Prilosec and Carafate. She states it is helping with the symptoms. Her last EGD was with Dr. Negron on 02/2023 that was normal. Frequency of Symptoms: Weekly Severity of Symptoms: increasing in severity Sleep Disruption: yes Aggravating Factors: fatty or greasy foods, spicy foods, and tomatoes, liquids Alleviating Factors: PPI Medications Tried: Prilosec, Carafate How many years on a PPI: Sine January 2023 HRQL SCORE: 53 Drug use: Denies Alcohol use: Denies Metal allergy: Denies Past Medical History: Diagnosis Date Abnormal Pap smear of cervix Amenorrhea Anxiety Chronic abdominal pain Eating disorder GERD (gastroesophageal reflux disease) History of stomach ulcers IBS (irritable bowel syndrome) with constipation Irregular menses Low vitamin D level PCOS (polycystic ovarian syndrome) Pelvic pain Polycystic ovary syndrome Urinary retention Urinary tract infection Vitamin D deficiency Past Surgical History: Procedure Laterality Date COLONOSCOPY 2018 [facility] EGD N/A 03/13/2023 Procedure: ESOPHAGOGASTRODUODENOSCOPY with biopsy; Surgeon: Leopoldo Negron MD; Location: [facility]; Service: Gastroenterology Allergies Allergen Reactions Latex Hives Current Outpatient Medications Medication Sig Dispense Refill dicyclomine (BENTYL) 20 mg tablet 1 (one) tablet (20 mg total) 4 (four) times a day before meals and nightly PRN . doxylamine succinate (UNISOM, DOXYLAMINE, ORAL) Take by mouth at bedtime . ergocalciferol (ERGOCALCIFEROL) 1,250 mcg (50,000 unit) capsule Take 1 (one) capsule (50,000 Units total) by mouth once a week . FLUoxetine (PROZAC) 40 MG capsule Take 1 (one) capsule (40 mg total) by mouth daily . magnesium glycinate-mag oxide 120 mg magnesium cap Take 1 (one) capsule (120 mg total) by mouth at bedtime . omeprazole (PRILOSEC OTC) 20 MG tablet Take 1 (one) tablet (20 mg total) by mouth 2 (two) times a day . 60 tablet 5 ondansetron (ZOFRAN) 4 MG tablet Take 1 (one) tablet (4 mg total) by mouth every 8 (eight) hours as needed for nausea . 20 tablet 0 sucralfate (CARAFATE) 1 gram tablet Take 1 (one) tablet (1 g total) by mouth 4 (four) times a day before meals and nightly . 120 tablet 5 No current facility-administered medications for this visit. Social History Tobacco Use Smoking status: Never Smokeless tobacco: Never Vaping Use Vaping Use: Never used Substance Use Topics Alcohol use: Not Currently Comment: socially Drug use: Never Family History Problem Relation Age of Onset Diabetes Father Ovarian cancer Maternal Grandmother Cancer Maternal Grandfather Colon cancer Maternal Grandfather Ulcerative colitis Maternal Grandfather Diabetes Paternal Grandfather Esophageal cancer Neg Hx Stomach cancer Neg Hx REVIEW OF SYSTEMS Pertinent positives are listed in HPI, PMSH, SH, ALL, otherwise all systems reviewed below are negative. The following systems were reviewed: [x] Const (fevers, chills, wt. loss, fatigue) [x] CV (HTN, CP, RAMON, edema, DVT) [x] Resp (SOB, pleurisy, asthma, apnea) [x] GI (N, V, D, C, M, abd pain, appetite) [x] Musc (back pain, joint stiffness, gout) [x] Neuro (seizures, syncope, paralysis) [x] Psych (depression, anxiety) [x] Endo (hot/cold intol, polyuria[DM]) [x] Hem/Lymph (Anemia, LA, bleeding) [x] Allerg/Immun (seasonal, immuniz) [x] Eyes (diplopia, cataracts) [x] ENT/mouth (dysphagia, epistaxis) [x] (dysuria, hematuria) [x] Skin/Breast (moles, rash, lumps, nipple changes) Pertinent Positives: See HPI Pertinent Negatives: See HPI Physical Exam: BP 124/80 Pulse 77 Ht 5' 4 Wt 56.2 kg (123 lb 14.4 oz) LMP 07/09/2023 (Exact Date) SpO2 97% BMI 21.27 kg/m Body mass index is 21.27 kg/m . Constitutional: Well nourished, well developed person in no acute distress. Ambulates without difficulty. Head: Atraumatic and normocephalic. Face: Within normal limits. Eyes: Pupils equal, round, reactive to light. Sclera white. Mouth: Moist mucous membranes, normal dentation. Neck: supple, trachea midline,no masses, no incisions. Lymphatic: No cervical or inguinal lymphadenopathy. Heart: Regular rate and rhythm. Lungs: Clear to auscultation. Abdomen: Soft, non-distended, non-tender, no heptasplenomegaly, no umbilica, incisional, femoral, or inguinal hernias. Pelvis: Stable, non-tender. Skin: Warm, moist, normal skin turgor. Peripheral Vascular: Palapable carotid, radial, and femoral pulses, no peripheral edema. Neuropsych: Alert and oriented, judgement and insight intact. Normal Gait. Assessment: 1. Heartburn Ambulatory referral to General Surgery Case Request Operating Room: ESOPHAGOGASTRODUODENOSCOPY WITH BIOPSY AND MiVu, ESOPHAGEAL MANOMETRY 2. Gaseous regurgitation Case Request Operating Room: ESOPHAGOGASTRODUODENOSCOPY WITH BIOPSY AND MiVu, ESOPHAGEAL MANOMETRY 3. Pharyngoesophageal dysphagia Case Request Operating Room: ESOPHAGOGASTRODUODENOSCOPY WITH BIOPSY AND MiVu, ESOPHAGEAL MANOMETRY 4. Chest pain, non-cardiac Case Request Operating Room: ESOPHAGOGASTRODUODENOSCOPY WITH BIOPSY AND MiVu, ESOPHAGEAL MANOMETRY 5. Nausea and vomiting, unspecified vomiting type Case Request Operating Room: ESOPHAGOGASTRODUODENOSCOPY WITH BIOPSY AND MiVu, ESOPHAGEAL MANOMETRY 6. Bloating Case Request Operating Room: ESOPHAGOGASTRODUODENOSCOPY WITH BIOPSY AND MiVu, ESOPHAGEAL MANOMETRY Orders Placed This Encounter Procedures Case Request Operating Room: ESOPHAGOGASTRODUODENOSCOPY WITH BIOPSY AND MiVu, ESOPHAGEAL MANOMETRY Plan: I had a detailed discussion with the patient about diagnostic testing. Risk, benefits, and alternatives were discussed prior to obtaining consent. EGD with Biopsy, High resolution Manometry with Impedance and Interpretation with MiVu Hanna Coley CNP documented in this encounter [facility] 09-04-2023 History of Present illness Narrative [facility] [address] (11) [facility] [address] [facility] [id number] Patient Name: Kathleen Weinberg Age: 22 y.o. Gender: female Referring Physician: Dennis Roach, * Chief Complaint Patient presents with Chest Pain regurgitation Nausea Dysphagia HPI: Patient Primary Symptoms are: heartburn, dysphagia, chest pain, regurgitation, nausea and vomiting, and bloating Onset of Symptoms: Patient presents with complaints of reflux symptoms for many years. She states symptoms increased last year. Today she complains of heartburn, regurgitation, nausea, vomiting, bloating, dysphagia, and chest pain. Denies cough, sore throat, and hoarseness. She is currently on Prilosec and Carafate. She states it is helping with the symptoms. Her last EGD was with Dr. Negron on 02/2023 that was normal. Frequency of Symptoms: Weekly Severity of Symptoms: increasing in severity Sleep Disruption: yes Aggravating Factors: fatty or greasy foods, spicy foods, and tomatoes, liquids Alleviating Factors: PPI Medications Tried: Prilosec, Carafate How many years on a PPI: Sine January 2023 HRQL SCORE: 53 Drug use: Denies Alcohol use: Denies Metal allergy: Denies Past Medical History: Diagnosis Date Abnormal Pap smear of cervix Amenorrhea Anxiety Chronic abdominal pain Eating disorder GERD (gastroesophageal reflux disease) History of stomach ulcers IBS (irritable bowel syndrome) with constipation Irregular menses Low vitamin D level PCOS (polycystic ovarian syndrome) Pelvic pain Polycystic ovary syndrome Urinary retention Urinary tract infection Vitamin D deficiency Past Surgical History: Procedure Laterality Date COLONOSCOPY 2018 [facility] EGD N/A 03/13/2023 Procedure: ESOPHAGOGASTRODUODENOSCOPY with biopsy; Surgeon: Leopoldo Negron MD; [place] [facility]; Service: Gastroenterology Allergies Allergen Reactions Latex Hives Current Outpatient Medications Medication Sig Dispense Refill dicyclomine (BENTYL) 20 mg tablet 1 (one) tablet (20 mg total) 4 (four) times a day before meals and nightly PRN . doxylamine succinate (UNISOM, DOXYLAMINE, ORAL) Take by mouth at bedtime . ergocalciferol (ERGOCALCIFEROL) 1,250 mcg (50,000 unit) capsule Take 1 (one) capsule (50,000 Units total) by mouth once a week . FLUoxetine (PROZAC) 40 MG capsule Take 1 (one) capsule (40 mg total) by mouth daily . magnesium glycinate-mag oxide 120 mg magnesium cap Take 1 (one) capsule (120 mg total) by mouth at bedtime . omeprazole (PRILOSEC OTC) 20 MG tablet Take 1 (one) tablet (20 mg total) by mouth 2 (two) times a day . 60 tablet 5 ondansetron (ZOFRAN) 4 MG tablet Take 1 (one) tablet (4 mg total) by mouth every 8 (eight) hours as needed for nausea . 20 tablet 0 sucralfate (CARAFATE) 1 gram tablet Take 1 (one) tablet (1 g total) by mouth 4 (four) times a day before meals and nightly . 120 tablet 5 No current facility-administered medications for this visit. Social History Tobacco Use Smoking status: Never Smokeless tobacco: Never Vaping Use Vaping Use: Never used Substance Use Topics Alcohol use: Not Currently Comment: socially Drug use: Never Family History Problem Relation Age of Onset Diabetes Father Ovarian cancer Maternal Grandmother Cancer Maternal Grandfather Colon cancer Maternal Grandfather Ulcerative colitis Maternal Grandfather Diabetes Paternal Grandfather Esophageal cancer Neg Hx Stomach cancer Neg Hx REVIEW OF SYSTEMS Pertinent positives are listed in HPI, PMSH, SH, ALL, otherwise all systems reviewed below are negative. The following systems were reviewed: [x] Const (fevers, chills, wt. loss, fatigue) [x] CV (HTN, CP, RAMON, edema, DVT) [x] Resp (SOB, pleurisy, asthma, apnea) [x] GI (N, V, D, C, M, abd pain, appetite) [x] Musc (back pain, joint stiffness, gout) [x] Neuro (seizures, syncope, paralysis) [x] Psych (depression, anxiety) [x] Endo (hot/cold intol, polyuria[DM]) [x] Hem/Lymph (Anemia, LA, bleeding) [x] Allerg/Immun (seasonal, immuniz) [x] Eyes (diplopia, cataracts) [x] ENT/mouth (dysphagia, epistaxis) [x] (dysuria, hematuria) [x] Skin/Breast (moles, rash, lumps, nipple changes) Pertinent Positives: See HPI Pertinent Negatives: See HPI Physical Exam: BP 124/80 Pulse 77 Ht 5' 4 Wt 56.2 kg (123 lb 14.4 oz) LMP 07/09/2023 (Exact Date) SpO2 97% BMI 21.27 kg/m Body mass index is 21.27 kg/m . Constitutional: Well nourished, well developed person in no acute distress. Ambulates without difficulty. Head: Atraumatic and normocephalic. Face: Within normal limits. Eyes: Pupils equal, round, reactive to light. Sclera white. Mouth: Moist mucous membranes, normal dentation. Neck: supple, trachea midline,no masses, no incisions. Lymphatic: No cervical or inguinal lymphadenopathy. Heart: Regular rate and rhythm. Lungs: Clear to auscultation. Abdomen: Soft, non-distended, non-tender, no heptasplenomegaly, no umbilica, incisional, femoral, or inguinal hernias. Pelvis: Stable, non-tender. Skin: Warm, moist, normal skin turgor. Peripheral Vascular: Palapable carotid, radial, and femoral pulses, no peripheral edema. Neuropsych: Alert and oriented, judgement and insight intact. Normal Gait. Assessment: 1. Heartburn Ambulatory referral to General Surgery Case Request Operating Room: ESOPHAGOGASTRODUODENOSCOPY WITH BIOPSY AND MiVu, ESOPHAGEAL MANOMETRY 2. Gaseous regurgitation Case Request Operating Room: ESOPHAGOGASTRODUODENOSCOPY WITH BIOPSY AND MiVu, ESOPHAGEAL MANOMETRY 3. Pharyngoesophageal dysphagia Case Request Operating Room: ESOPHAGOGASTRODUODENOSCOPY WITH BIOPSY AND MiVu, ESOPHAGEAL MANOMETRY 4. Chest pain, non-cardiac Case Request Operating Room: ESOPHAGOGASTRODUODENOSCOPY WITH BIOPSY AND MiVu, ESOPHAGEAL MANOMETRY 5. Nausea and vomiting, unspecified vomiting type Case Request Operating Room: ESOPHAGOGASTRODUODENOSCOPY WITH BIOPSY AND MiVu, ESOPHAGEAL MANOMETRY 6. Bloating Case Request Operating Room: ESOPHAGOGASTRODUODENOSCOPY WITH BIOPSY AND MiVu, ESOPHAGEAL MANOMETRY Orders Placed This Encounter Procedures Case Request Operating Room: ESOPHAGOGASTRODUODENOSCOPY WITH BIOPSY AND MiVu, ESOPHAGEAL MANOMETRY Plan: I had a detailed discussion with the patient about diagnostic testing. Risk, benefits, and alternatives were discussed prior to obtaining consent. EGD with Biopsy, High resolution Manometry with Impedance and Interpretation with MiVu Hanna Coley, AAKASH documented in this encounter [facility] 09-04-2023 History of Present illness Narrative [facility] [address] (11) [facility] [address] [facility] [phone] Patient Name: Kathleen Weinberg Age: 22 y.o. Gender: female Referring Physician: Dennis Roach, * Chief Complaint Patient presents with Chest Pain regurgitation Nausea Dysphagia HPI: Patient Primary Symptoms are: heartburn, dysphagia, chest pain, regurgitation, nausea and vomiting, and bloating Onset of Symptoms: Patient presents with complaints of reflux symptoms for many years. She states symptoms increased last year. Today she complains of heartburn, regurgitation, nausea, vomiting, bloating, dysphagia, and chest pain. Denies cough, sore throat, and hoarseness. She is currently on Prilosec and Carafate. She states it is helping with the symptoms. Her last EGD was with Dr. Negron on 02/2023 that was normal. Biopsies did show active esophagitis. Frequency of Symptoms: Weekly Severity of Symptoms: increasing in severity Sleep Disruption: yes Aggravating Factors: fatty or greasy foods, spicy foods, and tomatoes, liquids Alleviating Factors: PPI Medications Tried: Prilosec, Carafate How many years on a PPI: Sine January 2023 HRQL SCORE: 53 Drug use: Denies Alcohol use: Denies Metal allergy: Denies Past Medical History: Diagnosis Date Abnormal Pap smear of cervix Amenorrhea Anxiety Chronic abdominal pain Eating disorder GERD (gastroesophageal reflux disease) History of stomach ulcers IBS (irritable bowel syndrome) with constipation Irregular menses Low vitamin D level PCOS (polycystic ovarian syndrome) Pelvic pain Polycystic ovary syndrome Urinary retention Urinary tract infection Vitamin D deficiency Past Surgical History: Procedure Laterality Date COLONOSCOPY 2018 [facility] EGD N/A 03/13/2023 Procedure: ESOPHAGOGASTRODUODENOSCOPY with biopsy; Surgeon: Leopoldo Negron MD; [facility] [facility]; Service: Gastroenterology Allergies Allergen Reactions Latex Hives Current Outpatient Medications Medication Sig Dispense Refill dicyclomine (BENTYL) 20 mg tablet 1 (one) tablet (20 mg total) 4 (four) times a day before meals and nightly PRN . doxylamine succinate (UNISOM, DOXYLAMINE, ORAL) Take by mouth at bedtime . ergocalciferol (ERGOCALCIFEROL) 1,250 mcg (50,000 unit) capsule Take 1 (one) capsule (50,000 Units total) by mouth once a week . FLUoxetine (PROZAC) 40 MG capsule Take 1 (one) capsule (40 mg total) by mouth daily . magnesium glycinate-mag oxide 120 mg magnesium cap Take 1 (one) capsule (120 mg total) by mouth at bedtime . omeprazole (PRILOSEC OTC) 20 MG tablet Take 1 (one) tablet (20 mg total) by mouth 2 (two) times a day . 60 tablet 5 ondansetron (ZOFRAN) 4 MG tablet Take 1 (one) tablet (4 mg total) by mouth every 8 (eight) hours as needed for nausea . 20 tablet 0 sucralfate (CARAFATE) 1 gram tablet Take 1 (one) tablet (1 g total) by mouth 4 (four) times a day before meals and nightly . 120 tablet 5 No current facility-administered medications for this visit. Social History Tobacco Use Smoking status: Never Smokeless tobacco: Never Vaping Use Vaping Use: Never used Substance Use Topics Alcohol use: Not Currently Comment: socially Drug use: Never Family History Problem Relation Age of Onset Diabetes Father Ovarian cancer Maternal Grandmother Cancer Maternal Grandfather Colon cancer Maternal Grandfather Ulcerative colitis Maternal Grandfather Diabetes Paternal Grandfather Esophageal cancer Neg Hx Stomach cancer Neg Hx REVIEW OF SYSTEMS Pertinent positives are listed in HPI, PMSH, SH, ALL, otherwise all systems reviewed below are negative. The following systems were reviewed: [x] Const (fevers, chills, wt. loss, fatigue) [x] CV (HTN, CP, RAMON, edema, DVT) [x] Resp (SOB, pleurisy, asthma, apnea) [x] GI (N, V, D, C, M, abd pain, appetite) [x] Musc (back pain, joint stiffness, gout) [x] Neuro (seizures, syncope, paralysis) [x] Psych (depression, anxiety) [x] Endo (hot/cold intol, polyuria[DM]) [x] Hem/Lymph (Anemia, LA, bleeding) [x] Allerg/Immun (seasonal, immuniz) [x] Eyes (diplopia, cataracts) [x] ENT/mouth (dysphagia, epistaxis) [x] (dysuria, hematuria) [x] Skin/Breast (moles, rash, lumps, nipple changes) Pertinent Positives: See HPI Pertinent Negatives: See HPI Physical Exam: BP 124/80 Pulse 77 Ht 5' 4 Wt 56.2 kg (123 lb 14.4 oz) LMP 07/09/2023 (Exact Date) SpO2 97% BMI 21.27 kg/m Body mass index is 21.27 kg/m . Constitutional: Well nourished, well developed person in no acute distress. Ambulates without difficulty. Head: Atraumatic and normocephalic. Face: Within normal limits. Eyes: Pupils equal, round, reactive to light. Sclera white. Mouth: Moist mucous membranes, normal dentation. Neck: supple, trachea midline,no masses, no incisions. Lymphatic: No cervical or inguinal lymphadenopathy. Heart: Regular rate and rhythm. Lungs: Clear to auscultation. Abdomen: Soft, non-distended, non-tender, no heptasplenomegaly, no umbilica, incisional, femoral, or inguinal hernias. Pelvis: Stable, non-tender. Skin: Warm, moist, normal skin turgor. Peripheral Vascular: Palapable carotid, radial, and femoral pulses, no peripheral edema. Neuropsych: Alert and oriented, judgement and insight intact. Normal Gait. Assessment: 1. Heartburn Ambulatory referral to General Surgery Case Request Operating Room: ESOPHAGOGASTRODUODENOSCOPY WITH BIOPSY AND MiVu, ESOPHAGEAL MANOMETRY 2. Gaseous regurgitation Case Request Operating Room: ESOPHAGOGASTRODUODENOSCOPY WITH BIOPSY AND MiVu, ESOPHAGEAL MANOMETRY 3. Pharyngoesophageal dysphagia Case Request Operating Room: ESOPHAGOGASTRODUODENOSCOPY WITH BIOPSY AND MiVu, ESOPHAGEAL MANOMETRY 4. Chest pain, non-cardiac Case Request Operating Room: ESOPHAGOGASTRODUODENOSCOPY WITH BIOPSY AND MiVu, ESOPHAGEAL MANOMETRY 5. Nausea and vomiting, unspecified vomiting type Case Request Operating Room: ESOPHAGOGASTRODUODENOSCOPY WITH BIOPSY AND MiVu, ESOPHAGEAL MANOMETRY 6. Bloating Case Request Operating Room: ESOPHAGOGASTRODUODENOSCOPY WITH BIOPSY AND MiVu, ESOPHAGEAL MANOMETRY Orders Placed This Encounter Procedures Case Request Operating Room: ESOPHAGOGASTRODUODENOSCOPY WITH BIOPSY AND MiVu, ESOPHAGEAL MANOMETRY Plan: I had a detailed discussion with the patient about diagnostic testing. Risk, benefits, and alternatives were discussed prior to obtaining consent. EGD with Biopsy, High resolution Manometry with Impedance and Interpretation with MiVu Hanna Coley CNP documented in this encounter [facility] 04-24-2023 History of Present illness Narrative Kathleen Weinberg 22 y.o. 2000 female Changes since last visit: 22-year-old female following up after having EGD on 03/13. EGD endoscopically was normal, gastric biopsies were negative for H. pylori, distal esophageal biopsy with active esophagitis with reactive changes including parakeratosis, PAS stain negative for fungal microorganisms and no evidence of intestinal metaplasia or dysplasia. Symptoms had improved until about 2 weeks ago when reflux symptoms returned, continues to take omeprazole 20 mg p.o. twice daily and completed sucralfate prescription about 3 weeks ago. Continues to use Bentyl 20 mg p.o. 4 times a day as needed, typically only takes once a day. Bowel habits remain unchanged, alternates diarrhea and constipation more commonly with constipation and continues to use MiraLAX as needed. Has taken linzess and amitiza in the past, no longer taking. Uses bentyl prn. Expresses concern about remaining on sucralfate and her PPI long-term, already has low bone mass. Takes vitamin D daily, denies any calcium supplement. Did cut out dairy and gluten couple years ago. Continues to follow other GERD regimen recommendations. Past Medical History: Past Medical History: Diagnosis Date Amenorrhea Anxiety Chronic abdominal pain Eating disorder GERD (gastroesophageal reflux disease) History of stomach ulcers IBS (irritable bowel syndrome) with constipation Irregular menses Low vitamin D level PCOS (polycystic ovarian syndrome) Pelvic pain Polycystic ovary syndrome Urinary retention Urinary tract infection Vitamin D deficiency Surgical History & Procedures: Past Surgical History: Procedure Laterality Date COLONOSCOPY 2018 [facility] EGD N/A 03/13/2023 Procedure: ESOPHAGOGASTRODUODENOSCOPY with biopsy; Surgeon: Leopoldo Negron MD; [place] [facility]; Service: Gastroenterology Social History: Social History Socioeconomic History Marital status: Tobacco Use Smoking status: Never Smokeless tobacco: Never Vaping Use Vaping Use: Never used Substance and Sexual Activity Alcohol use: Not Currently Comment: socially Drug use: Never Sexual activity: Yes Partners: Male control/protection: Condom Current Medications: Current Outpatient Medications Medication Sig Dispense Refill dicyclomine (BENTYL) 20 mg tablet 1 (one) tablet (20 mg total) 4 (four) times a day before meals and nightly PRN . doxylamine succinate (UNISOM, DOXYLAMINE, ORAL) Take by mouth at bedtime . ergocalciferol (ERGOCALCIFEROL) 1,250 mcg (50,000 unit) capsule Take 1 (one) capsule (50,000 Units total) by mouth once a week . FLUoxetine (PROZAC) 40 MG capsule Take 1 (one) capsule (40 mg total) by mouth daily . magnesium glycinate-mag oxide 120 mg magnesium cap Take 1 (one) capsule (120 mg total) by mouth at bedtime . omeprazole (PRILOSEC OTC) 20 MG tablet Take 1 (one) tablet (20 mg total) by mouth 2 (two) times a day . 60 tablet 5 ondansetron (ZOFRAN) 4 MG tablet Take 1 (one) tablet (4 mg total) by mouth every 8 (eight) hours as needed for nausea . 20 tablet 0 colestipoL (Colestid) 1 gram tablet Take 1 (one) tablet (1 g total) by mouth 2 (two) times a day . 60 tablet 0 lubiprostone (AMITIZA) 8 MCG capsule 1 (one) capsule (8 mcg total) . sucralfate (CARAFATE) 1 gram tablet Take 1 (one) tablet (1 g total) by mouth 4 (four) times a day before meals and nightly . 120 tablet 0 No current facility-administered medications for this visit. Review of Systems Constitutional: Negative for fatigue and fever. Respiratory: Negative for choking and shortness of breath. Gastrointestinal: Positive for abdominal distention (Increased bloating and gas), abdominal pain (Generalized) and constipation. Negative for blood in stool and diarrhea. Skin: Negative for color change and pallor. Neurological: Negative for dizziness and weakness. Physical Exam Constitutional: General: She is not in acute distress. Cardiovascular: Rate and Rhythm: Normal rate and regular rhythm. Heart sounds: No murmur heard. Pulmonary: Effort: Pulmonary effort is normal. No respiratory distress. Breath sounds: Normal breath sounds. No wheezing. Abdominal: General: Abdomen is flat. Bowel sounds are normal. There is no distension. Palpations: Abdomen is soft. Tenderness: There is no abdominal tenderness. Neurological: Mental Status: She is alert. Office Visit on 04/12/2023 Component Date Value Ref Range Status Case Report 04/12/2023 Final Value:Gynecologic Cytology Report Case: [id number] Authorizing Provider: Marylin Bustamante CNM Collected: 04/12/2023 11:00 AM Ordering Location: [facility] Received: 04/18/2023 11:00 AM Obstetrics and Gynecology First Screen: Gustavo AGUIAR(ASCP)[place] Specimen: THINPREP PAP SMEAR, Cervix / Endocervix Specimen Adequacy 04/12/2023 Satisfactory for evaluation; endocervical/transformation zone component absent/insufficient Final Interpretation 04/12/2023 Negative for intraepithelial lesion or malignancy Final Educational Note 04/12/2023 Final Value:The Pap smear is a screening test for the detection of cervical cancer and its precursor lesions. False positive and false negative results can occur. The test should be performed at regular intervals, and positive results should be confirmed before definitive therapy. Additional testing methods may be helpful in detecting abnormalities or in clinical management. The specimen has been analyzed by the ThinPrep imaging system, an automated imaging and review system which assists the laboratory in evaluating cells on ThinPrep tests. Following automated imaging selected elkins from every slide are reviewed by a casework specialist. Specimen processing and Primary Screening performed at: [facility] - [address] [place] [id number] LMP 04/12/2023 03/11/2023 Final Trichomonas vaginalis 04/12/2023 Negative Negative Final Gardnerella vaginalis 04/12/2023 Negative Negative Final Morenita Species 04/12/2023 Negative Negative Final Lab Draw on 03/28/2023 Component Date Value Ref Range Status WBC 03/28/2023 7.12 4.50 - 11.00 K/mcL Final RBC 03/28/2023 4.70 4.00 - 5.20 M/mcL Final Hemoglobin 03/28/2023 13.9 12.0 - 16.0 g/dL Final Hematocrit 03/28/2023 41.6 36.0 - 46.0 % Final MCV 03/28/2023 88.5 80.0 - 100.0 fL Final MCH 03/28/2023 29.6 26.0 - 34.0 pg Final MCHC 03/28/2023 33.4 31.0 - 37.0 g/dL Final Platelets 03/28/2023 223 150 - 400 K/mcL Final RDW - CV 03/28/2023 11.8 11.6 - 14.8 % Final MPV 03/28/2023 11.3 9.4 - 12.4 fL Final Nucleated RBC 03/28/2023 0.0 % Final Nucleated RBC Abs 03/28/2023 0.00 0.00 - 0.00 K/mcL Final Sodium 03/28/2023 139 135 - 145 mmol/L Final Potassium 03/28/2023 4.4 3.5 - 5.1 mmol/L Final Chloride 03/28/2023 105 98 - 108 mmol/L Final Bicarbonate 03/28/2023 29 21 - 32 mmol/L Final Anion Gap 03/28/2023 9 (L) 10 - 20 mmol/L Final Glucose 03/28/2023 92 65 - 99 mg/dL Final BUN 03/28/2023 12 8 - 25 mg/dL Final Creatinine 03/28/2023 0.72 0.40 - 1.10 mg/dL Final eGFR 03/28/2023 120 >=60 mL/min/1.73 m2 Final Estimated GFR was calculated using the 2020 CKD-EPI creatinine equation. BUN/Creatinine Ratio 03/28/2023 16.7 10.0 - 20.0 Final Total Protein 03/28/2023 7.8 6.0 - 8.0 g/dL Final Albumin 03/28/2023 4.0 3.2 - 5.2 g/dL Final Calcium 03/28/2023 9.9 8.4 - 10.2 mg/dL Final Alkaline Phosphatase 03/28/2023 81 40 - 140 U/L Final AST 03/28/2023 12 0-35 U/L U/L Final Total Bilirubin 03/28/2023 0.4 0.0 - 1.3 mg/dL Final ALT 03/28/2023 25 14 - 65 U/L Final TSH 03/28/2023 1.86 0.27 - 4.20 mcIU/mL Final Tissue Transglutaminase, IgA 03/28/2023 <1.9 <20.0 CU Final Reference Ranges: <20 CU Negative 20-30 CU Weak Positive >30 CU Positive The following results were obtained with the [employer] QUANTA Flash h-tTG IgA chemiluminescent immunoassay. Values obtained with different manufacturers' assay methods may not be used interchangeably. B12 03/28/2023 533 193 - 986 pg/mL Final Folate 03/28/2023 >20.0 (H) 3.1 - 17.5 ng/mL Final Deficient <2.2 Borderline 2.2 - 3.0 Excessive >17.5 Vit D 1,25 Dihydroxy 03/28/2023 66.8 19.9 - 79.3 pg/mL Final Assessment & Plan: Duodenal gastroesophageal reflux with esophagitis- IBS- S/p EGD revealing GERD with esophagitis and parakeratosis--likely from bile acid reflux, as is consistent with HIDA scan showing duodenal reflux. Improvement while taking sucralfate, return of symptoms within a week of stopping sucralfate, although concerned about remaining on sucralfate and PPI long-term. Continue omeprazole 20 mg p.o. twice daily, discussed restarting carafate or trying alternative medications, she would like to try an alternative med at this time. -Trial colestipol 1 g p.o. twice daily--script sent to pharmacy -Reviewed other GERD regimen recommendations as previously discussed, encouraged to continue -Continue bentyl PRN Will discuss with Dr Negron any other recommendations. May consider heartburn clinic referral if ongoing symptoms warrant further work-up/evaluation. Addendum: Discussed with Dr Negron, reviewed EGD and biopsy results, HIDA scan results, previous treatment, response to treatment and current symptoms. recommends carafate in combination with PPI for the duodenal gastric reflux. Also consider amitriptyline 10 mg at night for component of overlapping IBS symptoms. Discussed with Kathleen via telephone call and she would like to start the sucralfate and hold off on the amitriptyline until after she calls with update iin 2 weeks. -For sucralfate 1 g p.o. 4 times daily sent to pharmacy Call with 2-week update regarding symptoms Dennis Raoch CNP Please note: Portions of this chart may have been created with [employer] voice recognition software. Occasional wrong-word or sound-like substitutions may have occurred due to inherent limitations of the voice recognition software. Please read the chart carefully and recognize, using context, where the substitutions have occurred. documented in this encounter [facility] 04-12-2023 History of Present illness Narrative [facility] Exam Patient Name: Kathleen Weinberg : 2000 MR #: [id number] SUBJECTIVE: Kathleen Weinberg is a 22 y.o. here for [facility]'s exam today. Chief Complaint Patient presents with [facility] new patient, Hx PCOS with irregular periods and hormonal imbalances. periods cause severe pain and are very heavy. frequent UTIs. change in vaginal discharge. I'm having a lot of discharge that is yellow and has a bad odor. I'm concerned for BV. burning and pain during sex. Pap 2020, normal. 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 No hx abnormal pap. Not on control now, was on pill, stopped 2 years ago. Kathleen is here today for annual second cook and baker exam. 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 She is to [place]. She has a history of irregular periods and has officially been diagnosed with PCOS. She has history of taking COCs, but stopped those approximately 2 years ago and has been trying a more natural way of trying to regulate her periods including cutting out certain foods specifically gluten and dairy. She states that this helped as prior to these changes her period was coming very irregularly, but then started to come every 6 weeks. Starting in September 2022, her periods have started to space out more. Her LMP is 03/11/2023. She also reports irregular spotting and postcoital spotting. She c/o vaginal discharge today that is yellow with odor. She does report painful periods and pelvic pain at times. She is currently using contraception. She uses condoms. She is currently sexually active. 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 Denies a history of abnormal cervical cytology Past Medical History Past Medical History: Diagnosis Date Amenorrhea Anxiety Chronic abdominal pain Eating disorder GERD (gastroesophageal reflux disease) History of stomach ulcers IBS (irritable bowel syndrome) with constipation Irregular menses Low vitamin D level PCOS (polycystic ovarian syndrome) Pelvic pain Polycystic ovary syndrome Urinary retention Urinary tract infection Vitamin D deficiency Past Surgical History has a past surgical history that includes Colonoscopy (2019) and Egd (N/A, 03/13/2023). Family History Her family history includes Colon cancer in her maternal grandfather; Diabetes in her father and paternal grandfather; Ovarian cancer in her maternal grandmother; Ulcerative colitis in her maternal grandfather. Medications She has a current medication list which includes the following prescription(s): dicyclomine, doxylamine succinate, ergocalciferol, fluoxetine, magnesium glycinate-mag oxide, omeprazole, lubiprostone, ondansetron, and sucralfate. Allergies She is allergic to latex. Social History She reports that she has never smoked. She has never used smokeless tobacco. She reports that she does not currently use alcohol. She reports that she does not use drugs. Review of Systems Review of Systems All other systems reviewed and are negative. OBJECTIVE: Vitals: 04/12/23 1050 BP: 117/76 BP Location: Right arm Patient Position: Sitting BP Cuff Size: Adult Pulse: 82 Weight: 55 kg (121 lb 4.8 oz) Body mass index is 20.82 kg/m . Physical Examination: Physical Exam Vitals and nursing note reviewed. Constitutional: Appearance: Normal appearance. She is normal weight. HENT: Head: Normocephalic. Nose: Nose normal. Cardiovascular: Rate and Rhythm: Normal rate and regular rhythm. Pulmonary: Effort: Pulmonary effort is normal. Breath sounds: Normal breath sounds. Chest: Breasts: Right: Normal. Left: Normal. Abdominal: Palpations: Abdomen is soft. Genitourinary: General: Normal vulva. Vagina: Normal. Cervix: Normal. Uterus: Normal. Adnexa: Right adnexa normal and left adnexa normal. Musculoskeletal: General: Normal range of motion. Cervical back: Neck supple. Skin: General: Skin is warm and dry. Neurological: Mental Status: She is alert. Psychiatric: Behavior: Behavior normal. Thought Content: Thought content normal. ASSESSMENT/PLAN: Kathleen Weinberg 22 y.o. 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 or sooner as needed Diagnoses and all orders for this visit: Well woman exam with routine gynecological exam - Thinprep Pap Smear Vaginal discharge - Vaginitis DNA Probes; Future - Vaginitis DNA Probes Marylin Bustamante CNM documented in this encounter [facility] 03-05-2023 Note Addended by: DENNIS ROACH on: 03/05/2023 02:56 PM Modules accepted: Orders [facility] 03-05-2023 Miscellaneous Notes Addended by: DENNIS ROACH on: 03/05/2023 02:56 PM Modules accepted: Orders documented in this encounter [facility] 03-04-2023 History of Present illness Narrative Kathleen Weinberg 22 y.o. 2000 female Reason for Consult: Chronic abdominal pain HPI: 22-year-old female with history of anxiety, eating disorder, GERD, IBS, PCOS referred for chronic abdominal pain. Couple month history of worsening GERD symptoms with nausea, vomiting, regurgitation of food, globus sensation, dysphagia, bloating, early satiety, and epigastric abdominal/retrosternal pain/burning. Onset with any oral intake, even water. Started on omeprazole 20 mg p.o. daily several months ago, still with ongoing symptoms and occasionally takes Tums. Denies bloody or coffee-ground emesis. Weight fluctuates, but with recent worsening upper GI symptoms has noticed some new weight loss due to poor p.o. intake. Bowel habits largely unchanged, alternates between diarrhea and constipation for several years occasional lower abdominal pain and cramping, and increased gassiness. She takes Bentyl 20 mg p.o. up to 4 times a day and she tried Gas-X with only minimal improvement. Has been on Amitiza and Linzess in the past, no longer takes, occasionally takes MiraLAX for constipation. She did cut out gluten and dairy 2 to 3 years ago which has significantly improved her symptoms, more recently she cut out caffeine-- recently noticed it was worsening her heartburn and reflux symptoms. She had a colonoscopy in 2019 which was normal and has never had an EGD. She no longer takes NSAIDs, typically just Tylenol if needed. Denies any smoking, drug, or alcohol abuse. At age 11 she had similar symptoms and had been taking a lot of NSAIDs at the time--told she likely had an ulcer and was treated with medications. Recent abdominal ultrasound was normal and HIDA scan showed duodenal reflux. We will attempt to obtain other recent labs and work-up completed at [facility]. Past Medical History: Past Medical History: Diagnosis Date Amenorrhea Anxiety Chronic abdominal pain Eating disorder GERD (gastroesophageal reflux disease) History of stomach ulcers IBS (irritable bowel syndrome) with constipation Irregular menses Low vitamin D level PCOS (polycystic ovarian syndrome) Pelvic pain Urinary retention Vitamin D deficiency Surgical History & Procedures: Past Surgical History: Procedure Laterality Date COLONOSCOPY 2018 [facility] Social History: Social History Socioeconomic History Marital status: Tobacco Use Smoking status: Never Smokeless tobacco: Never Substance and Sexual Activity Alcohol use: Not Currently Comment: socially Drug use: Never Family History Problem Relation Age of Onset Diabetes Father Ovarian cancer Maternal Grandmother Colon cancer Maternal Grandfather Ulcerative colitis Maternal Grandfather Diabetes Paternal Grandfather Esophageal cancer Neg Hx Stomach cancer Neg Hx Current Medications: Current Outpatient Medications Medication Sig Dispense Refill dicyclomine (BENTYL) 20 mg tablet 1 (one) tablet (20 mg total) 4 (four) times a day before meals and nightly PRN . doxylamine succinate (UNISOM, DOXYLAMINE, ORAL) Take by mouth at bedtime . ergocalciferol (ERGOCALCIFEROL) 1,250 mcg (50,000 unit) capsule Take 1 (one) capsule (50,000 Units total) by mouth once a week . FLUoxetine (PROZAC) 40 MG capsule Take 1 (one) capsule (40 mg total) by mouth daily . magnesium glycinate-mag oxide 120 mg magnesium cap Take 1 (one) capsule (120 mg total) by mouth at bedtime . omeprazole (PRILOSEC OTC) 20 MG tablet Take 1 (one) tablet (20 mg total) by mouth 2 (two) times a day . 60 tablet 5 omeprazole (PRILOSEC) 20 MG capsule Take 1 (one) capsule (20 mg total) by mouth 2 (two) times a day 20-40 mg daily . ondansetron (ZOFRAN) 4 MG tablet Take 1 (one) tablet (4 mg total) by mouth every 8 (eight) hours as needed for nausea . 20 tablet 0 sucralfate (CARAFATE) 1 gram tablet Take 1 (one) tablet (1 g total) by mouth 4 (four) times a day before meals and nightly . 120 tablet 0 No current facility-administered medications for this visit. Review of Systems Constitutional: Positive for appetite change. Negative for fatigue, fever and unexpected weight change. HENT: Positive for trouble swallowing. Negative for mouth sores and voice change. Eyes: Negative for redness. Respiratory: Negative for cough, choking and shortness of breath. Cardiovascular: Negative for chest pain and palpitations. Gastrointestinal: Positive for abdominal pain, nausea and vomiting. Negative for blood in stool, constipation and diarrhea. Endocrine: Negative. Genitourinary: Negative for difficulty urinating. Musculoskeletal: Negative for arthralgias and joint swelling. Skin: Negative for color change and pallor. Allergic/Immunologic: Negative. Neurological: Negative for dizziness, syncope and light-headedness. Hematological: Negative. Psychiatric/Behavioral: Negative. Physical Exam Constitutional: General: She is not in acute distress. HENT: Head: Normocephalic and atraumatic. Right Ear: External ear normal. Left Ear: External ear normal. Nose: Nose normal. Mouth/Throat: Mouth: Mucous membranes are moist. Pharynx: No posterior oropharyngeal erythema. Eyes: General: No scleral icterus. Pupils: Pupils are equal, round, and reactive to light. Cardiovascular: Rate and Rhythm: Normal rate and regular rhythm. Heart sounds: No murmur heard. No gallop. Pulmonary: Effort: Pulmonary effort is normal. No respiratory distress. Breath sounds: Normal breath sounds. No wheezing. Abdominal: General: Abdomen is flat. Bowel sounds are normal. There is no distension. Palpations: Abdomen is soft. There is no mass. Tenderness: There is no abdominal tenderness. Musculoskeletal: General: No deformity. Normal range of motion. Cervical back: Normal range of motion and neck supple. Skin: General: Skin is warm and dry. Coloration: Skin is not jaundiced or pale. Neurological: General: No focal deficit present. Mental Status: She is alert and oriented to person, place, and time. Psychiatric: Mood and Affect: Mood normal. Behavior: Behavior normal. No results found for any previous visit. Assessment & Plan: Heartburn- Epigastric pain- Globus sensation- Nausea/vomiting- 22-year-old female with history of IBS presents with chronic abdominal pain, heartburn, nausea, gas and bloating, with alternating diarrhea and constipation. Symptoms refractory to PPI use and dietary changes, patient has never had EGD. Right upper quadrant ultrasound normal, HIDA scan shows duodenal reflux. Continue Bentyl 20 mg p.o. up to 4 times a day -Increase omeprazole 20 mg p.o. twice daily, discussed other reflux regimen recommendations and added to AVS -Sucralfate 1 g p.o. 4 times daily Scheduled for EGD with Dr. Negron at [facility] on 04/12/2023 at 9 AM We will attempt to obtain outside records. We will follow-up after procedure Addendum: Received recent labs which only include testosterone, estradiol, and cortisol. CT abdomen and pelvis, stool PCR and blood work ordered. Office will notify patient of labs and imaging ordered to be completed at her earliest convenience. Dennis Roach CNP Please note: Portions of this chart may have been created with [employer] voice recognition software. Occasional wrong-word or sound-like substitutions may have occurred due to inherent limitations of the voice recognition software. Please read the chart carefully and recognize, using context, where the substitutions have occurred. documented in this encounter [facility] 03-04-2023 Instructions Dennis Roach CNP - 03/04/2023 12:08 PM EDT Take omeprazole (proton pump inhibitor) daily, 30-60 minutes prior to breakfast and then again in the evening It is recommended to decrease/stop consumption of any of the following aggravating factors: alcohol, caffeine, and acidic/citric foods that aggravate symptoms, such as onions, tomatoes, citrus fruits, etc. Further recommendations include: weight loss or maintaining a healthy weight, smoking cessation, avoidance of meals within 3 hours of bedtime, and elevation of the head end of the bed while laying down. Avoid NSAIDs, such as: Ibuprofen, Motrin, Aleve, Advil, etc. May take acetaminophen (Tylenol) as needed for aches and pains The following attachments cannot be sent through Care Everywhere.EGD (Upper Endoscopy): Pre-op (Mosotho)Gas and Bloating (Mosotho)documented in this encounter [facility] Evaluation note No assessment information availa [facility] Work Phone: Evaluation note Diagnosis Gastroesophageal reflux disease, unspecified whether esophagitis present- Primary Epigastric pain Abdominal pain, epigastric Nausea Nausea alone Bloating Flatulence, eructation, and gas pain Change in bowel habits Other symptoms involving digestive system RLQ abdominal pain Abdominal pain, right lower quadrant Chronic abdominal pain Abdominal pain, unspecified site Gastroesophageal reflux disease Esophageal reflux Nausea Nausea alone Chronic abdominal pain Abdominal pain, unspecified site Gastroesophageal reflux disease, unspecified whether esophagitis present Nausea Nausea alone [facility] Well woman exam with routine gynecological exam- Primary Routine gynecological examination Vaginal discharge Leukorrhea, not specified as infective [facility] Diagnosis Duodenal gastroesophageal reflux- Primary Gastroesophageal reflux disease with esophagitis without hemorrhage Irritable bowel syndrome with both constipation and diarrhea [facility] Diagnosis Gastroesophageal reflux disease, unspecified whether esophagitis present- Primary [facility] Diagnosis Heartburn- Primary Gaseous regurgitation Flatulence, eructation, and gas pain Pharyngoesophageal dysphagia Dysphagia, pharyngoesophageal phase Chest pain, non-cardiac Other chest pain Nausea and vomiting, unspecified vomiting type Bloating Flatulence, eructation, and gas pain [facility] Diagnosis Heartburn- Primary Gaseous regurgitation Flatulence, eructation, and gas pain Pharyngoesophageal dysphagia Dysphagia, pharyngoesophageal phase Chest pain, non-cardiac Other chest pain Nausea and vomiting, unspecified vomiting type Bloating Flatulence, eructation, and gas pain Gastroesophageal reflux disease Esophageal reflux [facility] Heartburn- Primary Gaseous regurgitation Flatulence, eructation, and gas pain Pharyngoesophageal dysphagia Dysphagia, pharyngoesophageal phase Chest pain, non-cardiac Other chest pain Nausea and vomiting, unspecified vomiting type Bloating Flatulence, eructation, and gas pain Gastroesophageal reflux disease Esophageal reflux Gaseous regurgitation Flatulence, eructation, and gas pain Pharyngoesophageal dysphagia Dysphagia, pharyngoesophageal phase Chest pain, non-cardiac Other chest pain Nausea and vomiting Nausea with vomiting Bloating Flatulence, eructation, and gas pain Heartburn Gaseous regurgitation Flatulence, eructation, and gas pain Pharyngoesophageal dysphagia Dysphagia, pharyngoesophageal phase Chest pain, non-cardiac Other chest pain Nausea and vomiting, unspecified vomiting type Bloating Flatulence, eructation, and gas pain [facility] Diagnosis Gastroesophageal reflux disease without esophagitis- Primary Esophageal reflux Gastroesophageal reflux disease without esophagitis Esophageal reflux [facility] Diagnosis Menorrhagia with irregular cycle- Primary PMDD (premenstrual dysphoric disorder) Premenstrual tension syndromes [facility] Diagnosis Female infertility- Primary Female infertility of unspecified origin [facility] Diagnosis Female infertility- Primary Female infertility of unspecified origin [facility] Diagnosis PCOS (polycystic ovarian syndrome) Polycystic ovaries documented [facility] Diagnosis PCOS (polycystic ovarian syndrome)- Primary Polycystic ovaries Female infertility Female infertility of unspecified origin [facility] Diagnosis PCOS (polycystic ovarian syndrome) Polycystic ovaries [facility] Diagnosis PCOS (polycystic ovarian syndrome) Polycystic ovaries [facility] Diagnosis RLQ abdominal pain- Primary Abdominal pain, right lower quadrant [facility] Diagnosis Infertility associated with anovulation- Primary [facility] Diagnosis Dyspareunia, female- Primary History of lump of right breast [facility] Diagnosis Female infertility- Primary Female infertility of unspecified origin [facility] Diagnosis Female infertility- Primary Female infertility of unspecified origin RLQ abdominal pain Abdominal pain, right lower quadrant PCOS (polycystic ovarian syndrome) Polycystic ovaries Female infertility Female infertility of unspecified origin RLQ abdominal pain Abdominal pain, right lower quadrant Female infertility Female infertility of unspecified origin RLQ abdominal pain Abdominal pain, right lower quadrant [facility] Diagnosis RLQ abdominal pain- Primary Abdominal pain, right lower quadrant Female infertility Female infertility of unspecified origin Gastroesophageal reflux disease, unspecified whether esophagitis present Preop examination Unspecified pre-operative examination Postoperative examination- Primary Follow-up examination, following unspecified surgery [facility] Diagnosis RLQ abdominal pain- Primary Abdominal pain, right lower quadrant Female infertility Female infertility of unspecified origin Gastroesophageal reflux disease, unspecified whether esophagitis present Preop examination Unspecified pre-operative examination Amenorrhea- Primary Absence of menstruation [facility] (narrative)No reason for referral information availableWTrumbull [facility] Work Phone: Reason for visit Narrative* Consultation (Routine) - Closed Specialty Diagnoses / Procedures Referred By Kiarra muhammad Referred To Contact Gastroenterology Diagnoses Chronic abdominal pain Zayra Carrizales PA-C [address] [place] [address] Hilda Cavazos, PEARL RESTORER [address] [place] [address] Referral ID Status Reason Start Date Expiration Date Visits Re quested Visits Authorized [id number] Closed 02/20/2023 03/04/2024 1 1 [facility] Summary Purpose Family History Relationship Condition Age at Onset Recorded Date/T winifred father Diabetes mellitus Unknown grandfather Malignant neoplasm of colon Unknown Diabetes mellitus Unknown grandmother Malignant neoplasm Unknown arthritis Status:Active Comments:grandpa rents Diabetes Mellitus Type II Status:Active Commen ts:grandfather Ovarian Cancer Status:Active Comments:grandmo ther arthritis Status:Active Comments:grandpa rents Diabetes Mellitus Type II Status:Active Commen ts:grandfather Ovarian Cancer Status:Active Comments:grandmo ther arthritis Status:Active Comments:grandpa rents Diabetes Mellitus Type II Status:Active Commen ts:grandfather Ovarian Cancer Status:Active Comments:grandmo ther arthritis Status:Active Comments:grandpa rents Diabetes Mellitus Type II Status:Active Commen ts:grandfather Ovarian Cancer Status:Active Comments:grandmo ther arthritis Status:Active Comments:grandpa rents Diabetes Mellitus Type II Status:Active Commen ts:grandfather Ovarian Cancer Status:Active Comments:grandmo ther arthritis Status:Active Comments:grandpa rents Diabetes Mellitus Type II Status:Active Commen ts:grandfather Ovarian Cancer Status:Active Comments:grandmo ther arthritis Status:Active Comments:grandpa rents Diabetes Mellitus Type II Status:Active Commen ts:grandfather Ovarian Cancer Status:Active Comments:grandmo ther arthritis Status:Active Comments:grandpa rents Diabetes Mellitus Type II Status:Active Commen ts:grandfather Ovarian Cancer Status:Active Comments:grandmo ther arthritis Status:Active Comments:grandpa rents Diabetes Mellitus Type II Status:Active Commen ts:grandfather Ovarian Cancer Status:Active Comments:grandmo ther arthritis Status:Active Comments:grandpa rents Diabetes Mellitus Type II Status:Active Commen ts:grandfather Ovarian Cancer Status:Active Comments:grandmo ther arthritis Status:Active Comments:grandpa rents Diabetes Mellitus Type II Status:Active Commen ts:grandfather Ovarian Cancer Status:Active Comments:grandmo ther arthritis Status:Active Comments:grandpa rents Diabetes Mellitus Type II Status:Active Commen ts:grandfather Ovarian Cancer Status:Active Comments:grandmo ther arthritis Status:Active Comments:grandpa rents Diabetes Mellitus Type II Status:Active Commen ts:grandfather Ovarian Cancer Status:Active Comments:grandmo ther arthritis Status:Active Comments:grandpa rents Diabetes Mellitus Type II Status:Active Commen ts:grandfather Ovarian Cancer Status:Active Comments:grandmo ther arthritis Status:Active Comments:grandpa rents Diabetes Mellitus Type II Status:Active Commen ts:grandfather Ovarian Cancer Status:Active Comments:grandmo ther arthritis Status:Active Comments:grandpa rents Diabetes Mellitus Type II Status:Active Commen ts:grandfather Ovarian Cancer Status:Active Comments:grandmo ther arthritis Status:Active Comments:grandpa rents Diabetes Mellitus Type II Status:Active Commen ts:grandfather Ovarian Cancer Status:Active Comments:grandmo ther arthritis Status:Active Comments:grandpa rents Diabetes Mellitus Type II Status:Active Commen ts:grandfather Ovarian Cancer Status:Active Comments:grandmo ther arthritis Status:Active Comments:grandpa rents Diabetes Mellitus Type II Status:Active Commen ts:grandfather Ovarian Cancer Status:Active Comments:grandmo ther arthritis Status:Active Comments:grandpa rents Diabetes Mellitus Type II Status:Active Commen ts:grandfather Ovarian Cancer Status:Active Comments:grandmo ther arthritis Status:Active Comments:grandpa rents Diabetes Mellitus Type II Status:Active Commen ts:grandfather Ovarian Cancer Status:Active Comments:grandmo ther arthritis Status:Active Comments:grandpa rents Diabetes Mellitus Type II Status:Active Commen ts:grandfather Ovarian Cancer Status:Active Comments:grandmo ther arthritis Status:Active Comments:grandpa rents Diabetes Mellitus Type II Status:Active Commen ts:grandfather Ovarian Cancer Status:Active Comments:grandmo ther arthritis Status:Active Comments:grandpa rents Diabetes Mellitus Type II Status:Active Commen ts:grandfather Ovarian Cancer Status:Active Comments:grandmo ther arthritis Status:Active Comments:grandpa rents Diabetes Mellitus Type II Status:Active Commen ts:grandfather Ovarian Cancer Status:Active Comments:grandmo ther arthritis Status:Active Comments:grandpa rents Diabetes Mellitus Type II Status:Active Commen ts:grandfather Ovarian Cancer Status:Active Comments:grandmo ther arthritis Status:Active Comments:grandpa rents Diabetes Mellitus Type II Status:Active Commen ts:grandfather Ovarian Cancer Status:Active Comments:grandmo ther arthritis Status:Active Comments:grandpa rents Diabetes Mellitus Type II Status:Active Commen ts:grandfather Ovarian Cancer Status:Active Comments:grandmo ther arthritis Status:Active Comments:grandpa rents Diabetes Mellitus Type II Status:Active Commen ts:grandfather Ovarian Cancer Status:Active Comments:grandmo ther arthritis Status:Active Comments:grandpa rents Diabetes Mellitus Type II Status:Active Commen ts:grandfather Ovarian Cancer Status:Active Comments:grandmo ther Advance Directives Advance Directive Response Recorded Date/ Time Living Will No November 20th, 2 019 1:48pm Power of Corporate Affairs Manager No June 10, 2019 1:48pm Advance Directive Response Recorded Date/ Time Living Will No August 22 6:12pm Do you have a Healthcare Power of Corporate Affairs Manager? No August 22, 2024 6:12pm Date Activated Date Inactivated Comments 11/24/2024 11:50 AM 11/24/2024 6:45 PM Chief Complaint and Reason for Visit Chief Complaint RUQ PAIN Chief Complaint Admit Date CHRONIC TONSILLITIS August 18, 2024 3 :36pm SORE THROAT August 22, 2024 5 :00pm EKG ABNORMALITY October 13, 2024 12: 39pm Reason for Referral Specialty Diagnoses / Procedures Referred By Contac t Referred To Contact Radiology Diagnoses Epigastric pain Nausea Bloating Change in bowel habits RLQ abdominal pain Procedures CT Abdomen Pelvis With Contrast Dennis Roach CNP [address] [place] [address] Referral ID Status Reason Start Date Expiration Date V isits Requested Visits Authorized [id number] New Request 03/05/2023 03/04/2024 1 1 Specialty Diagnoses / Procedures Referred By Contac t Referred To Contact General Surgery Diagnoses Gastroesophageal reflux disease, unspecified whether esophagitis present Dennis Roach, AAKASH [address] [place] [address] Edilberto Valencia MD [facility] [address] [address] Referral ID Status Reason Start Date Expiration Date Visits Requested Visits Authorized [id number] Authorized Patient Preference 08/21/2023 08/20/2024 1 1 Additional Source Comments INFORMATION SOURCE (unrecogn ized section and content) DATE CREATED AUTHOR 01/14/2018 [facility] DATE CREATED AUTHOR AUTHOR'S ORGANIZ ATION 01/14/2018 [facility] DATE CREATED AUTHOR AUTHOR'S ORGANIZ ATION 02/16/2020 [facility] DATE CREATED AUTHOR AUTHOR[facility]S ORGANIZ ATION [facility] DATE CREATED AUTHOR AUTHOR'S ORGANIZ ATION 08/20/2021 [facility] DATE CREATED AUTHOR AUTHOR'S ORGANIZ ATION 10/03/2022 Darrel Hernandezjennifer [facility] DATE CREATED AUTHOR AUTHOR'S ORGANIZ ATION 09/06/2024 [facility] DATE CREATED AUTHOR AUTHOR'S ORGANIZ ATION 10/31/2024 [facility] DATE CREATED AUTHOR AUTHOR'S ORGANIZ ATION 12/01/2024 [facility] DATE CREATED AUTHOR AUTHOR'S ORGANIZ ATION 12/04/2024 [facility] DATE CREATED AUTHOR AUTHOR'S ORGANIZ ATION 01/05/2025 [facility] Teams (unrecognized sec tion and content) Team Status: Active Member Role Status Dates Dr. Zev Mckinney MD Family Provider Active MISHA Timmons Primary Care Provider Active Team Status: Inactive Member Role Status Dates MISHA Timmons Primary Care Provider, Attending Provider Active Back Tender Fourdrinier Relationship Specialty Start Date End Date Zayra Carrizales PA-C [address] [place] [address] PCP - General Physician Manager Of Revenue 02/20/23 Back Tender Fourdrinier Relationship Specialty Start Date End Date Zayra Carrizales PA-C [address] [place] [address] PCP - General Physician Manager Of Revenue 02/20/23 Back Tender Fourdrinier Relationship Specialty Start Date End Date Zayra Carrizales PA-C [address] [place] [address] PCP - General Physician Manager Of Revenue 02/20/23 Back Tender Fourdrinier Relationship Specialty Start Date End Date Zayra Carrizales PA-C [address] [place] [address] PCP - General Physician Manager Of Revenue 02/20/23 Back Tender Fourdrinier Relationship Specialty Start Date End Date Zayra Carrizales PA-C [address] [place], [place] [id number] PCP - General Physician Manager Of Revenue 02/20/23 Dennis Roach CNP [address] [place] [address] Referring Physician Gastroenterology 08/21/23 Back Tender Fourdrinier Relationship Specialty Start Date End Date Zayra Carrizales PA-C [address] [place] [id number] PCP - General Physician Manager Of Revenue 02/20/23 Dennis Roach CNP [address] [place] [address] Referring Physician Gastroenterology 08/21/23 Back Tender Fourdrinier Relationship Specialty Start Date End Date Zayra Carrizales PA-C [address] [place] [id number] PCP - General Physician Manager Of Revenue 02/20/23 Dennis Roach CNP [address] [place] [address] Referring Physician Gastroenterology 08/21/23 Back Tender Fourdrinier Relationship Specialty Start Date End Date Zayra Carrizales PA-C [address] [place] [id number] PCP - General Physician Manager Of Revenue 02/20/23 Dennis Roach CNP [address] [place] [address] Referring Physician Gastroenterology 08/21/23 Back Tender Fourdrinier Relationship Specialty Start Date End Date Zayra Carrizales PA-C [address] [place] [phone] PCP - General Physician Manager Of Revenue 02/20/23 Dennis Roach CNP [address] [place] [address] Referring Physician Gastroenterology 08/21/23 Back Tender Fourdrinier Relationship Specialty Start Date End Date Zayra Carrizales PA-C [address] [place] [phone] PCP - General Physician Manager Of Revenue 02/20/23 Dennis Roach CNP [address] [place] [address] Referring Physician Gastroenterology 08/21/23 Back Tender Fourdrinier Relationship Specialty Start Date End Date Zayra Carrizales PA-C [address] [place] [phone] PCP - General Physician Manager Of Revenue 02/20/23 Dennis Roach CNP [address] [place] [address] Referring Physician Gastroenterology 08/21/23 Back Tender Fourdrinier Relationship Specialty Start Date End Date Zayra Carrizales PA-C [address] [place] [phone] PCP - General Physician Manager Of Revenue 02/20/23 Dennis Roach CNP [address] [place] [address] Referring Physician Gastroenterology 08/21/23 [place] [address] [place] [id number] General Surgery 11/25/23 Back Tender Fourdrinier Relationship Specialty Start Date End Date Zayra Carrizales PA-C [address] [place] [id number] PCP - General Physician Manager Of Revenue 02/20/23 Dennis Roach, AAKASH [address] [place] [address] Referring Physician Gastroenterology 08/21/23 Zach Shields MD [address] [place] [address] General Surgery 11/25/23 Back Tender Fourdrinier Relationship Specialty Start Date End Date Zayra Carrizales PA-C [address] [place] [phone] PCP - General Physician Manager Of Revenue 02/20/23 Dennis Roach CNP [address] [place] [address] Referring Physician Gastroenterology 08/21/23 Zach Shields MD [address] [place] [address] General Surgery 11/25/23 Back Tender Fourdrinier Relationship Specialty Start Date End Date Zayra Carrizales PA-C [address] [place] [phone] PCP - General Physician Manager Of Revenue 02/20/23 Dennis Roach CNP [address] [place] [address] Referring Physician Gastroenterology 08/21/23 Zach Shields MD [address] [place] [address] General Surgery 11/25/23 Back Tender Fourdrinier Relationship Specialty Start Date End Date Zayra Carrizales PA-C [address] [place] [id number] PCP - General Physician Manager Of Revenue 02/20/23 Dennis Roach CNP [address] [place] [address] Referring Physician Gastroenterology 08/21/23 Zach Shields MD [address] [place] [facility] [place] [address] General Surgery 11/25/23 Team Status: Active Member Role Status Dates MISHA Timmons Primary Care Provider Active Team Status: Inactive Member Role Status Dates MISHA Timmons Primary Care Provider Active Start: August 18, 2024 End: August 18, 2024 Dr. Rod Bernardo MD Attending Provider Activ e Start: August 18, 2024 End: August 18, 2024 Dr. Rod Bernardo MD Referring Provider Activ e Start: August 18, 2024 End: August 18, 2024 Team Status: Inactive Member Role Status Dates MISHA Timmons Primary Care Provider Active Start: August 22, 2024 End: August 22, 2024 Dr. Lizbeth Nolasco DO Attending Provider Active Start: August 22, 2024 End: August 22, 2024 Dr. Lizbeth Nolasco DO Emergency Provider Active Start: August 22, 2024 End: August 22, 2024 Team Status: Inactive Member Role Status Dates MISHA Timmons Primary Care Provider Active Start: October 13, 2024 End: October 13, 2024 MISHA Timmons Attending Provider Active Start: October 13, 2024 End: October 13, 2024 MISHA Timmons Referring Provider Active Start: October 13, 2024 End: October 13, 2024 Team Status: Active Member Role Status Dates MISHA Timmons Primary Care Provider Active Start: October 13, 2024 Dr. Ruy Silver MD Attending Provider Active S tart: October 13, 2024 Back Tender Fourdrinier Relationship Specialty Start Date End Date Zayra Carrizales PA-C [address] [place] [phone] PCP - General Physician Manager Of Revenue 02/20/23 Dennis Roach CNP [address] [place] [address] Referring Physician Gastroenterology 08/21/23 Zach Shields MD [address] [facility] [place] [address] General Surgery 11/25/23 Back Tender Fourdrinier Relationship Specialty Start Date End Date Zayra Carrizales PA-C [address] [place] [phone] PCP - General Physician Manager Of Revenue 02/20/23 Dennis Roach, AAKASH [address] [place] [address] Referring Physician Gastroenterology 08/21/23 Zach Shields MD [address] [place] [address] General Surgery 11/25/23 Back Tender Fourdrinier Relationship Specialty Start Date End Date Zayra Carrizales PA-C [address] [place] [phone] PCP - General Physician Manager Of Revenue 02/20/23 Dennis Roach CNP [address] [place] [address] Referring Physician Gastroenterology 08/21/23 Zach Shields MD [address] [place] [address] General Surgery 11/25/23 Back Tender Fourdrinier Relationship Specialty Start Date End Date Zayra Carrizales PA-C [address] [place] [id number] PCP - General Physician Manager Of Revenue 02/20/23 Dennis Roach CNP [address] [place] [address] Referring Physician Gastroenterology 08/21/23 Zach Shields MD [address] [place] [address] General Surgery 11/25/23 Goals (unrecognized section and content) Goals may be documented in a n alternate sectionGoals may be documented in an alternate section Reason for Visit (unrecogniz ed section and content) Reason Comments Establish Care new patient, Hx PCOS with irregular periods and hormonal imbalances. periods cause severe pain and are very heavy. frequent UTIs. change in vaginal discharge. I'm having a lot of discharge that is yellow and has a bad odor. I'm concerned for BV. burning and pain during sex. Pap 2020, normal. 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 No hx abnormal pap. Not on control now, was on pill, stopped 2 years ago. Reason Comments Chest Pain regurgitation Nausea Dysphagia Specialty Diagnoses / Procedures Referred By Kiarra muhammad Referred To Contact General Surgery Diagnoses Gastroesophageal reflux disease, unspecified whether esophagitis present EderDennis velarde, PEARL RESTORER [address] [place] [address] Edilberto Valencia MD [address] [place] [address] Referral ID Status Reason Start Date Expiration Date Visits Requested Visits Authorized [id number] Closed Patient Preference 08/21/2023 08/20/2024 1 1 Reason Comments Follow-up EGD, mccallum and esoph ageal manometry Reason Comments Follow-up 3 month f/u - to tra ck cycles, ovulation prediction kits, menses for last three months. Labs drawn on 10/08/23. Has been tracked. Did have a period, Jul, September and October but not August. Reason Comments Follow-up Fertility issues / s emen analysis. US f/u. Reason Comments Painful [place] Extreme pain and ble eding during intercourse. Then causes pain with BM and passing gas. Not . 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 This clinical summary was aggregated from multiple sources. Caution should be exercised in using it in the provision of clinical care. This summary normalizes information from multiple sources, and as a consequence, information in this document may materially change the coding, format and clinical context of patient data. In addition, data may be omitted in some cases. CLINICAL DECISIONS SHOULD BE BASED ON THE PRIMARY CLINICAL RECORDS. [employer] provides no warranty or guarantee of the accuracy or completeness of information in this document.
[2025-01-09 09:53] LABS: Absolute Lymphocyte Count 2.16 X10^3/uL (0.83-4.51); Absolute Neutrophil Count 4.9 X10^3/uL (2.0-7.7); Basophil# 0.06 X10^3/uL; Basophil% 0.7 % (0-1); Eosinophil# 0.22 X10^3/uL; Eosinophils% 2.7 % (0-5); Hematocrit 42.3 % (37-47); Hemoglobin 14.1 g/dL (12.0-15.0); Lymphocyte # 2.16 X10^3/ul (0.83-4.51); Lymphocyte % 26.6 % (19-41); Mean Corp Hgb Conc 33.3 g/dL (32-36); Mean Corpuscular Hgb 29.2 pg (27.0-32.0); Mean Corpuscular Volume 87.6 fL (81-99); Mean Platelet Vol. 10.1 fl (6.2-12.0); Monocyte# 0.79 X10^3/uL; Monocyte% 9.7 % (0-10); NRBC Flagged by Analyzer 0 % (0-5); Neutrophil # 4.86 X10^3/uL (2.7-7.7); Neutrophil % 59.8 % (47-70); Platelet Count 278 K/mm3 (150-450); RBC Distribution Width CV 11.8 % (11.6-14.6); RBC Distribution Width SD 37.3 fl (35.1-43.9); Red Blood Count 4.83 M/mm3 (4.2-5.4); White Blood Count 8.1 K/mm3 (4.4-11.0)
[2025-01-09 10:09] LABS: Internal QC Validated? YES +Cl - CLEAR BKGD; Pregnancy, Serum, hCG Quali. NEGATIVE Negative
[2025-01-09 10:21] LABS: Anion Gap 11 (5-15); BUN 18 mg/dL (4-19); Calcium,Total 9.8 mg/dL (7.6-11.0); Carbon Dioxide 26.8 mmol/L (21.0-32.0); Chloride 101 mmol/L (98-108); Creatinine, Serum 0.68 mg/dL (0.70-1.20); EST Glomerular Filtration Rate 123 (>60); Glucose 87 mg/dL (70-99); Potassium 4.4 mmol/L (3.3-5.1); Sodium Level 139 mmol/L (133-145)
== END | disposition home or self-care (01) ==
LOC: LAB 09:30
PROVIDERS: PCP Physician Assistant; Referring Provider Internal Medicine Cardiovascular Disease; Visit Provider Internal Medicine Cardiovascular Disease
DX: R55 Syncope and collapse (principal); R00.2 Palpitations
CPT/HCPCS: 36415; 80048; 84703; 85025

== ENCOUNTER → 2025-01-12 | Outpatient (CLI) | payer BC, SELFPAY ==
--- OUTSIDE RECORDS SUMMARY | 2025-01-12 20:51 | XMS RPT_ITS | CCD ---
Author Organization [facility] Care Team Providers Care Molder Fitting Name Role Phone IVETTE MCCRACKEN Unavailable Unavailab IVETTE Sagastume Unavailable Unavailab ZEV Sierra Unavailable Unavailable ZEV MCKINNEY Unavailable Unavailable ZINAWILLY Unavailable Unavailable ZINA WILLY J Unavailable Unavailable Gilbert GARAY Unavailable Unavailable ZINA WILLY J Unavailable Unavailable ZEV MCKINNEY Unavailable Unavailable NEGRITA MEJIA Attending Unavail able CARRIZALES, ZAYRA J Primary Care Unavailable CARRIZALES, ZAYRA J Consulting Unavailable CARRIZALES, ZAYRA J Attending Unavailable CARRIZALES, ZAYRA J Admitting Unavailable PROVIDER, UNKNOWN Consulting Unavailable CARRIZALES, ZAYRA J Primary Care Unavailable CARRIZALES, ZAYRA J Consulting Unavailable CARRIZALES, ZAYRA J Attending Unavailable CARRIZALES, ZAYRA J Admitting Unavailable PROVIDER, UNKNOWN Consulting Unavailable All ONOFRE Zayra J Primary Care Provider All CABRAL-C, Zayra J Primary Care Provider Eder TERMINAL OPERATIONS SUPERVISOR, Dennis Magui Unavailable All CHILDC Zayra J Unavailable All ONOFRE, Zayra J Unavailable Dr. Harjeet Thakur Unavailable General Surgery Provider Unavailable Unavail able Gastroenterology Provider Unavailable Raysa Pena LPN Unavailable Unavaillarry Warren MD, Ese Lance Unavailable Bernie Kurtz LPN Unavailable Zev Mckinney MD Unavailable Erica Washington LPN Unavailable Unavailable Maira Srivastava LPN Unavailable Unavailable Leila Jimenez MA Unavailable Unavailable Rashad ALSTON, Andree Berg Unavailable Unavaila ble Antonio MANAGER MUSIC, Donald Unavailable Unavailable Mutersbaugh MANAGER MUSIC, Jes K Unavailable Unavai lable Mary Anne MANAGER MUSIC, Ese M Unavailable Unavailab le Nereyda MANAGER MUSIC, Dunia Tiwari Unavailable Unavailab annalisa Benton MA, Reshma Unavailable Unavailable Uptain CNM, Crystal K Unavailable Vess MANAGER MUSIC, Neilee L Unavailable Unavailable Wengerd MANAGER MUSIC, Radha Unavailable Unavailabl e Zaugg MANAGER MUSIC, Yocasta Unavailable Unavailable Unavailable Unavailable Unavailable Unavailable Cornelius AGUAYO, Zach Hunter Unavailable [phone] Liban MANAGER MUSIC, Reshma Unavailable Unavailable Brock ONOFRE, Brittney Canales Unavailable [facility] Unavailable [facility] Attending Unavailable Zayra Cagle Primary Care Provider Dr. Rod Bernardo MD Attending Provider Dr. Rod Bernardo MD Referring Provider Dr. Lizbeth Nolasco DO Attending Provider Dr. Lizbeth Nolasco DO Emergency Provider Zayra Cgale Attending Provider Zayra Cagle Referring Provider Adrianne AGUAYO, Dr. Redmond Attending [...] Care Unavailable PASKEY, ZAYRA FILEMON Admitting Unavailable BANKSASHLEY Attending Unavailabl e CARRIZALES, ZAYRA J Primary Care Unavailable PASKEY, ZAYRA FILEMON Admitting Unavailable CARRIZALES, ZARYA J Primary Care Unavailable PASKEY, ZAYRA FILEMON Attending Unavailable Rod Bernardo Attending Unavailabl e Warjacqueline, Rod Referring Unavailabl e Carrizales, Zayra Primary Care Unavailable Carrizales, Zayra Primary Care Unavailable Carrizales, Zayra Attending Unavailable Carrizales, Zayra Referring Unavailable Lizbeth Nolasco Attending Unavailable Carrizales, Zayra Primary Care Unavailable Carrizales, Zayra Primary Care Unavailable Adrianne, Ruy Attending Unavailable Adrianne, [place] Referring Unavailable Carrizales, Zayra Primary Care Unavailable Adrianne, Ruy Attending Unavailable Adrianne, Ruy Referring Unavailable Adrianne, Ruy Attending Unavailable Carrizales, Zayra Primary Care Unavailable Carrizales, Zayra Primary Care Unavailable Adrianne, Ruy Attending Unavailable Carrizales, Zayra Referring Unavailable Allergies Allergy Classification Reported Allergen(s) Allergy Type Date of Onset Reaction(s) Facility (20 sources) Latex; Translations: [Latex] Propensity to adverse reactions (disorder) 9 [facility] Repository Medications Current Medications Medication Drug Class(es) [...] day . 60 tablet 0 04/24/2023 Active Doxylamine (20 sources) doxylamine succinate (UNISOM, DOXYLAMINE, ORAL) Take by mouth at bedtime . Active doxylamine succi karrie (UNISOM, DOXYLAMINE, ORAL) Take by mouth at bedtime . 0 Active FLUoxetine 40 mg oral capsule (20 sources) Serotonin Reuptake Inhibitor Start: 09-26-2022 FLUoxetine 40 mg capsule ; 1 (one) Capsule daily for 0 days Quantity: 30 {Capsule} Refills: 3 Ordered: 19-Oct-2024 KINGSTON Carrizales Start: 19-Oct-2024 Comments: dose increase Comment on above: dose increase ibuprofen 600 [...] (20 sources) take 1 capsule by mo ut at bedtime magnesium glycinate-mag oxide 120 mg magnesium cap Take 1 (one) capsule (120 mg total) by mouth at bedtime . Active take 1 capsule by mouth at bedti me magnesium glycinate-mag oxide 120 mg magnesium cap [...] 10, 2019 1:00am September 26, 2022 10:21am dicyclomine hydrochloride 20 mg oral tablet (20 sources) Anticholinergic Start: 02-06-2023 End: 05-20-2024 dicyclomine 20 mg tablet ; 1 (one) tablet four times daily as needed for 0 days Quantity: 28 {Tablet} Refills: 0 Ordered: 20-May-2024 TONEY Louie Start: 06-Feb-2023 End: 20-May-2024 Status: Inactive Comments: Medication taken as needed. Start: 01-25-2016 End: 12-13-2016 take 1 capsule by mouth three times daily as needed Bentyl 10 MG Oral Capsule ; 1 Capsule TID as needed for 0 days Quantity: 60 {Capsule} Refills: 5 Ordered: 13-Dec-2016 TNOEY Roberts Start: 25-Jan-2016 End: 13-Dec-2016 Status: Inactive Comments: Medication taken as needed. Comment on above: Medication taken as needed. ergocalciferol 1.25 mg oral capsule (20 sources) Provitamin D2 Compound Start: 01-11-20 23 End: 05-20-20 24 ergocalciferol (vitamin D2) 1,250 mcg (50,000 unit) capsule ; 1 (one) Capsule weekly for 0 days Quantity: 12 {Capsule} Refills: 0 Ordered: 20-May-2024 TONEY Louieelle Start: 10-Jan-2023 End: 20-May-2024 Status: Inactive escitalopram 20 mg oral tablet (20 sources) Serotonin Reuptake Inhibitor Start: 05-15-20 19 End: 09-27-19 23 take 1 tablet by mouth once daily Lexapro 20 MG Oral Tablet ; 1 (one) Tablet Tablet daily for 0 days Quantity: 30 {Tablet} Refills: 5 Ordered: 31-Aug-2019 KINGSTON Carrizales Start: 22-Jun-2019 End: 31-Aug-2019 Status: Inactive Ethinyl Estradiol / Levonorgestrel (20 sources) Progestin, Estrogen, Progestin-containing Intrauterine Device Start: 03-24-20 End: 08-17-19 22 take 1 tablet by mouth once daily Aviane 0.1-20 MG-MCG Oral Tablet ; 1 (one) Tablet daily for 0 days Quantity: 1 {Package} Refills: 12 Ordered: 17-Aug-2021 KINGSTON Carrizales Start: 24-Mar-2020 End: 17-Aug-2021 Status: Inactive Ethinyl Estradiol / norgestimate (20 sources) Progestin, Estrogen Start: 07-25-19 End: 03-05-20 19 take 1 tablet by mouth once daily Sprintec 28 0.25-35 MG-MCG Oral Tablet ; 1 (one) Tablet daily for 0 days Quantity: 1 {Package} Refills: 5 Ordered: 05-Mar-2019 KINGSTON Carrizales Start: 25-Jul-2018 End: 05-Mar-2019 Status: Inactive famotidine 8 mg/ml oral suspension (9 sources) Histamine-2 Receptor Antagonist End: 06-26-20 24 take 2.5 mL by mouth twice daily famotidine (PEPCID) 40 mg/5 mL (8 mg/mL) suspension Take 2.5 mL (20 mg total) by mouth 2 (two) times a day . 06/26/2024 Discontinued (Patient's Request) fluconazole 150 mg oral tablet (20 sources) Azole Antifungal Start: 06-16-20 End: 09-04-19 fluconazole 150 mg tablet ; 1 (one) [...] {Tablet} Refills: 8 Ordered: 20-May-2024 TONEY Louie Reshma Start: 12-Mar-2023 End: 20-May-2024 Status: Inactive Start: [...] mg / trimethoprim 160 mg oral tablet (15 sources) Dihydrofolate Reductase Inhibitor Antibacterial, Sulfonamide Antimicrobial [...] source) Chronic tonsillitis; Translations: [Chronic tonsillitis] Onset: 5 Chronic Acute bronchitis (20 sources) Acute bronchitis; [...] (20 sources) Fatigue; Translations: [Other fatigue] Onset: 5 08-26-2023 Episodic Menstrual disorders (20 sources) Amenorrhea; Translations: [Amenorrhea, unspecified] 08-26-2023 Chronic Miscellaneous mental health disorders (20 sources) Eating disorder; Translations: [Eating disorder, unspecified] 08-26-2023 Chronic Mood disorders (1 source) Premenstrual dysphoric disorder; Translations: [Premenstrual dysphoric disorder] 12-02-2023 Chronic Mycoses (20 sources) Mycosis; Translations: [Candidiasis, unspecified] 12-12-2022 Episodic Nonspecific chest pain (20 sources) Non-cardiac chest pain; Translations: [Other chest pain] Onset: 4 09-04-2023 Episodic Nutritional deficiencies (20 sources) Vitamin D [...] [Personal history of other specified conditions] Onset: Episodic Unclassified (20 sources) Bloating - The [...] Nausea; Translations: [Nausea] Onset: 3 03-04-2023 Episodic Other gastrointestinal disorders (20 sources) Abdominal [...] with similar symptoms (some kids at a [employer] were sick). 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 04-28-2021 Unclassified (20 sources) UTI - Symptoms [...] Drinks lots of water.Had an US by [employer] PROJECT MANAGER and thinks they told her she has [...] for Well adult female: Going back to [facility] in the fall. 02-12-2020 Unclassified (20 sources) [...] completed to live in an apartment at [facility] in fall 2019 without a roomate. Gets [...] all negative. She saw Dr Rao at [facility] who felt she had IBS. No [...] Unclassified (1 source) Cold Symptoms 05-20-2024 Unclassified (20 sources) Cold Symptoms - Symptoms include runny [...] as well reviewed by [facility] 05-20-2024 Unclassified (15 sources) UTI - Symptoms include dysuria, urinary [...] Emergency Room/Urgent Care (Patient was seen at [facility] ER on 08/22/2024 for Acute dehydration, post-op pain, Nausea and vomiting, Abnormal ECG. Patient was prescribed Reglan 5mg every 6 hours PRN and Promethazine 25mg suppository every 6 hours as needed. Patient was discharged to home.). 09-04-2024 Unclassified (9 sources) [ADDITIONAL REASON] Transition into care - The patient is transitioning into care from an emergency room ([facility] 08/22/2024) and a summary of care was reviewed. 09-04-2024 Unclassified (8 sources) Follow up consultation - The patient is here to follow-up after Emergency Room/Urgent Care (Patient was seen at [facility] ER on 08/22/2024 for Acute dehydration, [...] transitioning into care from an emergency room ([facility] 08/22/2024) and a summary of care was reviewed. 09-04-2024 Unclassified (2 sources) [ADDITIONAL REASON] Follow up consultation - The patient is here to follow-up after Emergency Room/Urgent Care (Patient was seen at [facility] ER on 08/22/2024 for Acute dehydration, [...] Test Name Value Interpretation Reference Range Facility Basic Metabolic Profile (BMP )on 01-09-2025 BUN/CRE 26.0 RATIO High 10-20 [facility] Comment on above: Order Comment: For T ilt Table Performed By: #### L 100.0100, L500.2500, L700.6800 #### [facility] [address] [place], [address] Calcium [Mass/Vol] 9.8 mg/dL Normal 7.6-11.0 [facility] Comment on above: Order Comment: For T ilt Table Performed By: #### L 100.0100, L500.2500, L700.6800 #### [facility] [address] [place], [address] Chloride [Moles/Vol] 101 mmol/L Normal 98-108 [facility] Comment on above: Order Comment: For T ilt Table Performed By: #### L 100.0100, L500.2500, L700.6800 #### [facility] [address] [place], [address] CO2 [Moles/Vol] 26.8 mmol/L Normal 21.0-32.0 [facility] Comment on above: Order Comment: For T ilt Table Performed By: #### L 100.0100, L500.2500, L700.6800 #### [facility] [address] [place], [address] Creatinine [Mass/Vol] 0.68 mg/dL Low 0.70-1.20 [facility] Comment on above: Order Comment: For T ilt Table Performed By: #### L 100.0100, L500.2500, L700.6800 #### [facility] [address] [place], [address] GAP 11 Normal 5-15 [facility] Comment on above: Order Comment: For T ilt Table Performed By: #### L 100.0100, L500.2500, L700.6800 #### [facility] [address] [place], [address] GFR/1.73 sq M.predicted among non-blacks MDRD (S/P/Bld) [Vol rate/Area] 123 mL/min/{1.73_m2} Normal >60 [facility] Comment on above: Order Comment: For T ilt Table Result Comment: mL/m in/1.73m2 CKD-EPI Creatinine Equation (2020) Performed By: #### L 100.0100, L500.2500, L700.6800 #### [facility] [address] [place], [address] Glucose [Mass/Vol] 87 mg/dL Normal 70-99 [facility] Comment on above: Order Comment: For T ilt Table Performed By: #### L 100.0100, L500.2500, L700.6800 #### [facility] [address] [place], [address] Potassium [Moles/Vol] 4.4 mmol/L Normal 3.3-5.1 [facility] Comment on above: Order Comment: For T ilt Table Performed By: #### L 100.0100, L500.2500, L700.6800 #### [facility] [address] [place], [address] Sodium [Moles/Vol] 139 mmol/L Normal 133-145 [facility] Comment on above: Order Comment: For T ilt Table Performed By: #### L 100.0100, L500.2500, L700.6800 #### [facility] [address] [place], [address] Urea nitrogen [Mass/Vol] 18 mg/dL Normal 4-19 [facility] Comment on above: Order Comment: For T ilt Table Performed By: #### L 100.0100, L500.2500, L700.6800 #### [facility] [address] [place], [address] CBC W/Diff, Automatedon 06-2 -2024 Absolute Lymph 2.16 X10 3/uL Normal 0.83-4.51 [facility] Comment on above: Order Comment: Comme nts: For Tilt Table Performed By: #### L 100.0100, L500.2500, L700.6800 #### [facility] [address] [place], [address] Absolute Neut 4.9 X10 3/uL Normal 2.0-7.7 [facility] Comment on above: Order Comment: Comme nts: For Tilt Table Performed By: #### L 100.0100, L500.2500, L700.6800 #### [facility] [address] [place], [address] Basophils/100 WBC (Bld) 0.7 % Normal 0-1 [facility] Comment on above: Order Comment: Comme nts: For Tilt Table Performed By: #### L 100.0100, L500.2500, L700.6800 #### [facility] [address] [place], [address] Eosinophils/100 WBC (Bld) 2.7 % Normal 0-5 [facility] Comment on above: Order Comment: Comme nts: For Tilt Table Performed By: #### L 100.0100, L500.2500, L700.6800 #### [facility] [address] [place], [address] Erythrocyte distribution width (RBC) [Ratio] 11.8 % Normal 11.6-14.6 [facility] Comment on above: Order Comment: Comme nts: For Tilt Table Performed By: #### L 100.0100, L500.2500, L700.6800 #### [facility] [address] [place], [address] Hematocrit (Bld) [Volume fraction] 42.3 % Normal 37-47 [facility] Comment on above: Order Comment: Comme nts: For Tilt Table Performed By: #### L 100.0100, L500.2500, L700.6800 #### [facility] [address] [place], [address] Hemoglobin (Bld) [Mass/Vol] 14.1 g/dL Normal 12.0-15.0 [facility] Comment on above: Order Comment: Comme nts: For Tilt Table Performed By: #### L 100.0100, L500.2500, L700.6800 #### [facility] [address] [place], [address] IG% 0.500 Normal 0.0-0.9 [facility] Comment on above: Order Comment: Comme nts: For Tilt Table Result Comment: IG% - Immature Granulocytes (promyelocytes, myelocytes and metamyelocytes) > 1% indicates that a LEFT SHIFT is Present. Performed By: #### L 100.0100, L500.2500, L700.6800 #### [facility] [address] [place], [address] Lymphocytes/100 WBC (Bld) 26.6 % Normal 19-41 [facility] Comment on above: Order Comment: Comme nts: For Tilt Table Performed By: #### L 100.0100, L500.2500, L700.6800 #### [facility] [address] [place], [address] MCH (RBC) [Entitic mass] 29.2 pg Normal 27.0-32.0 [facility] Comment on above: Order Comment: Comme nts: For Tilt Table Performed By: #### L 100.0100, L500.2500, L700.6800 #### [facility] [address] [place], [address] MCHC (RBC) [Mass/Vol] 33.3 g/dL Normal 32-36 [facility] Comment on above: Order Comment: Comme nts: For Tilt Table Performed By: #### L 100.0100, L500.2500, L700.6800 #### [facility] [address] [place], [address] MCV (RBC) [Entitic vol] 87.6 fL Normal 81-99 [facility] Comment on above: Order Comment: Comme nts: For Tilt Table Performed By: #### L 100.0100, L500.2500, L700.6800 #### [facility] [address] [place], [address] Monocytes/100 WBC (Bld) 9.7 % Normal 0-10 [facility] Comment on above: Order Comment: Comme nts: For Tilt Table Performed By: #### L 100.0100, L500.2500, L700.6800 #### [facility] [address] [place], [address] Neutrophils/100 WBC (Bld) 59.8 % Normal 47-70 [facility] Comment on above: Order Comment: Comme nts: For Tilt Table Performed By: #### L 100.0100, L500.2500, L700.6800 #### [facility] [address] [place], [address] Nucleated RBC (Bld) [#/Vol] 0 10*3/uL Normal 0-5 [facility] Comment on above: Order Comment: Comme nts: For Tilt Table Performed By: #### L 100.0100, L500.2500, L700.6800 #### [facility] [address] [place], [address] Platelet mean volume (Bld) [Entitic vol] 10.1 fL Normal 6.2-12.0 [facility] Comment on above: Order Comment: Comme nts: For Tilt Table Performed By: #### L 100.0100, L500.2500, L700.6800 #### [facility] [address] [place], [address] Platelets (Bld) [#/Vol] 278 10*3/uL Normal 150-450 [facility] Comment on above: Order Comment: Comme nts: For Tilt Table Performed By: #### L 100.0100, L500.2500, L700.6800 #### [facility] [address] [place], [address] RBC (Bld) [#/Vol] 4.83 10*6/uL Normal 4.2-5.4 [facility] Comment on above: Order Comment: Comme nts: For Tilt Table Performed By: #### L 100.0100, L500.2500, L700.6800 #### [facility] [address] [place], [address] RDW SD 37.3 fl Normal 35.1-43.9 [facility] Comment on above: Order Comment: Comme nts: For Tilt Table Performed By: #### L 100.0100, L500.2500, L700.6800 #### [facility] [address] [place], [address] WBC (Bld) [#/Vol] 8.1 10*3/uL Normal 4.4-11.0 [facility] Comment on above: Order Comment: Comme nts: For Tilt Table Performed By: #### L 100.0100, L500.2500, L700.6800 #### [facility] [address] [place], [address] ,Serum,hCG Quali.on 01-09-2025 HCG, SERUM QUAL Negative Normal [facility] Comment on above: Order Comment: For T ilt Table Performed By: #### L 100.0100, L500.2500, L700.6800 #### [facility] [address] [place], [address] OP NOTEon 11-24-2024 OP NOTE Operative Note [...] blockage SURGEON: Zayra Flores MD OR STAFF: Supervisor Air Conditioning Installer: Trinh Hansen RN; Kaylan Murphy RN Scrub Person Preceptor: Ananya Osman ST Scrub Person Orientee: Macey Rodriguez ST DRONE PILOT: Sheba Knowles RN ANESTHESIA STAFF: Anesthesiologist: Andrea Rosa MD FISHING WORKER: Stevie Trivedi CRNA Anesthesiologist Computer Operator: Nando Oh AA SPECIMEN(S): ID Type Source Tests Collected by Time Destination A : left para-tubal cyst Tissue Soft Tissue, Please Specify TISSUE EXAM Zayra Flores MD 11/24/2024 1437 IMPLANTS: * No implants in log * ESTIMATED BLOOD LOSS: 2 mL UOP: 200 mL TYPE OF ANESTHESIA USED: General INTRA AND IMMEDIATE POST-OP COMPLICATIONS: None PROCEDURE: The patient was brought to the operating room where general anesthetic was placed and was found to be adequate. She was prepped and draped in normal sterile fashion and placed in the dorsal lithotomy position in [facility] stirrups. A weighted speculum was placed the [...] 4-0 Monoc (more content not included)... Normal [facility] POC , URINE - RALSo n 11-24-2024 Beta HCG ( test) Ql (U) Negative Normal Negative [facility] Comment on above: Order Comment: Negat rama: Dilute urine specimens, as indicated by a low specific gravity (<1.010) may not contain representitive levels of hCG. If is still suspected, a serum test or repeat urine test using a first morning urine specimen should be considered. Performed By: #### 4 [id number] #### [facility] [address] [place], [place] [address] Ilan Alatorre M.D. [id number] TISSUE EXAMon 11-24-2024 TISSUE EXAM Surgical Pathology Report Case: [id number] Authorizing Provider: Zayra Flores MD Collected: 11/24/2024 02:37 PM Ordering Location: [facility] Periop Received: 11/24/2024 03:56 PM Pathologist: Yocasta [...] 2 cassettes. JR Gross examination performed at: [facility] - [address] [place] [address] Microscopic examination is performed. Normal [facility] Comment on above: Performed By: #### 4 [id number] #### [place] [address] Ilan Alatorre M.D. [id number] US TRANSVAGINALon 11-11-2024 US TRANSVAGINAL Uterus 6.5 x 4.2 cm. Polycystic appearance of right ovary. Small complex left ovarian cyst 1.2 x 1.1 cm without surrounding free fluid. Dictated by: ZAYRA MCCARTHY on [place] Nov 15, 2024 3:57:40 PM EDT Transcribed by: ZAYRA MCCARTHY on [place] Nov 15, 2024 3:57:40 PM EDT Finalized by: ZAYRA MCCARTHY on [place] Nov 15, 2024 3:57:40 PM EDT Normal [facility] Ambulatory PROGESTERONEon 10-30-2024 PROGESTERONE 27.4 ng/mL Normal [facility] Comment on above: Order Comment: FASTI NG:NO FASTING: NO Result Comment: Refe rence Ranges Female Follicular Phase < 1.0 Luteal Phase 2.6-21.5 Post menopausal < 0.5 1st Trimester 4.1-34.0 2nd Trimester 24.0-76.0 3rd Trimester 52.0-302.0 Performed By: #### 7 45 #### [facility] [address], [address] [place] [id number] Staff Development Manager: Arpit Mills MD 12 Lead EKG performed by [facility] on 10-21-2024 12 Lead EKG performed by [facility] [address] [place] [address] 12 Lead EKG performed by [facility] 10/21/24 1434 MR#: [id number] Acct: [id number] Name: KATHLEEN WEINBERG Rep #: [id number] : 2000 23 From: Ruy Silver MD Attending Dr: Dr. Ruy Silver MD Status: DEP A MB Ordering Dr: Ruy Silver MD Date: 10/21/24 Location: [facility] Sex: F C Admitted: BMS/12 Lead EKG performed by [facility] ECG Report Interpretation ------Sinus Rhythm -Short OR syndrome Liss = 114-Nonspecific ST depression + Nonspecific T-abnormality -Abnormal but nondiagnostic for this age. ABNORMAL Electronically signed on 10/28/2024 at 11:31 by Ruy [employer] Software Version [id number] 10/28/24 1135 Date Ruy Silver MD CC: MISHA Dominguez Date Dictated: 10/21/241433 Date Transcribed: 10/21/24 143 Crm Administrator: [place] Signed Normal [facility] Cardiology Visit Reporton Cardiology Visit Report [facility] [address] [place] [address] OFFICE VISIT Date of Service: 10/21/24 MR#: [id number] Acct: [id number] Name: KATHLEEN WEINBERG Rep #: [id number] : 2000 Provider: Dr. Ruy Silver MD Age/Sex: 23/F Location: [facility] Status: Signed HPI HPI History of Present [...] Source Monitor Intake Visit Reasons: ABN EKG (CARRIZALES) Splitting Machine Operator Required: No Accompanied by: Self Is patient [...] tabs promethazine 25 mg rectal 25 mg OR Q6H PRN nausea and 10/21/24 Rx suppository [...] respiratory e (more content not included)... Normal [facility] Stress Test Echo W/Contrasto n 10-13-2024 Stress Test Echo W/Contrast [facility] [address] [place] [address] Stress Test Echo W/Contrast MR#: [id number] Acct: [id number] Name: KATHLEEN WEINBERG Rep #: [id number] : 2000 23 From: Ruy Silver MD Primary Care: MISHA [...] Physician: Zayra Carrizales Performed By: Cathy Lin, BERNARD, RVT 10/13/24 165 Date Ruy Silver MD CC: MISHA Dominguez Date Dictated: 10/13/24 1308 Date Transcribed: 10/13/241651 Crm Administrator: Signed Normal [facility] Stress echocardiogram study reportOrdered By: Ruy Silver on 10-13-2024 Stress cardiac echo study report [facility] [address] [place] [address] Stress Test Echo W/Contrast MR#: [id number] Acct: [id number] Name: KATHLEEN WEINBERG Rep #: [id number] : 2000 From: Ruy Silver MD Primary [...] Carrizales Performed By: Cathy Lin, RDCS, RVT 10/13/241651 Date _ Ruy Silver MD CC: MISHA Dominguez ~ Date Dictated: 10/13/24 1308 Date Transcribed: 10/13/241651 Crm Administrator: Signed [facility] Work Phone: 12 Lead EKGon 08-22-2024 12 Lead EKG [facility] [address] [place] [address] 12 Lead EKG 08/22/24 191 MR#: [id number] Acct: [id number] Name: KATHLEEN WEINBERG Rep #: [id number] : 2000 From: Ruy Silver MD Attending [...] Abnormal ECG Confirmed by RUY SILVER MD ([id number]), assignment desk editor TUCKER SMITH ([id number]) on 08/24/2024 8:20:27 AM Referred By: Confirmed By: RUY SILVER MD 08/24/24 0820 Date Ruy Silver MD CC: Dr. Lizbeth Nolasco DO; MISHA Dominguez Signed Normal [facility] Absolute neutrophil countOrd ered By: Lizbeth Nolasco on 08-22-2024 Neutrophils (Bld) [#/Vol] 14.1 10*3/uL High 2.0-7.7 [facility] Albumin to globulin ratioOrd ered By: Lizbeth Nolasco on 08-22-2024 Albumin/Globulin [Mass ratio] 0.9 {ratio} 0.9-2.4 [facility] Basophil percentageOrdered B y: Lizbeth Nolasco on 08-22-2024 Basophils/100 WBC (Bld) 0.4 % 0-1 [facility] Test strip Ql (U)O rdered By: Lizbeth Nolasco on 08-22-2024 Bilirubin Ql (U) Negative Negative [facility] Bilirubin, totalOrdered By: Lizbeth Nolasco on 08-22-2024 Bilirubin [Mass/Vol] 0.40 mg/dL 0.20-1.00 [facility] Comment on above: For patients on eltr ombopag therapy, use of Dimension Mason TBIL is not recommended. Blood urea nitrogen (BUN)/cr eatinine ratioOrdered By: Lizbeth Nolasco on 08-22-2024 Urea nitrogen/Creatinine [Mass ratio] 18.9 mg/mg 10- [facility] CBC W/Diff, Automatedon Absolute Lymph 1.19 X10 3/uL Normal 0.83-4.51 [facility] Comment on above: Performed By: #### L 500.4050, L501.2450, L100.0100 ####[facility] [address] [place], [address] Absolute Neut 14.1 X10 3/uL High 2.0-7.7 [facility] Comment on above: Performed By: #### L 500.4050, L501.2450, L100.0100 ####[facility] [address] [place], [address] Basophils/100 WBC (Bld) 0.4 % Normal 0-1 [facility] Comment on above: Performed By: #### L 500.4050, L501.2450, L100.0100 ####[facility] [address] [place], [address] Eosinophils/100 WBC (Bld) 0.3 % Normal 0-5 [facility] Comment on above: Performed By: #### L 500.4050, L501.2450, L100.0100 ####[facility] [address] [place], [address] Erythrocyte distribution width (RBC) [Ratio] 11.8 % Normal 11.6-14.6 [facility] Comment on above: Performed By: #### L 500.4050, L501.2450, L100.0100 ####[facility] [address] [place], [address] Hematocrit (Bld) [Volume fraction] 39.0 % Normal 37-47 [facility] Comment on above: Performed By: #### L 500.4050, L501.2450, L100.0100 ####[facility] [address] [place], [address] Hemoglobin (Bld) [Mass/Vol] 13.4 g/dL Normal 12.0-15.0 [facility] Comment on above: Performed By: #### L 500.4050, L501.2450, L100.0100 ####[facility] [address] [place], [address] IG% 0.600 Normal 0.0-0.9 [facility] Comment on above: Result Comment: IG% - Immature Granulocytes (promyelocytes, myelocytes and metamyelocytes) > 1% indicates that a LEFT SHIFT is Present. Performed By: #### L 500.4050, L501.2450, L100.0100 ####[facility] [address] [place], [address] Lymphocytes/100 WBC (Bld) 7.2 % Low 19-41 [facility] Comment on above: Performed By: #### L 500.4050, L501.2450, L100.0100 ####[facility] [address] [place], [address] MCH (RBC) [Entitic mass] 29.1 pg Normal 27.0-32.0 [facility] Comment on above: Performed By: #### L 500.4050, L501.2450, L100.0100 ####[facility] [address] [place], [address] MCHC (RBC) [Mass/Vol] 34.4 g/dL Normal 32-36 [facility] Comment on above: Performed By: #### L 500.4050, L501.2450, L100.0100 ####[facility] [address] [place], [address] MCV (RBC) [Entitic vol] 84.6 fL Normal 81-99 [facility] Comment on above: Performed By: #### L 500.4050, L501.2450, L100.0100 ####[facility] [address] [place], [address] Monocytes/100 WBC (Bld) 5.9 % Normal 0-10 [facility] Comment on above: Performed By: #### L 500.4050, L501.2450, L100.0100 ####[facility] [address] [place], [address] Neutrophils/100 WBC (Bld) 85.6 % High 47-70 [facility] Comment on above: Performed By: #### L 500.4050, L501.2450, L100.0100 ####[facility] [address] [place], [address] Nucleated RBC (Bld) [#/Vol] 0 10*3/uL Normal 0-5 [facility] Comment on above: Performed By: #### L 500.4050, L501.2450, L100.0100 ####[facility] [address] [place], [address] Platelet mean volume (Bld) [Entitic vol] 9.8 fL Normal 6.2-12.0 [facility] Comment on above: Performed By: #### L 500.4050, L501.2450, L100.0100 ####[facility] [address] [place], [address] Platelets (Bld) [#/Vol] 282 10*3/uL Normal 150-450 [facility] Comment on above: Performed By: #### L 500.4050, L501.2450, L100.0100 ####[facility] [address] [place], [address] RBC (Bld) [#/Vol] 4.61 10*6/uL Normal 4.2-5.4 [facility] Comment on above: Performed By: #### L 500.4050, L501.2450, L100.0100 ####[facility] [address] [place], [address] RDW SD 35.9 fl Normal 35.1-43.9 [facility] Comment on above: Performed By: #### L 500.4050, L501.2450, L100.0100 ####[facility] [address] [place], [address] WBC (Bld) [#/Vol] 16.5 10*3/uL High 4.4-11.0 [facility] Comment on above: Performed By: #### L 500.4050, L501.2450, L100.0100 ####[facility] [address] [place], [address] Carbon dioxide measurementOr dered By: Lizbeth Nolasco on 08-22-2024 CO2 [Moles/Vol] 20.0 mmol/L Low 21.0-32.0 [facility] Chloride measurementOrdered By: Lizbeth Nolasco on 08-22-2024 Chloride [Moles/Vol] 101 mmol/L 98-107 [facility] Comprehensive Metabolic Prof ilon 08-22-2024 Albumin [Mass/Vol] 3.9 g/dL Normal 3.2-5.0 [facility] Comment on above: Performed By: #### L 500.4050, L501.2450, L100.0100 ####[facility] [address] [place], [address] Albumin/Globulin [Mass ratio] 0.9 {ratio} Normal 0.9-2.4 [facility] Comment on above: Performed By: #### L 500.4050, L501.2450, L100.0100 ####[facility] [address] [place], [address] ALK P 82 U/L Normal 45-117 [facility] Comment on above: Performed By: #### L 500.4050, L501.2450, L100.0100 ####[facility] [address] [place], [address] ALT [Catalytic activity/Vol] 25 U/L Normal 13-56 [facility] Comment on above: Performed By: #### L 500.4050, L501.2450, L100.0100 ####[facility] [address] [place], [address] AST [Catalytic activity/Vol] 12 U/L Low 15-37 [facility] Comment on above: Performed By: #### L 500.4050, L501.2450, L100.0100 ####[facility] [address] [place], [address] Bilirubin [Mass/Vol] 0.40 mg/dL Normal 0.20-1.00 [facility] Comment on above: Result Comment: For patients on eltrombopag therapy, use of Dimension Mason TBIL is not recommended. Performed By: #### L 500.4050, L501.2450, L100.0100 ####[facility] [address] [place], [address] BUN/CRE 18.9 RATIO Normal 10-20 [facility] Comment on above: Performed By: #### L 500.4050, L501.2450, L100.0100 ####[facility] [address] [place], [address] CA,Total 9.5 mg/dL Normal 8.5-10.1 [facility] Comment on above: Performed By: #### L 500.4050, L501.2450, L100.0100 ####[facility] [address] [place], [address] Chloride [Moles/Vol] 101 mmol/L Normal 98-107 [facility] Comment on above: Performed By: #### L 500.4050, L501.2450, L100.0100 ####[facility] [address] [place], [address] CO2 [Moles/Vol] 20.0 mmol/L Low 21.0-32.0 [facility] Comment on above: Performed By: #### L 500.4050, L501.2450, L100.0100 ####[facility] [address] [place], [address] Creatinine [Mass/Vol] 0.48 mg/dL Low 0.55-1.02 [facility] Comment on above: Result Comment: The validity of the calculated GFR GFRAA in patients over 70 years has not been determined. Clinical correlation is essential. Performed By: #### L 500.4050, L501.2450, L100.0100 ####[facility] [address] [place], [address] ECRCL 148.77 ml/min Normal [facility] Comment on above: Performed By: #### L 500.4050, L501.2450, L100.0100 ####[facility] [address] [place], [address] EST GFR - AA 204 mL/min Normal >60 [facility] Comment on above: Result Comment: Afri can Croatian GFR Calc Performed By: #### L 500.4050, L501.2450, L100.0100 ####[facility] [address] [place], [address] GAP 12 Normal 5-15 [facility] Comment on above: Performed By: #### L 500.4050, L501.2450, L100.0100 ####[facility] [address] [place], [address] GFR/1.73 sq M.predicted among non-blacks MDRD (S/P/Bld) [Vol rate/Area] 169 mL/min/{1.73_m2} Normal >60 [facility] Comment on above: Result Comment: Non- GFR Calc Performed By: #### L 500.4050, L501.2450, L100.0100 ####[facility] [address] [place], [address] Globulin (S) [Mass/Vol] 4.4 g/dL High 2.2-4.2 [facility] Comment on above: Performed By: #### L 500.4050, L501.2450, L100.0100 ####[facility] [address] [place], [address] Glucose [Mass/Vol] 103 mg/dL Normal 74-106 [facility] Comment on above: Result Comment: Fast ing Glucose result from 100 to 125 mg/dL suggests IMPAIRED HOMEOSTASIS per A.D.A. criteria. Performed By: #### L 500.4050, L501.2450, L100.0100 ####[facility] [address] [place], [address] Potassium [Moles/Vol] 3.6 mmol/L Normal 3.5-5.1 [facility] Comment on above: Performed By: #### L 500.4050, L501.2450, L100.0100 ####[facility] [address] [place], [address] Sodium [Moles/Vol] 133 mmol/L Low 136-145 [facility] Comment on above: Performed By: #### L 500.4050, L501.2450, L100.0100 ####[facility] [address] [place], [address] T PROT 8.3 g/dL High 6.4-8.2 [facility] Comment on above: Performed By: #### L 500.4050, L501.2450, L100.0100 ####[facility] [address] [place], [address] Urea nitrogen [Mass/Vol] 9 mg/dL Normal 7-18 [facility] Comment on above: Performed By: #### L 500.4050, L501.2450, L100.0100 ####[facility] [address] [place], [address] Emergency Department Summary on 08-22-2024 Emergency Department Summary [facility] Records Department [address] [facility] [place] [address] Emergency Department Summary 08/22/24 MR#: [id number] Acct: [id number] Name: KATHLEEN WEINBERG Rep #: [id number] : 2000 From: Lizbeth Nolasco DO PCP: MISHA Dominguez [...] since her surgery but is passing gas. [facility] Medical History Low vitamin D level [...] tabs promethazine 25 mg rectal 25 mg OR Q6H PRN nausea and Unknown Rx suppository [...] MDM MDM (more content not included)... Normal [facility] Eosinophil percentageOrdered By: Lizbeth Nolasco on 08-22-2024 Eosinophils/100 WBC (Bld) 0.3 % 0-5 [facility] Epithelial cells.squamous LM Ql (Urine sed)Ordered By: Lizbeth Nolasco on 08-22-2024 Epithelial cells.squamous LM.HPF (Urine sed) [#/Area] 0 /[HPF] 5-10 [facility] Erythrocyte distribution wid th ratioOrdered By: Lizbeth Nolasco on 08-22-2024 Erythrocyte distribution width (RBC) [Ratio] 11.8 % 11.6-14.6 [facility] Erythrocyte distribution wid th standard deviationOrdered By: Lizbeth Nolasco on 08-22-2024 Erythrocyte distribution width (RBC) [Entitic vol] 35.9 fL 35.1-43.9 [facility] Estimated glomerular filtrat ion rate (GFR) AmericanOrdered By: Lizbeth Nolasco on 08-22-2024 Estimated GFR (MDRD) Amer 204 mL/min >60 [facility] Comment on above: GFR Calc Estimation of creatinine radha aranceOrdered By: Lizbeth Nolasco on 08-22-2024 Estimated Creatinine Clearance Calc 148.77 ml/min [facility] Glomerular filtration rate ( GFR) estimationOrdered By: Lizbeth Nolasco on 08-22-2024 Estimated GFR (MDRD) Non-Af Amer 169 mL/min >60 [facility] Comment on above: Non- GFR Calc Glucose Ql (U)Ordered By: Clint Nolasco on 08-22-2024 Urine Glucose (UA) Normal mg/dl Normal [facility] Glucose measurementOrdered B y: Lizbeth Nolasco on 08-22-2024 Glucose [Mass/Vol] 103 mg/dL 74-106 [facility] Comment on above: Fasting Glucose resu lt from 100 to 125 mg/dL suggests IMPAIRED HOMEOSTASIS per A.D.A. criteria. Hematocrit Auto (Bld) [Volum e fraction]Ordered By: Lizbeth Nolasco on 08-22-2024 Hematocrit (Bld) [Volume fraction] 39.0 % 37-47 [facility] Hemoglobin measurementOrdere d By: Lizbeth Nolasco on 08-22-2024 Hemoglobin (Bld) [Mass/Vol] 13.4 g/dL 12.0-15.0 [facility] Immature granulocytes/100 WB C Auto (Bld)Ordered By: Lizbeth Nolasco on 08-22-2024 Immature granulocytes/100 WBC (Bld) 0.600 % 0.0-0.9 [facility] Comment on above: IG% - Immature Granu locytes (promyelocytes, myelocytes and metamyelocytes) > 1% indicates that a LEFT SHIFT is Present. Influenza virus A and B and SARS-CoV-2 (COVID-19) and Respiratory syncytial virus RNAOrdered By: Lizbeth Nolasco on 08-22-2024 SARS-CoV-2 (COVID-19) RNA VENTURA+probe Ql (Unsp spec) [facility] Ketones Test strip Ql (U)Ord ered By: Lizbeth Nolasco on 08-22-2024 Ketones Ql (U) 150 mg/dl Abnormal Negative [facility] Comment on above: CRITICAL VALUE *HCRI TICAL VALUE CALLED TO EDWIN BECKER08/22/24 1803 Dario Ellis.RESULTS READ BACK BY SAME. L501.4020on 08-22-2024 TROPONIN-I HS < 3 Low 3.0-54.0 [facility] Comment on above: Order Comment: 'TROP ' Serial specimen #1, #2 or #3: 1 Result Comment: Plea se Note: New Test Units and Gender Specific Reference Ranges. For more information see Policy Stat Procedure Mason High Sensitivity Troponin (TNIH) and attachments. Performed By: #### L 501.4020 #### [facility] [address] [place], [place], [address] Laboratory - Chemistry and C hemistry - challengeOrdered By: Lizbeth Nolasco on 08-22-2024 AST [Catalytic activity/Vol] 12 U/L Low 15-37 [facility] Lipaseon 08-22-2024 Lipase [Catalytic activity/Vol] 53 U/L Normal 13-75 [facility] Comment on above: Result Comment: Plea se note: LIPASE revised reference range effective 22. New Lipase methodology. Expected to produce lower values than the previous assay method. NEW Reference Range: 13 - 75 U/L Performed By: #### L 500.4050, L501.2450, L100.0100 ####[facility] [address] [place], [place], [address] Lipase measurementOrdered By : Lizbeth Nolasco on 08-22-2024 Lipase [Catalytic activity/Vol] 53 U/L 13-75 [facility] Comment on above: Please note:LIPASE r evised reference range effective 22. New Lipase methodology. Expected to produce lower values than the previous assay method. NEW Reference Range: 13 - 75 U/L Lymphocytes Auto (Unsp spec) [#/Vol]Ordered By: Lizbeth Nolasco on 08-22-2024 Lymphocytes (Bld) [#/Vol] 1.19 10*3/uL 0.83-4.51 [facility] Lymphocytes/100 WBC Auto (Un sp spec)Ordered By: Lizbeth Nolasco on 08-22-2024 Lymphocytes/100 WBC (Bld) 7.2 % Low 19-41 [facility] M100.678on 08-22-2024 M100.678 Pending SARS-CoV-2 (COVID 19) Negative INFLUENZA A Negative INFLUENZA B Negative RSV PCR Negative Normal [facility] Comment on above: Performed By: #### M 100.678, L400.7600, L400.0001 #### [facility] [address] [place], [address] MCV (mean corpuscular volume ) determinationOrdered By: Lizbeth Nolasco on 08-22-2024 MCV (RBC) [Entitic vol] 84.6 fL 81-99 [facility] Mean corpuscular hemoglobin (MCH) determinationOrdered By: Lizbeth Nolasco on 08-22-2024 MCH (RBC) [Entitic mass] 29.1 pg 27.0-32.0 [facility] Mean corpuscular hemoglobin concentration (MCHC) determinationOrdered By: Lizbeth Nolasco on 08-22-2024 MCHC (RBC) [Mass/Vol] 34.4 g/dL 32-36 [facility] Mean platelet volume determi nationOrdered By: Lizbeth Nolasco on 08-22-2024 Platelet mean volume (Bld) [Entitic vol] 9.8 fL 6.2-12.0 [facility] Microscopic analysis of urin e for red blood cells (RBC)Ordered By: Lizbeth Nolasco on 08-22-2024 Urine RBC 0 SEEN /hpf 0-5 [facility] Monocyte percentageOrdered B y: Lizbeth Nolasco on 08-22-2024 Monocytes/100 WBC (Bld) 5.9 % 0-10 [facility] Mucus LM Ql (Urine sed)Order ed By: Lizbeth Nolasco on 08-22-2024 Mucus Ql (Urine sed) 0 SEEN /hpf [facility] Neutrophil percentageOrdered By: Lizbeth Nolasco on 08-22-2024 Neutrophils/100 WBC (Bld) 85.6 % High 47-70 [facility] Nitrite Test strip Ql (U)Ord ered By: Lizbeth Nolasco on 08-22-2024 Nitrite Ql (U) Negative Negative [facility] Nucleated red blood cell per centageOrdered By: Lizbeth Nolasco on 08-22-2024 Nucleated RBC/100 WBC (Bld) [Ratio] 0 % 0-5 [facility] Platelet countOrdered By: Clint Nolasco on 08-22-2024 Platelets (Bld) [#/Vol] 282 10*3/uL 150-450 [facility] Potassium measurementOrdered By: Lizbeth Nolasco on 08-22-2024 Potassium [Moles/Vol] 3.6 mmol/L 3.5-5.1 [facility] ,Urineon 08-22-2024 Beta HCG ( test) Ql (U) Negative Normal [facility] Comment on above: Result Comment: Very dilute urine specimens, as indicated by a low specific gravity, may not contain dealer compliance representative levels of hCG. If is still suspected, a first morning urine specimen should be collected 48 hours later and tested. Performed By: #### M 100.678, L400.7600, L400.0001 #### [facility] [address] [place] [address], [address] Protein Test strip Ql (U)Ord ered By: Lizbeth Nolasco on 08-22-2024 Protein Ql (U) 30 mg/dl High Negative [facility] RBC Auto (Bld) [#/Vol]Ordere d By: Lizbeth Nolasco on 08-22-2024 RBC (Bld) [#/Vol] 4.61 10*6/uL 4.2-5.4 [facility] Serum anion gap measurementO rdered By: Lizbeth Nolasco on 08-22-2024 Anion gap [Moles/Vol] 12 mmol/L 5-15 [facility] Serum globulin measurementOr dered By: Lizbeth Nolasco on 08-22-2024 Globulin (S) [Mass/Vol] 4.4 g/dL High 2.2-4.2 [facility] Serum or plasma alanine eli otransferase (ALT) measurementOrdered By: Lizbeth Nolasco on 08-22-2024 ALT [Catalytic activity/Vol] 25 U/L 13-56 [facility] Serum or plasma albumin kwabena urement (mass/volume)Ordered By: Lizbeth Nolasco on 08-22-2024 Albumin [Mass/Vol] 3.9 g/dL 3.2-5.0 [facility] Serum or plasma alkaline john sphatase measurementOrdered By: Lizbeth Nolasco on 08-22-2024 ALP [Catalytic activity/Vol] 82 U/L 45-117 [facility] Serum or plasma calcium kwabena urement (mass/volume)Ordered By: Lizbeth Nolasco on 08-22-2024 Calcium [Mass/Vol] 9.5 mg/dL 8.5-10.1 [facility] Serum or plasma creatinine m easurement (mass/volume)Ordered By: Lizbeth Nolasco on 08-22-2024 Creatinine [Mass/Vol] 0.48 mg/dL Low 0.55-1.02 [facility] Comment on above: The validity of the calculated GFR & GFRAA in patients over 70 years has not been determined. Clinical correlation is essential. Serum or plasma urea nitroge n measurement (mass/volume)Ordered By: Lizbeth Nolasco on 08-22-2024 Urea nitrogen [Mass/Vol] 9 mg/dL 7-18 [facility] Sodium levelOrdered By: Minerva Nolasco on 08-22-2024 Sodium [Moles/Vol] 133 mmol/L Low 136-145 [facility] Total proteinOrdered By: Dian Nolasco on 08-22-2024 Protein [Mass/Vol] 8.3 g/dL High 6.4-8.2 [facility] Troponin IOrdered By: Lizbeth Nolasco on 08-22-2024 Troponin I High Sensitivity < 3 pg/mL Low 3.0-54.0 [facility] Comment on above: Please Note: New Simran t Units and Gender Specific Reference Ranges. For more information see Policy Stat Procedure Mason High Sensitivity Troponin (TNIH) and attachments. Urinalysis, Completeon 08-22 EPI,SQUAMOUS 0-5 SEEN Normal 5-10 [facility] Comment on above: Order Comment: CLEAN CATCH Performed By: #### M 100.678, L400.7600, L400.0001 #### [facility] [address] [place], [address] WBC 0-5 SEEN Normal 0-5 [facility] Comment on above: Order Comment: CLEAN CATCH Performed By: #### M 100.678, L400.7600, [id number] #### [facility] [address] [place], [address] BACTERIA 0 SEEN Normal None Seen [facility] Comment on above: Order Comment: CLEAN CATCH Performed By: #### M 100.678, L400.7600, [id number] #### [facility] [address] [place], [address] Mucus Ql (Urine sed) 0 SEEN Normal [facility] Comment on above: Order Comment: CLEAN CATCH Performed By: #### M 100.678, L400.7600, [id number] #### [facility] [address] [place], [address] RBC 0 SEEN Normal 0-5 [facility] Comment on above: Order Comment: CLEAN CATCH Performed By: #### M 100.678, L400.7600, [id number] #### [facility] [address] [place], [address] Urine blood detectionOrdered By: Lizbeth Nolasco on 08-22-2024 Urine Occult Blood Negative Negative [facility] Urine clarityOrdered By: Dian Nolasco on 08-22-2024 Clarity (U) Sl. Cloudy Clear [facility] Urine color determinationOrd ered By: Lizbeth Nolasco on 08-22-2024 Color (U) Straw Yellow [facility] Urine leukocyte esterase det ection by dipstickOrdered By: Lizbeth Nolasco on 08-22-2024 Leukocyte esterase Test strip Ql (U) 100 /ul High Negative [facility] Urine pHOrdered By: Lizbeth márquez on 08-22-2024 pH (U) 6.0 [pH] 5.0 - 8.0 [facility] Urine testOrdered By: Lizbeth Nolasco on 08-22-2024 HCG ( test) Ql (U) Negative [facility] Comment on above: Very dilute urine sp ecimens, as indicated by a low specificgravity, may not contain dealer compliance representative levels of hCG. If is still suspected, a first morning urinespecimen should be collected 48 hours later and tested. Urine sediment bacteria coun t by microscopy (number/high power field)Ordered By: Lizbeth Nolasco on 08-22-2024 Bacteria LM.HPF (Urine sed) [#/Area] 0 /[HPF] None Seen [facility] Urine specific gravity measu rementOrdered By: Lizbeth Nolasco on 08-22-2024 Specific gravity (U) [Rel density] 1.030 1.002-1.030 [facility] Urobilinogen Ql (U)Ordered B y: Lizbeth Nolasco on 08-22-2024 Urine Urobilinogen Normal mg/dl Normal [facility] White blood cell (WBC) count Ordered By: Lizbeth Nolasco on 08-22-2024 WBC (Bld) [#/Vol] 16.5 10*3/uL High 4.4-11.0 [facility] White blood cell countOrdere d By: Lizbeth Nolasco on 08-22-2024 Urine WBC 0-5 SEEN /hpf 0-5 [facility] Surgery Specimen Level IIIon 08-18-2024 Surgery Specimen Level III Patient Age/Sex Location Account Attending Physician KATHLEEN WEINBERG [facility] [id number] Jose Beckman Specimen: [id number] Received: 08/19/24 Status: ROSARIO Chavez Num: [id number] Spec Type: TONSILS Subm Dr: Dr. Rod [...] - left tonsil. . 08/19/2024 TC:3 CPT: 12146 x2 Patient Age/Sex Location Account Attending Physician KATHLEEN WEINBERG [facility] [id number] Jose Beckman Signed (signature on file) Dr. Griffin Floyd MD 08/20/24 1322 Normal [facility] Comment on above: Performed By: #### P SUIII ####[facility] [address] [place], [place], [id number] PROGESTERONEon 12-18-2024 PROGESTERONE 24.1 ng/mL Normal [facility] Comment on above: Order Comment: Expec jocy Values: Males: 0 -0.6 ng/mL Non females: Follicular phase: 0 - 1.5 ng/mL Luteal phase: 2.3 - 25.0 ng/mL Mid-luteal phase: 3.5 - 25.0 ng/mL Postmenopausal: 0 - 0.7 ng/mL Oral contraceptives: 0 -0.4 ng/mL females: First trimester: 8.1 - 42.0 ng/mL Performed By: #### 4 6361 #### LAB [address] [place], [place] [address] Ilan Alatorre M.D. [id number] US TRANSVAGINALon 06-22-2024 US TRANSVAGINAL Transvaginal ultrasound [...] 29, 2024 9:24:37 PM EST Normal [facility] CULTURE, URINE, ROUTINEon CULTURE, URINE, ROUTINE SEE NOTE Abnormal [facility] Comment on above: Result Comment: CULTURE, URINE, ROUTINE Micro Number: [id number] Test Status: Final Specimen Source: Urine Specimen [...] Performed By: #### 3 95 #### [facility] [address], [address] [place] [id number] Staff Development Manager: Arpit Mills MD Laboratory - Chemistry and C hemistry - challengeon 06-16-2024 Beta HCG ( test) Ql (U) Negative Normal [employer]. Bilirubin Ql (U) Negative Normal [facility] [employer], [employer]. Ketones Ql (U) Negative Normal [facility], [employer].; [employer], [employer]. pH (U) 7.0 [pH] Normal [employer]. Specific gravity (U) [Rel density] 1.020 Normal [employer].; [employer] Urobilinogen Qn (U) 0.2 mg/dL Normal [facility].; Carlos [employer] ([employer]) [facility]. Laboratory - Hematology and Cell countson 06-16-2024 Hemoglobin Ql (U) large Abnormal [facility].; Carlos [employer]. Laboratory - Specimen inform ationon 06-16-2024 Appearance (U) cloudy Abnormal [facility] [employer]. Color (U) dark Yellow Normal Carlos [employer] ([employer]) [facility].; [employer]. Laboratory - Urinalysison Glucose Test strip (U) [Mass/Vol] Negative Normal Carlos [employer] ([employer]) [facility].; [employer]. Leukocyte esterase Test strip Ql (U) small Abnormal [facility].; [employer], [employer]. Nitrite Ql (U) Positive Abnormal [facility].; Carlos [employer]. Protein Ql (U) Negative Normal [facility].; [employer]. No Panel Informationon 06-16 CULTURE, URINE, ROUTINE SEE NOTE Abnormal [facility].; Rueda [employer]) [facility]. PROGESTERONEon 06-04-2024 PROGESTERONE 0.5 ng/mL Normal [facility] Comment on above: Order Comment: FASTI NG:NO FASTING: NO Result Comment: Refe rence Ranges Female Follicular Phase < 1.0 Luteal Phase 2.6-21.5 Post menopausal < 0.5 1st Trimester 4.1-34.0 2nd Trimester 24.0-76.0 3rd Trimester 52.0-302.0 Performed By: #### 7 45 #### [facility] [address], [address] [place] [address] Staff Development Manager: Arpit Mills MD No Panel Informationon 05-20 MONOSPOT TEST (IN HOUSE) Negative Normal Carlos [employer].; [employer]. PROGESTERONEon 05-19-2024 PROGESTERONE <0.5 Normal [facility] Comment on above: Result Comment: Refe rence Ranges Female Follicular Phase < 1.0 Luteal Phase 2.6-21.5 Post menopausal < 0.5 1st Trimester 4.1-34.0 2nd Trimester 24.0-76.0 3rd Trimester 52.0-302.0 Performed By: #### 7 45 #### [address], [address] [place] [address] Staff Development Manager: Arpit Mills MD THINPREP PAP SMEARon 024 THINPREP PAP SMEAR Gynecologic Cytology Report Case: [id number] Authorizing Provider: Marylin Bustamante CNM Collected: 04/20/2024 08:39 AM Ordering Location: [facility] Received: 04/23/2024 08:49 AM Obstetrics [...] from every slide are reviewed by a button attaching machine operator. Specimen processing and Primary Screening performed at: [facility] - [address] [place], [place] [id number] 01/23/2024 Normal [facility] Comment on above: Performed By: #### 4 6974 #### [facility] [address] [place] [address] Kamar Duong M.D. [id number] Laboratory - Microbiology an d Antimicrobial susceptibilityon 08-26-2023 S. pyogenes Ag EIA Ql (Throat) Positive Abnormal [facility], [facility].; [facility] Vaginitis DNA ProbesOrdered By: Fidelia Predum on 04-13-2023 Morenita sp DNA Probe+sig amp Ql (Vag fld) Negative Negative [facility] G. vaginalis DNA Probe+sig amp Ql (Vag fld) Negative Negative [facility] Interpretation and review of laboratory results Normal [facility] T. vaginalis DNA Probe+sig amp Ql (Vag fld) Negative Negative [facility] ESTRADIOL-17B [CCL]on 2022 Estradiol-17B 76 pg/mL Normal [facility] Comment on above: Result Comment: This [...] 3243 pg/mL Second trimester : 1561 to 16370 pg/mL Third trimester : 8285 to >27588 pg/mL Post-menopausal Estradiol reference range: < 41 pg/mL Reference: 1. Estradiol - E2 (Estradiol III) [package insert V 3.0 Georgian]. [facility], [place], [place], December 2015. [facility] [employer] [address] [place] [address] Scout Davis III, M.D. [id number] Performed By: #### 2 [address]1335 #### [address] [address] CORTISOL [CCL]on 09-04-2022 Cortisol 8.4 ug/dL Normal 4.8-19.5 [facility] Comment on above: Result Comment: Prov ided reference range is from 6-10 AM sample collection time. Cortisol Reference Range: 6-10 AM = 4.8-19.5 ug/dL, 4-8 PM = 2.5-11.9 ug/dL [facility] [employer] [address] [place] [address] Scout Davis III, M.D. [id number] Performed By: #### 2 [address]6477 #### [address] [address] TESTOSTERONE [CCL]on 023 Testosterone [Mass/Vol] 38 ng/dL Normal <40 [facility] Comment on above: Result Comment: [facility] [address] [place] [address] Scout Davis III, M.D. [id number] Performed By: #### 2 19592 #### [facility],[address] [place] [address] CBC + DIFFon 09-01-2022 Baso # 0.00 x10EE3/UL Normal 0.00 - 0.10 [facility] Comment on above: Performed By: #### 2 19785 #### [place] [phone] Basophils/100 WBC (Bld) 0.8 % Normal 0.0 - 2.0 % [facility], [facility].; [facility] Comment on above: Performed By: #### 2 39214 #### [facility],[address] [place] [address] CBC + DIFF Normal [facility] Comment on above: Result Comment: CBC- COMPLETE BLOOD COUNT Performed By: #### 2 36422 #### [facility],[address] [place], [place] [id number] EO # 0.20 x10EE3/UL Normal 0.00 - 0.50 [facility] Comment on above: Performed By: #### 2 64639 #### [facility],[address] [place] [address] Eosinophils/100 WBC (Bld) 4.2 % Normal 0.0 - 7.0 % [facility], [employer].; [employer] [facility], [employer]. Comment on above: Performed By: #### 2 63087 #### [place] [phone] Erythrocyte distribution width (RBC) [Ratio] 12.2 % Normal 12.0 - 15.6 % [employer] [facility], [employer].; [employer] [facility], Inc. Comment on above: Performed By: #### 2 74963 #### [place] [address] Hematocrit (Bld) [Volume fraction] 41.6 % Normal 34.0 - 46.0 % [facility]; [facility], [facility]. Comment on above: Performed By: #### 2 95123 #### [place] [address] Hemoglobin (Bld) [Mass/Vol] 14.2 g/dL Normal 12.0 - 16.0 g/dL [facility].; [facility], [facility]. Comment on above: Performed By: #### 2 86885 #### [place] [address] Lymph # 1.60 x10EE3/UL Normal 0.80 - 2.80 [facility] Comment on above: Performed By: #### 2 51863 #### [place] [address] Lymphocytes/100 WBC (Bld) 27.7 % Normal 20.0 - 45.0 % [facility].; [facility], [facility]. Comment on above: Performed By: #### 2 79925 #### [place] [address] MANUAL DIFF N/A Normal [facility]; [facility], [facility]. Comment on above: Performed By: #### 2 88713 #### [place] [address] MCH (RBC) [Entitic mass] 30 pg Normal 27 - 33 pg [facility].; [facility]. Comment on above: Performed By: #### 2 80936 #### [place] [address] MCHC 34 X10 3 Normal 32 - 36 [facility] Comment on above: Performed By: #### 2 84539 #### [address] [address] MCV (RBC) [Entitic vol] 89 fL Normal 80 - 99 fL H [facility]; [facility] Comment on above: Performed By: #### 2 21653 #### [address] [address] [place] # 0.50 x10EE3/UL Normal 0.20 - 1.00 [facility] Comment on above: Performed By: #### 2 77683 #### [address] [address] MONOS % 9.0 % Normal 0.0 - 10.0 [facility] Comment on above: Performed By: #### 2 85539 #### [place] [address] Morphology Max (Bld) [Interp] N/A Normal [facility]; [facility] Comment on above: Result Comment: {CD] Performed By: #### 2 72093 #### [place] [address] Neut # 3.40 x10EE3/UL Normal 1.50 - 7.10 [facility] Comment on above: Performed By: #### 2 24432 #### [place] [phone] Neutrophils/100 WBC (Bld) 58.3 % Normal 46.0 - 76.0 % [facility]; [facility] Comment on above: Performed By: #### 2 33848 #### [address] [address] PLATELET 211 x10EE3/UL Normal 150 - 450 [facility] Comment on above: Performed By: #### 2 85823 #### [place] [address] Platelet mean volume (Bld) [Entitic vol] 8.9 fL Normal 6.6 - 10.5 fL [facility].; [facility]. Comment on above: Result Comment: AUTO MATED DIFFERENTIAL Performed By: #### 2 15711 #### [facility],[address] [place] [address] RBC 4.69 x 10EE6/UL Normal 4.10 - 5.[address] [facility] Comment on above: Performed By: #### 2 78747 #### [facility],[address] [place] [address] WBC 5.9 x 10EE3/UL Normal 4.5 - 10.8 [facility] Comment on above: Performed By: #### 2 11691 #### [facility],[address] [place] [address] CMP with eGFRon 09-01-2022 AGE 21 years Normal [facility] Comment on above: Performed By: #### 2 65867 #### [facility],[address] [place] [address] Albumin [Mass/Vol] 4.1 g/dL Normal 3.4 - 5.0 g/dL [facility].; [facility], [facility]. Comment on above: Performed By: #### 2 16107 #### [facility],[address] [place] [address] Albumin/Globulin [Mass ratio] 1.2 {ratio} Normal 0.9 - 1.6 [facility] Comment on above: Performed By: #### 2 45830 #### [facility],[address] [place] [address] ALK PHOS 82 U/L Normal 46 - 116 [facility] Comment on above: Performed By: #### 2 63219 #### [facility],[address] [place] [address] ALT [Catalytic activity/Vol] 24 U/L Normal 14 - 59 U/L [facility], [facility].; [facility], [facility]. Comment on above: Performed By: #### 2 10391 #### [place] [address] Anion gap [Moles/Vol] 11 mmol/L Normal 10 - 2 0 mmol/L [facility].; [facility], [facility]. Comment on above: Performed By: #### 2 57914 #### [place] [address] AST [Catalytic activity/Vol] 20 U/L Normal 13 - 39 U/L [facility].; [facility], [facility]. Comment on above: Performed By: #### 2 20534 #### [place] [address] B/C RATIO 29 ratio Normal 0 - 30 [facility] Comment on above: Performed By: #### 2 05846 #### [place] [address] Bilirubin [Mass/Vol] 0.3 mg/dL Normal 0.2 - 1 .0 mg/dL [facility].; [facility], [facility]. Comment on above: Performed By: #### 2 38175 #### [place] [address] Calcium [Mass/Vol] 9.3 mg/dL Normal 8.5 - 10. 1 mg/dL [facility].; [facility], [facility]. Comment on above: Performed By: #### 2 12986 #### [place] [phone] Chloride [Moles/Vol] 102 mmol/L Normal 98 - 10 7 mmol/L [facility].; [facility], [facility]. Comment on above: Performed By: #### 2 56672 #### [place] [address] CMP with eGFR Normal [facility] Comment on above: Result Comment: COMP REHENSIVE METABOLIC PANEL Performed By: #### 2 68552 #### [address] [address] CO2 [Moles/Vol] 29.0 mmol/L Normal 21.0 - 32.0 mmol/L [facility], [facility].; [facility] Comment on above: Performed By: #### 2 31194 #### [place] [phone] Creatinine [Mass/Vol] 0.55 mg/dL Normal 0.55 - 1.02 mg/dL [facility], [facility].; [facility], [facility]. Comment on above: Performed By: #### 2 27171 #### [place] [address] GFR/1.73 sq M.predicted among non-blacks MDRD (S/P/Bld) [Vol rate/Area] mL/min/{1.73_m2} Normal 60 - 999 [facility] Comment on above: Performed By: #### 2 85177 #### [place] [phone] Result Comment: ACCO RDING TO THE NATIONAL KIDNEY DISEASE EDUCATION PROGRAM(NKDE), A NORMAL eGFR IS A VALUE GREATER THAN OR EQUAL TO 60 ML/MIN/1.73 SQ METERS. CHRONIC KIDNEY DISEASE: <60mL/MIN/1.73 SQ METERS KIDNEY FAILURE: <15mL/MIN/1.73 SQ METERS THIS TEST SHOULD ONLY BE USED FOR PATIENTS 18 YEARS OF AGE AND OLDER. Globulin (S) [Mass/Vol] 3.5 g/dL Normal 1.5 - 3.8 g/dL [facility], [facility].; [facility] Comment on above: Performed By: #### 2 37617 #### [place] [phone] Glucose [Mass/Vol] 78 mg/dL Normal 74 - 106 mg/dL [facility], [facility].; [facility] Comment on above: Performed By: #### 2 44212 #### [place] [phone] Potassium [Moles/Vol] 3.7 mmol/L Normal 3.5 - 5.1 mmol/L [facility].; [facility], [facility] Comment on above: Performed By: #### 2 60012 #### [place] [address] Protein [Mass/Vol] 7.6 g/dL Normal 6.4 - 8.2 g/dL [facility].; [facility], [facility]. Comment on above: Performed By: #### 2 44998 #### [place] [address] Sodium [Moles/Vol] 138 mmol/L Normal 136 - 145 mmol/L [facility].; [facility], [facility]. Comment on above: Performed By: #### 2 59550 #### [place] [address] Urea nitrogen [Mass/Vol] 16 mg/dL Normal 7 - 18 mg/d L [facility].; [facility], [facility]. Comment on above: Performed By: #### 2 58776 #### [address] [address] FERRITINon 09-01-2022 Ferritin [Mass/Vol] 66 ng/mL Normal 8 - 388 ng/mL [facility].; [facility], [facility]. Comment on above: Performed By: #### 2 06679 #### [place] [phone] IRON AND TIBCon 09-01-2022 %SATURATION 34 % Normal [facility].; [facility], [facility]. Comment on above: Performed By: #### 2 01846 #### [place] [address] Iron [Mass/Vol] 109 ug/dL Normal 50 - 170 ug/dL [facility].; [facility]. Comment on above: Performed By: #### 2 48319 #### [facility],[address] [place], [place] [phone] TIBC 318 ug/dl Normal 250 - 450 [facility] Comment on above: Performed By: #### 2 50531 #### [facility],[address] [place], [place] [phone] UIBC 209 ug/dL Normal 155 - 355 [facility] Comment on above: Performed By: #### 2 74697 #### [facility],[address] [place], [place] [phone] Laboratory - Chemistry and C hemistry - challengeon 09-01-2022 25-hydroxyvitamin D3 [Mass/Vol] 20.20 ng/mL Abnormal 30.00 - 100 ng/mL [facility], [facility].; [employer] Albumin [Mass/Vol] 1.2 g/dL Normal 0.9 - 1.6 [facility].; [employer], [employer]. ALP [Catalytic activity/Vol] 82 U/L Normal 46 - 116 U/L Carlos [employer], [facility].; [employer], [employer]. ALT No additional P-5'-P [Catalytic activity/Vol] 24 U/L Normal 14 - 59 U/L [facility].; [employer], [employer]. Comprehensive metabolic 2000 panel CMP with eGFR Normal [facility], [facility].; Carlos [employer]) [facility], [facility] GFR/1.73 sq M.predicted among blacks MDRD (S/P/Bld) [Vol rate/Area] mL/min/{1.73_m2} Normal 60 - 999 {ML/MINUTE} Carlos [employer]) [facility], [facility].; [employer] GFR/1.73 sq M.predicted MDRD (S/P/Bld) [Vol rate/Area] mL/min/{1.73_m2} Normal 60 - 999 {ML/MINUTE} [employer] [facility], [facility].; [employer] Iron binding capacity [Mass/Vol] 318 ug/dL Normal 250 - 450 ug/dL Carlos [employer], [facility].; [facility] Testosterone [Mass/Vol] 38 ng/dL Normal [facility].; [employer]. Urea nitrogen/Creatinine [Mass ratio] 29 {ratio} Normal 0 - 30 {ratio} [employer].; [employer]. Laboratory - Drug toxicology on 09-01-2022 Vancomycin peak [Mass/Vol] 209 ug/dL Normal 155 - 355 ug/dL [employer].; [employer]. Laboratory - Hematology and Cell countson 09-01-2022 Basophils (Bld) [#/Vol] 0.00 {3/UL} Normal 0.00 - 0.10 {3/UL} [employer].; [employer]. CBC W Auto Differential panel (Bld) CBC + DIFF Normal [employer].; [employer]. Eosinophils (Bld) [#/Vol] 0.20 {3/UL} Normal 0.00 - 0.50 {3/UL} [employer].; [employer]. Lymphocytes (Bld) [#/Vol] 1.60 {3/UL} Normal 0.80 - 2.80 {3/UL} [employer]. MCHC (RBC) [Mass/Vol] 34 {X10_3} Normal 32 - 3 6 {X10_3} [employer].; [employer]. Monocytes (Bld) [#/Vol] 0.50 {3/UL} Normal 0.20 - 1.00 {3/UL} [employer].; [employer]. Monocytes/100 WBC (Bld) 9.0 % Normal 0.0 - 10.0 % [employer].; [employer]. Neutrophils (Bld) [#/Vol] 3.40 {3/UL} Normal 1.50 - 7.10 {3/UL} [employer].; [employer], [employer]. Platelets (Bld) [#/Vol] 211 {3/UL} Normal 150 - 450 {3/UL} [employer].; [employer]. RBC (Bld) [#/Vol] 4.69 {6/UL} Normal 4.10 - 5.3 0 {6/UL} Carlos [employer]) [facility].; [employer]. WBC (Bld) [#/Vol] 5.9 {3/UL} Normal 4.5 - 10.8 {3/UL} Carlos [employer].; [employer]. No Panel Informationon 09-01 AGE 21 {years} Normal Carlos [employer]; [employer] Cortisol 8.4 ug/dL Normal 4.8 - 19.5 ug/dL Carlos [employer].; [employer] Estradiol-17B 76 pg/mL Normal [facility]; [employer]. TSH W/ REFLEX TO FREE T4on 0 09-01-2022 TSH Qn 1.09 m[IU]/L Normal 0.34 - 5.60 {uIU/ml} Carlos [employer].; [employer]. Comment on above: Performed By: #### 2 32417 #### [place] [address] VITAMIN B-12on 09-01-2022 Cobalamin (Vitamin B12) [Mass/Vol] 821 pg/mL Normal 193 - 986 pg/mL [facility]; [employer]. Comment on above: Performed By: #### 2 62286 #### [place] [phone] VITAMIN D, 25 HYDROXYon 08-22 VitD 20.20 ng/mL Low 30.00 - 100 [facility] Comment on above: Result Comment: 25-O [...] D2 Not Established Performed By: #### 2 71142 #### [facility],[address] [place] [address] Laboratory - Chemistry and C hemistry - challengeon 03-02-2022 Bilirubin Ql (U) Negative Normal [facility] [employer], [employer].; [employer]Am[employer], [employer]. Ketones Ql (U) Negative Normal [facility] [employer].; [employer], [employer]. pH (U) 7.5 [pH] Normal [employer].; [employer], [employer]. Specific gravity (U) [Rel density] 1.015 Normal [employer].; [employer]. Urobilinogen Qn (U) 0.2 mg/dL Normal [facility] [employer].; [employer], [employer]. Laboratory - Hematology and Cell countson 03-02-2022 Hemoglobin Ql (U) trace, hemolyzed Abnormal [facility] [employer].; [employer]. Laboratory - Specimen inform ationon 03-02-2022 Appearance (U) clear Normal [facility] [employer].; [employer]. Color (U) yellow Normal [employer].; [employer]. Laboratory - Urinalysison Glucose Test strip (U) [Mass/Vol] Negative Normal [employer].; [employer], [employer]ner. Leukocyte esterase Test strip Ql (U) small Abnormal [facility] [employer].; [employer], [employer]. Nitrite Ql (U) Negative Normal [facility] [employer].; [employer], [employer]. Protein Ql (U) Negative Normal [facility] [employer].; [employer], [employer]. Laboratory - Chemistry and C hemistry - challengeon 12-11-2021 Bilirubin Ql (U) Negative Normal [facility] [employer].; [employer], Inc. Ketones Ql (U) Negative Normal [facility] [employer].; [employer], Inc. pH (U) 6.5 [pH] Normal [employer].; [employer], [employer]ner. Specific gravity (U) [Rel density] <1.005 Normal [facility] [employer].; [employer]. Urobilinogen Qn (U) 0.2 mg/dL Normal [facility].; RuedaPrescient. Laboratory - Hematology and Cell countson 12-11-2021 Hemoglobin Ql (U) moderate Abnormal [facility].; ForceManager. Laboratory - Specimen inform ationon 12-11-2021 Appearance (U) clear Normal [facility] [employer].; [employer]. Color (U) yellow Normal [facility] [employer].; [employer]. Laboratory - Urinalysison Glucose Test strip (U) [Mass/Vol] Negative Normal [facility] [employer].; [employer]. Leukocyte esterase Test strip Ql (U) trace Normal [facility] [employer].; [employer]. Nitrite Ql (U) Negative Normal [facility].; [employer]. Protein Ql (U) Negative Normal [facility].; [employer]. CULTURE, URINE, ROUTINEon CULTURE, URINE, ROUTINE SEE NOTE Normal Q uest Diagnostics Comment on above: Result Comment: CULTURE, URINE, ROUTINE Micro Number: [id number] Test Status: Final Specimen Source: Urine Specimen Quality: Adequate Result: Mixed genital lore isolated. These superficial bacteria are not indicative of a urinary tract infection. No further organism identification is warranted on this specimen. If clinically indicated, recollect clean-catch, mid-stream urine and transfer immediately to Urine Culture Transport Tube. Performed By: #### 3 95 #### [facility] [address], [address] [place] [address] Staff Development Manager: Arpit Mills MD Laboratory - Chemistry and C hemistry - challengeon 08-17-2021 Bilirubin Ql (U) Negative Normal [facility].; [employer], Inc. Ketones Ql (U) Negative Normal [facility] [employer].; [employer]. pH (U) 7.0 [pH] Normal [employer].; [employer]Manager. Specific gravity (U) [Rel density] 1.020 Normal [facility] [employer].; [employer]. Urobilinogen Qn (U) 0.2 mg/dL Normal [facility].; [employer]Manager. Laboratory - Hematology and Cell countson 08-17-2021 Hemoglobin Ql (U) Negative Normal [facility] [employer].; [employer]. Laboratory - Specimen inform ationon 08-17-2021 Appearance (U) clear Normal [facility] [employer].; [employer]. Color (U) yellow Normal [facility] [employer].; [employer]. Laboratory - Urinalysison Glucose Test strip (U) [Mass/Vol] Negative Normal [facility] [employer].; Rued[employer]Prescient. Leukocyte esterase Test strip Ql (U) small Abnormal [facility] [employer]; Rued[employer]Prescient. Nitrite Ql (U) Negative Normal [facility] [employer].; [employer]. Protein Ql (U) Negative Normal [facility] [employer].; [employer]. No Panel Informationon 08-17 CULTURE, URINE, ROUTINE SEE NOTE Normal [facility] [employer]addle ([employer]) [facility].; ForceManager. FSH AND LHon 05-06-2021 FSH 6.0 mIU/mL Normal [facility] Comment on above: Result Comment: Refe rence Range Follicular Phase 2.5-10.2 Mid-cycle Peak 3.1-17.7 Luteal Phase 1.5- 9.1 Postmenopausal 23.0-116.3 Performed By: #### 1 5983 #### [facility] [address] [facility] [place] [address] Staff Development Manager: Jacobo Alvarez M.D.,PhD #### [id number] #### [facility] [address], [address] [place] [address] Staff Development Manager: Arpit Mills MD LH 14.3 mIU/mL Normal [facility] Comment on above: Result Comment: Refe rence Range Follicular Phase 1.9-12.5 Mid-Cycle Peak 8.7-76.3 Luteal Phase 0.5-16.9 Postmenopausal 10.0-54.7 Performed By: #### 1 5983 #### [facility]/[place] [id number] [facility] [place], [place] Staff Development Manager: Jacobo Alvarez M.D.,PhD #### [id number] #### [facility] [address], [address] [place] [address] Staff Development Manager: Arpit Mills MD TESTOSTERONE, TOTAL, MSon TESTOSTERONE, TOTAL, MS 26 ng/dL Normal 2-45 Q uest Diagn[facility] Comment on above: Result Comment: For additional information, please refer to http://education.[employer]faq/ [id number] (This link is being provided for informational/ educational purposes only.) This test was developed and its analytical performance characteristics have been determined by [facility] [place], [place]. It has not been cleared or approved by the U.S. Food and Drug Administration. This assay has been validated pursuant to the CLIA regulations and is used for clinical purposes. Performed By: #### 1 5983 #### [facility]/[place] [address] [place], [place] Staff Development Manager: Jacobo Alvarez M.D.,PhD #### 7137 #### [facility] [address], [address] [place] [address] Staff Development Manager: Arpit Mills MD ANTI-MULLERIAN HORMONE (AMH) , FEMALEon 05-04-2021 ANTI-MULLERIAN HORMONE (AMH), FEMALE 13.03 ng/mL Normal 1.02-14.63 [facility] Comment on above: Performed By: #### 3 7227 #### [facility]-[place] [address] [place] [address] Staff Development Manager: Brandt Prieto M.D. No Panel Informationon 05-01 ANTI-MULLERIAN HORMONE (AMH), FEMALE 13.03 ng/mL Normal 1.02 - 14.63 ng/mL [facility].; [facility]. FSH 6.0 m[iU]/mL Normal [facility].; [facility]. LH 14.3 m[iU]/mL Normal [facility].; [facility]. TESTOSTERONE, TOTAL, MS 26 ng/dL Normal 2 - 45 ng/dL [facility].; [facility]. Laboratory - Microbiology an d Antimicrobial susceptibilityon 04-28-2021 S. pyogenes Ag EIA Ql (Throat) Negative Normal [facility].; [facility], [facility]. Laboratory - Chemistry and C hemistry - challengeon 08-19-2020 Bilirubin Ql (U) Negative Normal [facility].; [facility], [facility]. Ketones Ql (U) Negative Normal [facility].; [facility], [facility]. pH (U) 6.5 [pH] Normal [facility].; [facility], [facility]. Specific gravity (U) [Rel density] <1.005 Normal [facility].; [facility], [facility]. Urobilinogen Qn (U) 0.2 mg/dL Normal [facility].; [facility], [facility]. Laboratory - Hematology and Cell countson 08-19-2020 Hemoglobin Ql (U) Negative Normal [facility].; [facility], [facility]. Laboratory - Specimen inform ationon 08-19-2020 Appearance (U) clear Normal [facility].; [facility] [employer]) [facility]. Color (U) yellow Normal [facility].; [facility] [employer]) [facility]. Laboratory - Urinalysison Glucose Test strip (U) [Mass/Vol] Negative Normal [facility].; [facility], [facility]. Leukocyte esterase Test strip Ql (U) Negative Normal [facility].; [facility] [employer] ([employer]) [facility], [employer]. Nitrite Ql (U) Negative Normal [facility].; [facility], [employer]. Protein Ql (U) Negative Normal [facility], Inc.; [facility], Inc. THINPREP PAP REFLEX HPV mRNA E6/E7on 02-16-2020 CLINICAL INFORMATION: Normal [facility] Comment on above: Order Comment: FASTI NG: NO Result Comment: Rout ine exam Performed By: #### 9 0932 #### [facility]-[address], [address] [place] [address] Staff Development Manager: Arpit Mills MD COMMENT Normal [facility] [...] Performed By: #### 9 0932 #### [facility]-[address], [address] [place] [address] Staff Development Manager: Arpit Mills MD RACE CAR MECHANIC: Normal [facility] Comment on above: Order Comment: FASTI NG: NO Result Comment: BGG, SCT(ASCP) CT screening location: [place] [address]. Performed By: #### 9 0932 #### [facility]-[address], [address] [place] [address] Staff Development Manager: Arpit Mills MD INTERPRETATION/RESULT: Normal [facility] Comment on above: Order Comment: FASTI NG: NO Result Comment: Nega tive for intraepithelial lesion or malignancy. Performed By: #### 9 0932 #### [facility]-[address], [address] [place] [address] Staff Development Manager: Arpit Mills MD LMP: Normal [facility] Comment on above: Order Comment: FASTI NG: NO Result Comment: None given Performed By: #### 9 0932 #### [facility]-[address], [address] [place], [place] [id number] Staff Development Manager: Arpit Mills MD PREV. BX: None given Normal [facility] Comment on above: Order Comment: FASTI NG: NO Performed By: #### 9 0932 #### [facility]-[address], [address] [place] [address] Staff Development Manager: Arpit Mills MD PREV. PAP: Normal [facility] Comment on above: Order Comment: FASTI NG: NO Result Comment: NEG Performed By: #### 9 0932 #### [facility]-[address], [address] [place] [address] Staff Development Manager: Arpit Mills MD SOURCE: Normal [facility] Comment on above: Order Comment: FASTI NG: NO Result Comment: Endo cervix Performed By: #### 9 0932 #### [facility]-[place] [address] Staff Development Manager: Arpit Mills MD STATEMENT OF ADEQUACY: Normal [facility] Comment on above: Order Comment: FASTI NG: NO Result Comment: Sati sfactory for evaluation. Endocervical/transformation zone component present. Performed By: #### 9 0932 #### [facility]-[address], [address] [place] [address] Staff Development Manager: Arpit Mills MD No Panel Informationon 02-11 [id number] SEE NOTE Normal [employer].; iAmplify, Inc. CLINICAL INFORMATION: SEE NOTE Normal [facility] [employer], [employer].; iAmplify, Inc. RACE CAR MECHANIC: SEE NOTE Normal [employer], [employer].; iAmplify, Inc. INTERPRETATION/RESULT: SEE NOTE Normal [facility].; iAmplify, Inc. LMP: SEE NOTE Normal [employer], Inc.; iAm[employer], Inc. PREV. BX: SEE NOTE Normal [employer].; iAmplify, Inc. PREV. PAP: SEE NOTE Normal [employer], [employer].; iAmplify, Inc. SOURCE: SEE NOTE Normal [employer], [employer].; iAmplify, Inc. STATEMENT OF ADEQUACY: SEE NOTE Normal [facility] Inc.; iAmplify, Inc. SARS CoV 2 RNA(COVID 19), QU ALITATIVE NAAJose Miguel 12-16-2019 SARS CoV 2 RNA NOT DETECTED Normal NOT DETECTED [facility] Comment on above: Result Comment: A Not [...] providers and patients using the following websites: https://www.[employer].MegaPath/home/Covid-19/HCP/[facility]/f act- sheet.html https://www.[employer].MegaPath/home/Covid-19/Patients/ [facility]/fact-sheet.html This test has been authorized by the FDA under an Emergency Use Authorization (EUA) for use by authorized laboratories. Due to the current public health emergency, [facility] is receiving a high volume of samples [...] about COVID-19 can be found at the [facility] website: www.Notify [employer].MegaPath/Covid19. Performed By: #### 3 9448 #### [facility]-[address], [address] [place] [address] Staff Development Manager: Arpit Mills MD Laboratory - Microbiology an d Antimicrobial susceptibilityon 12-15-2019 S. pyogenes Ag EIA Ql (Throat) Negative Normal [facility].; [facility]. SARS-CoV-2 (COVID-19) RNA VENTURA+probe Ql (Unsp spec) Not detected Normal [facility]; [facility] COMPREHENSIVE METABOLIC PANE Darrick 10-24-2019 Albumin [Mass/Vol] 5.1 g/dL Normal 3.6-5.1 [facility] Comment on above: Performed By: #### 7 137, 72381, 746, 62071, 21359 #### [facility]-[address], [address] [place], [place] [id number] Staff Development Manager: Arpit Mills MD #### [id number] #### [facility]/[place] [id number] [facility] [place], [place] Staff Development Manager: Jacobo Alvarez M.D.,PhD Albumin/Globulin [Mass ratio] 1.8 (calc) Normal 1.0-2.5 [facility] Comment on above: Performed By: #### 7 137, 10706, 05, 89928, 91729 #### [facility]-[address], [address] [place] [address] Staff Development Manager: Arpit Mills MD #### [id number] #### [facility]/[place] [id number] [facility] [place], [place] Staff Development Manager: Jacobo Alvarez M.D.,PhD ALP [Catalytic activity/Vol] 74 U/L Normal 31-125 [facility] Comment on above: Performed By: #### 7 137, 14297, 74, 46356, 18940 #### [facility]-[address], [address] [place], [place] [address] Staff Development Manager: Arpit Mills MD #### [id number] #### [facility] [place], [place] Staff Development Manager: Jacobo Alvarez M.D.,PhD ALT [Catalytic activity/Vol] 11 U/L Normal 6-29 [facility] Comment on above: Performed By: #### 7 137, 07590, 74, 04481, 06880 #### [facility]-[address], [address] [place] [address] Staff Development Manager: Arpit Mills MD #### [id number] #### [facility] Dr [place], [place] Staff Development Manager: Jacobo Alvarez M.D.,PhD AST [Catalytic activity/Vol] 14 U/L Normal 10-30 [facility] Comment on above: Performed By: #### 7 137, 60786, 746, 10028, 33127 #### [facility]-[address], [address] [place], [place] [address] Staff Development Manager: Arpit Mills MD #### [id number] #### [facility] [place], [place] Staff Development Manager: Jacobo Alvarez M.D.,PhD Bilirubin [Mass/Vol] 0.3 mg/dL Normal 0.2-1.2 Ques t [facility] Comment on above: Performed By: #### 7 137, 98998, 746, 73959, 04856 #### [facility]-[address], [address] [place], [place] [address] Staff Development Manager: Arpit Mills MD #### [id number] #### [facility] Dr [place], [place] Staff Development Manager: Jacobo Alvarez M.D.,PhD Calcium [Mass/Vol] 10.7 mg/dL High 8.6-10.2 [facility] Comment on above: Performed By: #### 7 137, 84735, 746, 65711, 45638 #### [facility]-[address], [address] [place] [address] Staff Development Manager: Arpit Mills MD #### [id number] #### [facility]/[place] [id number] [facility] Dr [place], [place] Staff Development Manager: Jacobo Alvarez M.D.,PhD Chloride [Moles/Vol] 100 mmol/L Normal 98-110 Ques t [facility] Comment on above: Performed By: #### 7 137, 40271, 746, 54261, 86617 #### [facility]-[place] [address] [place] , [address] [place], [place] [address] Staff Development Manager: Arpit Mills MD #### [id number] #### [facility]/[place] [id number] [facility] [place], [place] Staff Development Manager: Jacobo Alvarez M.D.,PhD CO2 [Moles/Vol] 30 mmol/L Normal 20-32 [facility] Comment on above: Performed By: #### 7 137, 86358, 746, 39496, 69131 #### [facility]-[place] [phone] Staff Development Manager: Arpit Mills MD #### [id number] #### [facility]/[address] [place], [place] Staff Development Manager: Jacobo Alvarez M.D.,PhD Creatinine [Mass/Vol] 0.62 mg/dL Normal 0.50-1.10 On License Of [facility] Comment on above: Performed By: #### 7 137, 27777, 746, 92044, 51758 #### [facility]-[address], [address] [place], [place] [address] Staff Development Manager: Arpit Mills MD #### [id number] #### [facility]/[place] [id number] [facility] [place], [place] Staff Development Manager: Jacobo Alvarez M.D.,PhD eGFR NON-AFR. SAMOAN 130 mL/min/1.73m2 Normal > OR = 60 [facility] Comment on above: Performed By: #### 7 137, 53651, 746, 55516, 08816 #### [facility]-[address], [address] [place], [place] [address] Staff Development Manager: Arpit Mills MD #### [id number] #### [facility]/[place] [id number] [facility] [address] [place], [place] Staff Development Manager: Jacobo Alvarez M.D.,PhD GFR/1.73 sq M predicted among blacks MDRD (S/P/Bld) [Vol rate/Area] 150 mL/min/{1.73_m2} Normal > OR = 60 [facility] Comment on above: Performed By: #### 7 137, 37395, 746, 14450, 81446 #### [facility]-[place] [address] [place] , [address] [place] [address] Staff Development Manager: Arpit Mills MD #### [id number] #### [facility] [address] [place] Staff Development Manager: Jacobo Alvarez M.D.,PhD Globulin (S) [Mass/Vol] 2.9 g/dL (calc) Normal 1.9-3.7 [facility] Comment on above: Performed By: #### 7 137, 52490, , 89439, 22685 #### [facility]-[address], [address] [place] [address] Staff Development Manager: Arpit Mills MD #### [id number] #### [facility] [place], [place] Staff Development Manager: Jacobo Alvarez M.D.,PhD Glucose [Mass/Vol] 79 mg/dL Normal 65-99 [facility] Comment on above: Result Comment: Fasting reference interval Performed By: #### 7 137, 40500, 74, 26104, 35123 #### [facility]-[address] , [address] [place] [address] Staff Development Manager: Arpit Mills MD #### [id number] #### [facility] [address] [place], [place] Staff Development Manager: Jacobo Alvarez M.D.,PhD Potassium [Moles/Vol] 3.9 mmol/L Normal 3.5-5.3 On License Of [facility] Comment on above: Performed By: #### 7 137, 03984, 746, 57772, 63375 #### [facility]-[address], [address] [place], [place] [address] Staff Development Manager: Aript Mills MD #### [id number] #### [facility] [place], [place] Staff Development Manager: Jacobo Alvarez M.D.,PhD Protein [Mass/Vol] 8.0 g/dL Normal 6.1-8.1 [facility] Comment on above: Performed By: #### 7 137, 93928, 746, 67065, 40959 #### [facility]-[address], [address] [place], [place] [address] Staff Development Manager: Arpit Mills MD #### [id number] #### [facility] [place], [place] Staff Development Manager: Jacobo Alvarez M.D.,PhD Sodium [Moles/Vol] 140 mmol/L Normal 135-146 [facility] Comment on above: Performed By: #### 7 137, 25543, 746, 10312, 33251 #### [facility]-[address] Staff Development Manager: Arpit Mills MD #### [id number] #### [facility] [place], [place] Staff Development Manager: Jacobo Alvarez M.D.,PhD Urea nitrogen [Mass/Vol] 9 mg/dL Normal 7-25 [facility] Comment on above: Performed By: #### 7 137, 17101, 746, 49105, 31023 #### [facility]-[address], [address] [place] [address] Staff Development Manager: Arpit Mills MD #### [id number] #### [facility] [address] [place], [place] Staff Development Manager: Jacobo Alvarez M.D.,PhD Urea nitrogen/Creatinine [Mass ratio] NOT APPLICABLE Normal 6- [facility] Comment on above: Performed By: #### 7 137, 79152, 746, 79732, 48539 #### [facility]-[address], [address] [place], [place] [address] Staff Development Manager: Arpit Mills MD #### [id number] #### [facility]/[place] [id number] [facility] [place], [place] Staff Development Manager: Jacobo Alvarez M.D.,PhD FSH AND LHon 10-24-2019 FSH 6.9 mIU/mL Normal [facility] Comment on above: Result Comment: Refe rence Range Follicular Phase 2.5-10.2 Mid-cycle Peak 3.1-17.7 Luteal Phase 1.5- 9.1 Postmenopausal 23.0-116.3 Performed By: #### 7 137, 77283, 746, 08714, 27516 #### [facility]-[address], [address] [place], [place] [address] Staff Development Manager: Arpit Mills MD #### [id number] #### [facility]/[place] [id number] [facility] [place], [place] Staff Development Manager: Jacobo Alvarez M.D.,PhD LH 25.5 mIU/mL Normal [facility] Comment on above: Result Comment: Refe rence Range Follicular Phase 1.9-12.5 Mid-Cycle Peak 8.7-76.3 Luteal Phase 0.5-16.9 Postmenopausal 10.0-54.7 Performed By: #### 7 137, 98587, 746, 18985, 72048 #### [facility]-[address], [address] [place] [address] Staff Development Manager: Arpit Mills MD #### [id number] #### [facility]/[place] [facility] [address] [facility] [place], [place] Staff Development Manager: Jacobo Alvarez M.D.,PhD PROLACTINon 10-24-2019 PROLACTIN 8.3 ng/mL Normal [facility] Comment on above: Result Comment: Refe rence Range Females Non- 3.0-30.0 10.0-209.0 Postmenopausal 2.0-20.0 Performed By: #### 7 137, 56111, 746, 34102, 30836 #### [facility]-[address], [address] [place] [address] Staff Development Manager: Arpit Mills MD #### [id number] #### [facility]/[place] [id number] [facility] [place], [place] Staff Development Manager: Jacobo Alvarez M.D.,PhD TESTOSTERONE, TOTAL, MSon TESTOSTERONE, TOTAL, MS 81 ng/dL High 2-45 Q uest Diagn[facility] Comment on above: Result Comment: For additional information, please refer to http://education.[employer]faq/ LyqzcOejmhoqxiccrBYGIJXJES433 (This link is being provided for informational/ educational purposes only.) This test was developed and its analytical performance characteristics have been determined by [facility] [place]. It has not been cleared or approved by the U.S. Food and Drug Administration. This assay has been validated pursuant to the CLIA regulations and is used for clinical purposes. Performed By: #### 7 137, 23528, 746, 51740, 92468 #### [facility]-[address], [address] [place] [address] Staff Development Manager: Arpit Mills MD #### [id number] #### [employer] [facility] [address] [facility] [place], [place] Staff Development Manager: Jacobo Alvarez M.D.,PhD TSH W/REFLEX TO FT4on 2019 TSH W/REFLEX TO FT4 1.72 mIU/L Normal [facility] Comment on above: Result Comment: Refe rence Range > or = 20 Years 0.40-4.50 Ranges First trimester 0.26-2.66 Second trimester 0.55-2.73 Third trimester 0.43-2.91 Performed By: #### 7 137, 51244, 746, 07328, 17742 #### [facility], [address] [place] [address] Staff Development Manager: Arpit Mills MD #### [id number] #### [facility] [address] [facility] [address] [place], [place] Staff Development Manager: Jacobo Alvarez M.D.,PhD VITAMIN D,25-OH,TOTAL,IAon 0 10-24-2019 VITAMIN D,25-OH,TOTAL,IA 32 ng/mL Normal 30-100 [facility] Comment on above: Result Comment: Kaitlin min D Status 25-OH Vitamin D: Deficiency: <20 ng/mL Insufficiency: 20 - 29 ng/mL Optimal: > or = 30 ng/mL For 25-OH Vitamin D testing on patients on D2-supplementation and patients for whom quantitation of D2 and D3 fractions is required, the QuestAssureD(TM) 25-OH VIT D, (D2,D3), LC/MS/MS is recommended: order code 62311 (patients >2yrs). For more information on this test, go to: http://education.[employer]faq/MMF242 (This link is being provided for informational/educational purposes only.) Performed By: #### 7 137, 27929, 746, 20841, 72276 #### [facility]-[address], [address] [place] [address] Staff Development Manager: Arpit Mills MD #### [id number] #### [facility] [address] [facility] [address] [place], [place] Staff Development Manager: Jacobo Alvarez M.D.,PhD ANTI-MULLERIAN HORMONE (AMH) , FEMALEon 10-23-2019 ANTI-MULLERIAN HORMONE (AMH), FEMALE 23.59 ng/mL High 1.02-14.63 [facility] Comment on above: Performed By: #### 3 7227 #### [facility] [address] [place] [address] Staff Development Manager: Maulik Mojica M.D., Ph.D Laboratory - Chemistry and C hemistry - challengeon 10-21-2019 Albumin [Mass/Vol] 5.1 g/dL Normal 3.6 - 5.1 g/dL [facility] Albumin/Globulin [Mass ratio] 1.8 {ratio} Normal 1.0 - 2.5 [facility]; [facility] ALP [Catalytic activity/Vol] 74 U/L Normal 31 - 125 U/L [facility].; [facility], [facility]. ALT [Catalytic activity/Vol] 11 U/L Normal 6 - 29 U/L [facility].; [facility], [facility]. AST [Catalytic activity/Vol] 14 U/L Normal 10 - 30 U/L [facility].; [facility], [facility]. Bilirubin [Mass/Vol] 0.3 mg/dL Normal 0.2 - 1 .2 mg/dL [facility], [facility] Calcium [Mass/Vol] 10.7 mg/dL Abnormal 8.6 - 10. 2 mg/dL [facility].; [facility], [facility]. Chloride [Moles/Vol] 100 mmol/L Normal 98 - 11 0 mmol/L [facility].; [facility], [facility]. CO2 [Moles/Vol] 30 mmol/L Normal 20 - 32 mmol/L [facility].; [facility], [facility]. Creatinine [Mass/Vol] 0.62 mg/dL Normal 0.50 - 1.10 mg/dL [facility].; [facility], [facility]. GFR/1.73 sq M.predicted among blacks MDRD (S/P/Bld) [Vol rate/Area] 150 mL/min/{1.73_m2} Normal [facility], [facility].; [employer]) [facility], [facility]. Glucose [Mass/Vol] 79 mg/dL Normal 65 - 99 mg/dL [facility], [facility].; [employer]) [facility], [facility]. Potassium [Moles/Vol] 3.9 mmol/L Normal 3.5 - 5.3 mmol/L [facility].; [facility], [facility]. Protein [Mass/Vol] 8.0 g/dL Normal 6.1 - 8.1 g/dL [facility]; [facility], [facility] Sodium [Moles/Vol] 140 mmol/L Normal 135 - 146 mmol/L [facility]; [facility], [facility] Urea nitrogen [Mass/Vol] 9 mg/dL Normal 7 - 25 mg/d L [facility]; [facility], [facility] No Panel Informationon 10-20 ANTI-MULLERIAN HORMONE (AMH), FEMALE 23.59 ng/mL Abnormal 1.02 - 14.63 ng/mL [facility]; [facility], [facility] BUN/CREATININE RATIO NOT APPLICABLE Normal 6 - 22 [facility]; [facility] eGFR NON-AFR. SAMOAN 130 Normal [facility]; [facility], [facility] FSH 6.9 m[iU]/mL Normal [facility]; [facility], [facility] GLOBULIN 2.9 Normal 1.9 - 3.7 [facility]; [facility], [facility]. LH 25.5 m[iU]/mL Normal [facility]; [facility] PROLACTIN 8.3 ng/mL Normal [facility]; [facility], [facility] TESTOSTERONE, TOTAL, MS 81 ng/dL Abnormal 2 - 45 ng/dL [facility].; [facility], [facility] TSH W/REFLEX TO FT4 1.72 {mIU/L} Normal [facility]; [facility], [facility] VITAMIN D,25-OH,TOTAL,IA 32 ng/mL Normal 30 - 100 ng/mL [facility].; [facility], [facility] Laboratory - Chemistry and C hemistry - challengeon 07-16-2019 Bilirubin Ql (U) Negative Normal [facility], [facility].; [facility], [facility]. Ketones Ql (U) Negative Normal [facility], [facility].; [facility], Inc pH (U) 6.5 [pH] Normal [facility].; [facility], [facility] Specific gravity (U) [Rel density] 1.015 Normal [employer]; [employer] Urobilinogen Qn (U) 0.2 mg/dL Normal [facility] [employer]) [facility] CenterTalentSprint Educational Services; [employer]. Laboratory - Hematology and Cell countson 07-16-2019 Hemoglobin Ql (U) large Abnormal [employer].; [employer]. Laboratory - Specimen inform ationon 07-16-2019 Appearance (U) cloudy Abnormal [facility] [employer]; [employer]. Color (U) Dark Yellow Normal [employer]; [employer]. Laboratory - Urinalysison Glucose Test strip (U) [Mass/Vol] Negative Normal [employer]; [employer]. Leukocyte esterase Test strip Ql (U) moderate Abnormal [employer]; [employer]. Nitrite Ql (U) Positive Abnormal [facility]; [employer]. Protein Ql (U) >=300 Normal [facility] [employer]; [employer]. No Panel Informationon 07-16 CULTURE, URINE, ROUTINE SEE NOTE Abnormal [facility] [employer].; [employer]. No Panel Informationon 01-01 SKIN TEST INTRADERMAL TB Negative Normal [employer]; [employer] No Panel InformationOrdered By: Jes Capps on 12-23-2017 SKIN TEST INTRADERMAL TB Negative Normal [employer]; [employer]. DEXA SCAN AXIALon 07-03-2017 DEXA SCAN AXIAL [...] Dr. Kaden Melendrez at 07/03/2017 13:24 Normal [facility] CULTURE URINEon 05-17-2017 Urine culture, bacteria COLONY COUNT = Z ERO COLONY FORMING UNITS, ML ISOL NO GROWTH OBSERVED AFTER 1 DAY NO GROWTH OBSERVED AFTER 2 DAYS Normal [facility] Comment on above: Performed By: #### 6 30-4 ####[facility] Director - Jennifer Solomon [id number] AMYLASEon 05-15-2017 Amylase 73 U/L Normal 25-115 [facility] Comment on above: Performed By: #### 2 1198-7, 1798-8, 3040-3, 46718-7 ####[facility] Director - Jennifer Solomon [id number] CBC with DIFFERENTIALon 04-22 Basophils Auto #/vol (Bld) 0.05 10*3/uL Normal <=0.70 [facility] Comment on above: Performed By: #### 5 7021-8 ####[facility] Director - Jennifer Solomon [id number] Basophils/100 WBC Auto (Bld) 0.7 % Normal <=2.0 [facility] Comment on above: Performed By: #### 5 7021-8 ####[facility] Director - Jennifer HutchinsJAMES [id number] Eosinophils 0.05 10*3/uL Normal <=0.70 [facility] Comment on above: Performed By: #### 5 7021-8 ####[place] [address] Director - Jennifer CaraballoIA [id number] Eosinophils/100 leukocytes 0.7 % Normal <=10.0 [facility] Comment on above: Performed By: #### 5 7021-8 ####[facility] Director - Jennifer HutchinsCLIA [id number] Erythrocyte distribution width Auto Entitic volume (RBC) 37.0 fL Normal 36.4-46.3 [facility] Comment on above: Performed By: #### 5 7021-8 ####[facility] Director - Jennifer Solomon [id number] Erythrocytes (RBC) 4.98 10*6/uL Normal 4.00-6.30 [facility] Comment on above: Performed By: #### 5 7021-8 ####[place] [address] Director - Jennifer Solomon [id number] Hematocrit (HCT) 43.3 % Normal 37.0-47.0 [facility] Comment on above: Performed By: #### 5 7021-8 ####[facility] Director - Jenniferobie Solomon [id number] Hemoglobin mass conc (Bld) 15.1 g/dL Normal 12.0-16.0 [facility] Comment on above: Performed By: #### 5 7021-8 ####[facility] Director - Jenniferobie Solomon [id number] Immature granulocytes #/vol (Bld) 0.03 10*3/uL Normal <=0.10 [facility] Comment on above: Performed By: #### 5 7021-8 ####[facility] Director - Jennifer IlyaIA [id number] Immature granulocytes/100 WBC (Bld) 0.40 % Normal <=1.50 [facility] Comment on above: Performed By: #### 5 7021-8 ####[facility], [place] [address]Hpcaerm Director - Jennifer FarrellCLIA [id number] Lymphocytes 1.51 10*3/uL Normal 1.20-3.40 [facility] Comment on above: Performed By: #### 5 7021-8 ####[facility] Director - Jennifer FarrellCLIA [id number] Lymphocytes/100 leukocytes 20.4 % Normal 20.0-40.0 [facility] Comment on above: Performed By: #### 5 7021-8 ####[facility] Director - Jennifer FarrellCLIA [id number] MCH 30.3 pg Normal 27.0-31.0 [facility] Comment on above: Performed By: #### 5 7021-8 ####[facility] Director - Jennifer FarrellCLIA [id number] MCHC mass conc (RBC) 34.9 g/dL Normal 32.0-36.0 [facility] Comment on above: Performed By: #### 5 7021-8 ####[facility], [place] [address]Putahyj Director - Jennifer FarrellCLIA [id number] MCV 86.9 fL Normal 80.0-100.0 [facility] Comment on above: Performed By: #### 5 7021-8 ####[facility], [place] [address]Bcevdlq Director - Jennifer FarrellCLIA [id number] Monocytes 0.32 10*3/uL Normal 0.10-0.60 [facility] Comment on above: Performed By: #### 5 7021-8 ####[facility] Director - Jennifer FarrellCLIA [id number] Monocytes/100 leukocytes 4.3 % Normal <=8.0 [facility] Comment on above: Performed By: #### 5 7021-8 ####[facility] Director - Jennifer FarrellCLIA [id number] Neutrophils 5.44 10*3/uL Normal 1.40-6.50 [facility] Comment on above: Performed By: #### 5 7021-8 ####[facility] Director - Jennifer CuongCLIA [id number] Neutrophils/100 WBC Auto (Bld) 73.5 % High 50.0-70.0 [facility] Comment on above: Performed By: #### 5 7021-8 ####[place] [address] Director - Jennifer FarrellCLIA [id number] Nucleated erythrocytes 0.00 10*3/uL Normal <=0.10 [facility] Comment on above: Performed By: #### 5 7021-8 ####[facility] Director - Jennifer FarrellCLIA [id number] Platelet mean volume (PMV) 10.1 fL Normal 9.0-13.0 [facility] Comment on above: Performed By: #### 5 7021-8 ####[facility] Director - Jennifer FarrellCLIA [id number] Platelets 220 10*3/uL Normal 130-400 [facility] Comment on above: Performed By: #### 5 7021-8 ####[facility] Director - Jennifer FarrellCLIA [id number] WBC (Leukocytes) 7.40 10*3/uL Normal 4.80-10.80 [facility] Comment on above: Performed By: #### 5 70 ####[facility], [place] [address]Tnekhwv Director - Jennifer Solomon [id number] COMPREHENSIVE METABOLIC PANE Darrick 05-15-2017 Alanine aminotransferase (ALT) 24 U/L Normal 14-59 [facility] Comment on above: Performed By: #### 2 1198-7, 8-8, 3040-3, 37407-8 ####[facility], [place] [address]Ijzfspv Director - Jennifer Solomon [id number] Albumin 4.5 g/dL Normal 3.4-5.0 [facility] Comment on above: Performed By: #### 2 1198-7, 1797-8, 3039-3, ####[facility], [place] [address]Tzjkojd Director - Jennifer Solomon [id number] Alkaline phosphatase (ALP) 86 U/L Normal 50-136 [facility] Comment on above: Performed By: #### 2 1198-7, 1797-8, 3039-3, ####[facility], [place] [address]Mtnqmcc Director - Jennifer Solomon [id number] Anion gap 9.0 mmol/L Normal <=15.0 [facility] Comment on above: Performed By: #### 2 1198-7, 1797-8, 3040-3, ####[facility], [place] [address]Yswurxb Director - Jennifer Solomon [id number] Aspartate aminotransferase (AST) 14 U/L Low 15-37 [facility] Comment on above: Performed By: #### 2 1198-7, 1797-8, 3040-3, ####[facility], [place] [address]Tjctyry Director - Jennifer Solomon [id number] Bilirubin (total) 0.3 mg/dL Normal 0.2-1.0 [facility] Comment on above: Performed By: #### 2 1198-7, 1798-8, 3040-3, 62576-1 ####[facility], [place] [address]Jqexuch Director - Jenniferobie MoralezrellCLIA [id number] Calcium 9.5 mg/dL Normal 8.5-10.1 [facility] Comment on above: Performed By: #### 2 1198-7, 1797-8, 3040-3, 53635-1 ####[facility], [place] [address]Gocmphn Director - Jennifer FarrellCLIA [id number] Chloride 103 mmol/L Normal 98-107 [facility] Comment on above: Performed By: #### 2 1198-7, 1797-8, 3040-3, ####[facility], [place] [address]Sxdygyc Director - Jennifer FarrellCLIA [id number] CO2 29 mmol/L Normal 21-32 [facility] Comment on above: Performed By: #### 2 1198-7, 1797-8, 3040-3, ####[facility], [place] [address]Ghlcvsk Director - Jenniferobie MoralezrellCLIA [id number] Creatinine 0.64 mg/dL Normal 0.51-0.95 [facility] Comment on above: Performed By: #### 2 1198-7, 8, 3040-3, 57143-8 ####[facility], [place] [address]Xonxnmb Director - Jennifer FarrellCLIA [id number] eGFR (MDRD) mL/min/{1.73_m2} Normal >=59 [facility] Comment on above: Performed By: #### 2 1198-7, 1798-8, 3040-3, 96101-7 ####[facility], [place] [address]Khexinr[facility] [id number] eGFR (non-black) GLOMERULAR FILTRATION RATE INTERPRETATION~The eGFR [...] months, with or without kidney damage.~ Normal [facility] Comment on above: Performed By: #### 2 1198-7, 8, 3040-3, 60989-4 ####[facility] [id number] Glucose mass conc 148 mg/dL High 74-106 [facility] Comment on above: Performed By: #### 2 1198-7, 1798-02, 3040-3, 05436-1 ####[facility] [id number] Potassium molar conc 3.5 mmol/L Normal 3.5-5.1 [facility] Comment on above: Performed By: #### 2 1198-7, 8, 3040-3, 63357-3 ####[facility] [id number] Protein 8.6 g/dL High 6.4-8.2 [facility] Comment on above: Performed By: #### 2 1198-7, 8, 3040-3, 39298-4 ####[facility], [place] [address]Vnxilni Director - Jennifer Solomon [id number] Sodium 141 mmol/L Normal 136-145 [facility] Comment on above: Performed By: #### 2 1198-7, 1798-8, 3040-3, 48801-2 ####[facility] Director - Jennifer Solomon [id number] Urea nitrogen 9 mg/dL Normal 7-17 [facility] Comment on above: Performed By: #### 2 1198-7, 8, 3039-3, ####[facility] Director - Jennifer Solomon [id number] CT ABDOMEN AND PELVIS WITH C ONTRASTon [...] abnormality abdomen or pelvis; normal appendix. Normal [facility] HCG BLOODon 05-15-2017 HCG.beta subunit Qn m[IU]/mL Normal 1-3 [facility] Comment on above: Performed By: #### 2 1198-7, 1798-8, 3040-3, ####[facility] [address]Medical Director - Jenniferobie Solomon [id number] Microscopic observation HCG INTERPRETATI ON The expected [...] 6-8 weeks 15,000-200,000 2-3 months 10,000-100,000 Normal [facility] Comment on above: Performed By: #### 2 1198-7, 1798-8, 3040-3, 03005-3 ####[facility] Director - Jennifer Solomon [id number] LIPASEon 05-15-2017 Lipase 107 U/L Normal 73-393 [facility] Comment on above: Performed By: #### 2 1198-7, 1798-8, 3040-3, 65109-9 ####[facility] Director - Jennifer Solomon [id number] URINALYSISon 05-15-2017 Bilirub Ur Strip-mCnc Negative Normal NEGATIVE [facility] Comment on above: Performed By: #### 5 0564-4 ####[facility] Director - Jennifer Solomon [id number] Glucose mass conc Negative Normal NEGATIVE [facility] Comment on above: Performed By: #### 5 0564-4 ####[place] [address] Director - Jennifer Solomon [id number] Ketones Ur Strip-mCnc Negative Normal NEGATIVE [facility] Comment on above: Performed By: #### 5 0564-4 ####[place] [address] Director - Jennifer Neha [id number] Leukocyte esterase Ur-aCnc Negative Normal TRACE [facility] Comment on above: Performed By: #### 5 0564-4 ####[facility] Director - Jennifer Solomon [id number] Urine, clarity Clear Normal CLEAR [facility] Comment on above: Performed By: #### 5 0564-4 ####[facility] Director - Jennifer Solomon [id number] Urine, color Yellow Normal YELLOW [facility] Comment on above: Performed By: #### 5 0564-4 ####[facility] Director - Jennifer CuongNORTHWESTERN MEDICAL [facility] [id number] Urine, erythrocytes Negative Normal NEGATIVE [facility] Comment on above: Performed By: #### 5 0564-4 ####[facility] Director - Jennifer CuongJAMES [id number] Urine, nitrite presence Negative Normal NEGATIVE [facility] Comment on above: Performed By: #### 5 0564-4 ####[facility] Director - Jennifer HutchinsJAMES [id number] Urine, pH 6.5 [pH] Normal 5.5-7.5 [facility] Comment on above: Performed By: #### 5 0564-4 ####[facility] Director - Jennifer CuongJAMES [id number] Urine, protein Negative Normal NEGATIVE [facility] Comment on above: Performed By: #### 5 0564-4 ####[facility] Director - Jennifer HutchinsJAMES [id number] Urine, specific gravity <=1.005 Low 1.010-1.035 [facility] Comment on above: Performed By: #### 5 0564-4 ####[facility], [place] [address]Xpispca Director - Jennifer Solomon [id number] Urobilinogen Ur-aCnc 0.2 E.U./dL Normal <=1 [facility] Comment on above: Performed By: #### 5 0564-4 ####[facility], [place] [address]Aatsdqa Director - Jennifer Solomon [id number] Laboratory - Chemistry and C hemistry - challengeon 12-26-2016 Follitropin Qn FSH [QUEST] Normal [facility] HospitalNe[facility].; [employer]. Prolactin [Mass/Vol] PROLACTIN Normal [facility] [employer].; [employer], [employer]. Laboratory - Chemistry and C hemistry - challengeon 12-13-2016 Bilirubin Ql (U) Negative Normal [facility] [employer], [employer]. Ketones Ql (U) Negative Normal [facility] [employer], [employer]. pH (U) 7.0 [pH] Normal [employer].; [employer], [employer]. Specific gravity (U) [Rel density] 1.015 Normal [employer].; [employer], [employer]. Urobilinogen Qn (U) 0.2 mg/dL Normal [facility] [employer], [employer]. Laboratory - Hematology and Cell countson 12-13-2016 Hemoglobin Ql (U) Negative Normal [employer].; [employer]. Laboratory - Specimen inform ationon 12-13-2016 Appearance (U) clear Normal Rueda [facility] [employer].; [employer], [employer]. Color (U) yellow Normal [employer], [employer]. Laboratory - Urinalysison Glucose Test strip (U) [Mass/Vol] Negative Normal [employer].; [employer], Inc. Leukocyte esterase Test strip Ql (U) Negative Normal [employer].; [employer], [employer]. Nitrite Ql (U) Negative Normal [facility] [employer].; [employer]. Protein Ql (U) Negative Normal [facility] [employer].; [employer], [employer]. No Panel Informationon 11-28 SKIN TEST INTRADERMAL TB 0.0mm Normal [facility] [employer].; [employer], [employer]. Laboratory - Microbiology an d Antimicrobial susceptibilityon 07-09-2014 S. pyogenes Ag EIA Ql (Throat) Negative Normal [facility] [employer].; [employer], [employer]. Laboratory - Allergyon 06-30 Clam IgE Qn (S) < 0.35 Normal [facility] [employer], [employer]. Clam IgE RAST class (S) 0 Normal [facility] [employer], [employer]. Codfish IgE Qn (S) < 0.35 Normal [facility] [employer].; [employer], [employer]. Codfish IgE RAST class (S) 0 Normal [facility] [employer].; [employer], [employer]. Early IgE Qn (S) < 0.35 Normal [facility].; [employer], [employer]. Early IgE RAST class (S) 0 Normal [facility] [employer] ([employer] Pay[employer]) [facility].; [employer], Inc. Egg white IgE Qn (S) < 0.35 Normal [facility] [employer].; [employer], [employer]. Egg white IgE RAST class (S) 0 Normal [facility] [employer].; [employer], [employer]. Milk IgE Qn (S) < 0.35 Normal [facility].; [employer], [employer]. Milk IgE RAST class (S) 0 Normal [facility] [employer].; [employer], [employer]. Peanut IgE Qn (S) < 0.35 Normal [facility] [employer].; [employer], [employer] Peanut IgE RAST class (S) 0 Normal [facility] [employer].; [employer], [employer]. Scallop IgE Qn (S) < 0.35 Normal [facility] [employer].; [employer], [employer]. Scallop IgE RAST class (S) 0 Normal [facility].; [facility]. Sesame Seed IgE Qn (S) < 0.35 Normal [facility].; [facility]. Sesame Seed IgE RAST class (S) 0 Normal [facility].; [facility]. Shrimp IgE Qn (S) < 0.35 Normal [facility].; [facility]. Shrimp IgE RAST class (S) 0 Normal [facility].; [facility]. Soybean IgE Qn (S) < 0.35 Normal [facility].; [facility]. Soybean IgE RAST class (S) 0 Normal [facility].; [facility], [facility]. Kirkland IgE Qn (S) < 0.35 Normal [facility].; [facility], [facility]. Kirkland IgE RAST class (S) 0 Normal [facility].; [facility]. Wheat IgE Qn (S) < 0.35 Normal [facility].; [facility]. Wheat IgE RAST class (S) 0 Normal [facility].; [facility], [facility]. Laboratory - Chemistry and C hemistry - challengeon 06-30-2012 IgA [Mass/Vol] 175 mg/dL Normal 70 - 432 mg/dL [facility].; [facility], [facility]. Laboratory - Serology - non- microon 06-30-2012 Gliadin IgA IA Qn (S) 5 {UNITS} Normal [facility].; [facility], [facility]. tTG IgA Qn (S) <1 Normal [facility].; [facility], [facility] Laboratory - Microbiology an d Antimicrobial susceptibilityon 06-02-2012 FLUAV Ag IA Ql (Throat) Positive Abnormal [facility]; [facility], [facility] Laboratory - Chemistry and C hemistry - challengeon 05-27-2012 Albumin [Mass/Vol] 4.7 g/dL Normal 3.6 - 5.1 g/dL [facility]; [facility]. Albumin/Globulin [Mass ratio] 1.7 {ratio} Normal 1.0 - 2.1 [facility].; [facility], [facility]. ALP [Catalytic activity/Vol] 99 U/L Normal 41 - 244 U/L [facility].; [facility], [facility]. ALT [Catalytic activity/Vol] 10 U/L Normal 6 - 19 U/L [facility].; [facility], [facility]. AST [Catalytic activity/Vol] 13 U/L Normal 12 - 32 U/L [facility].; [facility], [facility] Bilirubin [Mass/Vol] 0.4 mg/dL Normal 0.2 - 1 .1 mg/dL [facility].; [facility], [facility] Calcium [Mass/Vol] 10.0 mg/dL Normal 8.9 - 10. 4 mg/dL [facility].; [facility], [facility] Chloride [Moles/Vol] 104 mmol/L Normal 98 - 11 0 mmol/L [facility].; [facility], [facility]. CO2 [Moles/Vol] 24 mmol/L Normal 21 - 33 mmol/L [facility].; [facility], [facility] Creatinine [Mass/Vol] 0.87 mg/dL Normal 0.40 - 1.00 mg/dL [facility].; [facility], [facility]. CRP [Mass/Vol] 0.1 mg/L Normal [facility].; [facility], [facility]. GFR/1.73 sq M.predicted among blacks MDRD (S/P/Bld) [Vol rate/Area] SEE NOTE Normal [facility], [facility].; [facility], [facility]. GFR/1.73 sq M.predicted MDRD (S/P/Bld) [Vol rate/Area] SEE NOTE Normal [facility], [facility].; [facility], [facility]. Globulin (S) [Mass/Vol] 2.7 g/dL Normal 2.0 - 3.8 g/dL [facility], [facility].; [facility], [facility] Glucose [Mass/Vol] 91 mg/dL Normal 65 - 99 mg/dL [facility].; [facility]. Potassium [Moles/Vol] 3.7 mmol/L Abnormal 3.8 - 5.1 mmol/L [facility].; [facility]. Protein [Mass/Vol] 7.4 g/dL Normal 6.3 - 8.2 g/dL [facility].; Carlos [employer] ([employer]) [facility], [facility] Sodium [Moles/Vol] 140 mmol/L Normal 135 - 146 mmol/L [facility].; [facility] Urea nitrogen [Mass/Vol] 12 mg/dL Normal 7 - 20 mg/d L [facility].; Carlos [employer] ([employer]) [facility], [facility] Urea nitrogen/Creatinine [Mass ratio] 14.3 mg/mg Normal 6 - 22 [facility].; [facility] [employer] ([employer]) [facility] Laboratory - Hematology and Cell countson 05-27-2012 Basophils (Bld) [#/Vol] 40 {Cells}/uL Normal 0 - 200 {Cells}/uL [facility].; [facility] [employer] ([employer]) [facility]. Basophils/100 WBC (Bld) 0 % Normal 0 - 2 % [facility].; [facility] [employer] ([employer]) [facility]. Eosinophils (Bld) [#/Vol] 110 {Cells}/uL Normal 15 - 500 {Cells}/uL [facility].; [facility] [facility]. Eosinophils/100 WBC (Bld) 1 % Normal 0 - 6 % [facility].; Carlos [employer], [facility] Erythrocyte distribution width (RBC) [Ratio] 12.1 % Normal 11.0 - 15.0 % [facility].; Carlos [employer], [facility]. Hematocrit (Bld) [Volume fraction] 43.0 % Normal 34.0 - 46.0 % [facility].; [facility] [employer], [facility]. Hemoglobin (Bld) [Mass/Vol] 14.5 g/dL Normal 11.5 - 15.3 g/dL [facility].; [facility] [employer], [facility]. Lymphocytes (Bld) [#/Vol] 2450 {Cells}/uL Normal 1200 - 5200 {Cells}/uL [facility].; Carlos [employer] Lymphocytes/100 WBC (Bld) 29 % Normal 20 - 60 % [facility].; [place] [employer] MCH (RBC) [Entitic mass] 29.4 pg Normal 25. 0 - 35.0 PG Carlos [employer] ([employer]) [facility].; [place] [employer] ([employer]) [facility], [employer]. MCHC (RBC) [Mass/Vol] 33.7 g/dL Normal 31.0 - 36.0 g/dL [facility] [employer] ([employer]) [facility].; [place] [employer] MCV (RBC) [Entitic vol] 87.4 fL Normal 78.0 - 98.0 fL Carlos [employer] ([employer]) [facility].; Carlos [employer] ([employer]) [facility] Monocytes (Bld) [#/Vol] 560 {Cells}/uL Normal 20 0 - 900 {Cells}/uL [facility].; [place] [employer]. Monocytes/100 WBC (Bld) 7 % Normal 0 - 10 % [facility].; [place] [employer] Neutrophils (Bld) [#/Vol] 5380 {Cells}/uL Normal 1800 - 8000 {Cells}/uL [facility] [employer].; [employer]. Neutrophils/100 WBC (Bld) 63 % Normal 40 - 70 % [facility] [employer].; [employer] Platelets (Bld) [#/Vol] 216 10*3/uL Normal 140 - 400 10*3/uL [facility] [employer].; [employer]. RBC (Bld) [#/Vol] 4.92 10*6/uL Normal 3.80 - 5.1 0 10*6/uL [facility] [employer].; [employer]. WBC (Bld) [#/Vol] 8.5 10*3/uL Normal 4.5 - 13.0 10*3/uL [employer].; [employer] Laboratory - Microbiology an d Antimicrobial susceptibilityon 08-15-2010 FLUAV Ag IA Ql (Throat) Negative Normal [facility] [employer].; [employer] Vital Signs Date Time Vital Sign Value Performing Clinician Facility 11-30-2024 10:51-0400 Body mass index (BMI) [Ratio] 20.12 kg/m2 Zayra Flores MD Work Phone: [facility] 11-30-2024 10:51-0400 Body weight 53.16 kg Zayra Flores MD Work Phone: [facility] 11-30-2024 10:51-0400 Diastolic blood pressure 77 mm[Hg] Zayra Flores MD Work Phone: [facility] 11-30-2024 10:51-0400 Heart rate 85 /min Zayra Flores MD Work Phone: [facility] 11-30-2024 10:51-0400 Systolic blood pressure 117 mm[Hg] Zayra Flores MD Work Phone: [facility] 11-06-2024 10:36-0400 Body mass index (BMI) [Ratio] 20.32 kg/m2 Zayra Flores MD Work Phone: [facility] 11-06-2024 10:36-0400 Body weight 53.71 kg Zayra Flores MD Work Phone: [facility] 11-06-2024 10:36-0400 Diastolic blood pressure 80 mm[Hg] Zayra Flores MD Work Phone: [facility] 11-06-2024 10:36-0400 Heart rate 96 /min Zayra Flores MD Work Phone: [facility] 11-06-2024 10:36-0400 Systolic blood pressure 118 mm[Hg] Zayra Flores MD Work Phone: [facility] 10-12-2024 13:41-0400 Body mass index (BMI) [Ratio] 20.43 kg/m2 Marylin Bustamante CNM Work Phone: [facility] 10-12-2024 13:41-0400 Body weight 53.98 kg Marylin Bustamante CNM Work Phone: [facility] 10-12-2024 13:41-0400 Diastolic blood pressure 81 mm[Hg] Marylin Bustamante CNM Work Phone: [facility] 10-12-2024 13:41-0400 Heart rate 82 /min Marylin TATUM Work Phone: [facility] 10-12-2024 13:41-0400 Systolic blood pressure 114 mm[Hg] Marylin Bustamante [facility] Work Phone: [facility] 09-04-2024 08:38-0500 Body height 165.1 cm Andree Solorzaon RN [employer].; [employer]. 09-04-2024 08:38-0500 Body mass index (BMI) [Ratio] 19.47 kg/m2 Andree Solorzano RN [employer].; [employer]. 09-04-2024 08:38-0500 Body surface area Derived from formula 1.58 m2 Andree Solorzano RN [employer].; [employer]. 09-04-2024 08:38-0500 Body temperature 99 [degF] Andree Solorzano RN [employer].; [employer]. Comment on above: Method: Tympanic 09-04-2024 08:38-0500 Body weight 53.07 kg Andree Solorzano RN [employer].; [employer]. 09-04-2024 08:38-0500 Diastolic blood pressure 73 mm[Hg] Andree Solorzano RN [employer].; [employer]. Comment on above: Patient Position: Sitting; Cuff Location : Left Arm; Cuff Size: Small 09-04-2024 08:38-0500 Heart rate 97 /min Andree Solorzano RN [employer].; [employer]. Comment on above: Pattern: Regular 09-04-2024 08:38-0500 Inhaled oxygen concentration 21 % Andree Solorzano RN [employer].; [employer]. Comment on above: Room air 09-04-2024 08:38-0500 SaO2% (BldA) [Mass fraction] 99 % Andree Solorzano RN [employer]. 09-04-2024 08:38-0500 Systolic blood pressure 113 mm[Hg] Andree Solorzano RN [facility].; [facility]. Comment on above: Patient Position: Sitting; Cuff Location : Left Arm; Cuff Size: Small 08-22-2024 21:43-0500 Body temperature 97.6 [degF] Zayra Carrizales PA Work Phone: [facility] 08-22-2024 21:43-0500 Diastolic blood pressure 87 mm[Hg] Zayra Carrizales PA Work Phone: [facility] 08-22-2024 21:43-0500 Heart rate 89 /min Zayra Carrizales PA Work Phone: [facility] 08-22-2024 21:43-0500 Respiratory rate 16 /min Zayra Carrizales PA Work Phone: [facility] 08-22-2024 21:43-0500 SaO2% (BldA) [Mass fraction] 100 % Zayra Carrizales PA Work Phone: [facility] 08-22-2024 21:43-0500 Systolic blood pressure 117 mm[Hg] Zayra Carrizales PA Work Phone: [facility] 08-22-2024 17:01-0500 Body height 162.56 cm Zayra Carrizales PA Work Phone: [facility] 08-22-2024 17:01-0500 Body mass index (BMI) [Ratio] 19.9 kg/m2 Zayra Carrizales PA Work Phone: [facility] 08-22-2024 17:01-0500 Body weight 52.6 kg Zayra Carrizales PA Work Phone: [facility] 06-26-2024 14:33-0500 Body mass index (BMI) [Ratio] 21.06 kg/m2 Marylin Bustamante CNM Work Phone: [facility] 06-26-2024 14:33-0500 Body weight 55.66 kg Marylin Bustamante CNM Work Phone: [facility] 06-26-2024 14:33-0500 Diastolic blood pressure 82 mm[Hg] Marylin Bustamante CN Work Phone: [facility] 06-26-2024 14:33-0500 Heart rate 66 /min Marylin Bustamante CNM Work Phone: [facility] 06-26-2024 14:33-0500 Systolic blood pressure 121 mm[Hg] Marylin Bustamante CN Work Phone: [facility] 06-16-2024 11:03-0500 Body height 165.1 cm Leila Jimenez MA [facility], [facility].; [employer]. 06-16-2024 11:03-0500 Body mass index (BMI) [Ratio] 20.72 kg/m2 Leila Jimenez MA [employer] [facility], Inc.; [employer], [employer] 06-16-2024 11:03-0500 Body surface area Derived from formula 1.62 m2 Leila Jimenez MA [employer] [facility], Inc.; [employer], [employer] 06-16-2024 11:03-0500 Body temperature 97.8 [degF] Leila Jimenez MA [employer].; [employer], [employer]. 06-16-2024 11:03-0500 Body weight 56.47 kg Leila Jimenez MA [employer] [facility].; [employer], [employer] 06-16-2024 11:03-0500 Diastolic blood pressure 66 mm[Hg] Leila Jimenez MA [employer] [facility] CenterDr[facility] Inc.; [employer]. Comment on above: Patient Position: Sitting; Cuff Location : Left Arm; Cuff Size: Standard 06-16-2024 11:03-0500 Heart rate 87 /min Leila Jimenez MA [employer].; [employer]. Comment on above: Pattern: Regular 06-16-2024 11:03-0500 Systolic blood pressure 104 mm[Hg] Leila Jimenez MA [employer].; [employer], [employer]. Comment on above: Patient Position: Sitting; Cuff Location : Left Arm; Cuff Size: Standard 05-20-2024 10:40-0400 Body height 165.1 cm Reshma Louie LPN [facility], [facility].; [facility], [facility]. 05-20-2024 10:40-0400 Body mass index (BMI) [Ratio] 20.3 kg/m2 Reshma Louie LPN [facility], [facility].; [facility], [facility]. 05-20-2024 10:40-0400 Body surface area Derived from formula 1.6 m2 Reshma Louie LPN [facility], [facility].; [facility], [facility]. 05-20-2024 10:40-0400 Body temperature 97 [degF] Reshma Louei LPN [facility].; [facility], [facility]. Comment on above: Method: Tympanic 05-20-2024 10:40-0400 Body weight 55.34 kg Reshma Louie LPN [facility], [facility].; [facility], [facility]. 05-20-2024 10:40-0400 Diastolic blood pressure 72 mm[Hg] Reshma Louie LPN [facility], [facility].; [facility], [facility]. Comment on above: Patient Position: Sitting; Cuff Location : Left Arm; Cuff Size: Standard 05-20-2024 10:40-0400 Heart rate 88 /min Reshma Louie LPN [facility], [facility].; [facility], [facility]. Comment on above: Pattern: Regular 05-20-2024 10:40-0400 Systolic blood pressure 125 mm[Hg] Reshma Louie LPN [facility], [facility].; [facility], [facility]. Comment on above: Patient Position: Sitting; Cuff Location : Left Arm; Cuff Size: Standard 11-08-2023 08:59-0400 Body mass index (BMI) [Ratio] 20.92 kg/m2 Marylin Bustamante CNM Work Phone: [facility] 11-08-2023 08:59-0400 Body weight 55.29 kg Marylin Bustamante CNM Work Phone: [facility] 11-08-2023 08:59-0400 Diastolic blood pressure 80 mm[Hg] Marylin Bustamante CNM Work Phone: [facility] 11-08-2023 08:59-0400 Heart rate 90 /min Marylin TATUMM Work Phone: [facility] 11-08-2023 08:59-0400 Systolic blood pressure 114 mm[Hg] Marylin Robby BUTT Work Phone: [facility] 10-23-2023 11:42-0400 Body height 162.6 cm Jag Tellez MD Work Phone: [facility] 10-23-2023 11:42-0400 Body mass index (BMI) [Ratio] 21.27 kg/m2 Jag Tellez MD Work Phone: [facility] 10-23-2023 11:42-0400 Body weight 56.2 kg Jag Tellez MD Work Phone: [facility] 10-23-2023 11:42-0400 Diastolic blood pressure 73 mm[Hg] Jag Tellez MD Work Phone: [facility] 10-23-2023 11:42-0400 Heart rate 80 /min Jag Tellez MD Work Phone: [facility] 10-23-2023 11:42-0400 SaO2% (BldA) [Mass fraction] 99 % Jag Tellez MD Work Phone: [facility] 10-23-2023 11:42-0400 Systolic blood pressure 112 mm[Hg] Jag Tellez MD Work Phone: [facility] 09-04-2023 09:53-0500 Body height 162.6 cm Hanna Coley TERMINAL OPERATIONS SUPERVISOR Work Phone: [facility] 09-04-2023 09:53-0500 Body mass index (BMI) [Ratio] 21.27 kg/m2 Hanna Lafon TERMINAL OPERATIONS SUPERVISOR Work Phone: [facility] 09-04-2023 09:53-0500 Body weight 56.2 kg Hanna Lafon TERMINAL OPERATIONS SUPERVISOR Work Phone: [facility] 09-04-2023 09:53-0500 Diastolic blood pressure 80 mm[Hg] Hanna Lafon TERMINAL OPERATIONS SUPERVISOR Work Phone: [facility] 09-04-2023 09:53-0500 Heart rate 77 /min Hanna Coley CNP Work Phone: [facility] 09-04-2023 09:53-0500 SaO2% (BldA) [Mass fraction] 97 % Hanna Coley CNP Work Phone: [facility] 09-04-2023 09:53-0500 Systolic blood pressure 124 mm[Hg] Hanna Coley CNP Work Phone: [facility] 08-26-2023 11:24-0500 Body height 165.1 cm Raysa Smith MANAGER MUSIC [facility], [facility].; [facility] 08-26-2023 11:24-0500 Body mass index (BMI) [Ratio] 20.47 kg/m2 Raysa Smith [facility], [facility].; Carlos [employer]) [facility] 08-26-2023 11:24-0500 Body surface area Derived from formula 1.61 m2 Raysa Smith MANAGER MUSIC [facility] 08-26-2023 11:24-0500 Body temperature 99.6 [degF] Raysa Smith [facility], [facility].; [employer] [facility], Inc. Comment on above: Method: Tympanic 08-26-2023 11:24-0500 Body weight 55.79 kg Raysa Smith MANAGER MUSIC [facility].; [employer], [employer] 08-26-2023 11:24-0500 Diastolic blood pressure 74 mm[Hg] Raysa Smith MANAGER MUSIC [facility].; [employer] Comment on above: Patient Position: Sitting; Cuff Location : Left Arm; Cuff Size: Standard 08-26-2023 11:24-0500 Heart rate 100 /min Raysa Smith MANAGER MUSIC [facility], [facility].; Rueda [employer] [facility] Comment on above: Pattern: Regular 08-26-2023 11:24-0500 Inhaled oxygen concentration 20 % Raysa Smith MANAGER MUSIC [facility].; [employer] Comment on above: Room air 08-26-2023 11:24-0500 Inhaled oxygen concentration 21 % Raysa Smith MANAGER MUSIC [facility], [facility].; [facility], [facility]. Comment on above: Room air 08-26-2023 11:24-0500 SaO2% (BldA) [Mass fraction] 98 % Raysa Smith LPN [facility], [facility].; [facility], [facility]. 08-26-2023 11:24-0500 Systolic blood pressure 112 mm[Hg] Raysa Smith LPN [facility], [facility].; [facility], [facility]. Comment on above: Patient Position: Sitting; Cuff Location : Left Arm; Cuff Size: Standard 04-24-2023 08:55-0400 Body height 162.6 cm Dennis Eder TERMINAL OPERATIONS SUPERVISOR Work Phone: [facility] 04-24-2023 08:55-0400 Body mass index (BMI) [Ratio] 20.8 kg/m2 Dennis Eder TERMINAL OPERATIONS SUPERVISOR Work Phone: [facility] 04-24-2023 08:55-0400 Body weight 54.98 kg Dennis Eder TERMINAL OPERATIONS SUPERVISOR Work Phone: [facility] 04-24-2023 08:55-0400 Diastolic blood pressure 77 mm[Hg] Dennis Eder TERMINAL OPERATIONS SUPERVISOR Work Phone: [facility] 04-24-2023 08:55-0400 Heart rate 82 /min Dennis Eder TERMINAL OPERATIONS SUPERVISOR Work Phone: [facility] 04-24-2023 08:55-0400 SaO2% (BldA) [Mass fraction] 98 % Dennis Eder TERMINAL OPERATIONS SUPERVISOR Work Phone: [facility] 04-24-2023 08:55-0400 Systolic blood pressure 111 mm[Hg] Dennis Eder TERMINAL OPERATIONS SUPERVISOR Work Phone: [facility] 04-12-2023 10:50-0400 Body mass index (BMI) [Ratio] 20.82 kg/m2 Marylin TATUMM Work Phone: [facility] 04-12-2023 10:50-0400 Body weight 55.02 kg Marylin TATUMM Work Phone: [facility] 04-12-2023 10:50-0400 Diastolic blood pressure 76 mm[Hg] Marylin TATUM Work Phone: [facility] 04-12-2023 10:50-0400 Heart rate 82 /min Marylin Bustamante CNM Work Phone: [facility] 04-12-2023 10:50-0400 Systolic blood pressure 117 mm[Hg] Marylin TATUM Work Phone: [facility] 03-12-2023 08:19-0400 Body height 165.1 cm Leila Jimenez [facility]. 03-12-2023 08:19-0400 Body mass index (BMI) [Ratio] 19.97 kg/m2 Leila Jimenez MA [facility].; [facility], [facility]. 03-12-2023 08:19-0400 Body surface area Derived from formula 1.59 m2 Leila Jimenez MA [facility].; RuedaWidespace [facility]. 03-12-2023 08:19-0400 Body weight 54.43 kg Leila Jimenez MA [facility].; RuedaWidespace [facility]. 03-12-2023 08:19-0400 Diastolic blood pressure 74 mm[Hg] Leila Jimenez MA [facility].; RuedaWidespace [facility] CenterNe[facility]asa. Comment on above: Patient Position: Sitting; Cuff Location : Left Arm; Cuff Size: Standard 03-12-2023 08:19-0400 Heart rate 83 /min Leila Jimenez MA [facility], Inc.; [employer]. Comment on above: Pattern: Regular 03-12-2023 08:19-0400 Systolic blood pressure 115 mm[Hg] Leila Jimenez MA [facility].; RuedaWidespace [facility] Center[facility]. Comment on above: Patient Position: Sitting; Cuff Location : Left Arm; Cuff Size: Standard 03-04-2023 11:33-0400 Body height 162.6 cm Dennis Ederprachi FINN Work Phone: [facility] 03-04-2023 11:33-0400 Body mass index (BMI) [Ratio] 20.15 kg/m2 Dennis Roach CNP Work Phone: [facility] 03-04-2023 11:33-0400 Body weight 53.25 kg Dennis Roach CNP Work Phone: [facility] 03-04-2023 11:33-0400 Diastolic blood pressure 76 mm[Hg] Dennis Roach CNP Work Phone: [facility] 03-04-2023 11:33-0400 Heart rate 97 /min Dennis Roach CNP Work Phone: [facility] 03-04-2023 11:33-0400 SaO2% (BldA) [Mass fraction] 98 % Dennis Roach CNP Work Phone: [facility] 03-04-2023 11:33-0400 Systolic blood pressure 108 mm[Hg] Dennis Roach CNP Work Phone: [facility] 08-31-2022 08:36-0500 Body height 167.64 cm Reshma Benton MA [facility], [facility].; [facility]. 08-31-2022 08:36-0500 Body mass index (BMI) [Ratio] 19.53 kg/m2 Reshma Benton MA [facility].; [facility], [facility]. 08-31-2022 08:36-0500 Body surface area Derived from formula 1.62 m2 Reshma Benton MA [facility].; [facility] 08-31-2022 08:36-0500 Body temperature 99.4 [degF] Reshma Benton MA [facility].; [facility] 08-31-2022 08:36-0500 Body weight 54.89 kg Reshma Benton MA [facility].; [facility]. 08-31-2022 08:36-0500 Diastolic blood pressure 76 mm[Hg] Reshma Benton MA [facility].; [facility], [facility]. Comment on above: Patient Position: Sitting; Cuff Location : Left Arm; Cuff Size: Standard 08-31-2022 08:36-0500 Heart rate 90 /min Reshma Benton MA [facility], [facility].; [employer]. Comment on above: Pattern: Regular 08-31-2022 08:36-0500 Systolic blood pressure 108 mm[Hg] Reshma Benton MA [facility], [facility].; [employer]. Comment on above: Patient Position: Sitting; Cuff Location : Left Arm; Cuff Size: Standard 03-02-2022 13:13-0400 Body height 165.1 cm Ese [facility], [facility].; [employer]. 03-02-2022 13:13-0400 Body mass index (BMI) [Ratio] 19.3 kg/m2 [facility] [employer] ([employer] Pay[employer]) [facility].; [employer]. 03-02-2022 13:13-0400 Body surface area Derived from formula 1.57 m2 Ese Jose [facility] [employer] ([employer]) [facility].; [employer]. 03-02-2022 13:13-0400 Body weight 52.62 kg Ese M [facility].; [employer]. 03-02-2022 13:13-0400 Diastolic blood pressure 70 mm[Hg] Ese Garcia [facility].; [employer]. Comment on above: Patient Position: Sitting; Cuff Location : Left Arm; Cuff Size: Standard 03-02-2022 13:13-0400 Heart rate 74 /min Ese Jose [facility] [employer] ([employer]) [facility].; [employer]. Comment on above: Pattern: Regular 03-02-2022 13:13-0400 Systolic blood pressure 105 mm[Hg] Ese Garcia Mary [facility] [employer] ([employer]) [facility].; [employer]. Comment on above: Patient Position: Sitting; Cuff Location : Left Arm; Cuff Size: Standard 12-11-2021 13:57-0400 Body height 165.1 cm [facility]se [facility] [employer] ([employer]) [facility].; [employer]. 12-11-2021 13:57-0400 Body mass index (BMI) [Ratio] 19.3 kg/m2 Ese [place] [facility], [facility].; Carlos [employer] ([employer]) [facility], [facility]. 12-11-2021 13:57-0400 Body surface area Derived from formula 1.57 m2 Ese Garcia [facility].; Carlos [employer] ([employer]) [facility], Inc. 12-11-2021 13:57-0400 Body temperature 98.3 [degF] Ese Garcia Mary Anne [facility], [facility].; RuedaWidespace [facility], [employer]. Comment on above: Method: Tympanic 12-11-2021 13:57-0400 Body weight 52.62 kg Ese Garcia [facility], [facility].; Carlos [employer] ([employer]) [facility]. 12-11-2021 13:57-0400 Diastolic blood pressure 60 mm[Hg] Ese [place] [facility], [facility].; [employer]uedaBourbon & [employer]s, Inc. Comment on above: Patient Position: Sitting; Cuff Location : Right Arm; Cuff Size: Standard 12-11-2021 13:57-0400 Heart rate 75 /min Ese [place] [facility], [facility].; [employer]. Comment on above: Pattern: Regular 12-11-2021 13:57-0400 Systolic blood pressure 103 mm[Hg] Ese [place] [facility], [facility].; [employer]ueda [employer]. Comment on above: Patient Position: Sitting; Cuff Location : Right Arm; Cuff Size: Standard 10-24-2021 14:31-0400 Body height 165.1 cm Dunia Dawn [facility], [facility].; [employer]. 10-24-2021 14:31-0400 Body mass index (BMI) [Ratio] 19.3 kg/m2 Dunia Dawn [facility], [facility].; [employer]aBour[employer], [employer]. 10-24-2021 14:31-0400 Body surface area Derived from formula 1.57 m2 Dunia Dawn [facility], [facility].; [employer]. 10-24-2021 14:31-0400 Body temperature 98.3 [degF] Dunia Dawn [facility], Inc.; Carlos [employer] ([employer]) [facility], [employer]. Comment on above: Method: Tympanic 10-24-2021 14:31-0400 Body weight 52.62 kg Dunia Dawn MANAGER MUSIC [facility], Inc.; Rueda [employer] ([employer]) [facility], Inc. 10-24-2021 14:31-0400 Diastolic blood pressure 86 mm[Hg] Dunia Dawn [facility], Inc.; [employer] Comment on above: Patient Position: Sitting; Cuff Location : Left Arm; Cuff Size: Large 10-24-2021 14:31-0400 Heart rate 92 /min Dunia Dawn [facility], Inc.; Rueda [employer] ([employer]) [facility], Inc. Comment on above: Pattern: Regular 10-24-2021 14:31-0400 Inhaled oxygen concentration 20 % Dunia Dawn [facility], Inc.; [employer] Comment on above: Room air 10-24-2021 14:31-0400 Inhaled oxygen concentration 21 % Dunia Dawn [facility], Inc.; [employer]ued[employer], [employer]. Comment on above: Room air 10-24-2021 14:31-0400 SaO2% (BldA) [Mass fraction] 93 % Dunia Dawn [facility], Inc.; Rueda [employer] ([employer]) [facility], Inc. 10-24-2021 14:31-0400 Systolic blood pressure 123 mm[Hg] Dunia Dawn [facility], Inc.; Carlos [employer] ([employer]) [facility], [employer]. Comment on above: Patient Position: Sitting; Cuff Location : Left Arm; Cuff Size: Large 08-17-2021 [id number] Body height 165.1 cm Ese [place] [facility], Inc.; Carlos [employer] ([employer]) [facility], Inc. 08-17-2021 11:04-0500 Body mass index (BMI) [Ratio] 19.47 kg/m2 Ese North MANAGER MUSIC [facility].; Carlos [employer], [employer]. 08-17-2021 11:04-0500 Body surface area Derived from formula 1.58 m2 Ese [place] [facility], [facility].; Rueda [employer] ([employer]) [facility]. 08-17-2021 11:04-0500 Body temperature 98.6 [degF] Ese [place] [facility], [facility].; Rueda [employer] ([employer]) [facility] Center[facility]. Comment on above: Method: Tympanic 08-17-2021 11:04-0500 Body weight 53.07 kg Ese [place] [facility], Inc.; Rueda [employer]. 08-17-2021 11:04-0500 Diastolic blood pressure 69 mm[Hg] Ese [place] [facility], [facility].; [employer]. Comment on above: Patient Position: Sitting; Cuff Location : Left Arm; Cuff Size: Standard 08-17-2021 11:04-0500 Heart rate 79 /min Ese [place] [facility], Inc.; [employer]. Comment on above: Pattern: Regular 08-17-2021 11:04-0500 Systolic blood pressure 101 mm[Hg] Ese [place] [facility], [facility].; [employer]. Comment on above: Patient Position: Sitting; Cuff Location : Left Arm; Cuff Size: Standard 04-28-2021 14:46-0400 Body height 165.1 cm Ese [place] [facility], [facility].; Rueda [employer]. 04-28-2021 14:46-0400 Body mass index (BMI) [Ratio] 18.64 kg/m2 Ese [place] [facility], [facility].; [employer]. 04-28-2021 14:46-0400 Body surface area Derived from formula 1.55 m2 Ese [place] [facility], [facility].; [employer]. 04-28-2021 14:46-0400 Body temperature 97.9 [degF] Ese [place] [facility].; [employer]. Comment on above: Method: Tympanic 04-28-2021 14:46-0400 Body weight 50.8 kg Ese [facility].; [employer]. 04-28-2021 14:46-0400 Diastolic blood pressure 85 mm[Hg] Ese Maderalabach [facility].; [employer]. Comment on above: Patient Position: Sitting; Cuff Location : Left Arm; Cuff Size: Standard 04-28-2021 14:46-0400 Heart rate 81 /min Ese Garcia Mary Anne [facility], Inc.; [employer]. Comment on above: Pattern: Regular 04-28-2021 14:46-0400 Systolic blood pressure 126 mm[Hg] Ese Maderalabach MANAGER MUSIC Carlos [employer] ([employer]) [facility] Inc.; [employer]. Comment on above: Patient Position: Sitting; Cuff Location : Left Arm; Cuff Size: Standard 08-19-2020 10:54-0500 Body height 165.1 cm Ese Maderalabach MANAGER MUSIC [facility], Inc.; [employer]. 08-19-2020 10:54-0500 Body mass index (BMI) [Ratio] 18.97 kg/m2 Ese Garcia Mary Anne [facility] Inc.; [employer]Pres[employer]. 08-19-2020 10:54-0500 Body surface area Derived from formula 1.56 m2 Ese Jose Mary Anne MANAGER MUSIC [facility], Inc.; [employer]. 08-19-2020 10:54-0500 Body temperature 98.1 [degF] Ese Garcia Mary Anne [facility] [employer] ([employer]) [facility] Inc.; Rued[employer]Pres[employer]. Comment on above: Method: Tympanic 08-19-2020 10:54-0500 Body weight 51.71 kg Ese Garcia Mary Anne MANAGER MUSIC Carlos [employer] ([employer]) [facility].; [employer]. 08-19-2020 10:54-0500 Diastolic blood pressure 85 mm[Hg] Ese Maderalabach MANAGER MUSIC Carlos [employer].; [employer]. Comment on above: Patient Position: Sitting; Cuff Location : Left Arm; Cuff Size: Standard 08-19-2020 10:54-0500 Heart rate 111 /min Ese Garcia Mary Anne MANAGER MUSIC Carlos [employer].; RuedaBourbon & BootsNezasa. Comment on above: Pattern: Regular 08-19-2020 10:54-0500 Systolic blood pressure 128 mm[Hg] Ese Jose North LPN [facility].; [facility]. Comment on above: Patient Position: Sitting; Cuff Location : Left Arm; Cuff Size: Standard 02-12-2020 14:25-0400 Body height 165.1 cm Bernie Kelleyy MANAGER MUSIC Work Phone: [facility].; Carlos [employer] 02-12-2020 14:25-0400 Body mass index (BMI) [Ratio] 19.14 kg/m2 [facility] MANAGER MUSIC Work Phone: [facility].; Carlos [employer]) [facility] 02-12-2020 14:25-0400 Body surface area Derived from formula 1.56 m2 Bernie Jerardo MANAGER MUSIC Work Phone: Carlos [employer]) [facility].; Carlos [employer] ([employer]) [facility] 02-12-2020 14:25-0400 Body weight 52.16 kg Bernie Kelleyy MANAGER MUSIC Work Phone: Carlos [employer]) [facility].; Carlos [employer] ([employer]) [facility] 02-12-2020 14:25-0400 Diastolic blood pressure 76 mm[Hg] Bernie Kelleyy MANAGER MUSIC Work Phone: [facility].; Rueda [employer]. Comment on above: Patient Position: Sitting; Cuff Location : Left Arm; Cuff Size: Standard 02-12-2020 14:25-0400 Heart rate 77 /min Bernie Jerardo MANAGER MUSIC Work Phone: Carlos [employer] ([employer]) [facility].; [employer]. Comment on above: Pattern: Regular 02-12-2020 14:25-0400 Systolic blood pressure 118 mm[Hg] Bernie Jerardo MANAGER MUSIC Work Phone: Carlos [employer] ([employer]) [facility].; [employer]Pres[employer]. Comment on above: Patient Position: Sitting; Cuff Location : Left Arm; Cuff Size: Standard 12-15-2019 11:47-0400 Body height 165.1 cm Andree Solorzano RN Carlos [employer] ([employer]) [facility].; [employer]. 12-15-2019 11:47-0400 Body mass index (BMI) [Ratio] 19.14 kg/m2 Andree Solorzano RN Carlos [employer] ([employer]) [facility].; [employer] 12-15-2019 11:47-0400 Body surface area Derived from formula 1.56 m2 Andree Solorzano RN Carlos [employer] ([employer]) [facility].; Rued[employer]. 12-15-2019 11:47-0400 Body temperature 98 [degF] Andree Solorzano RN [employer]Pres[employer].; [employer]. Comment on above: Method: Tympanic 12-15-2019 11:47-0400 Body weight 52.16 kg Andree Solorzano RN Carlos [employer] ([employer]) [facility].; [employer], [employer]. 11-11-2019 14:05-0400 Body height 165.1 cm Ese North LPN Carlos [employer] ([employer]) [facility] CenterDr[facility] Inc.; [employer], [employer]. 11-11-2019 14:05-0400 Body mass index (BMI) [Ratio] 18.97 kg/m2 Ese North LPN RuedaWidespace [facility]Ne[facility].; [employer], [employer]. 11-11-2019 14:05-0400 Body surface area Derived from formula 1.56 m2 Ese North LPN Rueda [employer] ([employer]) [facility], Inc.; [employer], [employer]. 11-11-2019 14:05-0400 Body weight 51.71 kg Ese North LPN Carlos [employer].; [employer]. 11-11-2019 14:05-0400 Diastolic blood pressure 75 mm[Hg] Ese North LPN RuedaWidespace [facility].; [employer]. Comment on above: Patient Position: Sitting; Cuff Location : Left Arm; Cuff Size: Standard 11-11-2019 14:05-0400 Heart rate 80 /min Ese North LPN [employer]Pres[employer].; [employer]. Comment on above: Pattern: Regular 11-11-2019 14:05-0400 Systolic blood pressure 108 mm[Hg] Ese North MANAGER MUSIC [employer]uedaBourbon & Boots, Inc.; [employer], [employer]. Comment on above: Patient Position: Sitting; Cuff Location : Left Arm; Cuff Size: Standard 10-21-2019 14:43-0400 Body height 165.1 cm Yocasta Kristanugg MANAGER MUSIC Carlos [employer] 10-21-2019 14:43-0400 Body mass index (BMI) [Ratio] 19.47 kg/m2 Yocasta Zaugg MANAGER MUSIC RuedaBourbon & Boots, Inc.; [employer] 10-21-2019 14:43-0400 Body surface area Derived from formula 1.58 m2 Yocasta Zaugg MANAGER MUSIC RuedaBourbon & Boots, Inc.; [employer], [employer] 10-21-2019 14:43-0400 Body weight 53.07 kg Yocasta Zaugg MANAGER MUSIC [employer]uedaBourbon & [employer]s, Inc.; [employer] 10-21-2019 14:43-0400 Diastolic blood pressure 82 mm[Hg] Yocasta Zaugg MANAGER MUSIC [employer]uedaBour[employer] & [employer], Inc.; [employer], [employer]. Comment on above: Patient Position: Sitting; Cuff Location : Left Arm; Cuff Size: Standard 10-21-2019 14:43-0400 Heart rate 75 /min Yocasta Zaugg MANAGER MUSIC [employer]uedaBour[employer] & [employer], Inc.; [employer], [employer]. Comment on above: Pattern: Regular 10-21-2019 14:43-0400 Systolic blood pressure 120 mm[Hg] Yocasta Zaugg MANAGER MUSIC RuedaBourbon & [employer], Inc.; [employer], [employer]. Comment on above: Patient Position: Sitting; Cuff Location : Left Arm; Cuff Size: Standard 07-16-2019 10:52-0500 Body height 165.1 cm Erica Day [facility], [facility].; [employer] 07-16-2019 10:52-0500 Body mass index (BMI) [Ratio] 19.47 kg/m2 Erica Day MANAGER MUSIC RuedaBourbon & [employer]s, Inc.; [employer], [employer]. 07-16-2019 10:52-0500 Body surface area Derived from formula 1.58 m2 Erica Day [facility], Inc.; [employer]. 07-16-2019 10:52-0500 Body weight 53.07 kg Erica Day [facility], Inc.; [employer]. 07-16-2019 10:52-0500 Diastolic blood pressure 81 mm[Hg] Erica Day MANAGER MUSIC RuedaBourbon & [employer], Inc.; [employer], [employer]. Comment on above: Patient Position: Sitting; Cuff Location : Left Arm; Cuff Size: Standard 07-16-2019 10:52-0500 Heart rate 92 /min Erica Day [facility], Inc.; [employer]. Comment on above: Pattern: Regular 07-16-2019 10:52-0500 Systolic blood pressure 119 mm[Hg] Erica Day MANAGER MUSIC [employer].; Per[employer]. Comment on above: Patient Position: Sitting; Cuff Location : Left Arm; Cuff Size: Standard 03-05-2019 11:57-0400 Body height 165.1 cm Radha Roberts LPAcoma-Canoncito-Laguna Service UnitBourbon & Boots, Inc.; [employer]. 03-05-2019 11:57-0400 Body mass index (BMI) [Ratio] 19.64 kg/m2 Radha Weoctavio [facility], Inc.; [employer]. 03-05-2019 11:57-0400 Body surface area Derived from formula 1.58 m2 Radhalilibeth Roberts [facility], Inc.; [employer], [employer]. 03-05-2019 11:57-0400 Body weight 53.52 kg Radha Armando [facility], Inc.; [employer]. 03-05-2019 11:57-0400 Diastolic blood pressure 64 mm[Hg] Radha Armando [facility], Inc.; [employer], [employer]. Comment on above: Patient Position: Sitting; Cuff Location : Left Arm; Cuff Size: Standard 03-05-2019 11:57-0400 Heart rate 83 /min Radha Roberts MANAGER MUSIC RuedaBourbon & [employer]s, Inc.; Peripha[employer] Inc. Comment on above: Pattern: Regular 03-05-2019 11:57-0400 Systolic blood pressure 105 mm[Hg] Radha Armando ZIEGLER Carlos [employer].; [employer], [employer]. Comment on above: Patient Position: Sitting; Cuff Location : Left Arm; Cuff Size: Standard 07-25-2018 09:31-0500 Body height 165.1 cm Radha Armando ZIEGLER Carlos [employer] ([employer]) [facility], Inc.; [employer] 07-25-2018 09:31-0500 Body mass index (BMI) [Percentile] Per age and sex 27 % Radha Roberts LPN Carlos [employer].; [employer] 07-25-2018 09:31-0500 Body mass index (BMI) [Ratio] 19.97 kg/m2 Radhalilibeth Roberts LPN Carlos [employer], [employer].; [employer] 07-25-2018 09:31-0500 Body surface area Derived from formula 1.59 m2 Radhalilibeth Roberts LPN Carlos [employer], [employer].; [employer]. 07-25-2018 09:31-0500 Body weight 54.43 kg Radha Armando ZIEGLER Carlos [employer], [employer].; [employer], [employer]. 07-25-2018 09:31-0500 Diastolic blood pressure 75 mm[Hg] Radha Armando ZIEGLER Carlos [employer], [employer].; [employer], [employer]. Comment on above: Patient Position: Sitting; Cuff Location : Left Arm; Cuff Size: Standard 07-25-2018 09:31-0500 Heart rate 74 /min Radha Roberts LPN Carlos [employer], [employer].; [employer], [employer]. Comment on above: Pattern: Regular 07-25-2018 09:31-0500 Systolic blood pressure 114 mm[Hg] Radha Weoctavio [facility] [employer].; [employer]. Comment on above: Patient Position: Sitting; Cuff Location : Left Arm; Cuff Size: Standard 12-23-2017 11:00-0400 Body height 165.1 cm Ramón Victor LPN Carlos [employer].; [employer] 12-23-2017 11:00-0400 Body mass index (BMI) [Percentile] Per age and sex 20 % Ramón Roy Vess MANAGER MUSIC RuedaBourbon & Boots, Inc.; [employer], [employer] 12-23-2017 11:00-0400 Body mass index (BMI) [Ratio] 19.3 kg/m2 Neare L Vess MANAGER MUSIC Rueda [employer], [employer].; [employer] 12-23-2017 11:00-0400 Body surface area Derived from formula 1.57 m2 Montserrate L Vess MANAGER MUSIC RuedaBourbon & Boots, Inc.; [employer]aB[employer], [employer]. 12-23-2017 11:00-0400 Body weight 52.62 kg Montserrate Kirill Victor MANAGER MUSIC RuedaBourbon & Boots, Inc.; [employer] 12-23-2017 11:00-0400 Diastolic blood pressure 63 mm[Hg] Montserrate L Vess MANAGER MUSIC RuedaBourbon & Boots, Inc.; [employer], [employer]. Comment on above: Patient Position: Sitting; Cuff Location : Right Arm; Cuff Size: Standard 12-23-2017 11:00-0400 Heart rate 80 /min Montserrate Kirill Victor MANAGER MUSIC [employer]uedaB[employer] & [employer], Inc.; [employer]. Comment on above: Pattern: Regular 12-23-2017 11:00-0400 Systolic blood pressure 97 mm[Hg] Montserrate L Kayleigh MANAGER MUSIC [employer]uedaBourbon & [employer]s, Inc.; [employer]. Comment on above: Patient Position: Sitting; Cuff Location : Right Arm; Cuff Size: Standard 12-13-2016 11:10-0400 Body temperature 98 [degF] Radha Armando [facility], Inc.; [employer]. Comment on above: Method: Tympanic 12-13-2016 11:10-0400 Body weight 48.54 kg Radha Armando MANAGER MUSIC [employer]uedaBourbon & Boots, Inc.; [employer], [employer] 12-13-2016 11:10-0400 Diastolic blood pressure 79 mm[Hg] Radhalilibeth Roberts [facility], Inc.; [employer]. Comment on above: Patient Position: Sitting; Cuff Location : Left Arm; Cuff Size: Standard 12-13-2016 11:10-0400 Heart rate 75 /min Radha Roberts LPN [facility], [facility].; Rued[employer]) [facility], [employer]. Comment on above: Pattern: Regular 12-13-2016 11:10-0400 Systolic blood pressure 119 mm[Hg] Radha Armando ZIEGLER [facility], Inc.; [employer], [employer]. Comment on above: Patient Position: Sitting; Cuff Location : Left Arm; Cuff Size: Standard 01-25-2016 10:55-0400 Body height 164.47 cm Dunia Dawn MANAGER MUSIC [facility], Inc.; [employer] [facility], [employer]. 01-25-2016 10:55-0400 Body mass index (BMI) [Percentile] Per age and sex 10 % MaureenKarie Dawn [facility], Inc.; Rueda [employer] ([employer]) [facility], [employer]. 01-25-2016 10:55-0400 Body mass index (BMI) [Ratio] 17.94 kg/m2 Maureen Nereyda [facility], Inc.; [employer] ([employer]) [facility], [employer]. 01-25-2016 10:55-0400 Body surface area Derived from formula 1.51 m2 Dunia Dawn MANAGER MUSIC [facility], Inc.; [employer] [facility], [employer]. 01-25-2016 10:55-0400 Body weight 48.54 kg Dunia Dawn MANAGER MUSIC [facility], Inc.; [employer], [employer]. 01-25-2016 10:55-0400 Diastolic blood pressure 77 mm[Hg] Dunia Dawn [facility], [facility].; [employer], [employer]. Comment on above: Patient Position: Sitting; Cuff Location : Left Arm; Cuff Size: Large 01-25-2016 10:55-0400 Heart rate 77 /min MaureenKarie Dawn [facility], Inc.; [employer]. Comment on above: Pattern: Regular 01-25-2016 10:55-0400 Systolic blood pressure 117 mm[Hg] Dunia Dawn MANAGER MUSIC [facility], Inc.; [employer], [employer]. Comment on above: Patient Position: Sitting; Cuff Location : Left Arm; Cuff Size: Large 09-28-2014 14:54-0400 Body height 163.83 cm Dunia Dawn [facility], [facility].; [employer]. 09-28-2014 14:54-0400 Body mass index (BMI) [Percentile] Per age and sex 18 % Dunia Dawn [facility], [facility].; [employer], [employer]. 09-28-2014 14:54-0400 Body mass index (BMI) [Ratio] 18.08 kg/m2 Maureen Nereyda [facility] [employer] (Mobile [employer]) [facility], Inc.; [employer]. 09-28-2014 14:54-0400 Body surface area Derived from formula 1.51 m2 [facility], Inc.; [employer]. 09-28-2014 14:54-0400 Body temperature 98.7 [degF] Dunia Dawn [facility] [employer] (Mobile Payments) [facility] Inc.; [employer]. Comment on above: Method: Tympanic 09-28-2014 14:54-0400 Body weight 48.54 kg Dunia Dawn [facility] [employer] Inc.; [employer]. 07-09-2014 15:52-0500 Body height 137.16 cm Zayra Carrizales PA-C Work Phone: [employer]. 07-09-2014 15:52-0500 Body mass index (BMI) [Percentile] Per age and sex 89 % Zayra Carrizales PA-C Work Phone: [employer]. 07-09-2014 15:52-0500 Body mass index (BMI) [Ratio] 25.56 kg/m2 Zayra Carrizales PA-C Work Phone: [employer]. 07-09-2014 15:52-0500 Body surface area Derived from formula 1.32 m2 Zayra Carrizales PA-C Work Phone: [employer]. 07-09-2014 15:52-0500 Body temperature 99.2 [degF] Zayra Carrizales PA-C Work Phone: [employer].; [employer]. Comment on above: Method: Tympanic 07-09-2014 15:52-0500 Body weight 48.08 kg Zayra Carrizales [place] Work Phone: [employer].; [employer]. 02-26-2013 14:01-0400 Body height 164.47 cm Radha Roberts LPN [employer]. 02-26-2013 14:01-0400 Body mass index (BMI) [Percentile] Per age and sex 11 % Radha Roberts LPN [employer].; [employer]. 02-26-2013 14:01-0400 Body mass index (BMI) [Ratio] 16.62 kg/m2 Radha Roberts LPAcoma-Canoncito-Laguna Service UnitPrescient.; [employer]. 02-26-2013 14:01-0400 Body surface area Derived from formula 1.46 m2 Radha Roberts LPN [employer].; [employer]. 02-26-2013 14:01-0400 Body temperature 98.2 [degF] Radha Roberts LPAcoma-Canoncito-Laguna Service UnitPrescient.; [employer]. Comment on above: Method: Tympanic 02-26-2013 14:01-0400 Body weight 44.96 kg Radha Roberts LPN [employer].; [employer]. 02-11-2013 15:15-0400 Body height 164.47 cm Ese North LPN [employer].; [employer]. 02-11-2013 15:15-0400 Body mass index (BMI) [Percentile] Per age and sex 9 % Ese North LPN [employer].; [employer]. 02-11-2013 15:15-0400 Body mass index (BMI) [Ratio] 16.43 kg/m2 Ese North LPN [employer].; [employer]. 02-11-2013 15:15-0400 Body surface area Derived from formula 1.46 m2 Ese North [facility], [facility].; [employer]addle ([employer]) [facility], [employer]. 02-11-2013 15:15-0400 Body weight 44.45 kg Ese North [facility], [facility].; [employer], [employer]. 02-11-2013 15:15-0400 Diastolic blood pressure 72 mm[Hg] Ese North [facility].; [employer]. Comment on above: Patient Position: Sitting; Cuff Location : Left Arm; Cuff Size: Standard 02-11-2013 15:15-0400 Heart rate 71 /min Ese Garcia Mary Anne [facility], [facility].; [employer], [employer]. Comment on above: Pattern: Regular 02-11-2013 15:15-0400 Systolic blood pressure 122 mm[Hg] Ese Garcia Mary Anne [facility], [facility].; [employer]. Comment on above: Patient Position: Sitting; Cuff Location : Left Arm; Cuff Size: Standard 06-02-2012 12:59-0500 Body height 162.56 cm Dnuia Dawn [facility], [facility].; [employer], [employer]. 06-02-2012 12:59-0500 Body mass index (BMI) [Percentile] Per age and sex 24 % Dunia Dawn [facility].; [employer], [employer]. 06-02-2012 12:59-0500 Body mass index (BMI) [Ratio] 17.34 kg/m2 Dunia Dawn [facility].; [employer], [employer]. 06-02-2012 12:59-0500 Body surface area Derived from formula 1.46 m2 Dunia Dawn MANAGER MUSIC [facility], [facility].; [employer]. 06-02-2012 12:59-0500 Body temperature 99.7 [degF] Dunia Dawn [facility] [employer] (Mobile [employer]) [facility], [facility].; [employer]. Comment on above: Method: Tympanic 06-02-2012 12:59-0500 Body weight 45.81 kg Dunia Dawn MANAGER MUSIC [facility], Inc.; [employer]Wides[employer] [facility], Inc. 05-27-2012 13:56-0500 Body height 162.56 cm Dunia Dawn [facility].; [employer], Inc. 05-27-2012 13:56-0500 Body mass index (BMI) [Percentile] Per age and sex 25 % MaureenKarie Dawn [facility], Inc.; [employer], Inc. 05-27-2012 13:56-0500 Body mass index (BMI) [Ratio] 17.34 kg/m2 [facility] Nereyda [facility], Inc.; [employer], Inc. 05-27-2012 13:56-0500 Body surface area Derived from formula 1.46 m2 Dunia Dawn [facility], Inc.; [employer], [employer]. 05-27-2012 13:56-0500 Body temperature 99.2 [degF] Dunia Dawn [facility], Inc.; [employer]. Comment on above: Method: Tympanic 05-27-2012 13:56-0500 Body weight 45.81 kg Dunia Dawn [facility].; [employer], Inc. 08-13-2011 15:37-0500 Body height 161.54 cm Radha Roberts MANAGER MUSIC [facility], [facility].; [employer], [employer]. 08-13-2011 15:37-0500 Body mass index (BMI) [Percentile] Per age and sex 47 % Radha Roberts [facility], [facility].; [employer], [employer]. 08-13-2011 15:37-0500 Body mass index (BMI) [Ratio] 18.34 kg/m2 Radha Roberts [facility] [employer] (Mobile Pay[employer]) [facility], Inc.; [employer], Inc. 08-13-2011 15:37-0500 Body surface area Derived from formula 1.48 m2 Radha Roberts [facility] [employer] (Mobile Pay[employer]) [facility], Inc.; [employer], [employer]. 08-13-2011 15:37-0500 Body temperature 98 [degF] Radha Mccalloctavio MANAGER MUSIC [employer].; [employer]. Comment on above: Method: Tympanic 08-13-2011 15:37-0500 Body weight 47.85 kg Radha Roberts TONEY [employer].; [employer]. 03-20-2011 13:59-0400 Body height 160.02 cm Zayra Carrizales PA-C Work Phone: [employer].; [employer]. 03-20-2011 13:59-0400 Body mass index (BMI) [Percentile] Per age and sex 45 % Zayra Carrizales PA-C Work Phone: [employer].; [employer]. 03-20-2011 13:59-0400 Body mass index (BMI) [Ratio] 17.96 kg/m2 Zayra Carrizales PA-C Work Phone: [employer].; [employer]. 03-20-2011 13:59-0400 Body surface area Derived from formula 1.45 m2 Zayra Carrizales PA-C Work Phone: [employer].; [employer]. 03-20-2011 13:59-0400 Body temperature 96.1 [degF] Zayra Carrizales PA-C Work Phone: [employer].; [employer]. 03-20-2011 13:59-0400 Body weight 45.98 kg Zayra Carrizales PA-C Work Phone: [employer].; [employer]. 08-15-2010 11:14-0500 Body height 157.48 cm Maureen Nereyda [facility] [employer].; [employer]. 08-15-2010 11:14-0500 Body mass index (BMI) [Percentile] Per age and sex 62 % Dunia Dawn [facility] [employer].; [employer]. 08-15-2010 11:14-0500 Body mass index (BMI) [Ratio] 18.84 kg/m2 Dunia Dawn [facility], [employer].; [employer], [employer]. 08-15-2010 11:14-0500 Body surface area Derived from formula 1.44 m2 Dunia Dawn LPN [facility], [employer].; [employer], [employer]. 08-15-2010 11:14-0500 Body temperature 98.1 [degF] Dunia Dawn [facility], [employer].; [employer]. Comment on above: Method: Tympanic 08-15-2010 11:14-0500 Body weight 46.72 kg Dunia Dawn [facility], [employer].; [employer], [employer]. 08-15-2010 11:14-0500 Inhaled oxygen concentration 20 % Dunia Dawn MANAGER MUSIC [employer] ([employer]) [facility], [employer].; [employer]. Comment on above: Room air 08-15-2010 11:14-0500 Inhaled oxygen concentration 21 % MaureenKarie Dawn [facility] [employer] (Mobile Pay[employer]) [facility], [employer].; [employer]. Comment on above: Room air 08-15-2010 11:14-0500 SaO2% (BldA) [Mass fraction] 95 % Dunia Dawn [facility] [employer] (Mobile Pay[employer]) [facility], [employer].; [employer]. Encounters Encounter Date Encounter Type Care Provider Facility Start: 01-12-2025 [facility] Facility:[facility] Start: 01-09-2025 ambulatory [facility] Facility:[facility] Start: 01-08-2025 End: 01-08-2025 Orders Only Marylin Bustamante CNM Work Phone: [facility] Comment on above: Amenorrhea (Primary Dx) Start: 11-30-2024 End: 11-30-2024 Postop follow up visit related to original px Zayra Flores MD Work Phone: [facility]ne[facility] Comment on above: Postoperative examination (Primary Dx) Start: 11-30-2024 End: 11-30-2024 ambulatory ZAYRA FLORES [facility] Start: 11-24-2024 End: 11-24-2024 [facility] Start: 11-20-2024 Preprocedural examination done Zayra Flores MD Work Phone: [facility] Start: 11-20-2024 Encounter for other preprocedural examination ASHLEY VOSS [facility] Start: 11-20-2024 End: 11-24-2024 [facility] Start: 11-20-2024 End: 11-24-2024 Encounter for other preprocedural examination [facility] Start: 11-11-2024 End: 11-11-2024 [facility] Start: 11-06-2024 End: 11-06-2024 Office outpatient visit 25 minutes Zayra Flores MD Work Phone: [facility]ne[facility] Comment on above: Female infertility (Primary Dx); RLQ abdominal pain; PCOS (polycystic ovarian syndrome) Start: 11-06-2024 End: 11-06-2024 [facility] Start: 11-02-2024 End: 01-02-2025 Follow-up encounter Marylin Bustamante CNM Work Phone: [facility] Labor & Delivery Comment on above: Progesterone Start: 10-23-2024 End: 10-23-2024 Orders Only Marylin Bustamante CNM Work Phone: [facility]ne[facility] Comment on above: Female infertility (Primary Dx) Start: 10-21-2024 End: 10-21-2024 ambulatory Zayra Carrizales Facility:[facility] Start: 10-13-2024 Non-patient / Non-visit Dr. Ruy Silver MD -[facility] Start: 10-13-2024 End: 10-13-2024 ambulatory Zayra Carrizales PA Work Phone: [facility] Work Phone: Start: 10-13-2024 End: 10-13-2024 Patient encounter procedure Zarya CABRAL -Cardiovascular Services Work Phone: Start: 10-12-2024 End: 10-12-2024 Office outpatient visit 10 minutes Marylin Bustamante CNM Work Phone: [facility]ne[facility] Comment on above: Dyspareunia, female (Primary Dx); History of lump of right breast Start: 10-12-2024 End: 10-13-2024 ambulatory MARYLIN BUSTAMANTE [facility] Start: 09-09-2024 End: 09-09-2024 Orders Zayra Carrizales PA-C Work Phone: [employer]. Start: 09-07-2024 Review Zayra Carrizales PA-C Work Phone: [employer]. Start: 09-04-2024 End: 09-04-2024 Patient encounter procedure Zayra CABRAL-C Work Phone: [employer]. Start: 09-04-2024 ambulatory [facility] Start: 09-04-2024 Follow-up encounter Zayra Carrizales PA-C Work Phone: [employer]. Start: 08-26-2024 End: 08-26-2024 Telephone follow-up Zayra Carrizales PA-C Work Phone: [employer]. Start: 08-22-2024 End: 08-22-2024 Emergency department patient visit Dr. Lizbeth Nolasco DO -Emergency Department Work Phone: Start: 08-18-2024 End: 08-18-[address] Rod Bernardo MD -Laboratory, Specimen Work Phone: Start: 08-18-2024 End: 08-18-2024 ambulatory Rod Bernardo Facility:[facility] Start: 07-08-2024 End: 07-09-2024 ambulatory DARIELAPRECIOUS BUSTAMANTE [facility] Start: 07-06-2024 End: 07-06-2024 Orders Only Marylin Bustamante CNM Work Phone: [facility] Labor & Delivery Comment on above: Infertility associated with anovulation (Primary Dx) Start: 06-26-2024 End: 06-26-2024 Office outpatient visit 10 minutes Marylin Ratna Bustamante CNM Work Phone: [facility] Ob[facility]etrics [facility] Gynecology Comment on above: RLQ abdominal pain (Primary Dx) Start: 06-26-2024 End: 06-26-2024 ambulatory MARYLIN BUSTAMANTE [facility] Start: 06-22-2024 End: 06-22-2024 ambulatory MARYLIN BARRY BUSTAMANTE [facility] Start: 06-19-2024 End: 06-19-2024 Orders Only Marylin aBrry Bustamante CNM Work Phone: [facility] Obstetrics and Gynecology Comment on above: PCOS (polycystic ovarian syndrome) Start: 06-16-2024 End: 06-16-2024 Orders Only Marylin Bustamante CNM Work Phone: [facility] Obstetrics and Gynecology Comment on above: PCOS (polycystic ovarian syndrome) Start: 06-16-2024 End: 06-16-2024 Office outpatient visit 15 minutes Zayra Carrizales PA-C Work Phone: [employer]. Start: 06-10-2024 End: 06-10-2024 Orders Only Marylin Barry Bustamante CNM Work Phone: [facility] Obstetrics and Gynecology Comment on above: Female infertility (Primary Dx) Start: 06-01-2024 End: 06-01-2024 Orders Only Marylin Barry Bustamante CNM Work Phone: [facility] Obstetrics and Gynecology Comment on above: PCOS (polycystic ovarian syndrome) (Prim shu Dx); Female infertility Start: 05-25-2024 End: 05-25-2024 Medication Zayra Carrizales PA-C Work Phone: [employer] Start: 05-20-2024 End: 05-20-2024 Office outpatient visit 15 minutes Zayra Carrizales PA-C Work Phone: [employer] Start: 05-20-2024 Review Zayra Carrizales PA-C [facility] Start: 05-19-2024 End: 05-19-2024 Orders Only Marylin Bustamante CNM Work Phone: [facility] Gynecology Comment on above: PCOS (polycystic ovarian syndrome) Start: 05-18-2024 End: 05-18-2024 Orders Only Marylin Barry Robby BUTT Work Phone: [facility]ne[facility] Comment on above: Female infertility (Primary Dx) Start: 04-20-2024 End: 04-20-2024 ambulatory MARYLIN BUSTAMANTE [facility] Start: 04-20-2024 End: 04-20-2024 Encounter for gynecological examination (general) (routine) without abnormal findings MARYLIN BUSTAMANTE [facility] Ambulatory Start: 11-08-2023 End: 11-08-2023 Office outpatient visit 10 minutes Marylin Bustamante CNM Work Phone: [facility]ne[facility] Comment on above: Menorrhagia with irregular cycle (Primar y Dx); PMDD (premenstrual dysphoric disorder) Start: 2023 End: 2023 Orders Zayra Carrizales PA-C Work Phone: [facility] Start: 10-23-2023 End: 10-23-2023 Office outpatient visit 25 minutes Jag Tellez MD Work Phone: [facility] Comment on above: Gastroesophageal reflux disease without esophagitis (Primary Dx) Start: 09-19-2023 Orders Only Dennis Roach CNP Work Phone: [facility] Start: 09-04-2023 End: 09-04-2023 Office outpatient new 45 minutes Dennis Roach CNP Work Phone: [facility] Comment on above: Heartburn (Primary Dx); Gaseous regurgitation; Pharyngoesophageal dysphagia; Chest pain, non-cardiac; Nausea and vomiting, unspecified vomiting type; Bloating Start: 08-26-2023 End: 08-26-2023 Office outpatient visit 15 minutes Zayra Carrizales PA-C Work Phone: [employer] Start: 08-21-2023 Orders Only Dennis Storyfernando FINN Work Phone: [facility] Gastroenterology Comment on above: Gastroesophageal reflux disease, unspeci fied whether esophagitis present (Primary Dx) Start: 08-19-2023 Orders Only Marylin TATUM Work Phone: [facility]etrics [facility]ne[facility] Start: 05-21-2023 End: 05-21-2023 Medication Zayra CABRAL-C Work Phone: [employer] [facility] Start: 04-24-2023 End: 04-24-2023 Office outpatient visit 15 minutes Dennis Magui Roach CNP Work Phone: [facility] Gastroenter[facility] Comment on above: Duodenal gastroesophageal reflux (Primar y Dx); Gastroesophageal reflux disease with esophagitis without hemorrhage; Irritable bowel syndrome with both constipation and diarrhea Start: 04-12-2023 End: 04-12-2023 Initial preventive medicine new pt age 18-39yrs Marylin TATUM Work Phone: [facility] Ob[facility]etrics [facility] Gynecology Comment on above: Well woman exam with routine gynecologic al exam (Primary Dx); Vaginal discharge Start: 04-12-2023 End: 04-12-2023 Patient encounter procedure Marylin TATUM Work Phone: [facility] Work Phone: Start: 03-12-2023 End: 03-12-2023 Office outpatient visit 15 minutes Zayra Carrizales PA-C Work Phone: [employer] [facility] Start: 03-04-2023 End: 03-04-2023 Office outpatient new 30 minutes Zayra Carrizales PA-C Work Phone: [facility]astroenter[facility] Comment on above: Gastroesophageal reflux disease, unspeci fied whether esophagitis present (Primary Dx); Epigastric pain; Nausea; Bloating; Change in bowel habits; RLQ abdominal pain Start: 02-06-2023 End: 02-07-2023 Medication Zayra Carrizales PA-C Work Phone: [employer] Start: 12-12-2022 End: 12-12-2022 Medication Zayra Carrizales PA-C Work Phone: [employer] Start: 09-05-2022 End: 09-05-2022 ambulatory [facility] Work Phone: Start: 09-05-2022 End: 09-05-2022 Patient encounter procedure [facility] Start: 09-03-2022 End: 09-03-2022 Orders Zayra Carrizales PA-C Work Phone: [employer] Start: 09-03-2022 End: 09-03-2022 Orders Zayra Carrizales PA-C Work Phone: [employer] Start: 09-03-2022 End: 09-03-2022 ambulatory [facility] Start: 09-01-2022 End: 09-01-2022 ambulatory [facility] Start: 08-31-2022 End: 08-31-2022 Office outpatient visit 25 minutes Zayra Carrizales PA-C Work Phone: [employer] Start: 03-02-2022 End: 03-02-2022 Office outpatient visit 15 minutes Zayra Carrizales PA-C Work Phone: [employer] Start: 12-11-2021 End: 12-11-2021 Office outpatient visit 15 minutes Zayra Carrizales PA-C Work Phone: [employer] Start: 10-24-2021 End: 10-24-2021 Office outpatient visit 15 minutes Zayra Carrizales PA-C Work Phone: [employer] Start: 08-17-2021 End: 08-17-2021 Office outpatient visit 15 minutes Zayra Carrizales PA-C Work Phone: [employer]. Start: 05-01-2021 End: 05-01-2021 Orders Zayra Carrizales PA-C Work Phone: [employer]. Start: 04-28-2021 End: 04-28-2021 Office outpatient visit 15 minutes Zayra Carrizales PA-C Work Phone: [employer]. Start: 04-27-2021 End: 04-27-2021 Orders Zayra Carrizales PA-C Work Phone: [employer]. Start: 04-27-2021 End: 04-27-2021 Medication Zayra Carrizales PA-C Work Phone: [employer]. Start: 01-24-2021 End: 01-24-2021 ambulatory [facility] Start: 08-24-2020 End: 08-24-2020 Orders Zayra Carrizales PA-C Work Phone: [employer]. Start: 08-19-2020 End: 08-19-2020 Patient encounter procedure Zayra Carrizales PA-C Work Phone: [employer]. Start: 02-12-2020 End: 02-12-2020 Patient encounter procedure Yocasta Mart LPN [employer]. Start: 02-12-2020 End: 02-12-2020 Periodic preventive med est patient 18-39 yrs Zayra Carrizales PA-C Work Phone: [employer]. Start: 12-19-2019 End: 12-19-2019 Medication Zayra Carrizales PA-C Work Phone: [employer]. Start: 12-15-2019 End: 12-15-2019 Office outpatient visit 15 minutes Zayra Carrizales PA-C Work Phone: [employer]. Start: 11-11-2019 End: 11-11-2019 Office outpatient visit 15 minutes Zayra Carrizales PA-C Work Phone: [employer]. Start: 10-26-2019 End: 10-26-2019 Annotation/Addendum Zayra Carrizales PA-C Work Phone: [employer]. Start: 10-21-2019 End: 10-22-2019 Office outpatient visit 15 minutes Zayra Carrizales PA-C Work Phone: [employer]. Start: 08-31-2019 End: 08-31-2019 Medication Zayra Carrizales PA-C Work Phone: [employer]. Start: 07-16-2019 End: 07-16-2019 Office outpatient visit 15 minutes Zayra Carrizales PA-C Work Phone: [employer]. Start: 06-22-2019 End: 06-22-2019 Medication Zayra Carrizales PA-C Work Phone: [employer]. Start: 04-29-2019 End: 04-29-2019 Orders Zayra Carrizales PA-C Work Phone: [employer]. Start: 04-14-2019 End: 04-14-2019 Medication Zayra Carrizales PA-C Work Phone: [employer]. Start: 03-05-2019 End: 03-05-2019 Patient encounter procedure Zayra Carrizales PA-C Work Phone: [employer]. Start: 01-21-2019 End: 01-26-2019 Orders Zayra Carrizales PA-C Work Phone: [employer]. Start: 07-25-2018 End: 07-25-2018 Office outpatient visit 15 minutes Zayra Carrizales PA-C Work Phone: [employer]. Start: 01-01-2018 End: 01-01-2018 Orders Zayra Carrizales PA-C Work Phone: [employer]. Start: 12-23-2017 End: 12-23-2017 Patient encounter status Zayra Carrizales PA-C Work Phone: [employer]. Start: 12-23-2017 End: 12-23-2017 Periodic preventive med est patient 18-39 yrs Zayra Carrizales PA-C Work Phone: [employer]. Start: 07-03-2017 End: 07-04-2017 Ambulatory [facility] Start: 05-16-2017 End: 05-16-2017 Orders Zayra Carrizales PA-C Work Phone: [employer]. Start: 05-15-2017 End: 05-15-2017 Ambulatory [facility] Facility:[place] [facility] - [facility] Start: 01-02-2017 End: 01-02-2017 Orders Zayra Carrizales PA-C Work Phone: [employer]. Start: 12-19-2016 End: 12-19-2016 Orders Zayra Carrizales PA-C Work Phone: [employer]. Start: 12-13-2016 End: 12-13-2016 Patient encounter procedure Zayra Carrizales PA-C Work Phone: [employer]. Start: 11-28-2016 End: 11-28-2016 Nursing evaluation of patient and report Zayra Carrizales PA-C Work Phone: [employer]. Start: 05-08-2016 End: 05-08-2016 Orders Zayra Carrizales PA-C Work Phone: [employer]. Start: 01-25-2016 End: 01-25-2016 Patient encounter status Zayra Carrizales PA-C Work Phone: [employer] Start: 01-25-2016 End: 01-25-2016 Periodic preventive med est patient 12-17yrs Zayra Carrizales PA-C Work Phone: [employer]. Start: 09-28-2014 End: 09-28-2014 Office outpatient visit 15 minutes Zayra Carrizales PA-C Work Phone: [employer]. Start: 07-09-2014 End: 07-09-2014 Office outpatient visit 15 minutes Zayra Carrizales PA-C Work Phone: [employer]. Start: 06-08-2013 End: 06-08-2013 Medication Zayra Carrizales PA-C Work Phone: [employer]. Start: 03-19-2013 End: 03-19-2013 Medication Zayra Carrizales PA-C Work Phone: [employer]. Start: 03-12-2013 End: 03-12-2013 Orders Zayra Carrizales PA-C Work Phone: [employer]. Start: 02-26-2013 End: 02-26-2013 Patient encounter procedure Zayra Carrizales PA-C Work Phone: [employer]. Start: 02-11-2013 End: 02-12-2013 Patient encounter procedure Zayra Carrizales PA-C Work Phone: [employer]. Start: 02-11-2013 End: 02-12-2013 Routine general medical examination at a health care facility Zayra Carrizales PA-C Work Phone: [employer] Start: 07-02-2012 End: 07-02-2012 Orders Zayra Carrizales PA-C Work Phone: [employer]. Start: 06-30-2012 End: 06-30-2012 Orders Zayra Carrizales PA-C Work Phone: [employer]. Start: 06-02-2012 End: 06-02-2012 Patient encounter procedure Zayra Carrizales PA-C Work Phone: [employer]. Start: 05-28-2012 End: 05-28-2012 Orders Zayra Carrizales PA-C Work Phone: [employer] Start: 05-27-2012 End: 05-27-2012 Patient encounter procedure Zayra Carrizales PA-C Work Phone: [employer] Start: 08-13-2011 End: 08-13-2011 Patient encounter procedure Zayra Carrizales PA-C Work Phone: [employer] Start: 03-20-2011 End: 03-20-2011 Patient encounter procedure Zayra Carrizales PA-C Work Phone: [employer] Start: 08-15-2010 End: 08-15-2010 Patient encounter procedure Zayra Carrizales PA-C Work Phone: [employer] Procedures Date Procedure Procedure Detail Performing Clinician Start: 09-04-2024 End: 09-04-2024 Ecg routine ecg w/least 12 lds w/i&r Zayra Carrizales PA-C Work Phone: Comment on above: Sinus rhythm; short OR interval; flipped T wave in inferior leads Start: 08-22-2024 SARS-CoV-2, Influenz a & RSV (PCR) Zayra CABRAL Work Phone: Start: 08-18-2024 End: 08-18-2024 Tonsillectomy Andree Solorzano RN Start: 06-26-2024 Follow-up visit Follow-up MARYLIN BUSTAMANTE Start: 06-16-2024 End: 06-16-2024 No Known Past Surgical History Leila Jimenez MA Start: 04-20-2024 Microscopic observat ion [Identifier] in Cervix by Cyto stain Marylin TATUM Work Phone: Start: 04-12-2023 Iadna morenita specie s direct probe tq Marylin TATUM Work Phone: Start: 04-12-2023 Microscopic observat ion [Identifier] in Cervix by Cyto stain Dennis Roach [employer]PERATIONS SUPERVISOR Work Phone: Start: 09-05-2022 Ultrasonography of abdomen Start: 08-31-2022 End: 08-31-2022 No Known Past Surgical History Leila Jimenez MA Start: 08-31-2022 End: 12-26-2022 Hepatobil syst imag inc gb w/pharma intervenj Zayra Canales Carrizales PA-C Work Phone: Start: 08-31-2022 End: 09-10-2022 Us abdominal real time w/image limited Zayra Canales Carrizales PA-C Work Phone: Start: 08-17-2021 End: 08-28-2021 Us pelvic nonobstetric real-time image complete Zayra Canales Carrizales PA-C Work Phone: Start: 12-23-2017 End: 12-23-2017 Body mass index documented Zev Mckinney MD Work Phone: Start: 01-02-2017 End: 01-09-2017 Ct abdomen & pelvis w/contrast material Zayra Canales Carrizales PA-C Work Phone: Start: 03-12-2013 End: 03-19-2013 Hepatobiliary imaging Zayra Canales Carrizales P A-C Work Phone: Start: 02-11-2013 End: 02-11-2013 Screening test visual acuity quantitative bilat Zayra Canales Carrizales PA-C Work Phone: Start: 05-28-2012 End: 06-02-2012 Us abdominal real time w/image limited Zev Mckinney MD Work Phone: Plan of Treatment Date Care Activity Detail Author Start: 04-20-2027 Screening for malignant neoplasm of cervix Pap Smear [facility] [place] [facility] Start: 04-12-2026 Screening for malignant neoplasm of cervix Pap Smear [facility] [place] [facility] Start: 04-20-2025 History and physical examination, annual for health maintenance Wellness Visit [facility] [place] [facility] Start: 11-30-2024 End: 11-30-2024 Follow-up encounter 11/30/2024 10:45 AM EDT Follow-Up [facility] [place] [facility] Obstetrics and Gynecology [address] [facility] 2nd [place] [phone] Zayra Flores MD [address] [address] [facility] [place] [facility] Physician [facility] Obstetrics and Gynecology Start: 11-24-2024 End: 11-24-2024 Admission to same day surgery center 11/24/2024 1:13 PM EDT - 11/24/2024 4:20 PM EDT Surgery [facility] Periop [address] [place] [address] Zayra Flores MD [address] [address] PELVISCOPY ROBOTIC XI [facility] Periop Comment on above: PELVISCOPY ROBOTIC XI Start: 11-24-2024 End: 11-24-2024 Chromotubation oviduct w/materials CHROMOTUBATION WITH PELVIC IRRIGATION LAPAROSCOPIC Female infertility RLQ abdominal pain 11/24/2024 1:13 PM EDT [facility] Main OR Start: 11-24-2024 End: 11-24-2024 Laps abd prtm&omentum dx w/wo spec br/wa spx PELVISCOPY ROBOTIC XI Female infertility RLQ abdominal pain 11/24/2024 1:13 PM EDT [facility] Main OR Start: 11-24-2024 Subsequent hospital visit by physician 11/24/2024 1:13 PM EDT Hospital Encounter [facility] Periop [address] [place] [address] Zayra Flores MD [address] [address] [facility] Start: 11-20-2024 End: 11-20-2024 Patient encounter procedure 11/20/2024 11:30 AM EDT Office Visit [facility] Preadmission Testing [address] [place] [phone] Discharge Disposition: Home [facility] Preadmission Testing Start: 11-11-2024 End: 11-11-2024 Professional / ancillary services management 11/11/2024 10:00 AM EDT Ancillary Procedure [facility] [place] [facility] Physician [facility] Obstetrics and Gynecology [address] [phone] Zayra Flores MD [address] [place] [address] [facility] [place] [facility] Physician [facility] Obstetrics and Gynecology Start: 11-06-2024 End: 11-06-2024 Patient encounter procedure 11/06/2024 10:30 AM EDT Office Visit [facility] Obstetrics and Gynecology [address] [place] [phone] Zayra Flores MD [address] [place] [address] [facility] Obstetrics and Gynecology Start: 09-09-2024 End: 09-14-2024 Echo tthrc r-t 2d w/wo m-mode complete rest&st [facility] Start: 09-04-2024 Ecg routine ecg w/least 12 lds w/i&r ELECTROCARDIOGRAM WITH INTERPRETATION ([id number]) Start: 04-Sep-2024 Intent Comments: Sinus rhythm; short OR interval; flipped T wave in inferior leads [facility] [employer] Comment on above: Sinus rhythm; short OR interval; flipped T wave in inferior leads Start: 09-04-2024 Patient encounter procedure Medical; EXTENDED RTN - ERFU, [facility], acute dehydration, abn EKG, MJP [facility] Start: 04-Sep-2024 09:30-05:00 KINGSTON Carrizales Appointment Request [facility] Start: 08-22-2024 [facility] Start: 08-22-2024 [facility] Start: 07-07-2024 End: 07-06-2025 Progesterone [Mass/volume] in Serum or Plasma Progesterone Lab Routine Infertility associated with anovulation Expected: 07/07/2024, Expires: 07/06/2025 [facility] [place] [facility] Work Phone: Comment on above: Expected: 07/07/2024, Expires: Start: 06-22-2024 End: 06-22-2024 Professional / ancillary services management 06/22/2024 11:30 AM EST Ancillary Procedure [facility] [place] [facility] Physician [facility] Obstetrics and Gynecology [address] [place] [phone] Marylin Bustamante CNM [address] [place] [address] [facility] [place] [facility] Physician [facility] Obstetrics and Gynecology Start: 06-17-2024 End: 06-10-2025 US Pelvis transvaginal US Transvaginal Imaging Routine Female infertility Expected: 06/17/2024, Expires: 06/10/2025 [facility] [place] [facility] Work Phone: Comment on above: Expected: 06/17/2024, Expires: Start: 06-16-2024 Culture bacterial quanttative colony count urine Urine Culture ([id number]) Start: 16-Jun-2024 10:06-05:00 [facility] Start: 06-03-2024 End: 06-01-2025 Progesterone [Mass/volume] in Serum or Plasma Progesterone Lab Routine PCOS (polycystic ovarian syndrome) Female infertility Expected: 06/03/2024, Expires: 06/01/2025 [facility] [place] [facility] Work Phone: Comment on above: Expected: 06/03/2024, Expires: Start: 05-18-2024 End: 05-18-2025 Progesterone [Mass/volume] in Serum or Plasma Progesterone Lab Routine Female infertility Expected: 05/18/2024, Expires: 05/18/2025 [facility] [place] [facility] Work Phone: Comment on above: Expected: 05/18/2024, Expires: Start: 04-14-2024 End: 04-14-2024 Patient encounter procedure 04/14/2024 8:30 AM EDT Office Visit [facility] Obstetrics and Gynecology [address] [place] [phone] Marylin Bustamante CNM [address] [place] [address] [facility] [place] [facility]etrics [facility] Gynecology Start: 04-12-2024 History and physical examination, annual for health maintenance Wellness Visit [facility] [place] [facility] Start: 03-22-2024 COVID-19 Vaccine ( season) COVID-19 Vaccine ( season) [facility] [place] [facility] Start: 03-22-2024 Influenza vaccination Influenza Vaccine (#1) [facility] [place] [facility] Start: 11-18-2023 End: 11-18-2023 Admission to same day surgery center 11/18/2023 7:20 AM EDT - 11/18/2023 9:13 AM EDT Surgery [facility] Periop [address] [place] [phone] Jag Tellez MD [address] [facility] [address] [place] [address] REPAIR HERNIA HIATAL WITH SPHINCTER AUGMENTATION ROBOTIC XI [facility] Periop Comment on above: REPAIR HERNIA HIATAL WITH SPHINCTER AUGM ENTATION ROBOTIC XI Start: 11-18-2023 End: 11-18-2023 Laps rpr paraesphgl hrna incl fundplsty w/o mesh REPAIR HERNIA HIATAL WITH SPHINCTER AUGMENTATION ROBOTIC XI Gastroesophageal reflux disease without esophagitis 11/18/2023 7:20 AM EDT [facility] Main OR Start: 11-18-2023 Subsequent hospital visit by physician 11/18/2023 7:20 AM EDT Hospital Encounter [facility] Periop [address] [place] [phone] Jag Tellez MD [address] [facility] [address] [place] [address] [facility] Start: 11-08-2023 End: 11-08-2023 Patient encounter procedure 11/08/2023 9:00 AM EDT Office Visit [facility] [place] [facility] Physician [facility] Obstetrics and Gynecology [address] [place] [phone] Marylin Bustamante, DEEPTI [address] [place] [address] [facility] [place] [facility] Obstetrics and Gynecology Start: 11-05-2023 End: 11-05-2023 Patient encounter procedure 11/05/2023 9:00 AM EDT Office Visit [facility] Preadmission Testing [address] [place] [phone] Discharge Disposition: Home [facility] Preadmission Testing Start: 10-08-2023 End: 10-08-2023 Admission to same day surgery center [facility] Endoscopy Comment on above: ESOPHAGOGASTRODUODENOSCOPY WITH BIOPSY A ND MiVu ESOPHAGOGASTRODUODEN OSCOPY WITH BIOPSY AND MCCALLUM CHIP Start: 10-08-2023 End: 10-08-2023 Esophagogastroduodenoscopy ESOPHAGOGASTRODUODENOSCOPY Heartburn Gaseous regurgitation Pharyngoesophageal dysphagia Chest pain, non-cardiac Nausea and vomiting, unspecified vomiting type Bloating 10/08/2023 10:20 AM EDT [facility] [place] [facility] Start: 10-08-2023 End: 10-08-2023 Admission to same day surgery center 10/08/2023 8:20 AM EDT - 10/08/2023 8:50 AM EDT Surgery [facility] Endoscopy [address] [place] [phone] Jag Tellez MD [address] [address] ESOPHAGEAL MANOMETRY [facility] Endoscopy Comment on above: ESOPHAGEAL MANOMETRY Start: 10-08-2023 End: 10-08-2023 Esophageal manometry ESOPHAGEAL MANOMETRY Heartburn [R12] Gaseous regurgitation [R14.2] Pharyngoesophageal dysphagia [R13.14] Chest pain, non-cardiac [R07.89] Nausea and vomiting, unspecified vomiting type [R11.2] Bloating [R14.0] 10/08/2023 8:20 AM EDT [facility] [place] [facility] Start: 10-08-2023 Subsequent hospital visit by physician [facility] Start: 09-04-2023 End: 09-04-2023 Patient encounter procedure 09/04/2023 10:00 AM EST Office Visit [facility] [place] [facility] Heartburn [facility] [address] [facility] Medical Office Building, 5th [place] [phone] Dennis Roach, AAKASH [address] [place] [address] Hanna Coley, AAKASH [address] [facility] [address] [place] [address] [facility] [place] [facility] Heartburn [facility] Start: 04-24-2023 End: 04-24-2023 Patient encounter procedure 04/24/2023 9:00 AM EDT Office Visit [facility] Gastroenterology [address] [place] [address] Dennis Roach CNP [address] [place] [address] [facility] Start: 04-12-2023 End: 04-12-2023 Admission to same day surgery center 04/12/2023 8:50 AM EDT - 04/12/2023 9:20 AM EDT Surgery [facility] Periop [address] [place] [address] Leopoldo Negron MD [address] [place] [address] ESOPHAGOGASTRODUODENOSCOPY [facility] Periop Comment on above: ESOPHAGOGASTRODUODENOSCOPY Start: 04-12-2023 End: 04-12-2023 Esophagogastroduodenoscopy ESOPHAGOGASTRODUODENOSCOPY Chronic abdominal pain Gastroesophageal reflux disease, unspecified whether esophagitis present Nausea 04/12/2023 8:50 AM EDT [facility] [place] [facility] Start: 04-12-2023 Subsequent hospital visit by physician 04/12/2023 8:50 AM EDT Hospital Encounter [facility] Periop [address] [place] [address] Leopoldo Negron MD [address] [place] [address] [facility] Periop Start: 03-22-2023 COVID-19 Vaccine ( season) COVID-19 Vaccine ( season) [facility] [place] [facility] Start: 03-22-2023 Influenza vaccination Sequential Influenza Vaccine (#1) [facility] [place] [facility] Start: 08-31-2022 Cul bact stool aerobic addl pathogens&id ea [employer] [facility] [employer] Start: 08-31-2022 Cul bact stool aerobic isol salmonella&shigell [employer] Start: 08-31-2022 Iaad ia giardia [employer] Start: 08-31-2022 Ova&parasites direct smears concentration & id [employer] Start: 08-31-2022 Lactoferrin fecal qualitative [employer] Start: 08-31-2022 Fat/lipids feces qualitative [employer] Start: 02-19-2021 Tetanus vaccination Tetanus: Every 10yrs [facility] [place] [facility] Start: 11-05-2019 Screening for malignant neoplasm of cervix Pap Smear [facility] [place] [facility] Start: 10-21-2019 Us pelvic nonobstetric real-time image complete [facility] (50271) Start: 21-Oct-2019 Intent [employer] Start: 2016 Hepatitis C screening [facility]atitis C Screening [facility] Start: 2013 HIV screening HIV Screening [facility] Start: 2013 Vaccination for human papillomavirus HPV Vaccines (1 - 3-dose series) [facility] Start: 2010 Depression screening using PHQ-9 (Patient Health Questionnaire 9) score [facility] Start: 2009 Vaccination for human papillomavirus HPV Vaccines (1 - 2-dose series) [facility] Start: 2001 History and physical examination, annual for health maintenance Wellness Visit [facility] [place] [facility] Start: 05-06-1999 COVID-19 Vaccine (#1) COVID-19 Vaccine (#1) [facility] [place] [facility] Start: 1998 Screening for Chlamydia trachomatis Chlamydia Screening [facility] [place] [facility] Start: 1998 Tetanus vaccination Tetanus: Every 10yrs [facility] [place] [facility] End: 03-05-2024 B12/Folate B12/Folate Lab Routine Epigastric pain Nausea Bloating Change in bowel habits 1 Occurrences starting 03/05/2023 until 03/05/2024 [facility] [place] [facility] Comment on above: 1 Occurrences starting 03/05/2023 until 03/05/2024 End: 03-05-2024 CBC panel - Blood by Automated count CBC Lab Routine Epigastric pain Nausea Bloating Change in bowel habits 1 Occurrences starting 03/05/2023 until 03/05/2024 [facility] [place] [facility] Comment on above: 1 Occurrences starting 03/05/2023 until 03/05/2024 End: 01-08-2026 Choriogonadotropin [Units/volume] in Serum or Plasma hCG, Blood, Quantitative Lab Routine Amenorrhea 1 Occurrences starting 01/08/2025 until 01/08/2026 [facility] [place] [facility] Work Phone: Comment on above: 1 Occurrences starting 01/08/2025 until 01/08/2026 End: 03-05-2024 Comprehensive metabolic 2000 panel - Serum or Plasma Comprehensive Metabolic Panel Lab Routine Epigastric pain Nausea Bloating Change in bowel habits 1 Occurrences starting 03/05/2023 until 03/05/2024 [facility] [place] [facility] Comment on above: 1 Occurrences starting 03/05/2023 until 03/05/2024 End: 03-05-2024 Computed tomography of abdomen and pelvis with contrast CT Abdomen Pelvis With Contrast Imaging Routine Epigastric pain Nausea Bloating Change in bowel habits RLQ abdominal pain 1 Occurrences starting 03/05/2023 until 03/05/2024 [facility] [place] [facility] Work Phone: Comment on above: 1 Occurrences starting 03/05/2023 until 03/05/2024 Esophageal manometry ESOPHAGEAL MANOMETRY Heartburn Gaseous regurgitation Pharyngoesophageal dysphagia Chest pain, non-cardiac Nausea and vomiting, unspecified vomiting type Bloating [facility] [place] [facility] Esophagogastroduodenoscopy ESOPH AGOGASTRODUODENOSCOPY Heartburn Gaseous regurgitation Pharyngoesophageal dysphagia Chest pain, non-cardiac Nausea and vomiting, unspecified vomiting type Bloating [facility] [place] [facility] End: 03-05-2024 Gastrointestinal pathogens DNA and RNA panel - Stool by [employer] with non-probe detection Stool/GI PCR Panel Microbiology Routine Epigastric pain Nausea Bloating Change in bowel habits 1 Occurrences starting 03/05/2023 until 03/05/2024 [facility] [place] [facility] Comment on above: 1 Occurrences starting 03/05/2023 until 03/05/2024 Microscopic examinat ion of vaginal Papanicolaou smear Thinprep Pap Smear Pathology and Cytology Routine Well woman exam with routine gynecological exam 04/12/2023 11:00 AM EDT [facility] [place] [facility] Work Phone: Patient Education ED Dehydration (Adult) ED Post Op Wound Check, Pain [facility] Work Phone: Patient referral [facility] Work Phone: End: 10-23-2025 Progesterone [Mass/volume] in Serum or Plasma Progesterone Lab Routine Female infertility 1 Occurrences starting 10/23/2024 until 10/23/2025 [facility] [place] [facility] Work Phone: Comment on above: 1 Occurrences starting 10/23/2024 until 10/23/2025 End: 03-05-2024 Thyrotropin [Units/volume] in Serum or Plasma TSH with Reflex Free T4 Lab Routine Epigastric pain Nausea Bloating Change in bowel habits 1 Occurrences starting 03/05/2023 until 03/05/2024 [facility] [place] [facility] Comment on above: 1 Occurrences starting 03/05/2023 until 03/05/2024 End: 03-05-2024 Tissue transglutaminase IgA measurement Tissue Transglutaminase, IgA Lab Routine Epigastric pain Nausea Bloating Change in bowel habits 1 Occurrences starting 03/05/2023 until 03/05/2024 [facility] [place] [facility] Comment on above: 1 Occurrences starting 03/05/2023 until 03/05/2024 End: 11-06-2025 US Pelvis transvaginal US Transvaginal Imaging Routine Female infertility RLQ abdominal pain PCOS (polycystic ovarian syndrome) 1 Occurrences starting 11/06/2024 until 11/06/2025 [facility] [place] [facility] Work Phone: Comment on above: 1 Occurrences starting 11/06/2024 until 11/06/2025 End: 03-05-2024 Vitamin D, 1,25-dihydroxy measurement Vitamin D 1,25 Dihydroxy Lab Routine Epigastric pain Nausea Bloating Change in bowel habits 1 Occurrences starting 03/05/2023 until 03/05/2024 [facility] [place] [facility] Comment on above: 1 Occurrences starting 03/05/2023 until 03/05/2024 Immunizations Immunization Date Immunization Notes Care Provider Mike almanzar 05-07-2023 influenza virus vaccine, unspecified formulation Marylin Bustamante CN Work Phone: [facility] [place] [facility] 01-25-2016 Meningococcal, MCV4, unspecified conjugate formulation(groups A, C, Y and W-135) Zayra Carrizales PA-C Work Phone: [employer]; [employer] 01-25-2016 meningococcal polysaccharide (groups A, C, Y and W-135) diphtheria toxoid conjugate vaccine (MCV4P) Zayra Carrizales PA-C Work Phone: [employer]; [employer]. Comment on above: Site: Deltoid (Left) VIS Given: * Meningococcal Vaccine (10/20/2015) 02-19-2011 tetanus toxoid, redu todd diphtheria toxoid, and acellular pertussis vaccine, adsorbed Zayra Carrizales PA-C Work Phone: [employer]; [employer] 02-02-2004 diphtheria, tetanus toxoids and acellular pertussis vaccine, 5 pertussis antigens Zayra Carrizales PA-C Work Phone: [employer]; [employer] 02-02-2004 measles, mumps and rubella virus vaccine Zayra Carrizales PA-C Work Phone: [employer] 02-02-2004 poliovirus vaccine, inactivated Zayra Carrizales PA-C Work Phone: [employer] 10-18-2000 diphtheria, tetanus toxoids and acellular pertussis vaccine, 5 pertussis antigens Zayra Carrizales PA-C Work Phone: [employer]; [employer] 10-18-2000 poliovirus vaccine, inactivated Zayra Carrizales PA-C Work Phone: [facility] 04-15-2000 haemophilus influenz ae type b vaccine, PRP-T conjugate Zayra Carrizales PA-C Work Phone: [facility] 04-15-2000 measles, mumps and rubella virus vaccine Zayra Carrizales PA-C Work Phone: [facility] 11-08-1999 hepatitis B vaccine, pediatric or pediatric/adolescent dosage Zayra Carrizales PA-C Work Phone: [facility] 05-16-1999 diphtheria, tetanus toxoids and acellular pertussis vaccine, 5 pertussis antigens Zayra Carrizales PA-C Work Phone: [facility] 05-16-1999 haemophilus influenz ae type b vaccine, PRP-T conjugate Zayra Carrizales PA-C Work Phone: [facility] 03-23-1999 diphtheria, tetanus toxoids and acellular pertussis vaccine, 5 pertussis antigens Zayra Carrizales PA-C Work Phone: [facility] 03-23-1999 haemophilus influenz ae type b vaccine, PRP-T conjugate Zayra Carrizales PA-C Work Phone: [facility] [place].; [facility] 03-23-1999 poliovirus vaccine, inactivated Zayra Carrizales PA-C Work Phone: [facility] 01-06-1999 diphtheria, tetanus toxoids and acellular pertussis vaccine, 5 pertussis antigens Zayra Carrizales PA-C Work Phone: [facility] 01-06-1999 haemophilus influenz ae type b vaccine, PRP-T conjugate Zayra Carrizales PA-C Work Phone: [facility] 01-06-1999 poliovirus vaccine, inactivated Zayra Carrizales PA-C Work Phone: [facility] 2000 hepatitis B vaccine, pediatric or pediatric/adolescent dosage Zayra Carrizales PA-C Work Phone: [facility] 2000 hepatitis B vaccine, pediatric or pediatric/adolescent dosage Zayra Carrizales PA-C Work Phone: [facility] NEGATED: Highlighted row has not occurred! varicella virus vaccine Zayra Carirzales PA-C Work Phone: [facility]; [facility] Payers Date Payer Category Payer Self-pay [id number] 2024 Unknown [id number] 2022 Blue Cross Blue Shield 1.2.8 [id number] 2022 Unknown [id number] 2022 Unknown [id number] 1998 Unknown [id number] 2.16.84 [id number] 1998 Unknown [id number] 2.16.84 0.1.693430.3.579.2.651 1998 Unknown [id number] 2.16. 840.1.097117.3.579.2.903 1998 Unknown [id number] 2.16. 840.1.774910.3.579.2.903 1998 Unknown [id number] 2.16. 840.1.809695.3.579.2.903 1998 Unknown [id number] 2.16. 840.1.179570.3.579.2.903 1998 Unknown [id number] 2.16. 840.1.162594.3.579.2.903 1998 Unknown [id number] 2.16. 840.1.009506.3.579.2.90 1998 Unknown [id number] 2.16. 840.1.656725.3.579.2.903 1998 Unknown [id number] 2.16. 840.1.342226.3.579.2. 1998 Unknown [id number] 2.16. 840.1.309486.3.579.2.903 1998 Unknown [id number] 2.16. 840.1.328616.3.579.2.903 1959 Unknown [id number] Unknown [id number] 16. 40.1.765748.3.579.2.462 Unknown [id number] 16. 40.1.787202.3.579.2.462 Unknown [id number] 16. 40.1.423572.3.579.2.462 Unknown [id number] 16. 40.1.979132.3.579.2.462 Unknown [id number] 16.8 40.1.374041.3.579.2.462 Unknown [id number] 16.8 40.1.058534.3.579.2.462 Unknown [id number] 216. 40.1.500395.3.579.2.462 Social History Date Type Detail Facility Start: 06-10-2019 Tobacco smoking stat us NHIS Unknown if ever smoked [facility] Start: 06-10-2019 Non-smoker [facility] Start: 2000 Sex Assigned At Female [facility] Start: 03-04-2023 End: 08-22-2024 Tobacco smoking status NHIS Never smoked tobacco [facility] Start: 03-04-2023 Tobacco use and exposure Smokeless tobacco non-user [facility] Start: 03-04-2023 End: 11-30-2024 Alcohol intake Ex-drinker (finding) [facility] Start: 03-04-2023 End: 11-30-2024 History of Social function [employer] Start: 03-04-2023 End: 11-30-2024 Tobacco use panel [facility] Start: 03-04-2023 Alcohol Comment socially [facility] Start: 2000 [facility] Use: Tobacco Use: ; N ever smoker. [employer] App; [employer]. Start: 10-17-2024 Sex Female (finding) [facility] Start: 11-20-2024 Alcohol Comment rare [facility] Medical Equipment Procedure Code Equipment Code Equipment Origin al Text Equipment Identifier Dates M[facility]all[facility] Cf Capsule [id number] [facility] Start: 10-08-2023 Comment on above: Description: Mccallum [...] AUTHENTICATED BY ZAYRA FLORES, ON 11/30/2024 21:18:15 [facility] 11-30-2024 History of Present illness Narrative Subjective [...] Zayra Flores MD documented in this encounter [facility] 11-20-2024 Note Pre-Operative H&P Assessment and Plan RLQ abdominal pain Surgery Information ID Date/Time Status Primary Surgeon All Procedures Location [id number] 11/24/2024 1313 Scheduled Zayra Flores MD PELVISCOPY ROBOTIC XI with CHROMOTUBATION WITH PELVIC IRRIGATION [facility] Female infertility . Gastroesophageal reflux disease Continue omeprazole perioperatively. Preop examination Patient is medically acceptable for planned surgery. She denies known cardiovascular or cerebrovascular conditions. She describes a greater than 4 mets of functional capacity without symptoms of shortness of breath or chest pain. 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[facility]) 04/12/2023 Coronary artery disease 04/12/2023 Deep vein thrombosis ([facility]) 04/12/2023 Depression 04/12/2023 Diabetes mellitus ([facility]) 04/12/2023 Endometrial cancer ([facility]) 04/12/2023 Fibroid 04/12/2023 Gestational diabetes 04/12/2023 Gonorrhea 04/12/2023 Herpes 04/12/2023 History of transfusion 04/12/2023 HIV disease ([facility]) 04/12/2023 HPV (human papilloma virus) infection 04/12/2023 Hypertension 04/12/2023 Infectious viral hepatitis 04/12/2023 Liver disease 04/12/2023 Lupus 04/12/2023 Migraine 04/12/2023 Myocardial infarction ([facility]) 04/12/2023 Ovarian cancer (HCC) 04/12/2023 PID (pelvic inflammatory disease) 04/12/2023 Preeclampsia 04/12/2023 Psychosis ([facility]) 04/12/2023 Pulmonary embolism ([facility]) 04/12/2023 Recurrent loss, antepartum condition or complication 04/12/2023 Rh incompatibility 04/12/2023 Seizures ([facility]) 04/12/2023 Sickle cell anemia ([facility]) 04/12/2023 Sickle cell trait 04/12/2023 STD (sexually transmitted disease) 04/12/2023 Stroke ([facility]) 04/12/2023 Substance abuse ([facility]) 04/12/2023 Syphilis 04/12/2023 Trauma 04/12/2023 Tuberculosis 04/12/2023 Urogenital trichomoniasis 04/12/2023 Uterine cancer (HCC) 04/12/2023 Varicella 04/12/2023 Past Surgical History: Procedure Laterality Date COLONOSCOPY 2018 [facility] EGD N/A 03/13/2023 Procedure: ESOPHAGOGASTRODUODENOSCOPY with biopsy; Surgeon: Leopoldo Negron MD; Location: [facility]; Service: Gastroenterology EGD N/A 10/08/2023 Procedure: ESOPHAGOGASTRODUODENOSCOPY WITH BIOPSY (PTEK) AND MCCALLUM CHIP; Surgeon: Jag Tellez MD; Location: Endo; Service: General Surgery ESOPHAGEAL MANOMETRY N/A 10/08/2023 Procedure: ESOPHAGEAL MANOMETRY; Surgeon: Jag Tellez MD; Location: Endo; Service: General Surgery TONSILLECTOMY Social History Tobacco [...] Prior to Admiss (more content not included)... [facility] 11-06-2024 Note Subjective Patient ID: Kathleen Weinberg [...] AUTHENTICATED BY ZAYRA FLORES, ON 11/09/2024 13:48:13 [facility] 11-06-2024 History of Present illness Narrative Subjective [...] Zayra Flores MD documented in this encounter [facility] 10-12-2024 Note Subjective Patient I D: Kathleen Weinberg is a 23 y.o. female here for Chief Complaint Patient presents with Painful [place] Extreme pain and bleeding during intercourse. Then causes pain with BM and passing gas. Not . After discussing the use of ambient listening and audio recording in generating medical documentation, the patient verbally consented to use of this technology for today's visit. History of Present Illness The patient is a 23-year-old female who presents for a PMO PROJECT MANAGER problem visit. Two weeks ago, she experienced [...] result in , a referral to an ob-fisheries specialist will be considered for further evaluation and [...] 4 weeks (around 11/09/2024) for consultation with fisheries specialist regarding pain. AUTHENTICATED BY MARYLIN BUSTAMANTE, ON 10/12/2024 14:11:08 [facility] 10-12-2024 History of Present illness Narrative Subjective Patient ID: Kathleen Weinberg is a 23 y.o. female here for Chief Complaint Patient presents with Painful [place] Extreme pain and bleeding during intercourse. Then causes pain with BM and passing gas. Not . After discussing the use of ambient listening and audio recording in generating medical documentation, the patient verbally consented to use of this technology for today's visit. History of Present Illness The patient is a 23-year-old female who presents for a PMO PROJECT MANAGER problem visit. Two weeks ago, she experienced [...] result in , a referral to an ob-fisheries specialist will be considered for further evaluation and [...] 4 weeks (around 11/09/2024) for consultation with fisheries specialist regarding pain. documented in this encounter [facility] 06-28-2024 Note Subjective Patient ID: Kathleen Weinberg is a 23 y.o. female. Kathleen is here today for fisheries specialist visit. She has been utilizing Letrozole for [...] currently taking Letrozole Marylin Bustamante APRN, CNM AUTHENTICATED BY MARYLIN BUSTAMANTE, ON 06/28/2024 13:15:06 [facility] 06-28-2024 History of Present illness Narrative Subjective Patient ID: Kathleen Weinberg is a 23 y.o. female. Kathleen is here today for fisheries specialist visit. She has been utilizing Letrozole for [...] Bustamante APRN, CNM documented in this encounter [facility] 04-20-2024 Note Well Women Exam Patient Name: Kathleen Weinberg : 2000 MR #: [id number] SUBJECTIVE: Kathleen Weinberg is a 23 y.o. 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 When I saw her last year she was getting ready to have a hiatal hernia repair and Linx surgery. She did opt to have a second opinion with Dr. Shields in [place] and he recommended that she see an [...] currently sexually active. 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 presents for her routine PMO PROJECT MANAGER exam today. Well Women Exam - Reviewed diet and exercise recommendations -Discussed options for ovulation induction, opts for Letrozole, aware of starting with progestero (more content not included)... [facility] 12-02-2023 Note Subjective Patient ID: Kathleen Weinberg [...] on having this with Dr. Shields at [place]. She is currently using condoms for contraception. [...] AUTHENTICATED BY MARYLIN BUSTAMANTE, ON 12/02/2023 19:54:45 [facility] 12-02-2023 History of Present illness Narrative Subjective [...] on having this with Dr. Shields at [place]. She is currently using condoms for contraception. [...] Bustamante APRN, CNM documented in this encounter [facility] 10-23-2023 History of Present illness Narrative [facility] [address]) [facility] [address] [facility] [id number] Kathleen Weinberg is a 22 y.o. female [...] Surgical History: Procedure Laterality Date COLONOSCOPY 2018 [facility] EGD N/A 03/13/2023 Procedure: ESOPHAGOGASTRODUODENOSCOPY with biopsy; Surgeon: Leopoldo Negron MD; Location: [facility]; Service: Gastroenterology EGD N/A 10/08/2023 Procedure: ESOPHAGOGASTRODUODENOSCOPY WITH BIOPSY (PTEK) AND MCCALLUM CHIP; Surgeon: Jag Tellez MD; Location: [facility]; Service: General Surgery ESOPHAGEAL MANOMETRY N/A 10/08/2023 Procedure: ESOPHAGEAL MANOMETRY; Surgeon: Jag Tellez MD; Location: [facility]; Service: General Surgery Allergies Allergen Reactions Latex [...] Jag Tellez MD documented in this encounter [facility] 09-04-2023 History of Present illness Narrative [facility] [address] [facility] [address] [facility] [id number] Patient Name: Kathleen Weinberg Age: 22 y.o. [...] Surgical History: Procedure Laterality Date COLONOSCOPY 2018 [facility] EGD N/A 03/13/2023 Procedure: ESOPHAGOGASTRODUODENOSCOPY with biopsy; Surgeon: Leopoldo Negron MD; Location: [facility]; Service: Gastroenterology Allergies Allergen Reactions Latex [...] resolution Manometry with Impedance and Interpretation with MiRaffaele Coley CNP documented in this encounter [facility] 09-04-2023 History of Present illness Narrative [facility] [address]) [facility] [address] [facility] [id number] Patient Name: Kathleen Weinberg Age: 22 y.o. [...] Surgical History: Procedure Laterality Date COLONOSCOPY 2018 [facility] EGD N/A 03/13/2023 Procedure: ESOPHAGOGASTRODUODENOSCOPY with biopsy; Surgeon: Leopoldo Negron MD; Location: [facility]; Service: Gastroenterology Allergies Allergen Reactions Latex Hives [...] Hanna Coley CNP documented in this encounter [facility] 09-04-2023 History of Present illness Narrative [facility] [address] [facility] [address] [facility] [phone] Patient Name: Kathleen Weinberg Age: [...] Surgical History: Procedure Laterality Date COLONOSCOPY 2018 [facility] EGD N/A 03/13/2023 Procedure: ESOPHAGOGASTRODUODENOSCOPY with biopsy; Surgeon: Leopoldo Negron MD; Location: [facility]; Service: Gastroenterology Allergies Allergen Reactions Latex [...] Hanna Coley CNP documented in this encounter [facility] 04-24-2023 History of Present illness Narrative Kathleen Ramos Lenard 22 y.o. 2000 female Changes since last [...] Surgical History: Procedure Laterality Date COLONOSCOPY 2018 [facility] EGD N/A 03/13/2023 Procedure: ESOPHAGOGASTRODUODENOSCOPY with biopsy; Surgeon: Leopoldo Negron MD; Location: [facility]; Service: Gastroenterology Social History: Social History [...] Report 04/12/2023 Final Value:Gynecologic Cytology Report Case: [id number] Authorizing Provider: Marylin Bustamante CNM Collected: 04/12/2023 11:00 AM Ordering Location: [facility] Received: 04/18/2023 11:00 AM Obstetrics and Gynecology First Screen: Gustavo AGUIAR(ASCP), Beverly Garcia Specimen: THINPREP PAP SMEAR, Cervix / Endocervix [...] from every slide are reviewed by a button attaching machine operator. Specimen processing and Primary Screening performed at: [facility] [place] [address] LMP 04/12/2023 03/11/2023 Final Trichomonas vaginalis 04/12/2023 [...] Final Estimated GFR was calculated using the 2021 CKD-EPI creatinine equation. BUN/Creatinine Ratio 03/28/2023 16.7 [...] The following results were obtained with the [employer] Flash h-tTG IgA chemiluminescent immunoassay. Values obtained [...] Call with 2-week update regarding symptoms Dennis Roach CNP Please note: Portions of this chart may have been created with Red e App voice recognition software. Occasional wrong-word or sound-like substitutions may have occurred due to inherent limitations of the voice recognition software. Please read the chart carefully and recognize, using context, where the substitutions have occurred. documented in this encounter [facility] 04-12-2023 History of Present illness Narrative [facility] Women Exam Patient Name: Kathleen Weinberg : 2000 MR #: [id number] SUBJECTIVE: Kathleen Weinberg is a 22 y.o. here for [facility] Women's exam today. Chief Complaint Patient presents with Establish Care new patient, Hx PCOS with irregular periods and hormonal imbalances. periods cause severe pain and are very heavy. frequent UTIs. change in vaginal discharge. I'm having a lot of discharge that is yellow and has a bad odor. I'm concerned for BV. burning and pain during sex. Pap 2020, normal. Prev PMO PROJECT MANAGER with PCP - [facility]. No hx abnormal pap. Not on control now, was on pill, stopped 2 years ago. Kathleen is here today for annual fisheries specialist exam. 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 She is to [place]. She has [...] currently sexually active. 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 presents for her routine PMO PROJECT MANAGER exam today. Well Women Exam - Pap smear without cotesting, - Discussed hormonal options for controlling irregular periods, patient not interested at this time, but aware she can reach out to me if she changes her mind - RTO 12 months for routine PMO PROJECT MANAGER exam or sooner as needed Diagnoses and all orders for this visit: Well woman exam with routine gynecological exam - Thinprep Pap Smear Vaginal discharge - Vaginitis DNA Probes; Future - Vaginitis DNA Probes Marylin Bustamante CNM documented in this encounter [facility] 03-05-2023 Note Addended by: DENNIS ROACH on: 03/05/2023 02:56 PM Modules accepted: Orders [facility] 03-05-2023 Miscellaneous Notes Addended by: DENNIS ROACH on: 03/05/2023 02:56 PM Modules accepted: Orders documented in this encounter [facility] 03-04-2023 History of Present illness Narrative Kathleen [...] other recent labs and work-up completed at [facility]. Past Medical History: Past Medical History: Diagnosis Date Amenorrhea Anxiety Chronic abdominal pain Eating disorder GERD (gastroesophageal reflux disease) History of stomach ulcers IBS (irritable bowel syndrome) with constipation Irregular menses Low vitamin D level PCOS (polycystic ovarian syndrome) Pelvic pain Urinary retention Vitamin D deficiency Surgical History & Procedures: Past Surgical History: Procedure Laterality Date COLONOSCOPY 2019 [facility] Social History: Social History Socioeconomic History Marital [...] Scheduled for EGD with Dr. Negron at [facility] on 04/12/2023 at 9 AM We will [...] this chart may have been created with Dragon voice recognition software. Occasional wrong-word or sound-like substitutions may have occurred due to inherent limitations of the voice recognition software. Please read the chart carefully and recognize, using context, where the substitutions have occurred. documented in this encounter [facility] 03-04-2023 Instructions Dennis Roach CNP - 03/04/2023 [...] sent through Care Everywhere.EGD (Upper Endoscopy): Pre-op (Georgian)Gas and Bloating (Georgian)documented in this encounter [facility] Evaluation [facility] Work [facility]: Evaluation note Diagnosis Gastroesophageal [...] Nausea Nausea alone [facility] Well [facility] exam with routine gynecological exam- Primary Routine gynecological examination Vaginal discharge Leukorrhea, not specified as infective [facility] Diagnosis Duodenal gastroesophageal reflux- Primary Gastroesophageal reflux disease with esophagitis without hemorrhage Irritable bowel syndrome with both constipation and diarrhea [facility] Diagnosis Gastroesophageal reflux disease, unspecified whether esophagitis present- Primary [facility] Diagnosis Heartburn- Primary Gaseous regurgitation Flatulence, eructation, and gas pain Pharyngoesophageal dysphagia Dysphagia, pharyngoesophageal phase Chest pain, non-cardiac Other chest pain Nausea and vomiting, unspecified vomiting type Bloating Flatulence, eructation, and gas pain [facility] Diagnosis Heartburn- Primary Gaseous regurgitation Flatulence, eructation, and gas pain Pharyngoesophageal dysphagia Dysphagia, pharyngoesophageal phase Chest pain, non-cardiac Other chest pain Nausea and vomiting, unspecified vomiting type Bloating Flatulence, eructation, and gas pain Gastroesophageal reflux disease Esophageal reflux [facility] Diagnosis Heartburn- Primary Gaseous regurgitation Flatulence, [...] and gas pain [facility] Diagnosis Gastroesophageal reflux disease without esophagitis- Primary Esophageal reflux Gastroesophageal reflux disease without esophagitis Esophageal reflux [facility] Diagnosis Menorrhagia with irregular cycle- Primary PMDD (premenstrual dysphoric disorder) Premenstrual tension syndromes [facility] Diagnosis Female infertility- Primary Female infertility of unspecified origin [facility] Diagnosis Female infertility- Primary Female infertility of unspecified origin [facility] Diagnosis PCOS (polycystic ovarian syndrome) Polycystic ovaries [facility] Diagnosis PCOS (polycystic ovarian syndrome)- Primary Polycystic ovaries Female infertility Female infertility of unspecified origin [facility] PCOS (polycystic ovarian syndrome) Polycystic ovaries [facility] Diagnosis PCOS (polycystic ovarian syndrome) Polycystic ovaries [facility] Diagnosis RLQ abdominal pain- Primary Abdominal pain, right lower quadrant [facility] Diagnosis Infertility associated with anovulation- Primary [facility]* Diagnosis Dyspareunia, female- Primary History of lump of right breast [facility] Diagnosis Female infertility- Primary Female infertility of unspecified origin [facility] Diagnosis Female infertility- Primary Female infertility of unspecified origin RLQ abdominal pain Abdominal pain, right lower quadrant PCOS (polycystic ovarian syndrome) Polycystic ovaries Female infertility Female infertility of unspecified origin RLQ abdominal pain Abdominal pain, right lower quadrant Female infertility Female infertility of unspecified origin RLQ abdominal pain Abdominal pain, right lower quadrant [facility] RLQ abdominal pain- Primary Abdominal pain, right lower quadrant Female infertility Female infertility of unspecified origin Gastroesophageal reflux disease, unspecified whether esophagitis present Preop examination Unspecified pre-operative examination Postoperative examination- Primary Follow-up examination, following unspecified surgery [facility] Diagnosis RLQ abdominal pain- Primary Abdominal pain, right lower quadrant Female infertility Female infertility of unspecified origin Gastroesophageal reflux disease, unspecified whether esophagitis present Preop examination Unspecified pre-operative examination Amenorrhea- Primary Absence of menstruation documented in this encounter [facility] for referral (narrative)No reason for referral information availableWMarion [facility] Work Phone: Reason for visit Narrative* Consultation (Routine) - Closed Specialty Diagnoses / Procedures Referred By Kiarra t Referred To Contact Gastroenterology Diagnoses Chronic abdominal pain Zayra Carrizales PA-C [address] [place], [place] [id number] Hilda Cavazos, TERMINAL OPERATIONS SUPERVISOR [address] [place] [address] Referral ID Status Reason Start Date Expiration Date Visits Re quested Visits Authorized [id number] Closed 02/20/2023 03/04/2024 1 1 [facility] Summary Purpose Family History No Family History Records Found Relationship Condition Age at Onset Recorded Date/T [...] Ovarian Cancer Status:Active Comments:grandmo ther arthritis Status:Active Comments:grandmisha rents Diabetes Mellitus Type II Status:Active Commen ts:grandfather Ovarian Cancer Status:Active Comments:grandmo ther arthritis Status:Active Comments:grandmisha rents Diabetes Mellitus Type II Status:Active Commen ts:grandfather Ovarian Cancer Status:Active Comments:grandmo ther arthritis Status:Active Comments:grandpa rents Diabetes Mellitus Type II Status:Active Commen ts:grandfather Ovarian Cancer Status:Active Comments:grandmo ther arthritis Status:Active Comments:grandpa rents Diabetes Mellitus Type II Status:Active Commen ts:grandfather Ovarian Cancer Status:Active Comments:grandmo ther Advance Directives No Advanced Directives Records Found Advance Directive Response Recorded Date/ Time Living Will No June 10 1:48pm Power of Master Baker No June 10, 2019 1:48pm Advance Directive Response Recorded Date/ Time Living Will No August 22 6:12pm Do you have a Healthcare Power of Master Baker? No August 22, 2024 6:12pm Date Activated Date Inactivated Comments 11/24/2024 11:50 AM 11/24/2024 6:45 PM Chief Complaint and Reason for Visit Chief Complaint RUQ PAIN Chief Complaint Admit Date CHRONIC TONSILLITIS August 18, 2024 3 :36pm SORE THROAT August 22, 2024 5 :00pm EKG ABNORMALITY October 13, 2024 12: 39pm Reason for Referral Specialty Diagnoses / Procedures Referred By Kiarra muhammad Referred To Contact Radiology Diagnoses Epigastric pain Nausea Bloating Change in bowel habits RLQ abdominal pain Procedures CT Abdomen Pelvis With Contrast Dennis Roach CNP [address] [place] [address] Referral ID Status Reason Start Date Expiration Date V isits Requested Visits Authorized [id number] New Request 03/05/2023 03/04/2024 1 1 Specialty Diagnoses / Procedures Referred By Kiarra muhammad Referred To Contact General Surgery Diagnoses Gastroesophageal reflux disease, unspecified whether esophagitis present Dennis Roach CNP [address] [place] [address] Edilberto Valencia MD [facility] Dane Perkins [address] [address] Referral ID Status Reason Start Date Expiration Date Visits Requested Visits Authorized [id number] Authorized Patient Preference 08/21/2023 08/20/2024 1 1 Additional Source Comments INFORMATION SOURCE (unrecogn ized section and content) DATE CREATED AUTHOR 01/14/2018 [facility] DATE CREATED AUTHOR AUTHOR'S ORGANIZ ATION 01/14/2018 [facility] DATE CREATED AUTHOR AUTHOR'S ORGANIZ ATION 02/16/2020 [facility] DATE CREATED AUTHOR AUTHOR'S ORGANIZ ATION 01/25/2021 [facility] DATE CREATED AUTHOR AUTHOR'S ORGANIZ ATION 08/20/2021 [facility] DATE CREATED AUTHOR AUTHOR'S ORGANIZ ATION 10/03/[address] [facility] DATE CREATED AUTHOR AUTHOR'S ORGANIZ ATION 09/06/2024 [facility] DATE CREATED AUTHOR AUTHOR'S ORGANIZ ATION 10/31/2024 [facility] DATE CREATED AUTHOR AUTHOR'S ORGANIZ ATION 12/01/2024 [facility] DATE CREATED AUTHOR AUTHOR'S ORGANIZ ATION 12/04/2024 [facility] DATE CREATED AUTHOR AUTHOR'S ORGANIZ ATION 01/11/2025 [facility] Care Teams (unrecognized sec tion and content) Team Status: Active Member Role Status Dates Dr. Zev Mckinney MD Family Provider Active MISHA Timmons Primary Care Provider Active Team Status: Inactive Member Role Status Dates MISHA Timmons Primary Care Provider, Attending Provider Active Molder Fitting Relationship Specialty Start Date End Date Zayra Carrizales PA-C [address] [place] [id number] PCP - General Physician Computer Operator 02/20/23 Molder Fitting Relationship Specialty Start Date End Date Zayra Carrizales PA-C [address] [place] [address] PCP - General Physician Computer Operator 02/20/23 Molder Fitting Relationship Specialty Start Date End Date Zayra Carrizales PA-C [address] [place] [phone] PCP - General Physician Computer Operator 02/20/23 Molder Fitting Relationship Specialty Start Date End Date Zayra Carrizales PA-C [address] [place], [place] [id number] PCP - General Physician Computer Operator 02/20/23 Molder Fitting Relationship Specialty Start Date End Date Zayra Carrizales PA-C [address] [place], [place] [phone] PCP - General Physician Computer Operator 02/20/23 Dennis Roach CNP [address] [place] [address] Referring Physician Gastroenterology 08/21/23 Molder Fitting Relationship Specialty Start Date End Date Zayra Carrizales PA-C [address] [place] [phone] PCP - General Physician Computer Operator 02/20/23 Dennis Roach CNP [address] [place] [address] Referring Physician Gastroenterology 08/21/23 Molder Fitting Relationship Specialty Start Date End Date Zayra Carrizales PA-C [address] [place] [phone] PCP - General Physician Computer Operator 02/20/23 Dennis Roach CNP [address] [place] [address] Referring Physician Gastroenterology 08/21/23 Molder Fitting Relationship Specialty Start Date End Date Zayra Carrizales PA-C [address] [place] [address] PCP - General Physician Computer Operator 02/20/23 Dennis Roach CNP [address] [place] [address] Referring Physician Gastroenterology 08/21/23 Molder Fitting Relationship Specialty Start Date End Date Zayra Carrizales PA-C [address] [place], [place] [phone] PCP - General Physician Computer Operator 02/20/23 Dennis Roach CNP [address] [place] [address] Referring Physician Gastroenterology 08/21/23 Molder Fitting Relationship Specialty Start Date End Date Zayra Carrizales PA-C [address] [place] [phone] PCP - General Physician Computer Operator 02/20/23 Dennis Roach CNP [address] [place] [address] Referring Physician Gastroenterology 08/21/23 Molder Fitting Relationship Specialty Start Date End Date Zayra Carrizales PA-C [address] [place] [id number] PCP - General Physician Computer Operator 02/20/23 Dennis Roach CNP [address] [place] [address] Referring Physician Gastroenterology 08/21/23 Molder Fitting Relationship Specialty Start Date End Date Zayra Carrizales PA-C [address] [place] [address] PCP - General Physician Computer Operator 02/20/23 Dennis Roach, AAKASH [address] [place] [address] Referring Physician Gastroenterology 08/21/23 Zach Shields MD [address] [place] [address] General Surgery 11/25/23 Molder Fitting Relationship Specialty Start Date End Date Zayra Carrizales PA-C [address] [place] [address] PCP - General Physician Computer Operator 02/20/23 Dennis Roach CNP [address] [place] [address] Referring Physician Gastroenterology 08/21/23 Zach Shields MD [address] [place] [address] General Surgery 11/25/23 Molder Fitting Relationship Specialty Start Date End Date Zayra Carrizales PA-C [address] [place] [id number] PCP - General Physician Computer Operator 02/20/23 Dennis Roach CNP [address] [place] [address] Referring Physician Gastroenterology 08/21/23 Zach Shields MD [address] [place] [address] General Surgery 11/25/23 Molder Fitting Relationship Specialty Start Date End Date Zayra Carrizales PA-C [address] [place] [address] PCP - General Physician Computer Operator 02/20/23 Dennis Roach, AAKASH [address] [place] [address] Referring Physician Gastroenterology 08/21/23 Zach Shields MD [address] [place] [address] General Surgery 11/25/23 Molder Fitting Relationship Specialty Start Date End Date Zayra Carrizales PA-C [address] [place] [address] PCP - General Physician Computer Operator 02/20/23 Dennis Roach, AAKASH [address] [place] [address] Referring Physician Gastroenterology 08/21/23 Zach Shields MD [address] [place] [address] General Surgery 11/25/23 Team Status: Active Member Role Status Dates Zayra CABRAL, PA Primary Care Provider Active Team Status: Inactive Member Role Status Dates Zayra Carrizales PA, PA Primary Care Provider Active Start: August 18, 2024 End: August 18, 2024 Dr. Rod Bernardo MD Attending Provider Activ e Start: August 18, 2024 End: August 18, 2024 Dr. Rod Bernardo MD Referring Provider Activ e Start: August 18, 2024 End: August 18, 2024 Team Status: Inactive Member Role Status Dates Zayra CABRAL PA Primary Care Provider Active Start: August 22, 2024 End: August 22, 2024 Dr. Lizbeth Nolasco DO Attending Provider Active Start: August 22, 2024 End: August 22, 2024 Dr. Lizbeth Nolasco DO Emergency Provider Active Start: August 22, 2024 End: August 22, 2024 Team Status: Inactive Member Role Status Dates Zayra Carrizales PA, PA Primary Care Provider Active Start: October 13, 2024 End: October 13, 2024 Zayra CABRAL PA Attending Provider Active Start: October 13, 2024 End: October 13, 2024 Zayra CABRAL, PA Referring Provider Active Start: October 13, 2024 End: October 13, 2024 Team Status: Active Member Role Status Dates Zayra CABRAL PA Primary Care Provider Active Start: October 13, 2024 Dr. Ruy Silver MD Attending Provider Active S tart: October 13, 2024 Molder Fitting Relationship Specialty Start Date End Date Zayra Carrizales PA-C [address] [place] [address] PCP - General Physician Computer Operator 02/20/23 Dennis Roach CNP [address] [place] [address] Referring Physician Gastroenterology 08/21/23 Zach Shields MD [address] [place] [address] General Surgery 11/25/23 Molder Fitting Relationship Specialty Start Date End Date Zayra Carrizales PA-C [address] [place] [id number] PCP - General Physician Computer Operator 02/20/23 Dennis Roach CNP [address] [place] [address] Referring Physician Gastroenterology 08/21/23 Zach Shields MD [address] [facility] [place] [address] General Surgery 11/25/23 Molder Fitting Relationship Specialty Start Date End Date Zayra Carrizales PA-C [address] [place] [address] PCP - General Physician Computer Operator 02/20/23 Dennis Roach CNP [address] [place] [address] Referring Physician Gastroenterology 08/21/23 Zach Shields MD [address] [facility] [place] [address] General Surgery 11/25/23 Molder Fitting Relationship Specialty Start Date End Date Zayra Carrizales PA-C [address] [place] [address] PCP - General Physician Computer Operator 02/20/23 Dennis Roach, AAKASH [address] [place] [address] Referring Physician Gastroenterology 08/21/23 Zach Shields MD [address] [place] [address] General Surgery 11/25/23 Goals (unrecognized section and [...] pain during sex. Pap 2020, normal. 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 No hx abnormal pap. Not on control now, was on pill, stopped 2 years ago. Reason Comments Chest Pain regurgitation Nausea Dysphagia Specialty Diagnoses / Procedures Referred By Kiarra muhammad Referred To Contact General Surgery Diagnoses Gastroesophageal reflux disease, unspecified whether esophagitis present Dennis Roach, TERMINAL OPERATIONS SUPERVISOR [address] [place] [address] Edilberto Valencia MD [facility] Dane Perkins [facility] [address] [place] [address] Referral ID Status Reason Start Date Expiration Date Visits Requested Visits Authorized [id number] Closed Patient Preference 08/21/2023 08/20/2024 1 1 [...] emen analysis. US f/u. Reason Comments Painful [place] Extreme pain and ble eding during intercourse. Then causes pain with BM and passing gas. Not . 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 [facility]. provides no warranty or guarantee of the accuracy or completeness of information in this document.
--- NOTE | 2025-01-13 20:05 | TILTTABLE_ITS ---
Staff Staff: Onelia Mcclure and Jessica Timmons Summary Pre Test Resting HR: 91 Pre Test Resting BP: 118/88 Minimum Test HR: 81 Maximum Test HR: 93 Minimum Test BP: 105/77 Maximum Test BP: 118/88 Reason for Test Termination: Reached Maximum Test Time Physician Tilt Table Report Patient's Physicians Primary Care Physician: Zayra Carrizales Indications/Diagnosis: Palpitations Procedure Comments: The patient was brought to the noninvasive lab in the postabsorptive nonsedated state. Informed consent was obtained. Initial heart rate and blood pressures were obtained. Initial EKG demonstrated sinus rhythm with a rate of 90 bpm bloo d pressure is 110/71 mmHg. The patient was then put in the 70 degree head upright tilt position. Continuous EKG monitoring was performed. The patient maintained sinus rhythm throughout the recording with minimal symptomatology. Heart rate and blood pressure appeared to be within normal limits. The patient was maintained in this position for 30 minutes with no significant changes. The patient was then put back in the recumbent position. Summary: Conclusion: Normal head upright tilt table test.
[2025-01-13 20:07] VITALS: BP 105/77; BP 118/88
== END | disposition home or self-care (01) ==
LOC: CVS 09:25
PROVIDERS: PCP Physician Assistant; Referring Provider Internal Medicine Cardiovascular Disease; Visit Provider Internal Medicine Cardiovascular Disease
DX: R00.2 Palpitations (principal)
CPT/HCPCS: 93660; A4216